=== PATIENT | male | born 1980 | race Hispanic/Latino ===

== ENCOUNTER 2018-06-03 15:03 | Emergency (ER) | payer SELFPAY ==
--- NOTE | 2018-06-03 17:43 | ER ---
Nurse's Notes [facility] Name: Yehuda Giraldo Age: 37 yrs Sex: Male : 1980 Arrival Date: 06/03/2018 Time: 15:04 Bed 10 Private MD: None, None Diagnosis: Otitis externa in other diseases classified elsewhere, left ear;Acute pharyngitis Presentation: 06/03 15:38 Presenting complaint: Patient states: left ear pain. Denies cough, congestion. aa5 Transition of care: patient was not received from another setting of care. Onset of symptoms was May 2018. Risk Assessment: Do you want to hurt yourself or someone else? Patient reports no desire to harm self or others. Initial Sepsis Screen: Does the patient meet any 2 criteria? No. Patient's initial sepsis screen is negative. Does the patient have a suspected source of infection? No. Patient's initial sepsis screen is negative. Care prior to arrival: None. 15:38 Method Of Arrival: Ambulatory aa5 15:38 Acuity: SARA 5 aa5 Historical: - Allergies: 15:39 No Known Allergies; aa5 - PMHx: 15:39 Diabetes - NIDDM; aa5 - PSHx: 15:39 Cholecystectomy; aa5 - Immunization history:: Adult Immunizations unknown. - Social history:: Smoking status: Patient uses tobacco products, 4 cigarettes a day . - Ebola Screening: : No symptoms or risks identified at this time. Screenin:17 Abuse screen: Denies threats or abuse. Denies injuries from another. Nutritional rv screening: No deficits noted. Tuberculosis screening: No symptoms or risk factors identified. Fall Risk None identified. Assessment: 16:16 General: Appears in no apparent distress. comfortable, Behavior is calm, cooperative. rv Pain: Complains of pain in left ear. Neuro: Level of Consciousness is awake, alert, obeys commands, Oriented to person, place, time, situation. Cardiovascular: Capillary refill < 3 seconds. Respiratory: Airway is patent. GI: No signs and/or symptoms were reported involving the gastrointestinal system. : No signs and/or symptoms were reported regarding the genitourinary system. EENT: Reports pain in left ear. Derm: Skin is intact. Vital Signs: 15:39 BP 132 / 95; Pulse 99; Resp 18 S; Temp 98.4(TE); Pulse Ox 98% on R/A; Weight 101.6 kg aa5 (R); Height 5 ft. 8 in. (172.72 cm) (R); Pain 0/10; 15:39 Body Mass Index 34.06 (101.60 kg, 172.72 cm) aa5 ED Course: 15:04 Patient arrived in ED. sb2 15:05 None, None is Private Physician. sb2 15:38 Triage completed. aa5 15:38 Arm band placed on. aa5 16:03 Artem Lowe PA is PHCP. cp 16:04 Shahid Magana MD is Attending Physician. cp 17:20 Strep Sent. rv 17:57 No provider procedures requiring assistance completed. Patient did not have IV access rv during this emergency room visit. 17:58 Patient has correct armband on for positive identification. rv Administered Medications: No medications were administered Outcome: 17:43 Discharge ordered by MD. cp 17:57 Discharged to home ambulatory. rv 17:57 Condition: good 17:57 Discharge instructions given to patient, Instructed on discharge instructions, medication usage. 17:59 Patient left the ED. rv Signatures: Yesenia Jaimes, RN RN aa5 Artem Lowe PA PA cp Billeau, Sheri sb2 Sal Montana, RN RN rv
--- NOTE | 2018-06-03 17:43 | EDPHYS ---
Physician Documentation [facility] Name: Yehuda Giraldo Age: 37 yrs Sex: Male : 1980 Arrival Date: 06/03/2018 Time: 15:04 Bed 10 Private MD: None, None ED Physician Shahid Magana HPI: 06/03 17:05 This 37 yrs old Male presents to ER via Ambulatory with complaints of Ear cp Pain, Drainage From Ear. 17:05 The patient presents with pain, that is acute. cp 17:05 The complaints affect the left ear. Onset: The symptoms/episode began/occurred 1 cp week(s) ago. Associated signs and symptoms: Pertinent positives: sore throat, Pertinent negatives: cough, fever. Severity of symptoms: in the emergency department the symptoms are unchanged. Historical: - Allergies: 15:39 No Known Allergies; aa5 - PMHx: 15:39 Diabetes - NIDDM; aa5 - PSHx: 15:39 Cholecystectomy; aa5 - Immunization history:: Adult Immunizations unknown. - Social history:: Smoking status: Patient uses tobacco products, 4 cigarettes a day . - Ebola Screening: : No symptoms or risks identified at this time. ROS: 17:10 Constitutional: Negative for body aches, chills, fever, poor PO intake. cp 17:10 Eyes: Negative for injury, pain, redness, and discharge. cp 17:10 ENT: Positive for ear pain, sore throat, Negative for drainage from ear(s), difficulty swallowing, difficulty handling secretions. 17:10 Cardiovascular: Negative for chest pain, palpitations. 17:10 Respiratory: Negative for cough, wheezing. 17:10 Abdomen/GI: Negative for abdominal pain, nausea, vomiting, and diarrhea. 17:10 Skin: Negative for cellulitis, rash. 17:10 Neuro: Negative for altered mental status, headache, weakness. 17:10 All other systems are negative. Exam: 17:15 Constitutional: The patient appears in no acute distress, alert, awake, non-toxic, well cp developed, well nourished. 17:15 Head/Face: Normocephalic, atraumatic. cp 17:15 Eyes: Periorbital structures: appear normal, Conjunctiva: normal, no exudate, no injection, Lids and lashes: appear normal, bilaterally. 17:15 ENT: External ear(s): are unremarkable, Ear canal(s): purulent discharge, in the left canal, mild, swelling, that is moderate, of the left canal, TM's: not visable, because of discharge, Examination of the other ear shows no obvious abnormality, Nose: is normal, Mouth: Lips: moist, Oral mucosa: moist, Posterior pharynx: Airway: no evidence of obstruction, patent, Tonsils: no enlargement, no exudate, Uvula: midline, swelling, is not appreciated, erythema, that is mild, Voice: is normal. 17:15 Neck: ROM/movement: is normal, is supple, without pain, no range of motions limitations, no meningismus, no nuchal rigidity. 17:15 Chest/axilla: Inspection: normal, Palpation: is normal, no crepitus, no tenderness. 17:15 Cardiovascular: Rate: normal, Rhythm: regular. 17:15 Respiratory: the patient does not display signs of respiratory distress, Respirations: normal, no use of accessory muscles, no retractions, no tachypnea, labored breathing, is not present, Breath sounds: are clear throughout, no decreased breath sounds, no stridor, no wheezing. 17:15 Skin: cellulitis, is not appreciated, no rash present. Vital Signs: 15:39 BP 132 / 95; Pulse 99; Resp 18 S; Temp 98.4(TE); Pulse Ox 98% on R/A; Weight 101.6 kg aa5 (R); Height 5 ft. 8 in. (172.72 cm) (R); Pain 0/10; 15:39 Body Mass Index 34.06 (101.60 kg, 172.72 cm) aa5 MDM: 16:04 Patient medically screened. cp 17:00 Differential diagnosis: otitis media, otitis externa, ruptured TM, foreign body, cp cerumen impaction, strep throat. 17:43 Data reviewed: vital signs, nurses notes, lab test result(s). cp 17:43 Counseling: I had a detailed discussion with the patient and/or guardian regarding: the cp historical points, exam findings, and any diagnostic results supporting the discharge/admit diagnosis, lab results, to return to the emergency department if symptoms worsen or persist or if there are any questions or concerns that arise at home. 06/03 17:03 Order name: Strep; Complete Time: 17:42 06/03 17:42 Interpretation: Reviewed. 06/03 17:39 Order name: Throat Culture EDMS Administered Medications: No medications were administered Disposition: 18:28 Co-signature as Attending Physician, Shahid Magana MD I agree with the assessment and kdr plan of care. Disposition: 06/03/18 17:43 Discharged to Home. Impression: Otitis externa in other diseases classified elsewhere, left ear, Acute pharyngitis. - Condition is Stable. - Discharge Instructions: Otitis Externa, Pharyngitis. - Prescriptions for Cortisporin- TC 3.3-3-10-0.5 mg/mL Otic Drops, Suspension - instill 4 drops by OTIC route every 6 hours instill drops in left ear canal as directed; 1 bottle. - Medication Reconciliation Form, Thank You Letter, Antibiotic Education, Prescription Opioid Use, Work release form form. - Follow up: Private Physician; When: 2 - 3 days; Reason: if symptoms continue. - Problem is new. - Symptoms are unchanged. Signatures: Dispatcher [employer] EDMS Shahid Magana MD MD [facility] Yesenia Jaimes RN RN aa5 Artem Lowe PA PA Sal Montana, RN RN rv Corrections: (The following items were deleted from the chart) 17:59 17:43 06/03/2018 17:43 Discharged to Home. Impression: Otitis externa in other diseases rv classified elsewhere, left ear; Acute pharyngitis. Condition is Stable. Forms are Medication Reconciliation Form, Thank You Letter, Antibiotic Education, Prescription Opioid Use. Follow up: Private Physician; When: 2 - 3 days; Reason: if symptoms continue. Problem is new. Symptoms are unchanged. cp
== END 2018-06-03 17:59 | disposition home or self-care (01) ==
LOC: ER 15:03
DX: H60.8X2 Other otitis externa, left ear (principal); J02.9 Acute pharyngitis, unspecified; E11.9 Type 2 diabetes mellitus without complications; F17.210 Nicotine dependence, cigarettes, uncomplicated
CPT/HCPCS: 87070; 87081; 99283

== ENCOUNTER 2019-01-22 10:32 | Emergency (ER) | payer SELFPAY ==
[2019-01-22] MEDS ORDERED: CYCLOBENZAPRINE 10 MG TAB ONE (12:19)
[2019-01-22] MEDS ORDERED: IBUPROFEN 200 MG TAB PO ONE (12:20)
--- NOTE | 2019-01-22 12:22 | RAD REPORT ---
EXAM DESCRIPTION: RAD - Lumbar Spine 3 Views - 01/22/2019 12:17 pm CLINICAL HISTORY: Back pain FINDINGS: The alignment of the lumbar spine is satisfactory. No fracture or dislocation is seen. Mild spondylosis involves the lumbar spine
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
== END 2019-01-22 13:05 | disposition home or self-care (01) ==
LOC: ER 10:32
DX: M54.16 Radiculopathy, lumbar region (principal); V48.6XXA Car passenger injured in noncollision transport accident in traffic accident, initial encounter; E11.9 Type 2 diabetes mellitus without complications
CPT/HCPCS: 71046; 72100; 99283

== ENCOUNTER 2019-05-03 09:13 | Emergency (ER) | payer SELFPAY ==
[2019-05-03] MEDS ORDERED: CYCLOBENZAPRINE 10 MG TAB ONE (10:00)
[2019-05-03] MEDS ORDERED: DEXAMETHASONE 10 MG/ML VIAL ONE (10:00)
[2019-05-03] MEDS ORDERED: MEPERIDINE HCL 50 MG/ML AMP ONE (10:00)
[2019-05-03] MEDS ORDERED: ONDANSETRON 4 MG/2 ML VIAL ONE (10:10)
[2019-05-03] MEDS ORDERED: KETOROLAC 30 MG/ML INJ ONE (10:56)
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
[2019-05-03] MEDS ORDERED: HYDROCODONE/APAP 10/325 TAB ONE (11:58)
== END 2019-05-03 12:05 | disposition home or self-care (01) ==
LOC: ER 09:13
DX: M54.17 Radiculopathy, lumbosacral region (principal); E11.9 Type 2 diabetes mellitus without complications; F17.210 Nicotine dependence, cigarettes, uncomplicated
CPT/HCPCS: 96374; 96375; 99283; J1100; J2175; J2405

== ENCOUNTER 2020-01-08 11:00 | Emergency (ER) | payer SELFPAY ==
[2020-01-08] MEDS ORDERED: DICYCLOMINE HCL 10 MG CAP ONE (11:22)
[2020-01-08] MEDS ORDERED: ONDANSETRON 4 MG/2 ML VIAL ONE (11:22)
[2020-01-08] MEDS ORDERED: NA CHLORIDE 0.9% 1,000 ML ONE (11:23)
[2020-01-08 12:05] LABS: Albumin 3.6 g/dL (3.4-5.0); Bilirubin Direct 0.1 mg/dL (0-0.2); Bilirubin Total 0.7 mg/dL (0.2-1.0); Potassium 3.7 mmol/L (3.5-5.1); Protein, Total 7.5 g/dL (6.4-8.2)
[2020-01-08 12:06] LABS: Absolute Lymphocytes (CBC) 1.4 K/uL (0.7-4.9); Basophils % 0.5 % (0-1.3); Hematocrit 45.9 % (39.6-49.0); Lymphocytes % 17.2 % (15.3-44.8); MPV 10.7 fL (7.6-11.3); RBC Red Blood Cell Count 5.18 M/uL (4.33-5.43)
--- NOTE | 2020-01-08 13:01 | RAD REPORT ---
EXAM DESCRIPTION: CTAbdomen Pelvis W Contrast - 01/08/2020 12:52 pm CLINICAL HISTORY: Abdominal pain. ABD PAIN COMPARISON: CT ABD PELVIS W CONTRAST dated 11/15/2015 TECHNIQUE: Biphasic CT imaging of the abdomen and pelvis was performed with 100 ml non-ionic IV cont rast. All CT scans are performed using dose optimization technique as appropriate and may include automated exposure control or mA/KV adjustment according to patient size. FINDINGS: The lung bases are clear. The liver demonstrates diffuse fatty infiltration. The spleen, pancreas, adrenal glands and kidneys a re within normal limits. Cholecystectomy clips. No bowel obstruction, free air, free fluid or abscess. The appendix is normal. No evidence of signi ficant lymphadenopathy. No suspicious bony findings. Small fat containing right inguinal hernia. IMPRESSION: Prominent fatty liver. Small fat containing right inguinal hernia.
--- NOTE | 2020-01-08 13:40 | ER ---
Nurse's Notes [facility] Name: Yehuda Giraldo Age: 39 yrs Sex: Male : 1980 Arrival Date: 01/08/2020 Time: 11:03 Bed 18 Private MD: Diagnosis: Generalized abdominal pain;Diarrhea, unspecified;Nausea with vomiting, unspecified Presentation: 01/08 11:11 Presenting complaint: N/V/D and abdominal pain since 0300 today. Transition of care: hb patient was not received from another setting of care. Onset of symptoms was January 08, 2020. Risk Assessment: Do you want to hurt yourself or someone else? Patient reports no desire to harm self or others. Initial Sepsis Screen: Does the patient meet any 2 criteria? No. Patient's initial sepsis screen is negative. Does the patient have a suspected source of infection? No. Patient's initial sepsis screen is negative. Care prior to arrival: None. 11:11 Method Of Arrival: Ambulatory 11:11 Acuity: SARA 3 hb Triage Assessment: 11:12 General: Appears in no apparent distress. Behavior is calm, cooperative. Pain: Pain hb currently is 4 out of 10 on a pain scale. EENT: No signs and/or symptoms were reported regarding the EENT system. Neuro: Level of Consciousness is awake, alert, obeys commands, Oriented to person, place, time, situation. Cardiovascular: Capillary refill < 3 seconds Patient's skin is warm and dry. Respiratory: Airway is patent Respiratory effort is even, unlabored, Respiratory pattern is regular, symmetrical. GI: Abdomen is non-distended, Bowel sounds present X 4 quads. Abd is soft X 4 quads Abdomen is tender to palpation diffusely Reports diarrhea, nausea. : No signs and/or symptoms were reported regarding the genitourinary system. Derm: Skin is intact, is healthy with good turgor. Musculoskeletal: No signs and/or symptoms reported regarding the musculoskeletal system. Historical: - Allergies: 11:12 No Known Allergies; hb - PMHx: 11:12 Diabetes - NIDDM; hb - PSHx: 11:12 Cholecystectomy; hb - Immunization history:: Adult Immunizations up to date. - Coronavirus screen:: The patient has NOT traveled to [place] in the past 14 days. The patient has NOT had contact with known/suspected case of Coronavirus? Proceed with normal triage procedures. - Social history:: Smoking status: Patient reports the use of cigarette tobacco products, denies chronic smoking, but will smoke occasionally. - Ebola Screening: : No symptoms or risks identified at this time. Screenin:16 Abuse screen: Denies threats or abuse. Denies injuries from another. Nutritional hb screening: No deficits noted. Tuberculosis screening: No symptoms or risk factors identified. Fall Risk None identified. Assessment: 11:16 General: see triage assessment. hb 12:15 Reassessment: Patient appears in no apparent distress at this time. Patient and/or hb family updated on plan of care and expected duration. Pain level reassessed. Patient is alert, oriented x 3, equal unlabored respirations, skin warm/dry/pink. 13:15 Reassessment: Patient appears in no apparent distress at this time. Patient and/or hb family updated on plan of care and expected duration. Pain level reassessed. Patient is alert, oriented x 3, equal unlabored respirations, skin warm/dry/pink. Patient states symptoms have improved. Vital Signs: 11:15 BP 124 / 93; Pulse 106; Resp 16; Temp 97.8; Pulse Ox 97% ; Weight 97.07 kg; Height 5 hb ft. 8 in. (172.72 cm); Pain 4/10; 13:00 BP 126 / 86; Pulse 85; Resp 15; Pulse Ox 100% on R/A; hb 11:15 Body Mass Index 32.54 (97.07 kg, 172.72 cm) hb ED Course: 11:03 Patient arrived in ED. as 11:05 Sherry Carter FNP-C [facility]. kb 11:05 Shahid Magana MD is Attending Physician. kb 11:10 Tu Domínguez, ESTIVEN is Primary Nurse. bp 11:12 Triage completed. hb 11:15 Arm band placed on. hb 11:16 Patient has correct armband on for positive identification. Bed in low position. Call hb light in reach. Side rails up X 1. 11:42 Inserted saline lock: 22 gauge in left antecubital area, using aseptic technique. hb ,using aseptic technique. by Carlton JEAN-BAPTISTE Blood collected. 13:52 No provider procedures requiring assistance completed. IV discontinued, intact, hb bleeding controlled, No redness/swelling at site. Pressure dressing applied. Administered Medications: 11:44 Drug: Zofran 4 mg Route: IVP; Site: left antecubital; hb 11:45 Drug: NS 0.9% 1000 ml Route: IV; Rate: 1000 ml; Site: left antecubital; hb 11:45 Drug: Bentyl 20 mg Route: PO; hb Outcome: 13:38 Discharge ordered by . kb 13:52 Discharged to home ambulatory. hb 13:52 Condition: stable 13:52 Discharge instructions given to patient, Instructed on discharge instructions, follow up and referral plans. medication usage, Demonstrated understanding of instructions, follow-up care, medications, Prescriptions given X 2. 13:53 Patient left the ED. hb Signatures: Sherry Carter, TRESSA SEAY-Larissa Tripp as Celsa Milan, RN RN Tu Domínguez, RN RN bp
--- NOTE | 2020-01-08 13:40 | EDPHYS ---
Physician Documentation [facility] Name: Yehuda Giraldo Age: 39 yrs Sex: Male : 1980 Arrival Date: 01/08/2020 Time: 11:03 Bed 18 Private MD: ED Physician Shahid Magana HPI: 01/08 13:29 This 39 yrs old Male presents to ER via Ambulatory with complaints of kb Vomiting/Diarrhea, Abdominal Pain. 13:29 The patient presents to the emergency department with nausea, vomiting, diarrhea, kb abdominal pain. Onset: The symptoms/episode began/occurred at 03:00. Possible causes: bad food exposure. The symptoms are aggravated by nothing. The symptoms are alleviated by nothing. Associated signs and symptoms: Pertinent positives: abdominal pain, diarrhea, nausea, vomiting. Severity of symptoms: At their worst the symptoms were moderate in the emergency department the symptoms are unchanged. The patient has not experienced similar symptoms in the past. The patient has not recently seen a physician. abd pain, n/v/d started at 0300. . 13:30 Pt reports he ate dominoes last night and thinks that could be the cause because his kb had dominoes a couple of days ago and got sick as well. Historical: - Allergies: 11:12 No Known Allergies; hb - PMHx: 11:12 Diabetes - NIDDM; hb - PSHx: 11:12 Cholecystectomy; hb - Immunization history:: Adult Immunizations up to date. - Coronavirus screen:: The patient has NOT traveled to [place] in the past 14 days. The patient has NOT had contact with known/suspected case of Coronavirus? Proceed with normal triage procedures. - Social history:: Smoking status: Patient reports the use of cigarette tobacco products, denies chronic smoking, but will smoke occasionally. - Ebola Screening: : No symptoms or risks identified at this time. ROS: 13:28 Constitutional: Negative for fever, chills, and weight loss, ENT: Negative for injury, kb pain, and discharge, Neck: Negative for injury, pain, and swelling, Cardiovascular: Negative for chest pain, palpitations, and edema, Respiratory: Negative for shortness of breath, cough, wheezing, and pleuritic chest pain, Back: Negative for injury and pain, MS/Extremity: Negative for injury and deformity, Skin: Negative for injury, rash, and discoloration, Neuro: Negative for headache, weakness, numbness, tingling, and seizure. 13:28 Abdomen/GI: Positive for abdominal pain, nausea, vomiting, and diarrhea. Exam: 13:28 Constitutional: This is a well developed, well nourished patient who is awake, alert, kb and in no acute distress. Head/Face: Normocephalic, atraumatic. ENT: Nares patent. No nasal discharge, no septal abnormalities noted. Tympanic membranes are normal and external auditory canals are clear. Oropharynx with no redness, swelling, or masses, exudates, or evidence of obstruction, uvula midline. Mucous membranes moist. Neck: Trachea midline, no thyromegaly or masses palpated, and no cervical lymphadenopathy. Supple, full range of motion without nuchal rigidity, or vertebral point tenderness. No Meningismus. Chest/axilla: Normal chest wall appearance and motion. Nontender with no deformity. No lesions are appreciated. Cardiovascular: Regular rate and rhythm with a normal S1 and S2. No gallops, murmurs, or rubs. Normal PMI, no JVD. No pulse deficits. Respiratory: Lungs have equal breath sounds bilaterally, clear to auscultation and percussion. No rales, rhonchi or wheezes noted. No increased work of breathing, no retractions or nasal flaring. Skin: Warm, dry with normal turgor. Normal color with no rashes, no lesions, and no evidence of cellulitis. MS/ Extremity: Pulses equal, no cyanosis. Neurovascular intact. Full, normal range of motion. Neuro: Awake and alert, GCS 15, oriented to person, place, time, and situation. Cranial nerves II-XII grossly intact. Motor strength 5/5 in all extremities. Sensory grossly intact. Cerebellar exam normal. Normal gait. 13:28 Abdomen/GI: Inspection: abdomen appears normal, Bowel sounds: normal, in all quadrants, Palpation: soft, in all quadrants, mild abdominal tenderness, in the left upper quadrant, right lower quadrant and left lower quadrant, moderate abdominal tenderness, in the right upper quadrant. Vital Signs: 11:15 BP 124 / 93; Pulse 106; Resp 16; Temp 97.8; Pulse Ox 97% ; Weight 97.07 kg; Height 5 hb ft. 8 in. (172.72 cm); Pain 4/10; 13:00 BP 126 / 86; Pulse 85; Resp 15; Pulse Ox 100% on R/A; hb 11:15 Body Mass Index 32.54 (97.07 kg, 172.72 cm) hb MDM: 11:05 Patient medically screened. kb 13:28 Data reviewed: vital signs, nurses notes. Data interpreted: Pulse oximetry: on room air kb is 100 %. Interpretation: normal. Counseling: I had a detailed discussion with the patient and/or guardian regarding: the historical points, exam findings, and any diagnostic results supporting the discharge/admit diagnosis, lab results, radiology results, the need for outpatient follow up, a family practitioner, to return to the emergency department if symptoms worsen or persist or if there are any questions or concerns that arise at home. 01/08 11:12 Order name: Basic Metabolic Panel kb 01/08 11:12 Order name: CBC with Diff kb 01/08 11:12 Order name: Hepatic Function kb 01/08 11:12 Order name: Lipase kb 01/08 12:06 Order name: Basic Metabolic Panel; Complete Time: 12:07 EDMS 01/08 12:06 Order name: Liver (Hepatic) Function; Complete Time: 12:07 EDMS 01/08 11:12 Order name: IV Saline Lock; Complete Time: 11:45 kb 01/08 12:07 Order name: Lipase; Complete Time: 12:07 EDMS 01/08 12:07 Order name: CBC with Automated Diff; Complete Time: 12:07 EDMS 01/08 12:08 Order name: CT Abd/Pelvis - IV Contrast Only kb 01/08 13:14 Order name: CT; Complete Time: 13:22 EDMS 01/08 11:12 Order name: Labs collected and sent; Complete Time: 11:45 kb Administered Medications: 11:44 Drug: Zofran 4 mg Route: IVP; Site: left antecubital; hb 11:45 Drug: NS 0.9% 1000 ml Route: IV; Rate: 1000 ml; Site: left antecubital; hb 11:45 Drug: Bentyl 20 mg Route: PO; hb Disposition: 14:34 Co-signature as Attending Physician, Shahid Magana MD I agree with the assessment and kdr plan of care. Disposition: 01/08/20 13:38 Discharged to Home. Impression: Generalized abdominal pain, Diarrhea, unspecified, Nausea with vomiting, unspecified. - Condition is Stable. - Discharge Instructions: Food Choices to Help Relieve Diarrhea, Adult, Viral Gastroenteritis, Adult, [id number]. - Prescriptions for Bentyl 20 mg Oral Tablet - take 1 tablet by ORAL route every 6 hours As needed; 20 tablet. Zofran 4 mg Oral Tablet - take 1 tablet by ORAL route every 6 hours As needed; 20 tablet. - Medication Reconciliation Form, Thank You Letter, Antibiotic Education, Prescription Opioid Use form. - Follow up: Emergency Department; When: As needed; Reason: Worsening of condition. Follow up: Private Physician; When: 2 - 3 days; Reason: Recheck today's complaints, Continuance of care, Re-evaluation by your physician. Signatures: Dispatcher [employer] EDMS Sherry Carter, [facility] [employer] INTERN-Shahid Costa MD MD kdr Baxter, Heather, RN RN hb Corrections: (The following items were deleted from the chart) 13:53 13:38 01/08/2020 13:38 Discharged to Home. Impression: Generalized abdominal pain; hb Diarrhea, unspecified; Nausea with vomiting, unspecified. Condition is Stable. Forms are Medication Reconciliation Form, Thank You Letter, Antibiotic Education, Prescription Opioid Use. Follow up: Emergency Department; When: As needed; Reason: Worsening of condition. Follow up: Private Physician; When: 2 - 3 days; Reason: Recheck today's complaints, Continuance of care, Re-evaluation by your physician. kb
[2020-01-09 08:37] VITALS: BP 126/86; O2SAT 100
[2020-01-09 08:39] VITALS: TEMP 97.8
== END 2020-01-08 13:53 | disposition home or self-care (01) ==
LOC: ER 11:00
DX: R19.7 Diarrhea, unspecified (principal); R11.2 Nausea with vomiting, unspecified; F17.210 Nicotine dependence, cigarettes, uncomplicated; E11.9 Type 2 diabetes mellitus without complications
CPT/HCPCS: 36415; 74177; 80048; 80076; 83690; 85025; 96374; 99284; J2405; J7030; Q9967

== ENCOUNTER 2020-08-30 18:39 | Emergency (ER) | payer SELFPAY ==
[2020-08-30] MEDS ORDERED: HYDROCODONE/APAP 5/325 MG TAB ONE (19:59)
--- NOTE | 2020-08-30 20:27 | EDPHYS ---
Physician Documentation [facility] Name: Yehuda Giraldo Age: 39 yrs Sex: Male : 1980 Arrival Date: 08/30/2020 Time: 18:43 Bed 15 Private MD: ED Physician Carl Padilla HPI: 08/30 19:30 This 39 yrs old Male presents to ER via Ambulatory with complaints of Ear mh7 Pain, Toothache. 19:30 The patient presents with pain, that is acute. The complaints affect the left ear. mh7 Onset: The symptoms/episode began/occurred 2 day(s) ago. Modifying factors: The symptoms are alleviated by nothing, the symptoms are aggravated by nothing. Associated signs and symptoms: Pertinent positives: pain in left lower tooth, Pertinent negatives: cough, fever, lightheadedness, nausea, rhinorrhea, sinus trouble, shortness of breath, sore throat, tinnitus, vertigo, vomiting. Severity of symptoms: At their worst the symptoms were moderate yesterday, in the emergency department the symptoms are unchanged. The patient has been recently seen by a physician: Dentist. Historical: - Allergies: 18:58 No Known Drug Allergies; ll1 - PMHx: 18:58 Diabetes - NIDDM; ll1 - PSHx: 18:58 Cholecystectomy; ll1 - Immunization history:: Flu vaccine is not up to date. - Social history:: Smoking status: Patient reports use of chewing tobacco. Patient denies any tobacco usage or history of. ROS: 19:30 Constitutional: Negative for fever, chills, and weight loss, Eyes: Negative for injury, mh7 pain, redness, and discharge, Neck: Negative for injury, pain, and swelling, Cardiovascular: Negative for chest pain, palpitations, and edema, Respiratory: Negative for shortness of breath, cough, wheezing, and pleuritic chest pain, Abdomen/GI: Negative for abdominal pain, nausea, vomiting, diarrhea, and constipation, Back: Negative for injury and pain, : Negative for injury, bleeding, discharge, and swelling, MS/Extremity: Negative for injury and deformity, Skin: Negative for injury, rash, and discoloration, Neuro: Negative for headache, weakness, numbness, tingling, and seizure, Psych: Negative for depression, anxiety, suicide ideation, homicidal ideation, and hallucinations, Allergy/Immunology: Negative for hives, rash, and allergies, Endocrine: Negative for neck swelling, polydipsia, polyuria, polyphagia, and marked weight changes, Hematologic/Lymphatic: Negative for swollen nodes, abnormal bleeding, and unusual bruising. Exam: 19:30 Head/Face: Normocephalic, atraumatic. Eyes: Pupils equal round and reactive to light, mh7 extra-ocular motions intact. Lids and lashes normal. Conjunctiva and sclera are non-icteric and not injected. Cornea within normal limits. Periorbital areas with no swelling, redness, or edema. 19:30 Neck: Trachea midline, no thyromegaly or masses palpated, and no cervical lymphadenopathy. Supple, full range of motion without nuchal rigidity, or vertebral point tenderness. No Meningismus. Chest/axilla: Normal chest wall appearance and motion. Nontender with no deformity. No lesions are appreciated. Cardiovascular: Regular rate and rhythm with a normal S1 and S2. No gallops, murmurs, or rubs. Normal PMI, no JVD. No pulse deficits. Respiratory: Lungs have equal breath sounds bilaterally, clear to auscultation and percussion. No rales, rhonchi or wheezes noted. No increased work of breathing, no retractions or nasal flaring. Abdomen/GI: Soft, non-tender, with normal bowel sounds. No distension or tympany. No guarding or rebound. No evidence of tenderness throughout. Back: No spinal tenderness. No costovertebral tenderness. Full range of motion. Skin: Warm, dry with normal turgor. Normal color with no rashes, no lesions, and no evidence of cellulitis. MS/ Extremity: Pulses equal, no cyanosis. Neurovascular intact. Full, normal range of motion. Neuro: Awake and alert, GCS 15, oriented to person, place, time, and situation. Cranial nerves II-XII grossly intact. Motor strength 5/5 in all extremities. Sensory grossly intact. Cerebellar exam normal. Normal gait. Psych: Awake, alert, with orientation to person, place and time. Behavior, mood, and affect are within normal limits. 19:30 Constitutional: The patient appears in no acute distress, alert, awake, uncomfortable. 19:30 ENT: External ear(s): are unremarkable, Ear canal(s): are normal, TM's: are normal, Examination of the other ear shows no obvious abnormality, Nose: is normal, Mouth: is normal, Posterior pharynx: is normal, airway is patent, Dental exam: dental caries, that is mild, diffusely, extracted left lower posterior tooth with mild tenderness without erythema, discharge, swelling, or bleeding. Vital Signs: 18:56 BP 141 / 96; Pulse 86; Resp 17; Temp 98.2; Pulse Ox 98% ; Height 5 ft. 8 in. (172.72 ll1 cm); Pain 10/10; MDM: 19:21 Patient medically screened. [facility] 20:25 Differential diagnosis: otitis media, otitis externa, ruptured TM, foreign body, acute 7 otalgia, cerumen impaction, barotrauma , serotympanum, Dental caries, Dental Pain. Data reviewed: vital signs, nurses notes. Data interpreted: Pulse oximetry: on room air is 98 %. Interpretation: normal. Counseling: I had a detailed discussion with the patient and/or guardian regarding: the historical points, exam findings, and any diagnostic results supporting the discharge/admit diagnosis, the need for outpatient follow up, to return to the emergency department if symptoms worsen or persist or if there are any questions or concerns that arise at home. Response to treatment: the patient's symptoms have markedly improved after treatment. Administered Medications: 19:48 Drug: [place] 5 mg-325 mg 1 tabs Route: PO; sg Disposition: 08/30/20 20:27 Discharged to Home. Impression: Otalgia, left ear, Dental caries. - Condition is Stable. - Discharge Instructions: Earache, Adult, Dental Pain, [id number], Dental Caries, [id number]. - Prescriptions for Tramadol 50 mg Oral Tablet - take 1 tablet by ORAL route every 8 hours As needed as needed; 15 tablet. - Work release form, Family Work Release, Medication Reconciliation Form, Thank You Letter, Antibiotic Education, Prescription Opioid Use form. - Follow up: Private Physician; When: 1 - 2 days; Reason: Worsening of condition, Recheck today's complaints, Continuance of care, Re-evaluation by your physician. - Problem is new. - Symptoms have improved. Signatures: Tino Lobo RN RN Ricardo Medellin RN RN 1 Carl Padilla MD MD [facility] Corrections: (The following items were deleted from the chart) 20:34 20:27 08/30/2020 20:27 Discharged to Home. Impression: Otalgia, left ear; Dental sg caries. Condition is Stable. Forms are Medication Reconciliation Form, Thank You Letter, Antibiotic Education, Prescription Opioid Use. Follow up: Private Physician; When: 1 - 2 days; Reason: Worsening of condition, Recheck today's complaints, Continuance of care, Re-evaluation by your physician. Problem is new. Symptoms have improved. mh7
--- NOTE | 2020-08-30 20:27 | ER ---
Nurse's Notes [facility] Name: Yehuda Giraldo Age: 39 yrs Sex: Male : 1980 Arrival Date: 08/30/2020 Time: 18:43 Bed 15 Private MD: Diagnosis: Otalgia, left ear;Dental caries Presentation: 08/30 18:56 Chief complaint: Patient states: Left ear pain for 2 days. Had a tooth pulled to left ll1 lower jaw last week. No fever. Coronavirus screen: Client denies travel out of the [place] in the last 14 days. At this time, the client does not indicate any symptoms associated with coronavirus-19. Ebola Screen: Patient denies travel to an Ebola-affected area in the 21 days before illness onset. Initial Sepsis Screen: Does the patient meet any 2 criteria? No. Patient's initial sepsis screen is negative. Initial Sepsis Screen: Does the patient have a suspected source of infection? Yes: Other: dental/ear pain. Risk Assessment: Do you want to hurt yourself or someone else? Patient reports no desire to harm self or others. Onset of symptoms was August 29, 2020. 18:56 Method Of Arrival: Ambulatory ll1 18:56 Acuity: SARA 4 ll1 Historical: - Allergies: 18:58 No Known Drug Allergies; ll1 - PMHx: 18:58 Diabetes - NIDDM; ll1 - PSHx: 18:58 Cholecystectomy; ll1 - Immunization history:: Flu vaccine is not up to date. - Social history:: Smoking status: Patient reports use of chewing tobacco. Patient denies any tobacco usage or history of. Screenin:55 Abuse screen: Denies threats or abuse. Denies injuries from another. Nutritional sg screening: No deficits noted. Tuberculosis screening: No symptoms or risk factors identified. Never had TB. Fall Risk None identified. No fall in past 12 months (0 pts). Assessment: 19:55 General: Appears in no apparent distress. well groomed, well developed, well nourished, sg Behavior is calm, cooperative, appropriate for age. Pain: Complains of pain in left jaw and left ear Quality of pain is described as aching. Neuro: Level of Consciousness is awake, alert, obeys commands, Oriented to person, place, time, situation, Speech is normal, Facial symmetry appears normal. Cardiovascular: Patient's skin is warm and dry. Chest pain is denied. Respiratory: Airway is patent Respiratory effort is even, unlabored, Respiratory pattern is regular, symmetrical. GI: Abdomen is round non-distended. : No signs and/or symptoms were reported regarding the genitourinary system. EENT: Nares are clear bilaterally Oral mucosa is moist. Throat is pink. Derm: Skin is intact, is healthy with good turgor, Skin is dry, Skin is normal, Skin temperature is warm. Musculoskeletal: Circulation, motion, and sensation intact. Range of motion: intact in all extremities, Swelling present in left cheek and left jaw. Vital Signs: 18:56 BP 141 / 96; Pulse 86; Resp 17; Temp 98.2; Pulse Ox 98% ; Height 5 ft. 8 in. (172.72 ll1 cm); Pain 10/10; ED Course: 18:43 Patient arrived in ED. mr 18:57 Triage completed. [facility] 18:58 Arm band placed on Patient placed in an exam room, on a stretcher. [facility] 19:01 Carl Padilla MD is Attending Physician. [facility] 19:06 Tino Lobo, RN is Primary Nurse. sg Administered Medications: 19:48 Drug: [place] 5 mg-325 mg 1 tabs Route: PO; sg Outcome: 20:27 Discharge ordered by . [facility] 20:34 Patient left the ED. sg Signatures: Tino Lobo, RN RN jackson [place] Elvira MedellinRicardo RN RN [facility] Carl Padilla MD MD [facility]
[2020-08-30 21:38] VITALS: BP 141/96; TEMP 98.2; O2SAT 98
== END 2020-08-30 20:34 | disposition home or self-care (01) ==
LOC: ER 18:39
DX: K02.9 Dental caries, unspecified (principal); E11.9 Type 2 diabetes mellitus without complications; F17.220 Nicotine dependence, chewing tobacco, uncomplicated
CPT/HCPCS: 99282

== ENCOUNTER 2021-03-02 22:59 | Emergency (ER) | payer SELFPAY ==
[2021-03-03 02:12] LABS: Urine Blood Negative (Negative); Urine Glucose 1+ (Negative); Urine Protein Trace (Negative); Urine Specific Gravity >=1.030 (1.005-1.030)
[2021-03-03 02:26] LABS: Basophils % 0.9 % (0-1.3); Hematocrit 44.9 % (39.6-49.0); Lymphocytes % 42.3 % (15.3-44.8); MPV 10.9 fL (7.6-11.3); RBC Red Blood Cell Count 5.02 M/uL (4.33-5.43)
[2021-03-03 02:45] LABS: ALT/SGPT 32 U/L (12-78); Albumin 3.8 g/dL (3.4-5.0); Alkaline Phosphatase 102 U/L (45-117); BUN Blood Urea Nitrogen 15 mg/dL (7-18); Bicarbonate 25 mmol/L (21-32); Bilirubin Direct < 0.1 mg/dL (0-0.2); Bilirubin Total 0.3 mg/dL (0.2-1.0); Glucose Level 193 mg/dL (74-106); Lipase 178 U/L (73-393); Protein, Total 7.6 g/dL (6.4-8.2); Sodium Level 139 mmol/L (136-145); Troponin (Emerg Dept Use Only) < 0.02 ng/mL (0.0-0.045)
[2021-03-03 02:47] LABS: Potassium 3.8 mmol/L (3.5-5.1)
[2021-03-03 02:48] LABS: AST/SGOT 15 U/L (15-37)
[2021-03-03] MEDS ORDERED: ONDANSETRON 4 MG/2 ML VIAL ONE ×2 (02:48→05:37)
[2021-03-03] MEDS ORDERED: MORPHINE 4 MG/ML SYR ONE (02:48)
[2021-03-03] MEDS ORDERED: NA CHLORIDE 0.9% 1,000 ML ONE (02:49)
--- NOTE | 2021-03-03 05:13 | EDPHYS ---
Physician Documentation [facility] Name: Yehuda Giraldo Age: 40 yrs Sex: Male : 1980 Arrival Date: 03/02/2021 Time: 23:02 Bed 18 Private MD: ED Physician Alberto Brown HPI: 03/03 05:05 This 40 yrs old Male presents to ER via Ambulatory with complaints of pkl Abdominal Pain, Nausea/Vomiting. 05:05 Onset: The symptoms/episode began/occurred today. Associated signs and symptoms: pkl Pertinent positives: chest pain. Historical: - Allergies: 00:07 No Known Allergies; em - PMHx: 00:07 Diabetes - NIDDM; Diverticulitis; em - PSHx: 00:07 Cholecystectomy; em - Immunization history:: Adult Immunizations. - Social history:: Smoking status: Patient denies any tobacco usage or history of. ROS: 05:05 Eyes: Negative for injury, pain, redness, and discharge, ENT: Negative for injury, pkl pain, and discharge, Neck: Negative for injury, pain, and swelling. 05:05 Cardiovascular: Positive for chest pain, of the substernal. 05:05 Respiratory: Negative for cough, shortness of breath. 05:05 Abdomen/GI: Positive for abdominal pain, nausea and vomiting, of the epigastric area. 05:05 Back: Negative for acute changes. 05:05 : Negative for urinary symptoms. 05:05 MS/extremity: Negative for acute changes. 05:05 Skin: Negative for rash. 05:05 Neuro: Negative for altered mental status. Exam: 05:05 Head/Face: Normocephalic, atraumatic. Eyes: Pupils equal round and reactive to light, pkl extra-ocular motions intact. Lids and lashes normal. Conjunctiva and sclera are non-icteric and not injected. Cornea within normal limits. Periorbital areas with no swelling, redness, or edema. ENT: Nares patent. No nasal discharge, no septal abnormalities noted. Tympanic membranes are normal and external auditory canals are clear. Oropharynx with no redness, swelling, or masses, exudates, or evidence of obstruction, uvula midline. Mucous membranes moist. Neck: Trachea midline, no thyromegaly or masses palpated, and no cervical lymphadenopathy. Supple, full range of motion without nuchal rigidity, or vertebral point tenderness. No Meningismus. Chest/axilla: Normal chest wall appearance and motion. Nontender with no deformity. No lesions are appreciated. 05:05 Cardiovascular: Rate: normal, Rhythm: regular. 05:05 ECG was reviewed by the Attending Physician. 05:05 Respiratory: the patient does not display signs of respiratory distress, Respirations: normal, Breath sounds: are clear throughout. 05:05 Abdomen/GI: Bowel sounds: normal, Palpation: soft, mild abdominal tenderness, in the epigastric area. 05:05 Back: Exam negative for acute changes. 05:05 : Exam negative for acute changes. 05:05 Musculoskeletal/extremity: Exam is negative for acute changes. 05:05 Skin: Exam negative for rash. 05:05 Neuro: Orientation: is normal, Mentation: is normal, Cranial nerves: grossly normal, Motor: is normal. Vital Signs: 00:04 BP 142 / 93; Pulse 100; Resp 18; Temp 97.6; Pulse Ox 99% on R/A; Weight 97.52 kg; em Height 5 ft. 8 in. (172.72 cm); Pain 6/10; 00:04 Body Mass Index 32.69 (97.52 kg, 172.72 cm) em MDM: 02:06 Patient medically screened. pkl 05:05 Data reviewed: vital signs, nurses notes, lab test result(s), EKG, radiologic studies, pkl CT scan, plain films. ED course: Discussed lab. EKG and imaging studies with patient. Advised to follow up with PCP in 2 to 3 days. Patient understood instructions. 03/03 01:58 Order name: Basic Metabolic Panel; Complete Time: 03:20 ea 03/03 01:58 Order name: CBC with Diff; Complete Time: 03:20 ea 03/03 01:58 Order name: Hepatic Function; Complete Time: 03:20 ea 03/03 01:58 Order name: Lipase; Complete Time: 03:20 ea 03/03 02:11 Order name: Urine Dipstick-Ancillary EDMS 03/03 02:13 Order name: XRAY CXR (1 view) pk 03/03 02:25 Order name: Troponin (Emerg Dept Use Only); Complete Time: 03:20 EDSD 03/03 03:21 Order name: CT Abd/Pelvis - IV Contrast Only pk 03/03 01:58 Order name: IV Saline Lock; Complete Time: 02:19 ea 03/03 01:58 Order name: Labs collected and sent; Complete Time: 02:45 ea 03/03 02:13 Order name: EKG; Complete Time: 02:14 pkl Administered Medications: 02:44 Drug: morphine 2 mg Route: IVP; Site: right antecubital; ea 02:44 Drug: Zofran (Ondansetron) 4 mg Route: IVP; Site: right antecubital; ea 04:44 Follow up: Response: No adverse reaction ea 02:45 Drug: NS 0.9% 1000 ml Route: IV; Rate: 1000 ml; Site: right antecubital; ea 02:45 Drug: morphine 2 mg Route: IVP; Site: right antecubital; ea 04:43 Follow up: Response: No adverse reaction ea 04:42 Drug: NS 0.9% 1000 ml Route: IV; Rate: 125 ml/hr; Site: right antecubital; ea 05:21 Drug: Zofran (Ondansetron) 4 mg Route: IVP; Site: right antecubital; ea 05:48 Follow up: Response: No adverse reaction ea 05:27 Drug: morphine 2 mg Route: IVP; Site: right antecubital; ea 05:48 Follow up: Response: No adverse reaction ea Disposition: 03/03/21 05:12 Discharged to Home. Impression: Epigastric pain. Chest pain. - Condition is Stable. - Prescriptions for Protonix 40 mg Oral Tablet, Delayed Release (E.C.) - take 1 tablet by ORAL route once daily; 15 tablet. Zofran 4 mg Oral Tablet - take 1 tablet by ORAL route every 12 hours As needed; 6 tablet. - Medication Reconciliation Form, Thank You Letter, Antibiotic Education, Prescription Opioid Use, Work release form form. - Follow up: Private Physician; When: 2 - 3 days; Reason: Re-evaluation by your physician. - Problem is new. - Symptoms have improved. Signatures: Dispatcher [employer] EDMS Alberto Brown MD MD pkl Munoz, Edgar RN RN Delmy Lua RN RN ea Corrections: (The following items were deleted from the chart) 02:14 02:14 HEMOGLOBIN A1C+CHEM A1C.LAB.BRZ ordered. EDMS EDMS 02:25 02:14 TROPONIN (EMERG DEPT USE ONLY)+C.LAB.BRZ ordered. EDMS EDMS 05:06 04:53 The patient presents to the emergency department with nausea, vomiting, pkl pkl 05:06 04:53 This 40 yrs old Male presents to ER via Ambulatory with complaints of pkl Abdominal Pain, Nausea/Vomiting. pkl 05:47 05:12 03/03/2021 05:12 Discharged to Home. Impression: Epigastric pain. Chest pain. ea Condition is Stable. Forms are Medication Reconciliation Form, Thank You Letter, Antibiotic Education, Prescription Opioid Use. Follow up: Private Physician; When: 2 - 3 days; Reason: Re-evaluation by your physician. Problem is new. Symptoms have improved. pkl
--- NOTE | 2021-03-03 05:13 | ER ---
Nurse's Notes [facility] Name: Yehuda Giraldo Age: 40 yrs Sex: Male : 1980 Arrival Date: 03/02/2021 Time: 23:02 Bed 18 Private MD: Diagnosis: Epigastric pain. Chest pain Presentation: 03/03 00:04 Chief complaint: Patient states: abdominal pain that started this morning when woke up, em also reports vomiting yellow slime and reports diarrhea, denies fever. Coronavirus screen: Client denies travel out of the [place] in the last 14 days. Ebola Screen: Patient negative for fever greater than or equal to 101.5 degrees Fahrenheit, and additional compatible Ebola Virus Disease symptoms Patient denies exposure to infectious person. Patient denies travel to an Ebola-affected area in the 21 days before illness onset. No symptoms or risks identified at this time. Initial Sepsis Screen: Does the patient meet any 2 criteria? HR > 90 bpm. No. Patient's initial sepsis screen is negative. Does the patient have a suspected source of infection? No. Patient's initial sepsis screen is negative. Risk Assessment: Do you want to hurt yourself or someone else? Patient reports no desire to harm self or others. Onset of symptoms was March 03, 2021. 00:04 Method Of Arrival: Ambulatory em 00:04 Acuity: SARA 3 em Historical: - Allergies: 00:07 No Known Allergies; em - PMHx: 00:07 Diabetes - NIDDM; Diverticulitis; em - PSHx: 00:07 Cholecystectomy; em - Immunization history:: Adult Immunizations. - Social history:: Smoking status: Patient denies any tobacco usage or history of. Screenin:58 Abuse screen: Denies threats or abuse. Nutritional screening: No deficits noted. ea Tuberculosis screening: No symptoms or risk factors identified. Fall Risk None identified. Assessment: 00:10 General: Appears in no apparent distress. Behavior is calm, cooperative, appropriate ea for age. Pain: Complains of pain in epigastric area. Neuro: Level of Consciousness is awake, alert, obeys commands, Oriented to person, place, time. Cardiovascular: Patient's skin is warm and dry. Respiratory: Airway is patent Respiratory effort is even, unlabored, Respiratory pattern is regular, symmetrical. GI: Abdomen is non-distended. Derm: Skin is pink, warm \T\ dry. 03:44 Reassessment: Patient and/or family updated on plan of care and expected duration. Pain ea level reassessed. Patient is alert, oriented x 3, equal unlabored respirations, skin warm/dry/pink. Pt taken to CT. 05:06 Reassessment: Patient and/or family updated on plan of care and expected duration. Pain ea level reassessed. Patient is alert, oriented x 3, equal unlabored respirations, skin warm/dry/pink. 05:46 Reassessment: Patient and/or family updated on plan of care and expected duration. Pain ea level reassessed. Patient is alert, oriented x 3, equal unlabored respirations, skin warm/dry/pink. Discharge instruction given to patient verbalized the understanding of instruction. Pt left ED ambulatory tolerating well. Vital Signs: 00:04 BP 142 / 93; Pulse 100; Resp 18; Temp 97.6; Pulse Ox 99% on R/A; Weight 97.52 kg; em Height 5 ft. 8 in. (172.72 cm); Pain 6/10; 00:04 Body Mass Index 32.69 (97.52 kg, 172.72 cm) em ED Course: 04 23:02 Patient arrived in ED. bp1 04/08 00:06 Triage completed. em 00:07 Arm band placed on. em 01:58 Delmy Herrera, RN is Primary Nurse. ea 01:58 Patient has correct armband on for positive identification. Placed in gown. Bed in low ea position. Call light in reach. 02:06 Alberto Brown MD is Attending Physician. pkl 02:27 XRAY CXR (1 view) In Process Unspecified. EDMS 04:04 CT Abd/Pelvis - IV Contrast Only In Process Unspecified. EDMS 05:46 No provider procedures requiring assistance completed. IV discontinued, intact, ea bleeding controlled, No redness/swelling at site. Pressure dressing applied. Administered Medications: 02:44 Drug: morphine 2 mg Route: IVP; Site: right antecubital; ea 02:44 Drug: Zofran (Ondansetron) 4 mg Route: IVP; Site: right antecubital; ea 04:44 Follow up: Response: No adverse reaction ea 02:45 Drug: NS 0.9% 1000 ml Route: IV; Rate: 1000 ml; Site: right antecubital; ea 02:45 Drug: morphine 2 mg Route: IVP; Site: right antecubital; ea 04:43 Follow up: Response: No adverse reaction ea 04:42 Drug: NS 0.9% 1000 ml Route: IV; Rate: 125 ml/hr; Site: right antecubital; ea 05:21 Drug: Zofran (Ondansetron) 4 mg Route: IVP; Site: right antecubital; ea 05:48 Follow up: Response: No adverse reaction ea 05:27 Drug: morphine 2 mg Route: IVP; Site: right antecubital; ea 05:48 Follow up: Response: No adverse reaction ea Outcome: 05:12 Discharge ordered by . pkrita 05:46 Discharged to home ambulatory, with family. ea 05:46 Condition: stable 05:46 Discharge instructions given to patient, Instructed on discharge instructions, follow up and referral plans. medication usage, Demonstrated understanding of instructions, follow-up care, medications, Prescriptions given X 2. 05:47 Patient left the ED. ea Signatures: Dispatcher [employer] Alberto Ya MD MD pkl Munoz, Edgar RN RN Delmy Lua RN RN Verónica Galloway
[2021-03-03] MEDS ORDERED: MORPHINE 2 MG/ML SYR ONE (05:42)
--- NOTE | 2021-03-03 10:46 | RAD REPORT ---
EXAM DESCRIPTION: Carolyn Single View03/03/2021 2:28 am CLINICAL HISTORY: CHEST PAIN TECHNIQUE: Single frontal view of the chest is submitted. COMPARISON: None available for comparison FINDINGS: Lungs: No focal consolidation. Pleura: No appreciable effusion. No pneumothorax. Heart: The cardiothoracic silhouette is within normal limits. Mediastinum: Unremarkable Bones: Intact Upper abdomen: Unremarkable IMPRESSION: No acute disease. Electronically signed by: Erica Rivas MD 03/03/2021 2:33 AM CDT Due to temporary technical issues with the PACS/Fluency reporting system, reports are being signed by the in house radiologist without review as a courtesy to ensure prompt reporting. The interpreting r adiologist is fully responsible for the content of the report.
--- NOTE | 2021-03-03 11:12 | RAD REPORT ---
EXAM DESCRIPTION: CT - Abdomen Pelvis W Contrast - 03/03/2021 6:49 am CLINICAL HISTORY: The patient is 40 years old and is Male; ABD PAIN TECHNIQUE: Axial computed tomography images of the abdomen and pelvis with intravenous contrast. S agittal and coronal reformatted images were created and reviewed. This CT exam was performed using one or more of the following dose reduction techniques: automated exposure control, adjustment of t he mA and/or kV according to patient size, and/or use of iterative reconstruction technique. COMPARISON: CT abdomen and pelvis with contrast 01/08/2020 FINDINGS: Lung bases: Unremarkable. No mass. No consolidation.ABDOMEN: Liver: Unremarkab le. No mass. Gallbladder and bile ducts: Gallbladder is surgically absent. No ductal di lation. Pancreas: Unremarkable. No mass. No ductal dilation. Spleen: Unremarkable. No s plenomegaly. Adrenals: Unremarkable. No mass. Kidneys and ureters: Unremarkable. No solid mass. No hydronephrosis. Stomach and bowel: Unremarkable. No obstruction. No mucosal thick ening.PELVIS: Appendix: The appendix is normal. Bladder: Unremarkable. No mass. Reprodu ctive: Unremarkable as visualized.ABDOMEN and PELVIS: Intraperitoneal space: Unremarkable. N o free air. No significant fluid collection. Bones/joints: No acute fracture. No dislocation. Soft tissues: Fat-containing right inguinal hernia. Vasculature: Unremarkable. No abdomina l aortic aneurysm. Lymph nodes: Stable 1.2 cm round soft tissue focus adjacent to the right adren al gland which may represent an abnormal appearing lymph node. IMPRESSION: 1. No acute finding. 2. Stable 1.2 cm round soft tissue focus adjacent to the right adrenal gland which may represent an abnormal appearing lymph node. Electronically signed by: Sd Rea MD 03/03/2021 4:20 AM CDT Due to temporary technical issues with the PACS/Fluency reporting system, reports are being signed by the in house radiologist without review as a courtesy to ensure prompt reporting. The interpreting r adiologist is fully responsible for the content of the report.
[2021-03-03 19:09] VITALS: BP 142/93; TEMP 97.6; O2SAT 99
== END 2021-03-03 05:47 | disposition home or self-care (01) ==
LOC: ER 22:59
DX: R07.9 Chest pain, unspecified (principal); E11.9 Type 2 diabetes mellitus without complications
CPT/HCPCS: 36415; 71045; 74177; 80048; 80076; 81003; 83690; 84484; 85025; 96374; 96375; 99283; J2270; J2405; J7030; Q9967

== ENCOUNTER 2022-09-15 11:54 | Emergency (ER) | payer SELFPAY ==
--- OUTSIDE RECORDS SUMMARY | 2022-09-15 11:59 | XMS REPORT | Continuity of Care Document ---
:1980 Author Organization [facility] t Address [address] [place] [address] Care Team Providers Name Role Phone Pcp, Patient Does Not Have A Primary Care Physician [id number] ALFREDO NAVARRO Attending Clinician Unavailable Jacque Tang Attending Clinician Alfredo Navarro MD Attending Clinician Landy Jenkins DO Attending Clinician ALFREDO NAVARRO Admitting Clinician Unavailable Alfredo Navarro MD Admitting Clinician Problems Condition Condition Condition Status Onset Resolution Last Treating Co mments Source Name Details Category Date Date Treatment Clinician Date New onset New onset Disease Active 2021-11 Uni vers type 2 type 2 0-16 ity of diabetes diabetes 00:00: [place] mellitus mellitus 00 Medica l Branch Obesity Obesity Disease Active 2021-11 Univers (BMI (BMI 0-16 ity of 30-39.9) 30-39.9) 00:00: [place] 00 Medical Branch No known No known Disease Unive rs active active ity of problems problems [facility] Allergies, Adverse Reactions, Alerts Allergy Allergy Status Severity Reaction(s) Onset Inactive Treating Comm ents Source Name Type Date Date Clinician NO KNOWN Drug Active Univers ALLERGIE Class ity of S [facility] Social History Social Habit Start Date Stop Date Quantity Comments Source History of tobacco Passive smoker Un iversity of use [facility] Alcohol intake 2022-09-11 2022-09-11 Current University of 00:00:00 00:00:00 non-drinker of [facility] alcohol Branch (finding) Exposure to 2022-08-31 2022-09-10 Not sure University SARS-CoV-2 (event) 00:00:00 13:58:00 [facility] Cigarettes smoked 2022-09-10 2022-09-10 Univers ity of current (pack per 00:00:00 00:00:00 [facility] edical day) - Reported Branch Cigarette 2022-09-10 2022-09-10 University of pack-years 00:00:00 00:00:00 [facility] Tobacco use and 2022-09-10 2022-09-10 Smokeless Universit y of exposure 00:00:00 00:00:00 tobacco non-user [facility] dical [place] [employer] 2022-09-10 2022-09-10 21 University 00:00:00 00:00:00 [facility] Sex Assigned At [birth year] Universit y of 00:00:00 00:00:00 [facility] Smoking Status Start Date Stop Date Source Ex-smoker 2022-09-10 00:00:00 2022-09-10 00:00:00 Universi ty of [facility] Current some 2021-03-05 00:00:00 [facility] smoker Medical [place] Medications Ordered Filled Start Stop Current Ordering Indication Dosage Frequency Signature Comments Components Source Medication Medication Date Date Medication? Clinician (SIG) Name Name 10 units 2 2021-11 No times daily 0-20 00:00: 00 SITagliptin 2021-11 Yes 100mg 100 mg, Un melina (JANUVIA) 0-17 Oral, ity of tablet 100 14:00: DAILY, [place] mg 00 First dose Medical on [facility] 09/11/22 at 0900, Until Discontinu ed, Routine enoxaparin 2021-11 Yes 40mg 40 mg, Unive rs (LOVENOX) 0-17 Subcutaneo ity of injection 14:00: [place] 40 mg 00 First dose Medical on [facility] 09/11/22 at 0900, Until Discontinu ed, Routine omeprazole 2021-11 Yes 40mg 40 mg, Unive rs (PRILOSEC) 0-17 Oral, ity of capsule 40 14:00: DAILY, [place] mg 00 First dose Medical on [facility] Branch 09/11/22 at 0900, Until Discontinu ed metFORMIN 2021-11 Yes 1000mg 1,000 mg, U nivers (GLUCOPHAGE 0-17 Oral, BID ity of ) tablet 13:00: MEALS, [place] 1,000 mg 00 First dose Medic al (after Branch last modificati on) on Sun09/11/22 at 0800, Until Discontinu ed, Routine simethicone 2021-11 Yes 80mg 80 mg, Univ ers (GAS RELIEF 0-17 Oral, ity of (SIMETHICON 07:47: QIDPRN, [place] E)) 21 Starting Medical chewable on Sun tablet 80 09/11/22 mg at 0247, Until Discontinu ed, Routine, Gas HYDROcodone 2021-11 Yes 1{tbl} 1 tablet, Univers -acetaminop 0-17 Oral, ity of hen (NORCO 07:35: Q6HPRN, [place] 5) 5-325 mg 21 Starting Medi albina tablet 1 on [place] tablet 09/11/22 at 0235, Until Discontinu ed, Routine, Pain (scale 7-10) traMADoL 2021-11 Yes 50mg 50 mg, Univers (ULTRAM) 0-17 Oral, ity of tablet 50 07:35: Q6HPRN, [place] mg 08 Starting Medical on [place] Branch 09/11/22 at 0235, Until Discontinu ed, Routine, Pain (scale 4-6) Sliding 2021-11 Yes Subcutaneo Univ ers Scale 0-17 us, Q4H, ity of Insulin-Reg 07:15: First dose [place] ular + Fsbg 00 (after Medica l Testing last Branch modificati on) on Sun09/11/22 at 0215, Until Discontinu ed, Routine atorvastati 2021-11 Yes 40mg 40 mg, Univ ers n (LIPITOR) 0-17 Oral, QHS, it y of tablet 40 02:00: First dose [place] mg 00 on [place] [facility] 09/10/22 Branch at 2100, Until Discontinu ed, Routine Sliding 2021-11 No Subcutaneo Uni vers Scale 0-17 10-17 us, AC+HS, ity of Insulin-Reg 02:00: 07:10 First dose [place] ular + Fsbg 00 :47 on [place] Medica l Testing 09/10/22 Branch at 2100, Until Discontinu ed, Routine Lancing 2021-11 Yes [id number] Use as Univ ers Device with 0-17 directed ity of Lancets 00:00: [place] (ACCU-CHEK 00 Medical SOFT DEV Branch LANCETS) Kit pen needle, 2021-11 Yes [id number] Use as Univers diabetic 32 0-17 directed ity of gauge x 00:00: [place] 11/30" Ndle 00 Medical Branch flash 2021-11 Yes [id number] 2{appli 2 Unive rs glucose 0-17 cator} Applicator ity of scanning 00:00: s before [place] reader 00 meals. Medical (FREESTYLE Branch ROSA MARIA 2 READER) Misc metFORMIN 2021-11- Yes [id number] 1000mg Take 1 Univers 1,000 mg 0-17 11-17 tablet by ity o f tablet 00:00: 05:59 mouth in [place] 00 :00 the Medical morning Branch and 1 tablet in the evening. Take with meals. Do all this for 30 days. atorvastati 2021-11- Yes [id number] 40mg Take 1 Univers n 40 mg 0-17 11-17 tablet by ity of tablet 00:00: 05:59 mouth at [place] 00 :00 bedtime Medical for 30 Branch days. insulin 2021-11- Yes [id number] 10U inject 10 Univers aspart 0-17 11-17 Units ity of protamine-i 00:00: 05:59 under the [place] nsulin 00 :00 skin 2 Medical aspart (two) Branch (NOVOLOG times MIX 70-30 daily U-100 before INSULN) 100 breakfast unit/mL and dinner (70-30) for 30 injection days. NaCl 0.9% 2021-11 Yes 1000mL at 125 Univ ers (NS) IV 0-16 mL/hr, IV ity of infusion 22:45: Infusion, [place] 1,000 mL 00 CONTINUOUS Medic al , Starting Branch on 09/10/22 at 1745, Until Discontinu ed, Routine insulin NPH 2021-11- No 10U 10 Units, Univers and regular 0-16 10-17 Subcutaneo i ty of human 70-30 22:45: 04:12 us, BIDAC, [place] (70-30 00 :06 First dose Medical U-100 on [facility] INSULIN) 09/10/22 100 unit/mL at 1745, (70-30) Until injection Discontinu 10 Units ed, Routine glucagon 2021-11 Yes 1mg 1 mg, Univers (GLUCAGEN 0-16 Intramuscu ity of DIAGNOSTIC 22:36: lar, PRN, [place] KIT) 10 Starting Medical injection 1 on [facility] mg 09/10/22 at 1736, Until Discontinu ed, JOSE, Blood Glucose < or = 70 mg/dL and patient is unable to swallow or has mental changes. dextrose 50 2021-11 Yes 25mL 25 mL, Univ ers % in water 0-16 Slow IV ity of (D50W) 22:36: Push, PRN, [place] injection 10 Starting Medica l 25 mL on [facility] 09/10/22 at 1736, Until Discontinu ed, JOSE, Blood Glucose < or = 70 mg/dL and patient is unable to swallow or has mental status changes. ondansetron 2021-11 Yes 4mg 4 mg, Slow Univers (ZOFRAN 0-16 IV Push, ity of (PF)) 22:36: Q6HPRN, [place] injection 4 02 Starting Medi albina mg on [facility] 09/10/22 at 1736, Until Discontinu ed, Routine, Nausea and Vomiting (N/V) acetaminoph 2021-11 Yes 650mg 650 mg, Un melina en 0-16 Oral, ity of (TYLENOL) 22:35: Q6HPRN, [place] tablet 650 56 Starting Medic al mg on [facility] 09/10/22 at 1735, Until Discontinu ed, Routine, Pain (scale 1-3) NaCl 0.9% 2021-11- No 1000mL at 999 Uni vers (NS) bolus 0-16 10-16 mL/hr, ity of infusion 20:45: 20:37 1,000 mL, [place] 1,000 mL 00 :00 IV Medical Infusion, Branch ONCE, 1 dose, On [place] 09/10/22 at 1545, JOSE iopamidol 2021-11 2022- No [id number] 75mL 75 mL, U nivers (ISOVUE 0-16 -16 Intravenou ity o f 370-500 mL) 19:15: 19:30 s, ONCE, 1 [place] injection 00 :00 dose, On Medica l 75 mL [place] [facility] 09/10/22 at 1430, Routine ondansetron 2021-11- No 4mg 4 mg, Slow Univers (ZOFRAN 0-16 -16 IV Push, ity of (PF)) 19:15: 19:39 ONCE, 1 [place] injection 4 00 :00 dose, On Medi albina mg [place] [facility] 09/10/22 at 1415, JOSE morpHINE (4 2021-11- No 4mg 4 mg, Slow Univers mg/mL) 0-16 16 IV Push, ity of injection 4 19:15: 19:39 ONCE, 1 [place] mg 00 :00 dose, On Medical [place] [facility] 09/10/22 at 1415, STAT iohexol 2020- No [id number] 120mL 120 mL, U nivers (OMNIPAQUE 03-05 Intravenou it y of 350 19:30: 19:10 s, ONCE, 1 [place] BULK-150 00 :00 dose, Sat Medica l mL) 03/05/21 at Branch injection 1430, 120 mL Routine famotidine 2020- No 20mg 20 mg, Univ ers (PEPCID 03-05-10 Slow IV ity of (PF)) 19:30: 18:37 Push, [place] injection 00 :00 ONCE, 1 Medical 20 mg dose, Sat Branch 03/05/21 at 1430, JOSE ondansetron 2020- No 4mg 4 mg, Slow Univers (ZOFRAN 4-10 IV Push, ity of (PF)) 19:30: 18:37 ONCE, 1 [place] injection 4 00 :00 dose, Sat Med ical mg 03/05/21 at Branch 1430, JOSE morpHINE 2020- No 4mg 4 mg, Slow Un melina injection 4 03-05-10 IV Push, ity of mg 19:30: 18:37 ONCE, 1 [place] 00 :00 dose, Sat Medical 03/05/21 at Branch 1430, STAT NaCl 0.9% 2020- No 1000mL at 999 Uni vers (NS) bolus 4-10 04-10 mL/hr, ity of infusion 18:30: 19:46 1,000 mL, [place] 1,000 mL 00 :00 IV Medical Infusion, Branch ONCE, 1 dose, 03/05/21 at 1330, JOSE metFORMIN Yes [id number] 500mg Take 1 U nivers 500 mg 4-10 tablet by ity of tablet 00:00: mouth 2 [place] 00 (two) Medical times Branch daily. omeprazole Yes [id number] 40mg Take 1 U nivers 40 mg 4-10 capsule by ity of capsule 00:00: mouth [place] 00 daily. Medical Branch omeprazole Yes [id number] 40mg Take 1 U nivers 40 mg 4-10 capsule by ity of capsule 00:00: mouth [place] 00 daily. Medical Branch metFORMIN 2021- No [id number] 500mg Take 1 Univers 500 mg 4-10 10-17 tablet by ity of tablet 00:00: 00:00 mouth 2 [place] 00 :00 (two) Medical times Branch daily. prednisone No 1mg 20 mg 2-12 tablet 00:00: 00 Dose 2018- No Unknown 2-12 00:00: 00 metformin No 1mg 500 mg 1-23 tablet 00:00: 00 neomycin-po 2020- No 3[drp] Place 3 Univers lymyxin-hyd 08-04 04-10 Drops in ity of rocortisone 00:00: 00:00 left ear 4 [place] (CORTISPORI 00 :00 (four) Medica l N OTIC times Branch SUSPENSION) daily. 3.5-10,000- 1 mg/mL-unit/ mL-% otic susp acetaminoph 2020- No 1{tbl} Take 1 U nivers en-codeine 08-04-10 tablet by ity of (TYLENOL-CO 00:00: 00:00 mouth [place] DEINE #3) 00 :00 every 6 Medical 300-30 mg (six) Branch tablet hours as needed for Pain (scale 4-6) (for cough). metformin No 1mg 1,000 mg 7-21 tablet 00:00: 00 pantoprazol 2020- No 40mg Take 1 Uni vers e 05-26 tablet by ity of (PROTONIX) 00:00: 00:00 mouth [place] 40 mg EC 00 :00 daily. Medical tablet Branch metFORMIN 2020- No 500mg Take 1 Univ ers (GLUCOPHAGE 05-26 tablet by it y of ) 500 mg 00:00: 00:00 mouth 2 [place] tablet 00 :00 (two) Medical times Branch daily with meals. amoxicillin No 1mg 500 mg 2-17 capsule 00:00: 00 amoxicillin No 1mg 250 mg 2-17 capsule 00:00: 00 Bromfed DM No 10mg/5 2 mg-30 2-17 mL mg-10 mg/5 00:00: mL syrup 00 Vital Signs Vital Name Observation Time Observation Value Comments Source Systolic blood 2022-09-11 16:34:00 131 mm[Hg] Univer sity [facility] Diastolic blood 2022-09-11 16:34:00 80 mm[Hg] Unive rsity [facility] Heart rate 2022-09-11 16:34:00 80 /min [facility] Body temperature 2022-09-11 16:34:00 36.83 Geovanna [facility] Respiratory rate 2022-09-11 16:34:00 18 /min [facility] Oxygen saturation in 2022-09-11 16:34:00 97 /min [facility] Arterial blood by [facility] Pulse oximetry Branch Body weight 2022-09-11 07:55:00 82.464 kg [facility] BMI 2022-09-11 07:55:00 27.64 kg/m2 [facility] Body height 2022-09-11 01:03:00 172.7 cm [facility] Systolic blood 2021-03-05 20:00:00 119 mm[Hg] Univer sity [facility] Diastolic blood 2021-03-05 20:00:00 73 mm[Hg] Unive rsity [facility] Heart rate 2021-03-05 20:00:00 78 /min [facility] Respiratory rate 2021-03-05 20:00:00 17 /min [facility] Oxygen saturation in 2021-03-05 20:00:00 99 /min University of Arterial blood by [facility] Pulse oximetry Branch Body temperature 2021-03-05 18:12:00 36.28 Geovanna [facility] Body height 2021-03-05 18:12:00 172.7 cm [facility] Body weight 2021-03-05 18:12:00 101.606 kg [facility] BMI 2021-03-05 18:12:00 34.06 kg/m2 [facility] BP Systolic 2022-09-14 13:45:00 119 mm[Hg] BP Diastolic 2022-09-14 13:45:00 69 mm[Hg] Weight Measured 2022-09-14 13:45:00 187.20 pounds Height Measured 2022-09-14 13:45:00 69.49 inches Body Temperature 2022-09-14 13:45:00 98.20 degrees Heart Rate 2022-09-14 13:45:00 109.00 /min Respiratory Rate 2022-09-14 13:45:00 19.00 /min BP Systolic 2019-01-07 13:54:00 127 mm[Hg] BP Diastolic 2019-01-07 13:54:00 79 mm[Hg] Weight Measured 2019-01-07 13:54:00 218.40 pounds Height Measured 2019-01-07 13:54:00 69.49 inches Body Temperature 2019-01-07 13:54:00 98.30 degrees Heart Rate 2019-01-07 13:54:00 82.00 /min Respiratory Rate 2019-01-07 13:54:00 16.00 /min BP Systolic 2018-12-27 14:42:00 117 mm[Hg] BP Diastolic 2018-12-27 14:42:00 75 mm[Hg] Weight Measured 2018-12-27 14:42:00 219.20 pounds Height Measured 2018-12-27 14:42:00 69.49 inches Body Temperature 2018-12-27 14:42:00 98.10 degrees Heart Rate 2018-12-27 14:42:00 98.10 /min Respiratory Rate 2018-12-27 14:42:00 16.00 /min BP Systolic 2016-12-18 15:20:00 134 mm[Hg] BP Diastolic 2016-12-18 15:20:00 87 mm[Hg] Weight Measured 2016-12-18 15:20:00 229.40 pounds Height Measured 2016-12-18 15:20:00 69.49 inches Body Temperature 2016-12-18 15:20:00 98.30 degrees Heart Rate 2016-12-18 15:20:00 98.00 /min Respiratory Rate 2016-12-18 15:20:00 18.00 /min BP Systolic 2016-06-15 11:10:00 127 mm[Hg] BP Diastolic 2016-06-15 11:10:00 82 mm[Hg] Weight Measured 2016-06-15 11:10:00 231.20 pounds Height Measured 2016-06-15 11:10:00 69.49 inches Body Temperature 2016-06-15 11:10:00 98.60 degrees Heart Rate 2016-06-15 11:10:00 86.00 /min Respiratory Rate 2016-06-15 11:10:00 17.00 /min BP Systolic 2016-06-02 13:32:00 123 mm[Hg] BP Diastolic 2016-06-02 13:32:00 79 mm[Hg] Weight Measured 2016-06-02 13:32:00 232.20 pounds Height Measured 2016-06-02 13:32:00 69.49 inches Body Temperature 2016-06-02 13:32:00 97.90 degrees Heart Rate 2016-06-02 13:32:00 81.00 /min Respiratory Rate 2016-06-02 13:32:00 15.00 /min BP Systolic 2016-05-25 11:02:00 120 mm[Hg] BP Diastolic 2016-05-25 11:02:00 84 mm[Hg] Weight Measured 2016-05-25 11:02:00 232.00 pounds Height Measured 2016-05-25 11:02:00 68.00 inches Body Temperature 2016-05-25 11:02:00 97.90 degrees Heart Rate 2016-05-25 11:02:00 85.00 /min Respiratory Rate 2016-05-25 11:02:00 17.00 /min BP Systolic 2015-07-27 16:03:00 131 mm[Hg] BP Diastolic 2015-07-27 16:03:00 82 mm[Hg] Weight Measured 2015-07-27 16:03:00 213.60 pounds Height Measured 2015-07-27 16:03:00 68.00 inches Body Temperature 2015-07-27 16:03:00 98.20 degrees Heart Rate 2015-07-27 16:03:00 93.00 /min Respiratory Rate 2015-07-27 16:03:00 16.00 /min BP Systolic 2015-07-27 15:56:00 131 mm[Hg] BP Diastolic 2015-07-27 15:56:00 82 mm[Hg] Weight Measured 2015-07-27 15:56:00 213.60 pounds Height Measured 2015-07-27 15:56:00 68.00 inches Body Temperature 2015-07-27 15:56:00 98.20 degrees Heart Rate 2015-07-27 15:56:00 93.00 /min Respiratory Rate 2015-07-27 15:56:00 16.00 /min BP Diastolic 2015-06-30 16:12:00 80 mm[Hg] Weight Measured 2015-06-30 16:12:00 219.80 pounds Height Measured 2015-06-30 16:12:00 68.50 inches Body Temperature 2015-06-30 16:12:00 98.20 degrees Heart Rate 2015-06-30 16:12:00 78.00 /min Respiratory Rate 2015-06-30 16:12:00 12.00 /min BP Systolic 2015-06-30 16:12:00 126 mm[Hg] Procedures Procedure Date / Time Performing Clinician Source Performed POCT GLUCOSE 2022-09-11 16:34:00 [facility] (AUTOMATED) Medical Branch POCT GLUCOSE 2022-09-11 12:44:00 [facility] (AUTOMATED) Medical [place] COMP. METABOLIC PANEL 2022-09-11 07:58:00 [facility] [place] [facility] ([id number]) Medical Branch LIPID PANEL 2022-09-11 07:58:00 [facility] ([id number])(TOTAL Medical Branch CHOLESTEROL, TRIGLYCERIDES, HDL) LOW-DENSITY 2022-09-11 07:58:00 [facility] LIPOPROTEIN, DIRECT Medical Bran ch POCT [facility] 2022-09[facility]11 [facility] 2022-09-11 [facility] POCT GLUCOSE 2022-09-10 20:47:00 [facility] [place] CT ABDOMEN PELVIS W 2022-09-10 19:16:33 Jacque Wells [facility] CONTRAST Medical Branch LIPASE 2022-09-10 18:43[facility] METABOLIC PANEL 2022-09-10 18:43:00 [facility] ([id number]) Medical [place] CBC WITH DIFF 2022-09-10 18:43:00 [facility] GLYCOSYLATED HEMOGLOBIN 2022-09-10 18:43[facility] URINALYSIS 2022-09-10 18:43[facility]00 [facility] OF [facility]IVACY 2022-09-10 18:35:36 Doctor Unassigned, No [facility] PRACTICES Name Medical Branch CONSENT/REFUSAL FOR 2022-09-10 18:35:02 Doctor Unassigned, No [facility] DIAGNOSIS AND TREATMENT Name Medical Branch CT ABDOMEN PELVIS W 2021-03-05 19:23:44 Landy Jenkins [facility] CONTRAST Medical Branch LIPASE 2021-03-05 18:30:00 Landy Jenikns [facility] TROPONIN I 2021-03-05 18:30:00 Landy Jenkins [facility] HEPATIC FUNCTION PANEL 2021-03-05 18:30:00 Landy Jenkins [facility] ([id number]) (ALB,T.PRO,BILI Medical Branch T,BU/BC,ALT,AST,ALK PHOS) BASIC METABOLIC PANEL 2021-03-05 18:30:00 Landy Jenkins [facility] (NA, K, CL, CO2, Medical Branch GLUCOSE, BUN, CREATININE, CA) CBC WITH DIFF 2021-03-05 18:30:00 Landy Jenkins [facility] URINALYSIS 2021-03-05 18:30:00 Landy Jenkins [facility] NOTICE OF PRIVACY 2021-03-05 18:07:12 Doctor [facility]assigned, [facility] CONSENT/REFUSAL FOR 2021-03-05 18:07:01 Doctor Unassigned, No [facility] Name [facility] Plan of Care Planned Activity Planned Date Details Comments Source Goal Plan of Care Note [code = 98905-2] Goal Plan of Care Note [code = 79999-7] Goal Plan of Care Note [code = 79321-3] Goal Plan of Care Note [code = 54928-8] Goal Plan of Care Note [code = 47970-6] Goal Plan of Care Note [code = 80885-3] Goal Plan of Care Note [code = 03324-1] Goal Plan of Care Note [code = 51677-5] Goal Plan of Care Note [code = 14722-2] Goal Plan of Care Note [code = 84275-9] Goal Plan of Care Note [code = 25425-1] Goal Plan of Care Note [code = 64436-4] Goal Plan of Care Note [code = 20837-3] Encounters Start End Encounter Admission Attending Care Care Encounter Source Date/Time Date/Time Type Type Clinicians Facility Department ID 2022-09-14 2022-09-14 Outpatient [facility] [id number] [place] 13:42:01 13:42:01 1020 F Kem 2022-09-14 2022-09-14 Outpatient [id number] 00:00:00 00:00:00 Visit [id number] 2022-09-10 2022-09-11 Outpatient Og NAVARRO [facility] [id number] [facility] 13:44:00 12:54:00 ALFREDO orellana [facility] 2022-09-10 2022-09-11 Emergency Jacque Wells [facility] [id number] Univers 13:44:00 12:54:00 Alfredo Navarro [id number] ity [facility] [id number] [facility] [id number] [place] [id number] Branch 2021-03-05 2021-03-05 Emergency Gregory, [facility] [id number] Univers 13:11:00 15:35:00 Landy Luna [id number] [facility] [id number] [facility] [id number] [place] [id number] Branch 2021-03-05 2021-03-05 Emergency X [facility] ERT [id number] Univers 13:06:00 13:06:00 [facility] Results Test Description Test Time Test Comments Results Result Comments Source POCT GLUCOSE (AUTOMATED) 2022-09-11 16:54:15 Test Item Value Reference Range Interpretation Comme nts POCT GLU (test code = 9781240490) 234 mg/dL 70-110 H Lab Interpretation (test code = 04047-3) [facility], [id number] 15:18:30 Test Item Value Reference Range Interpretation Comments dLDL Chol (test code = 71 mg/dL See_Comment [Aut omated message] 39061-6) The system Web[employer] generated this result transmitted ref erence range: <=130. T he reference range was not used to int erpret this result as normal/abnormal . Lab Interpretation (test Normal code = 18570-1) [facility] ([id number])(TOTAL CHOLESTEROL, TRIGLYCERIDES, HDL)2022-09-11 13:58:08 Test Item Value Reference Range Interpretation Comments CHOL (test code = 227 mg/dL 120-200 H [id number]) HDL (test code = 28 mg/dL See_Comment L [Automated message] [id number]) The system Web[employer] generated this result transmit jesse reference range : >=40. The refer ence range was not u sed to interpret th is result as normal/abnormal . HDLC RATIO (test code = See_Comment H [Au tomated message] [id number]) The system [employer] generated this result transmit jesse reference range : <=5.0. The refe rence range was not u sed to interpret th is result as normal/abnormal . TRIG (test code = 1291 mg/dL 30-170 H 6846167123) LDL CHOL (test code = Unable to calculate 57535-9) LDL due to elev ated triglyceride le faisal greater than 40 0 mg/dL. VLDL (test code = Unable to calculate 3519292390) VLDL due to darnell vated triglyceride le faisal greater than 71 0 mg/dL. Lab Interpretation Abnormal (test code = 03898-7) [facility]2022-09-11 12:50:53 Test Item Value Reference Range Interpretation Comments POCT GLU (test code = 0909001497) 247 mg/dL 70-110 H Lab Interpretation (test code = Abnormal 67437-6) [facility]. METABOLIC PANEL ([id number])2022-09-11 09:41:07 Test Item Value Reference Range Interpretation Comments NA (test code = 135 mmol/L 135-145 3181913094) K (test code = 3.5 mmol/L 3.5-5 5760101517) CL (test code = 104 mmol/L 98-108 1115396481) CO2 TOTAL (test code = 22 mmol/L 23-31 L 6484707024) AGAP (test code = 2-16 4384873878) BUN (test code = 13 mg/dL 7-23 2245515988) GLUCOSE (test code = 242 mg/dL 70-110 H 9240481062) CREATININE (test code = 0.64 mg/dL 0.6-1.25 9210242545) TOTAL BILI (test code = 0.3 mg/dL 0.1-1.2 7588560857) CALCIUM (test code = 8.0 mg/dL 8.6-10.6 L 4200768213) T PROTEIN (test code = 5.8 g/dL 6.3-8.2 L 1946339870) ALBUMIN (test code = 3.4 g/dL 3.5-5 L 8097536725) ALK PHOS (test code = 111 U/L 34-122 9039692819) ALTv (test code = 23 U/L 5-50 1742-6) AST(SGOT) (test code = 21 U/L 13-40 9713486701) eGFR (test code = mL/min/1.73m2 1710723734) NIKO (test code = NIKO) Association of Glomerular Filtration Rate (GFR) and Staging of Kidney Disease* + --+ --+ ------+| GFR (mL/min/1.73 m2) ?| With Kidney Damage ?| ?Without Kidney Damage+ --------+ --------+ +| ?>90 ?| ?Stage one ?| ? Normal ?+ ---+ ---+ -------+| ?60-89 ?| ?Stage two ?| ? Decreased GFR ? + --+ --+ ------+| ?30-59 ?| ?Stage three ?| ? Stage three ? + --+ --+ ------+| ?15-29 ?| ?Stage four ? | ? Stage four ?+ ---+ ---+ -------+| ?<15 (or dialysis) ? ?| ?Stage five ? | ? Stage five ?+ ---+ ---+ -------+ *Each stage assumes the associated GFR level has been in effect for at least three months. ?Stages 1 to 5, with or without kidney disease, indicate chronic kidney disease. Notes: Determination of stages one and two (with eGFR >59mL/min/1.73 m2) requires estimation of kidney damage for at least three months as defined by structural or functional abnormalities of the kidney, manifested by either:Pathological abnormalities or Markers of kidney damage (including abnormalities in the composition of the blood or urine or abnormalities in imaging tests). Lab Interpretation Abnormal (test code = 01489-9) [facility] GLUCOSE (AUTOMATED)2022-09-11 07:33:20 Test Item Value Reference Range Interpretation Comments POCT GLU (test code = 6867657600) 204 mg/dL 70-110 H Lab Interpretation (test code = Abnormal 17535-7) [facility] GLUCOSE (AUTOMATED)2022-09-11 01:28:49 Test Item Value Reference Range Interpretation Comments POCT GLU (test code = 8221876707) 373 mg/dL 70-110 H Lab Interpretation (test code = Abnormal 38943-0) [facility] GLUCOSE (AUTOMATED)2022-09-10 20:50:37 Test Item Value Reference Range Interpretation Comments POCT GLU (test code = 6948173768) 272 mg/dL 70-110 H Lab Interpretation (test code = Abnormal 80456-0) [facility]2022-09-10 20:06:25 Test Item Value Reference Range Interpretation Comments HGB A1C (test code = 12.3 % 4-5.7 H 4548-4) NIKO (test code = NIKO) Reference RangesNormal: <5.7%Prediabetes: 5.7 - 6.4%Diabetes: > 6.5% Lab Interpretation (test Abnormal code = 02022-7) [facility] Metabolic [id number] 19:37:52 Test Item Value Reference Range Interpretation Comments NA (test code = 134 mmol/L 135-145 L 9648740704) K (test code = 4.1 mmol/L 3.5-5 9154037644) CL (test code = 101 mmol/L 98-108 2727139092) CO2 TOTAL (test code = 20 mmol/L 23-31 L 4331748157) AGAP (test code = 2-16 8815048982) BUN (test code = 10 mg/dL 7-23 4243880296) GLUCOSE (test code = 468 mg/dL 70-110 HH 6152690973) CREATININE (test code = 0.75 mg/dL 0.6-1.25 2960364700) TOTAL BILI (test code = 0.6 mg/dL 0.1-1.3 9348712819) CALCIUM (test code = 8.7 mg/dL 8.6-10.6 5093462247) T PROTEIN (test code = 6.6 g/dL 6.3-8.2 6768043111) ALBUMIN (test code = 4.2 g/dL 3.5-5 5777807239) ALK PHOS (test code = 123 U/L 34-122 H 3080287959) ALTv (test code = 26 U/L 5-50 1742-6) AST(SGOT) (test code = 22 U/L 13-40 8816654373) eGFR (test code = mL/min/1.73m2 2079009146) NIKO (test code = NIKO) Association of Glomerular Filtration Rate (GFR) and Staging of Kidney Disease* + --+ --+ ------+| GFR (mL/min/1.73 m2) ?| With Kidney Damage ?| ?Without Kidney Damage+ --------+ --------+ +| ?>90 ?| ?Stage one ?| ? Normal ?+ ---+ ---+ -------+| ?60-89 ?| ?Stage two ?| ? Decreased GFR ? + --+ --+ ------+| ?30-59 ?| ?Stage three ?| ? Stage three ? + --+ --+ ------+| ?15-29 ?| ?Stage four ? | ? Stage four ?+ ---+ ---+ -------+| ?<15 (or dialysis) ? ?| ?Stage five ? | ? Stage five ?+ ---+ ---+ -------+ *Each stage assumes the associated GFR level has been in effect for at least three months. ?Stages 1 to 5, with or without kidney disease, indicate chronic kidney disease. Notes: Determination of stages one and two (with eGFR >59mL/min/1.73 m2) requires estimation of kidney damage for at least three months as defined by structural or functional abnormalities of the kidney, manifested by either:Pathological abnormalities or Markers of kidney damage (including abnormalities in the composition of the blood or urine or abnormalities in imaging tests). Lab Interpretation Abnormal (test code = 17157-8) [facility] Center[facility], [id number] 19:04:41 Test Item Value Reference Range Interpretation Comments LIPASE (test code = 1909024791) 111 U/L 0-220 Lab Interpretation (test code = Normal 10444-4) [facility] CenterCB with [id number] 18:52:20 Test Item Value Reference Range Interpretation Comments WBC (test code = See_Comment [Automated 3488-2) message] The sy stem which generated this result transmitted reference range : 4.20 - 10.70 10*3/?L. The reference range was not used to interpret this result as normal/abnormal . RBC (test code = See_Comment [Automated 711-6) message] The sy stem which generated this result transmitted reference range : 4.26 - 5.52 10*6/?L. The reference range was not used to interpret this result as normal/abnormal . HGB (test code = 15.4 g/dL 12.2-16.4 718-7) HCT (test code = 42.2 % 38.4-49.3 4544-3) MCV (test code = 86.3 fL 81.7-95.6 787-2) MCH (test code = 31.5 pg 26.1-32.7 785-6) MCHC (test code = 36.5 g/dL 31.2-35 H 786-4) RDW-SD (test code = 37.7 fL 38.5-51.6 L 31341-8) RDW-CV (test code = 11.9 % 12.1-15.4 L 788-0) PLT (test code = See_Comment [Automated 777-3) message] The sy stem which generated this result transmitted reference range : 150 - 328 10*3/ ?L. The reference r stephie was not used to interpret this result as normal/abnormal . MPV (test code = 11.9 fL 9.8-13 09448-2) NRBC/100 WBC (test See_Comment [Automat ed code = 1276238568) message] The system which generated this result transmitted reference range : 0.0 - 10.0 /100 WBCs. The refer ence range was not u sed to interpret th is result as normal/abnormal . NRBC x10^3 (test code See_Comment [Auto mated = 3064786702) message] The s ystem which generated this result transmitted reference range : 10*3/?L. The reference range was not used to interpret this result as normal/abnormal . GRAN MAT (NEUT) % 56.2 % (test code = 770-8) IMM GRAN % (test code 0.40 % = 4001639326) LYMPH % (test code = 36.1 % 736-9) MONO % (test code = 4.8 % 5905-5) EOS % (test code = 1.7 % 713-8) BASO % (test code = 0.8 % 706-2) GRAN MAT x10^3(ANC) 4.38 10*3/uL 1.99-6.95 (test code = 7052840945) IMM GRAN x10^3 (test 0.03 10*3/uL 0-0.06 code = 0925730826) LYMPH x10^3 (test code 2.81 10*3/uL 1.09-3.23 = 731-0) MONO x10^3 (test code 0.37 10*3/uL 0.36-1.02 = 742-7) EOS x10^3 (test code = 0.13 10*3/uL 0.06-0.53 711-2) BASO x10^3 (test code 0.06 10*3/uL 0.01-0.09 = 704-7) Lab Interpretation Abnormal (test code = 16917-4) [facility] CenterCT [facility] P[facility] W [id number] 20:31:35 Diverticulosis without diverticulitis. Hepatomegaly. Preliminary Report Dictated by Resident: Ty Conley MD., have reviewed this study and agree with the abovereport.EXAM: CT ABDOMEN AND PELVIS WITH CONTRAST HISTORY: 40-year-old male with abdominal and bilious vomiting COMPARISON: . DOSE: Total exam DLP 501 mGy-cm TECHNIQUE AND FINDINGS: Contiguous axial imaging was performed from thelung bases to the proximal femurs after the administration of intravenousOmnipaque contrast in the portal venous phase. Coronal and sagittalreconstructions were obtained. FINDINGS: LOWER THORAX: Unchanged 4 mm subpleural nodule in the right lower lobe(2:8). Mild bibasilar subsegmental dependent atelectasis. LIVER: Mild hepatomegaly. Normal liver contour. No intrahepatic biliarydilatation.Main portal vein is patent. GALLBLADDER AND BILIARY TREE: Status post cholecystectomy. SPLEEN: No spl enomegaly. PANCREAS: No ductal dilation. ADRENAL GLANDS: No adrenal nodules. KIDNEYS: No hydronephrosis, stones, or contour deforming lesions. PERITONEUM AND RETROPERITONEUM: No free air or free fluid.LYMPH NODES: Prominent retrocaval lymph node measures up to 0.9 cm,unchanged (2:43). GI TRACT: No bowel dilatation or abnormal wall thickening. Small bowelappears unremarkable. The appendix is nondilated. ?Tiny hiatal hernia. PELVIS/BLADDER: The urinary bladder appears essentially normal. Bilateralfat-containing inguinal hernias. VESSELS: Unremarkable. BONES AND SOFT TISSUES: No suspicious lytic or sclerotic bone lesions. [facility], Radiant Results Inft User - 03/05/2021 3:32 PM CDTEXAM: CT ABDOMEN AND PELVIS WITH CONTRASTHISTORY: 40-year-old male with abdominal and bilious vomitingCOMPARISON: 05/25/2016.DOSE: Total exam DLP 501 mGy-cmTECHNIQUE AND FINDINGS: Contiguous axial imaging was performed from thelung bases to the proximal femurs after the administration of intravenousOmnipaque contrast in the portal venous phase. Coronal and sagittalreconstructions were obtained.FINDINGS:LOWER THORAX: Unchanged 4 mm subpleural nodule in the right lower lobe(2:8). Mild bibasilar subsegmental dependent atelectasis. LIVER: Mild hepatomegaly. Normal liver contour. No intrahepatic biliarydilatation. Main portal vein is patent.GALLBLADDER AND BILIARY TREE: Status post cholecystectomy.SPLEEN: No splenomegaly.PANCREAS: No ductal dilation.ADRENAL GLANDS: No adrenal nodules.KIDNEYS: No hydronephrosis, stones, or contour deforming lesions.PERITONEUM AND RETROPERITONEUM: No free air or free fluid.LYMPH NODES: Prominent retrocaval lymph node measures up to 0.9 cm,unchanged (2:43).GI TRACT: No bowel dilatation or abnormal wall thickening. Small bowelappears unremarkable. The appendix is nondilated. Tiny hiatal hernia .PELVIS/BLADDER: The urinary bladder appears essentially normal. Bilateralfat- containing inguinal hernias.VESSELS: Unremarkable.BONES AND SOFT TISSUES: No suspicious lytic or sclerotic bone lesions.IMPRESSIONDiverticulosis without diverticulitis.Hepatomegaly.Preliminary Report Dictated by Resident: Ty Bae MD., have reviewed this study and agree with the abovereport.[facility] CenterOlamide [id number] 19:10:36 Test Item Value Reference Range Interpretation Comments TROPONIN I (test 0.001 ng/mL See_Comment [Automated code = 3344897130) message] The system which generated this result transmitted reference range : <=0.034. The reference range was not used to interpret this result as normal/abnormal . NIKO (test code = Equal or Less than NIKO) 0.034 ng/ml---Normal ?Note: Cardiac troponin begins to rise 3-4 hours after the onset of ischemia. Repeat in 4-6 hours if the sample was drawn within 3-4 hours of the onset of the symptom and found normal. Between 0.035 and 0.120 ng/mL--- Borderline. Questionable myocardial injury or necrosis ? ?Note: Serial measurement may be necessary to confirm or exclude the diagnosis of myocardial injury or necrosis; Clinical correlation (symptoms, EKGs, imaging studies, and others) required; Repeat in 4-6 hours if clinically indicated. ? Equal or Higher than 0.121 ng/mL---Abnormal. Myocardial Injury or Necrosis Likely ? Biotin has been reported to cause a negative bias, interpret results relative to patient's use of biotin. ? Lab Interpretation Normal (test code = 70282-4) [facility] CenterHepatic Function Panel (ALB, T.PRO, BILI T, BU/BC, ALT, AST, ALK PHOS)2021-03-05 18:59:14 Test Item Value Reference Range Interpretation Comments TOTAL BILI (test code = 7604940591) 0.4 mg/dL 0.1-1.1 BILI UNCON (test code = 5902954964) 0.3 mg/dL 0.1-1.1 BILI CONJ (test code = 0091418808) 0.0 mg/dL 0.0-0.3 T PROTEIN (test code = 1214513277) 6.6 g/dL 6.3-8.2 ALBUMIN (test code = 3695060075) 4.2 g/dL 3.5-5.0 ALK PHOS (test code = 2737940667) 97 U/L 34-122 ALTv (test code = 1742-6) 22 U/L 5-50 AST(SGOT) (test code = 8174573489) 23 U/L 13-40 Lab Interpretation (test code = Normal 43257-9) [facility] CenterBasic Metabolic Panel (NA, K, CL, CO2, GLUCOSE, BUN, CREATININE, CA)2021-03-05 18:58:54 Test Item Value Reference Range Interpretation Comments NA (test code = 136 mmol/L 135-145 5865566912) K (test code = 4.1 mmol/L 3.5-5.0 7426581594) CL (test code = 104 mmol/L 98-108 1964243310) CO2 TOTAL (test code = 24 mmol/L 23-31 5229811441) AGAP (test code = 2-16 4327729640) BUN (test code = 15 mg/dL 7-23 7507103816) GLUCOSE (test code = 207 mg/dL 70-110 H 3249891557) CREATININE (test code = 0.74 mg/dL 0.60-1.25 4924175944) CALCIUM (test code = 8.4 mg/dL 8.6-10.6 L 0972462650) eGFR (test code = mL/min/1.73m2 7964358562) NIKO (test code = NIKO) Association of Glomerular Filtration Rate (GFR) and Staging of Kidney Disease* + --+ --+ ------+| GFR (mL/min/1.73 m2) ?| With Kidney Damage ?| ?Without Kidney Damage+ --------+ --------+ +| ?>90 ?| ?Stage one ?| ? Normal ?+ ---+ ---+ -------+| ?60-89 ?| ?Stage two ?| ? Decreased GFR ? + --+ --+ ------+| ?30-59 ?| ?Stage three ?| ? Stage three ? + --+ --+ ------+| ?15-29 ?| ?Stage four ? | ? Stage four ?+ ---+ ---+ -------+| ?<15 (or dialysis) ? ?| ?Stage five ? | ? Stage five ?+ ---+ ---+ -------+ *Each stage assumes the associated GFR level has been in effect for at least three months. ?Stages 1 to 5, with or without kidney disease, indicate chronic kidney disease. Notes: Determination of stages one and two (with eGFR >59mL/min/1.73 m2) requires estimation of kidney damage for at least three months as defined by structural or functional abnormalities of the kidney, manifested by either:Pathological abnormalities or Markers of kidney damage (including abnormalities in the composition of the blood or urine or abnormalities in imaging tests). Lab Interpretation Abnormal (test code = 96121-0) [facility] [id number] 18:58:54 Test Item Value Reference Range Interpretation Comments LIPASE (test code = 9348181117) 140 U/L 0-220 Lab Interpretation (test code = Normal 09681-0) [facility] CenterUrinalysis2021-04-10 18:51:20 Test Item Value Reference Range Interpretation Comments APPEARANCE (test code = Clear Clear 7099935944) COLOR (test code = Yellow Yellow 7686779385) PH (test code = 4.8-8.0 4902900242) SP GRAVITY (test code = 1.003-1.030 6123367479) GLU U QUAL (test code = 50 mg/dL Normal A 1550150300) BLOOD (test code = Negative Negative 6330962961) KETONES (test code = Negative Negative 4336942987) PROTEIN (test code = Negative Negative 2887-8) UROBILIN (test code = Normal Normal 6879341625) BILIRUBIN (test code = Negative Negative 7335792355) NITRITE (test code = Negative Negative 7406433941) LEUK ZAY (test code = Negative Negative 8073893962) RBC/HPF (test code = See_Comment [Autom ated message] 8972853797) The system Webstep generated this result transmitted ref erence range: 0 - 3 HP F. The reference range was not used to int erpret this result as normal/abnormal . WBC/HPF (test code = <1 See_Comment [Autom ated message] 6314892999) The system Web[employer] generated this result transmitted ref erence range: 0 - 5 HP F. The reference range was not used to int erpret this result as normal/abnormal . BACTERIA (test code = Negative Negative 1453265828) MUCOUS (test code = Slight Negative LPF A 7849438177) SQ EPITH (test code = <1 HPF 0329152791) Lab Interpretation (test Abnormal code = 97531-1) [facility] CenterCBC with [id number] 18:46:34 Test Item Value Reference Range Interpretation Comments WBC (test code = See_Comment [Automated 9287-2) message] The sy stem which generated this result transmitted reference range : 4.20 - 10.70 10*3/?L. The reference range was not used to interpret this result as normal/abnormal . RBC (test code = See_Comment [Automated 747-8) message] The sy stem which generated this result transmitted reference range : 4.26 - 5.52 10*6/?L. The reference range was not used to interpret this result as normal/abnormal . HGB (test code = 14.4 g/dL 12.2-16.4 718-7) HCT (test code = 41.0 % 38.4-49.3 4544-3) MCV (test code = 86.9 fL 81.7-95.6 787-2) MCH (test code = 30.5 pg 26.1-32.7 785-6) MCHC (test code = 35.1 g/dL 31.2-35.0 H 786-4) RDW-SD (test code = 39.9 fL 38.5-51.6 81463-7) RDW-CV (test code = 12.5 % 12.1-15.4 788-0) PLT (test code = See_Comment [Automated 777-3) message] The sy stem which generated this result transmitted reference range : 150 - 328 10*3/ ?L. The reference r stephie was not used to interpret this result as normal/abnormal . MPV (test code = 11.9 fL 9.8-13.0 00313-6) NRBC/100 WBC (test See_Comment [Automat ed code = 0028871928) message] The system which generated this result transmitted reference range : 0.0 - 10.0 /100 WBCs. The refer ence range was not u sed to interpret th is result as normal/abnormal . NRBC x10^3 (test code <0.01 See_Comment [Auto mated = 6006950336) message] The s ystem which generated this result transmitted reference range : 10*3/?L. The reference range was not used to interpret this result as normal/abnormal . GRAN MAT (NEUT) % 54.6 % (test code = 770-8) IMM GRAN % (test code 0.40 % = 3331315302) LYMPH % (test code = 36.8 % 736-9) MONO % (test code = 5.3 % 5905-5) EOS % (test code = 2.1 % 713-8) BASO % (test code = 0.8 % 706-2) GRAN MAT x10^3(ANC) 3.92 10*3/uL 1.99-6.95 (test code = 9944931522) IMM GRAN x10^3 (test 0.03 10*3/uL 0.00-0.06 code = 9092663709) LYMPH x10^3 (test code 2.64 10*3/uL 1.09-3.23 = 731-0) MONO x10^3 (test code 0.38 10*3/uL 0.36-1.02 = 742-7) EOS x10^3 (test code = 0.15 10*3/uL 0.06-0.53 711-2) BASO x10^3 (test code 0.06 10*3/uL 0.01-0.09 = 704-7) Lab Interpretation Abnormal (test code = 85469-2) [facility] CenterLIPID [id number] 00:00:00 Test Item Value Reference Range Interpretation Comments CHOLESTEROL (test code = 2210) 185 MG/DL TRIGLYCERIDES (test code = 2232) 162 MG/DL HDL CHOLESTEROL (test code = 2220) 41 MG/DL CALC LDL CHOL (test code = 2237) 112 MG/DL RISK RATIO LDL/HDL (test code = 2.72 RATIO 2238) LIPID [id number] 00:00:00 Test Item Value Reference Range Interpretation Comments CHOLESTEROL (test code = 2210) 185 MG/DL TRIGLYCERIDES (test code = 2232) 162 MG/DL HDL CHOLESTEROL (test code = 2220) 41 MG/DL CALC LDL CHOL (test code = 2237) 112 MG/DL RISK RATIO LDL/HDL (test code = 2.72 RATIO 2238) CBC W/AUTO [id number] 00:00:00 Test Item Value Reference Range Interpretation Comments WBC (test code = 1001) 7.6 K/UL RBC (test code = 1002) 4.84 M/UL HEMOGLOBIN (test code = 1003) 14.7 G/DL HEMATOCRIT (test code = 1004) 43.0 % MCV (test code = 1005) 88.8 fL MCH (test code = 1006) 30.4 PG MCHC (test code = 1007) 34.2 G/DL RDW (test code = 1038) 13.1 % NEUTROPHILS (test code = 1008) 50.9 % LYMPHOCYTES (test code = 1010) 39.7 % MONOCYTES (test code = 1011) 5.8 % EOSINOPHILS (test code = 1012) 2.8 % BASOPHILS (test code = 1013) 0.8 % PLATELET COUNT (test code = 1015) 166 K/UL CBC W/AUTO [id number] 00:00:00 Test Item Value Reference Range Interpretation Comments WBC (test code = 1001) 7.6 K/UL RBC (test code = 1002) 4.84 M/UL HEMOGLOBIN (test code = 1003) 14.7 G/DL HEMATOCRIT (test code = 1004) 43.0 % MCV (test code = 1005) 88.8 fL MCH (test code = 1006) 30.4 PG MCHC (test code = 1007) 34.2 G/DL RDW (test code = 1038) 13.1 % NEUTROPHILS (test code = 1008) 50.9 % LYMPHOCYTES (test code = 1010) 39.7 % MONOCYTES (test code = 1011) 5.8 % EOSINOPHILS (test code = 1012) 2.8 % BASOPHILS (test code = 1013) 0.8 % PLATELET COUNT (test code = 1015) 166 K/UL CBC W/AUTO [id number] 00:00:00 Test Item Value Reference Range Interpretation Comments WBC (test code = 1001) 7.6 K/UL RBC (test code = 1002) 4.84 M/UL HEMOGLOBIN (test code = 1003) 14.7 G/DL HEMATOCRIT (test code = 1004) 43.0 % MCV (test code = 1005) 88.8 fL MCH (test code = 1006) 30.4 PG MCHC (test code = 1007) 34.2 G/DL RDW (test code = 1038) 13.1 % NEUTROPHILS (test code = 1008) 50.9 % LYMPHOCYTES (test code = 1010) 39.7 % MONOCYTES (test code = 1011) 5.8 % EOSINOPHILS (test code = 1012) 2.8 % BASOPHILS (test code = 1013) 0.8 % PLATELET COUNT (test code = 1015) 166 K/UL COMPREHENSIVE METABOLIC [id number] 00:00:00 Test Item Value Reference Range Interpretation Comments GLUCOSE (test code = 2217) 121 MG/DL BUN (test code = 2208) 12 MG/DL CREATININE (test code = 2214) 0.87 MG/DL eGFR AMER. (test code 126 ML/MIN/1.73 = 16521) eGFR NON- AMER. (test 109 ML/MIN/1.73 code = 27105) CALC BUN/CREAT (test code = 14 RATIO 2235) SODIUM (test code = 2231) 140 MEQ/L POTASSIUM (test code = 2228) 4.3 MEQ/L CHLORIDE (test code = 2215) 105 MEQ/L CARBON DIOXIDE (test code = 23 MEQ/L 220) CALCIUM (test code = 2209) 8.9 MG/DL PROTEIN, TOTAL (test code = 6.7 G/DL 2228) ALBUMIN (test code = 2201) 4.2 G/DL CALC GLOBULIN (test code = 2.5 G/DL 2240) CALC A/G RATIO (test code = 1.7 RATIO 2234) BILIRUBIN, TOTAL (test code = 0.2 MG/DL 2206) ALKALINE PHOSPHATASE (test 103 U/L code = 2204) AST (test code = 2218) 17 U/L ALT (test code = 2219) 26 U/L COMPREHENSIVE METABOLIC [id number] 00:00:00 Test Item Value Reference Range Interpretation Comments GLUCOSE (test code = 2217) 121 MG/DL BUN (test code = 2208) 12 MG/DL CREATININE (test code = 2214) 0.87 MG/DL eGFR AMER. (test code 126 ML/MIN/1.73 = 71446) eGFR NON- AMER. (test 109 ML/MIN/1.73 code = 91806) CALC BUN/CREAT (test code = 14 RATIO 2235) SODIUM (test code = 2231) 140 MEQ/L POTASSIUM (test code = 2228) 4.3 MEQ/L CHLORIDE (test code = 2215) 105 MEQ/L CARBON DIOXIDE (test code = 23 MEQ/L 220) CALCIUM (test code = 2209) 8.9 MG/DL PROTEIN, TOTAL (test code = 6.7 G/DL 2228) ALBUMIN (test code = 2201) 4.2 G/DL CALC GLOBULIN (test code = 2.5 G/DL 2240) CALC A/G RATIO (test code = 1.7 RATIO 2234) BILIRUBIN, TOTAL (test code = 0.2 MG/DL 2206) ALKALINE PHOSPHATASE (test 103 U/L code = 2204) AST (test code = 2218) 17 U/L ALT (test code = 2219) 26 U/L HEMOGLOBIN [id number] 00:00:00 Test Item Value Reference Range Interpretation Comments HEMOGLOBIN A1c (test code = 48704) 6.4 % HEMOGLOBIN [id number] 00:00:00 Test Item Value Reference Range Interpretation Comments HEMOGLOBIN A1c (test code = 03105) 6.4 % HEMOGLOBIN [id number] 00:00:00 Test Item Value Reference Range Interpretation Comments HEMOGLOBIN A1c (test code = 88396) 6.4 % CBC W/AUTO [id number] 00:00:00 Test Item Value Reference Range Interpretation Comments WBC (test code = 1001) 10.8 K/UL RBC (test code = 1002) 4.84 M/UL HEMOGLOBIN (test code = 1003) 14.8 G/DL HEMATOCRIT (test code = 1004) 42.5 % MCV (test code = 1005) 87.8 fL MCH (test code = 1006) 30.6 PG MCHC (test code = 1007) 34.8 G/DL RDW (test code = 1038) 13.9 % NEUTROPHILS (test code = 1008) 56 % LYMPHOCYTES (test code = 1010) 35 % MONOCYTES (test code = 1011) 6 % EOSINOPHILS (test code = 1012) 3 % BASOPHILS (test code = 1013) 1 % PLATELET COUNT (test code = 1015) 193 K/UL CBC W/AUTO [id number] 00:00:00 Test Item Value Reference Range Interpretation Comments WBC (test code = 1001) 10.8 K/UL RBC (test code = 1002) 4.84 M/UL HEMOGLOBIN (test code = 1003) 14.8 G/DL HEMATOCRIT (test code = 1004) 42.5 % MCV (test code = 1005) 87.8 fL MCH (test code = 1006) 30.6 PG MCHC (test code = 1007) 34.8 G/DL RDW (test code = 1038) 13.9 % NEUTROPHILS (test code = 1008) 56 % LYMPHOCYTES (test code = 1010) 35 % MONOCYTES (test code = 1011) 6 % EOSINOPHILS (test code = 1012) 3 % BASOPHILS (test code = 1013) 1 % PLATELET COUNT (test code = 1015) 193 K/UL CBC W/AUTO [id number] 00:00:00 Test Item Value Reference Range Interpretation Comments WBC (test code = 1001) 10.8 K/UL RBC (test code = 1002) 4.84 M/UL HEMOGLOBIN (test code = 1003) 14.8 G/DL HEMATOCRIT (test code = 1004) 42.5 % MCV (test code = 1005) 87.8 fL MCH (test code = 1006) 30.6 PG MCHC (test code = 1007) 34.8 G/DL RDW (test code = 1038) 13.9 % NEUTROPHILS (test code = 1008) 56 % LYMPHOCYTES (test code = 1010) 35 % MONOCYTES (test code = 1011) 6 % EOSINOPHILS (test code = 1012) 3 % BASOPHILS (test code = 1013) 1 % PLATELET COUNT (test code = 1015) 193 K/UL HEMOGLOBIN [id number] 00:00:00 Test Item Value Reference Range Interpretation Comments HEMOGLOBIN A1c (test code = 50783) 7.8 % HEMOGLOBIN [id number] 00:00:00 Test Item Value Reference Range Interpretation Comments HEMOGLOBIN A1c (test code = 44309) 7.8 % HEMOGLOBIN [id number] 00:00:00 Test Item Value Reference Range Interpretation Comments HEMOGLOBIN A1c (test code = 74354) 7.8 % THYROID II PROFILE (T3U, T4, T7, TSH)2016-06-03 00:00:00 Test Item Value Reference Range Interpretation Comments T3 UPTAKE (test code = 2817) 26.4 % T4 (THYROXINE) (test code = 2819) 8.4 UG/DL CALCULATED T7 (FTI) (test code = 2.22 2820) TSH (test code = 2821) 2.2 UIU/ML THYROID II PROFILE (T3U, T4, T7, TSH)2016-06-03 00:00:00 Test Item Value Reference Range Interpretation Comments T3 UPTAKE (test code = 2817) 26.4 % T4 (THYROXINE) (test code = 2819) 8.4 UG/DL CALCULATED T7 (FTI) (test code = 2.22 2820) TSH (test code = 2821) 2.2 UIU/ML COMPREHENSIVE METABOLIC [id number] 00:00:00 Test Item Value Reference Range Interpretation Comments GLUCOSE (test code = 2217) 98 MG/DL BUN (test code = 2208) 14 MG/DL CREATININE (test code = 2214) 0.82 MG/DL eGFR AMER. (test code 132 ML/MIN/1.73 = 52948) eGFR NON- AMER. (test 114 ML/MIN/1.73 code = 54647) CALC BUN/CREAT (test code = 17 RATIO 2235) SODIUM (test code = 2231) 138 MEQ/L POTASSIUM (test code = 2228) 4.1 MEQ/L CHLORIDE (test code = 2215) 100 MEQ/L CARBON DIOXIDE (test code = 23 MEQ/L 2206) CALCIUM (test code = 2209) 9.1 MG/DL PROTEIN, TOTAL (test code = 7.2 G/DL 2228) ALBUMIN (test code = 2201) 4.5 G/DL CALC GLOBULIN (test code = 2.7 G/DL 2240) CALC A/G RATIO (test code = 1.7 RATIO 2234) BILIRUBIN, TOTAL (test code = 0.5 MG/DL 2206) ALKALINE PHOSPHATASE (test 111 U/L code = 2204) AST (test code = 2218) 122 U/L ALT (test code = 2219) 194 U/L COMPREHENSIVE METABOLIC [id number] 00:00:00 Test Item Value Reference Range Interpretation Comments GLUCOSE (test code = 2217) 98 MG/DL BUN (test code = 2208) 14 MG/DL CREATININE (test code = 2214) 0.82 MG/DL eGFR AMER. (test code 132 ML/MIN/1.73 = 08147) eGFR NON- AMER. (test 114 ML/MIN/1.73 code = 43878) CALC BUN/CREAT (test code = 17 RATIO 2235) SODIUM (test code = 2231) 138 MEQ/L POTASSIUM (test code = 2228) 4.1 MEQ/L CHLORIDE (test code = 2215) 100 MEQ/L CARBON DIOXIDE (test code = 23 MEQ/L 2206) CALCIUM (test code = 2209) 9.1 MG/DL PROTEIN, TOTAL (test code = 7.2 G/DL 2228) ALBUMIN (test code = 2201) 4.5 G/DL CALC GLOBULIN (test code = 2.7 G/DL 2240) CALC A/G RATIO (test code = 1.7 RATIO 2234) BILIRUBIN, TOTAL (test code = 0.5 MG/DL 2207) ALKALINE PHOSPHATASE (test 111 U/L code = 2204) AST (test code = 2218) 122 U/L ALT (test code = 2219) 194 U/L LIPID [id number] 00:00:00 Test Item Value Reference Range Interpretation Comments CHOLESTEROL (test code = 2210) 207 MG/DL TRIGLYCERIDES (test code = 2232) 212 MG/DL HDL CHOLESTEROL (test code = 2220) 34 MG/DL CALC LDL CHOL (test code = 2237) 131 MG/DL RISK RATIO LDL/HDL (test code = 3.84 RATIO 2238) LIPID [id number] 00:00:00 Test Item Value Reference Range Interpretation Comments CHOLESTEROL (test code = 2210) 207 MG/DL TRIGLYCERIDES (test code = 2232) 212 MG/DL HDL CHOLESTEROL (test code = 2220) 34 MG/DL CALC LDL CHOL (test code = 2237) 131 MG/DL RISK RATIO LDL/HDL (test code = 3.84 RATIO 2238) CBC W/AUTO [id number] 00:00:00 Test Item Value Reference Range Interpretation Comments WBC (test code = 1001) 10.2 K/UL RBC (test code = 1002) 4.92 M/UL HEMOGLOBIN (test code = 1003) 15.2 G/DL HEMATOCRIT (test code = 1004) 43.9 % MCV (test code = 1005) 89.2 fL MCH (test code = 1006) 30.9 PG MCHC (test code = 1007) 34.6 G/DL RDW (test code = 1038) 13.6 % NEUTROPHILS (test code = 1008) 61 % LYMPHOCYTES (test code = 1010) 30 % MONOCYTES (test code = 1011) 6 % EOSINOPHILS (test code = 1012) 3 % BASOPHILS (test code = 1013) % PLATELET COUNT (test code = 1015) 174 K/UL COMMENTS (test code = 1016) (NOTE) CBC W/AUTO [id number] 00:00:00 Test Item Value Reference Range Interpretation Comments WBC (test code = 1001) 10.2 K/UL RBC (test code = 1002) 4.92 M/UL HEMOGLOBIN (test code = 1003) 15.2 G/DL HEMATOCRIT (test code = 1004) 43.9 % MCV (test code = 1005) 89.2 fL MCH (test code = 1006) 30.9 PG MCHC (test code = 1007) 34.6 G/DL RDW (test code = 1038) 13.6 % NEUTROPHILS (test code = 1008) 61 % LYMPHOCYTES (test code = 1010) 30 % MONOCYTES (test code = 1011) 6 % EOSINOPHILS (test code = 1012) 3 % BASOPHILS (test code = 1013) % PLATELET COUNT (test code = 1015) 174 K/UL COMMENTS (test code = 1016) (NOTE) CBC W/AUTO [id number] 00:00:00 Test Item Value Reference Range Interpretation Comments WBC (test code = 1001) 10.2 K/UL RBC (test code = 1002) 4.92 M/UL HEMOGLOBIN (test code = 1003) 15.2 G/DL HEMATOCRIT (test code = 1004) 43.9 % MCV (test code = 1005) 89.2 fL MCH (test code = 1006) 30.9 PG MCHC (test code = 1007) 34.6 G/DL RDW (test code = 1038) 13.6 % NEUTROPHILS (test code = 1008) 61 % LYMPHOCYTES (test code = 1010) 30 % MONOCYTES (test code = 1011) 6 % EOSINOPHILS (test code = 1012) 3 % BASOPHILS (test code = 1013) % PLATELET COUNT (test code = 1015) 174 K/UL COMMENTS (test code = 1016) (NOTE)
[2022-09-15] MEDS ORDERED: ONDANSETRON 4 MG/2 ML VIAL ONE (13:17)
[2022-09-15] MEDS ORDERED: MORPHINE 4 MG/ML SYR ONE (13:17)
[2022-09-15] MEDS ORDERED: FAMOTIDINE 20 MG/2 ML VIAL IV ONE (13:18)
[2022-09-15] MEDS ORDERED: NA CHLORIDE 0.9% 1,000 ML ONE (13:18)
[2022-09-15 13:25] LABS: Absolute Lymphocytes (CBC) 2.6 K/uL (0.7-4.9); Hematocrit 44.6 % (39.6-49.0); Lymphocytes % 38.9 % (15.3-44.8); MCV 90.6 fL (80-100); MPV 9.8 fL (7.6-11.3); RBC Red Blood Cell Count 4.92 M/uL (4.33-5.43)
[2022-09-15 13:45] LABS: Albumin 3.5 g/dL (3.4-5.0); Bilirubin Total 0.4 mg/dL (0.2-1.0); Potassium 3.9 mmol/L (3.5-5.1); Protein, Total 7.1 g/dL (6.4-8.2)
[2022-09-15 13:47] LABS: Urine Blood Negative (Negative); Urine Glucose 3+ (Negative); Urine Protein Negative (Negative)
--- NOTE | 2022-09-15 14:44 | RAD REPORT ---
EXAM DESCRIPTION: CT - Abdomen Pelvis W Contrast - 09/15/2022 2:21 pm CLINICAL HISTORY: abdomenal pain COMPARISON: Abdomen Pelvis W Contrast dated 03/03/2021 TECHNIQUE: Biphasic, helical CT imaging of the abdomen and pelvis was performed following 100 ml non -ionic IV contrast. No oral contrast administered. All CT scans are performed using dose optimization technique as appropriate and may include automated exposure control or mA/KV adjustment according to patient size. FINDINGS: Patient has a few 5 mm or less sized nodules in the lower lung sahni are unchanged over a greater 1 year interval. No new lung base finding. No cardiomegaly or pericardial effusion. Liver size normal with a mild fatty infiltration pattern of the liver parenchyma. No focal liver lesi on. Portal vein is unremarkable. Spleen and pancreas show no suspicious findings. Cholecystectomy cli ps are present. No biliary tree dilatation. Symmetric renal function is seen with no hydronephrosis or suspicious renal mass. No pyelonephritis o r acute parenchymal process. No bladder abnormalities. No adrenal abnormalities. No dilated bowel loops or bowel wall thickening. Appendix is normal. Diverticulosis is minimal with n o acute GI process evident. No free air, free fluid or inflammatory stranding. No mass or bulky lymp hadenopathy. Fat filled right inguinal hernia is present with no acute component. No suspicious bony findings. IMPRESSION: Contrast enhanced CT abdomen and pelvis showing no significant or suspicious finding.
--- NOTE | 2022-09-15 15:07 | ER ---
Nurse's Notes [facility] Name: Yehuda Giraldo Age: 41 yrs Sex: Male : 1980 Arrival Date: 09/15/2022 Time: 11:58 Bed 10 Private MD: Diagnosis: Abdominal pain, unspecified Presentation: 09/15 12:02 Chief complaint: Patient states: i have been having stomach pains in the middle of my [facility] stomach for the last couple weeks and its moving up and it's just really really bad now. Coronavirus screen: Vaccine status: Patient reports being unvaccinated. Client denies travel out of the [place] in the last 14 days. Ebola Screen: Patient negative for fever greater than or equal to 101.5 degrees Fahrenheit, and additional compatible Ebola Virus Disease symptoms Patient denies exposure to infectious person. Patient denies travel to an Ebola-affected area in the 21 days before illness onset. Initial Sepsis Screen: Does the patient meet any 2 criteria? No. Patient's initial sepsis screen is negative. Does the patient have a suspected source of infection? No. Patient's initial sepsis screen is negative. Risk Assessment: Do you want to hurt yourself or someone else? Patient reports no desire to harm self or others. Onset of symptoms was August 30, 2022. 12:02 Method Of Arrival: Ambulatory [facility] 12:02 Acuity: SARA 3 jh5 Triage Assessment: 12:04 General: Appears uncomfortable, slender, well groomed, well developed, Behavior is [facility] calm, cooperative, appropriate for age. Pain: Complains of pain in abdomen. GI: Reports lower abdominal pain, upper abdominal pain, cramping. Historical: - Allergies: 13:30 No Known Allergies; hb - PMHx: 12:04 Diabetes - NIDDM; Diverticulitis; [facility] - Immunization history:: Adult Immunizations up to date. - Social history:: Smoking status: Patient reports the use of cigarette tobacco products, Patient/guardian denies using tobacco, but has a distant history of tobacco abuse. Screenin:28 Abuse screen: Denies threats or abuse. Denies injuries from another. Nutritional hb screening: No deficits noted. Tuberculosis screening: No symptoms or risk factors identified. Fall Risk None identified. Assessment: 12:10 General: SEE TRIAGE ASSESSMENT. hb Vital Signs: 12:02 BP 123 / 88; Pulse 87; Resp 16; Temp 98.6; Pulse Ox 99% ; Weight 84.82 kg; Height 5 ft. [facility] 8 in. (172.72 cm); Pain 10/10; 12:02 Body Mass Index 28.43 (84.82 kg, 172.72 cm) [facility] ED Course: 11:58 Patient arrived in ED. mr 12:04 Triage completed. [facility] 12:04 Arm band placed on right wrist. [facility] 12:12 Migel Sapp PA is PHCP. [facility] 12:12 Artem Lemus MD is Attending Physician. [facility] 12:28 Celsa Milan, RN is Primary Nurse. hb 12:28 Patient has correct armband on for positive identification. hb 13:13 Inserted saline lock: 20 gauge in right antecubital area, using aseptic technique. zm Blood collected. 13:14 Lipase Sent. zm 13:14 CMP Sent. zm 13:14 CBC with Diff Sent. zm 14:23 Abdomen In Process Unspecified. EDND 15:06 Epi Hampton MD is Referral Physician. [facility] 15:14 No provider procedures requiring assistance completed. IV discontinued, intact, hb bleeding controlled, No redness/swelling at site. Administered Medications: 13:29 Drug: NS 0.9% 1000 ml Route: IV; Rate: 1 bolus; Site: right antecubital; hb 14:22 Follow up: Response: No adverse reaction; IV Status: Completed infusion; IV Intake: hb 1000ml 13:30 Drug: Pepcid (famotidine) 20 mg Route: IVP; Site: right antecubital; hb 13:56 Follow up: Response: No adverse reaction hb 13:30 Drug: Zofran (Ondansetron) 4 mg Route: IVP; Site: right antecubital; hb 13:57 Follow up: Response: No adverse reaction hb 13:30 Drug: morphine 4 mg Route: IVP; Infused Over: 4 mins; Site: right antecubital; hb 13:57 Follow up: Response: No adverse reaction hb Medication: 12:29 VIS not applicable for this client. hb Intake: 14:22 IV: 1000ml; Total: 1000ml. hb Outcome: 15:06 Discharge ordered by . jmm 15:14 Discharged to home ambulatory. hb 15:14 Condition: stable 15:14 Discharge instructions given to patient, Instructed on discharge instructions, follow up and referral plans. medication usage, Demonstrated understanding of instructions, follow-up care, medications, Prescriptions given X 4. 15:15 Patient left the ED. Signatures: Dispatcher [employer] EDMS Migel Sapp PA PA jmm Rivera, Mary mr Celsa Milan RN RN Kaila Currie RN RN [facility] Yue Salomon
--- NOTE | 2022-09-15 15:07 | EDPHYS ---
Physician Documentation [facility] Name: Yehuda Giraldo Age: 41 yrs Sex: Male : 1980 Arrival Date: 09/15/2022 Time: 11:58 Bed 10 Private MD: ED Physician Artem Lemus HPI: 09/15 12:13 This 41 yrs old Male presents to ER via Ambulatory with complaints of jmm Abdominal Pain. 12:13 The patient presents with abdominal pain. Onset: The symptoms/episode began/occurred jmm gradually. The symptoms do not radiate. Is a 41-year-old male with history of diabetes mellitus, diverticulitis that presents emerged department with complaints of epigastric abdominal pain which radiates into the left upper quadrant. Patient states having normal bowel movements complains of nausea but no active vomiting.. Historical: - Allergies: 13:30 No Known Allergies; hb - PMHx: 12:04 Diabetes - NIDDM; Diverticulitis; jh5 - Immunization history:: Adult Immunizations up to date. - Social history:: Smoking status: Patient reports the use of cigarette tobacco products, Patient/guardian denies using tobacco, but has a distant history of tobacco abuse. ROS: 12:13 Constitutional: Negative for fever, chills, and weight loss, Cardiovascular: Negative jmm for chest pain, palpitations, and edema, Respiratory: Negative for shortness of breath, cough, wheezing, and pleuritic chest pain. 12:13 Abdomen/GI: Positive for abdominal pain. 12:13 All other systems are negative. Exam: 12:13 Constitutional: This is a well developed, well nourished patient who is awake, alert, jmm and in no acute distress. Head/Face: atraumatic. Eyes: EOMI, no conjunctival erythema appreciated ENT: Moist Mucus Membranes Neck: Trachea midline, Supple Chest/axilla: Normal chest wall appearance and motion. Cardiovascular: Regular rate and rhythm. No edema appreciated Respiratory: Normal respirations, no respiratory distress appreciated 12:13 Skin: General appearance color normal MS/ Extremity: Moves all extremities, no obvious deformities appreciated, no edema noted to the lower extremities Neuro: Awake and alert Psych: Behavior is normal, Mood is normal, Patient is cooperative and pleasant 12:13 Abdomen/GI: Inspection: abdomen appears normal, Bowel sounds: normal, Palpation: soft, moderate abdominal tenderness, in the epigastric area and left upper quadrant. Vital Signs: 12:02 BP 123 / 88; Pulse 87; Resp 16; Temp 98.6; Pulse Ox 99% ; Weight 84.82 kg; Height 5 ft. jh5 8 in. (172.72 cm); Pain 09/04; 12:02 Body Mass Index 28.43 (84.82 kg, 172.72 cm) 5 MDM: 12:13 Patient medically screened. [place] 15:05 Data reviewed: vital signs, nurses notes. Counseling: I had a detailed discussion with yessi the patient and/or guardian regarding: the historical points, exam findings, and any diagnostic results supporting the discharge/admit diagnosis, lab results, radiology results, the need for outpatient follow up, to return to the emergency department if symptoms worsen or persist or if there are any questions or concerns that arise at home. ED course: Pain is alleviated in the ED. Patient is advised to follow-up with GI for further evaluation. Patient otherwise given strict return precautions. Patient understood and agrees plan of care. 09/15 12:53 Order name: CBC with Diff [facility] 09/15 12:53 Order name: CMP [facility] 09/15 12:53 Order name: Lipase [facility] 09/15 13:28 Order name: CBC with Automated Diff; Complete Time: 13:29 [facility] 09/15 13:45 Order name: Comprehensive Metabolic Panel; Complete Time: 13:49 [facility] 09/15 13:45 Order name: Lipase; Complete Time: 13:49 [facility] 09/15 12:53 Order name: IV Saline Lock; Complete Time: 13:14 [facility] 09/15 13:48 Order name: Urine Dipstick-Ancillary; Complete Time: 13:49 [facility] 09/15 13:59 Order name: Abdomen ; Complete Time: 14:54 [facility] 09/15 12:53 Order name: Labs collected and sent; Complete Time: 13:14 [facility] 09/15 12:53 Order name: Urine Dipstick-Ancillary (obtain specimen); Complete Time: 13:29 [facility] Administered Medications: 13:29 Drug: NS 0.9% 1000 ml Route: IV; Rate: 1 bolus; Site: right antecubital; hb 14:22 Follow up: Response: No adverse reaction; IV Status: Completed infusion; IV Intake: hb 1000ml 13:30 Drug: Pepcid (famotidine) 20 mg Route: IVP; Site: right antecubital; hb 13:56 Follow up: Response: No adverse reaction hb 13:30 Drug: Zofran (Ondansetron) 4 mg Route: IVP; Site: right antecubital; hb 13:57 Follow up: Response: No adverse reaction hb 13:30 Drug: morphine 4 mg Route: IVP; Infused Over: 4 mins; Site: right antecubital; hb 13:57 Follow up: Response: No adverse reaction hb Disposition Summary: 09/15/22 15:06 Discharge Ordered Location: Home [facility] Condition: Stable [facility] Diagnosis - Abdominal pain, unspecified [facility] Followup: [facility] - With: Epi Hampton MD - When: 2 - 3 days - Reason: Recheck today's complaints, Continuance of care, Re-evaluation by your physician Discharge Instructions: - Discharge Summary Sheet [facility] - Abdominal Pain, Adult [facility] Forms: - Medication Reconciliation Form [facility] - Thank You Letter [facility] - Antibiotic Education [facility] - Prescription Opioid Use [facility] Prescriptions: - ondansetron 4 mg Oral tablet,disintegrating - take 1 tablet by ORAL route every 4-6 hours As needed; 20 tablet; Refills: 0, [facility] Product Selection Permitted - Pepcid 20 mg Oral Tablet - take 1 tablet by ORAL route every 12 hours for 10 days; 20 tablet; Refills: 0, [facility] Product Selection Permitted - dicyclomine 20 mg Oral Tablet - take 1 tablet by ORAL route 4 times per day; 30 tablet; Refills: 0, Product [facility] Selection Permitted - Carafate 1 gram Oral Tablet - take 1 tablet by ORAL route 4 times per day take on an empty stomach, beginning jmm on waking and last dose at bedtime; 100 tablet; Refills: 0, Product Selection Permitted Addendum: 09/19/2022 04:07 Co-signature as Attending Physician, Artem Lemus MD I agree with the assessment and c renee plan of care. Signatures: Dispatcher [employer] Artem Jones MD MD cha Mickail, Joel, PA PA jmm Baxter, Heather, RN RN Kaila Granados RN RN jh5 Corrections: (The following items were deleted from the chart) 10/21 15:01 14:53 Abdomen Pelvis W Con+CT.RAD.BRZ ordered. EDMS EDMS
[2022-09-15 15:39] VITALS: BP 123/88; TEMP 98.6; O2SAT 99
== END 2022-09-15 15:15 | disposition home or self-care (01) ==
LOC: ER 11:54
DX: R10.9 Unspecified abdominal pain (principal); E11.9 Type 2 diabetes mellitus without complications; K57.92 Diverticulitis of intestine, part unspecified, without perforation or abscess without bleeding; F17.210 Nicotine dependence, cigarettes, uncomplicated
CPT/HCPCS: 36415; 74177; 80053; 81003; 83690; 85025; 96361; 96374; 96375; 99284; J2405; J7030; Q9967

== ENCOUNTER 2023-05-26 17:41 | Emergency (ER) | payer SELFPAY ==
--- OUTSIDE RECORDS SUMMARY | 2023-05-26 17:45 | XMS REPORT | Continuity of Care Document ---
:1980 Author Organization [facility] t Address [address] [place] [address] Care Team Providers Name Role Phone Anjana Blue Primary Care Physician [phone] ALFREDO NAVARRO Attending Clinician Unavailable Jacque Tang Attending Clinician Alfredo Navarro MD Attending Clinician Ladny Jenkins DO Attending Clinician ALFREDO NAVARRO Admitting [...] (BMI 0-16 ity of 30-39.9) 30-39.9) 00:00: [place] 00 Medical Branch No known No known Disease Unive rs active active ity of problems problems [facility] Allergies, Adverse Reactions, Alerts Allergy Allergy Status Severity Reaction(s) Onset Inactive Treating Comm ents Source Name Type Date Date Clinician NO KNOWN Drug Active Univers ALLERGIE Class ity of S [facility] Social History Social Habit Start Date Stop Date Quantity Comments Source History of tobacco Passive smoker Un iversity of use [facility] Alcohol intake 2022-09-11 2022-09-11 Current University of 00:00:00 00:00:00 non-drinker of [facility] alcohol Branch (finding) Exposure to 2022-08-31 2022-09-10 Not sure [facility] SARS-CoV-2 (event) 00:00:00 13:58:00 [facility] Cigarettes smoked 2022-09-10 2022-09-10 Univers ity of current (pack per 00:00:00 00:00:00 [facility] ) - Reported Branch Cigarette 2022-09-10 2022-09-10 University of pack-years 00:00:00 00:00:00 [facility] Tobacco use and 2022-09-10 2022-09-10 Smokeless Universit y of exposure 00:00:00 00:00:00 tobacco non-user [facility] 2022-09-10 2022-09-10 21 University 00:00:00 00:00:00 [facility] Sex Assigned At [birth year] Universit y of 00:00:00 00:00:00 [facility] Smoking Status Start Date Stop Date Source Ex-smoker 2022-09-10 00:00:00 [facility]22[facility]09[facility] Current some 2021-03-05 00:00:00 [facility] smoker Medical [place] Medications Ordered Filled Start Stop Current Ordering Indication Dosage Frequency Signature Comments Components Source Medication Medication Date Date Medication? Clinician (SIG) Name Name 10 units 2 2021-11 No times daily 0-20 00:00: 00 SITagliptin 2021-11 Yes 100mg 100 mg, Un melina (JANUVIA) 0-17 Oral, ity of tablet 100 14:00: DAILY, [place] mg 00 First dose Medical on [facility] 09/11/22 at 0900, Until Discontinu ed, Routine enoxaparin 2021-11 Yes 40mg 40 mg, Unive rs (LOVENOX) 0-17 Subcutaneo ity of injection 14:00: [place], DAILY, [place] 40 mg 00 First dose Medical on [facility] 09/11/22 at 0900, Until Discontinu ed, Routine omeprazole 2021-11 Yes 40mg 40 mg, Unive rs (PRILOSEC) 0-17 Oral, ity of capsule 40 14:00: DAILY, [place] mg 00 First dose Medical on [facility] Branch 09/11/22 at 0900, Until Discontinu ed [...] First dose [place] mg 00 on [facility] [facility] 09/10/22 Branch at 2100, Until Discontinu ed, Routine Sliding 2021-11 No Subcutaneo Uni vers Scale 0-17 10-17 us, AC+HS, ity of Insulin-Reg 02:00: 07:10 First dose [place] ular + Fsbg 00 :47 on [facility] 09/10/22 Branch at 2100, Until Discontinu ed, Routine Lancing 2021-11 Yes [id number] Use as Univ ers Device with 0-17 directed ity of Lancets 00:00: [place] (ACCU-CHEK 00 Medical SOFT DEV Branch LANCETS) Kit pen needle, 2021-11 Yes [id number] Use as Univers diabetic 32 0-17 directed ity of gauge x 00:00: [place] 11/30" [place] 00 Medical Branch flash 2021-11 Yes [id number] 2{appli 2 Unive rs glucose 0-17 cator} Applicator ity of scanning 00:00: s before [place] reader 00 meals. Medical (FREESTYLE Branch ROSA MARIA 2 READER) Misc metFORMIN 2021-11- No [id number] 1000mg Take 1 Univers 1,000 mg 0-17 11-17 tablet by ity o f tablet 00:00: 05:59 mouth in [place] 00 :00 the Medical morning Branch and 1 tablet in the evening. Take with meals. Do all this for 30 days. atorvastati 2021-11- No [id number] 40mg Take 1 Univers n 40 mg 0-17 11-17 tablet by ity of tablet 00:00: 05:59 mouth at [place] 00 :00 bedtime Medical for 30 Branch days. insulin 2021-11- No [id number] 10U inject 10 Univers aspart 0-17 11-17 Units ity of protamine-i 00:00: 05:59 under the [place] nsulin 00 :00 skin 2 Medical aspart [...] of human 70-30 22:45: 04:12 us, BIDAC, [place] (70-30 00 :06 First dose Medical U-100 on [facility] INSULIN) 09/10/22 100 unit/mL at 1745, (70-30) Until injection Discontinu 10 Units ed, Routine glucagon 2021-11 Yes 1mg 1 mg, Univers (GLUCAGEN 0-16 Intramuscu ity of DIAGNOSTIC 22:36: lar, PRN, [place] KIT) 10 Starting Medical injection 1 on [facility] mg 09/10/22 at 1736, Until Discontinu ed, JOSE, Blood Glucose < or = 70 mg/dL and patient is unable to swallow or has mental changes. dextrose 50 2021-11 Yes 25mL 25 mL, Univ ers % in water 0-16 Slow IV ity of (D50W) 22:36: Push, PRN, [place] injection 10 Starting Medica l 25 mL on [facility] 09/10/22 at 1736, Until Discontinu ed, JOSE, Blood Glucose < or = 70 mg/dL and patient is unable to swallow or has mental status changes. ondansetron 2021-11 Yes 4mg 4 mg, Slow Univers (ZOFRAN 0-16 IV Push, ity of (PF)) 22:36: Q6HPRN, [place] injection 4 02 Starting Medi albina mg on [facility] 09/10/22 at 1736, Until Discontinu ed, Routine, Nausea and Vomiting (N/V) acetaminoph 2021-11 Yes 650mg 650 mg, Un melina en 0-16 Oral, ity of (TYLENOL) 22:35: Q6HPRN, [place] tablet 650 56 Starting Medic al mg on [facility] 09/10/22 at 1735, Until Discontinu ed, Routine, Pain (scale 1-3) NaCl 0.9% 2021-11- No 1000mL at 999 Uni vers (NS) bolus 0-16 10-16 mL/hr, ity of infusion 20:45: 20:37 1,000 mL, [place] as 1,000 mL 00 :00 IV Medical Infusion, Branch ONCE, 1 dose, On [place] 09/10/22 at 1545, JOSE iopamidol 2021-11 2022- No [id number] 75mL 75 mL, U nivers (ISOVUE 0-16 10-16 Intravenou ity o f 370-500 mL) 19:15: 19:30 s, ONCE, 1 [place] injection 00 :00 dose, On Medica l 75 mL [place] Branch 09/10/22 at 1430, Routine ondansetron 2021-11- No 4mg 4 mg, Slow Univers (ZOFRAN 016 IV Push, ity of (PF)) 19:15: 19:39 ONCE, 1 [place] injection 4 00 :00 dose, On Medi albina mg [place] [facility] 09/10/22 at 1415, JOSE morpHINE (4 2021-11- No 4mg 4 mg, Slow Univers mg/mL) 009-10 IV Push, ity of injection 4 19:15: 19:39 ONCE, 1 [place] mg 00 :00 dose, On Medical [place] [facility] 09/10/22 at 1415, STAT iohexol 2020- No [id number] 120mL 120 mL, U nivers (OMNIPAQUE 03-05 Intravenou it y of 350 19:30: 19:10 s, ONCE, 1 [place] BULK-150 00 :00 dose, Sat Medica l mL) 03/05/21 at Branch injection 1430, 120 mL Routine famotidine 2020- No 20mg 20 mg, Univ ers (PEPCID 03-05 Slow IV ity of (PF)) 19:30: 18:37 Push, [place] injection 00 :00 ONCE, 1 Medical 20 mg dose, Sat Branch 03/05/21 at 1430, JOSE ondansetron 2020- No 4mg 4 mg, Slow Univers (ZOFRAN 03-05 IV Push, ity of (PF)) 19:30: 18:37 ONCE, 1 [place] injection 4 00 :00 dose, Sat Med ical mg 03/05/21 at Branch 1430, JOSE morpHINE 2020- No 4mg 4 mg, Slow Un melina injection 4 03-05 IV Push, ity of mg 19:30: 18:37 ONCE, 1 [place] 00 :00 dose, Sat Medical 03/05/21 at Branch 1430, STAT NaCl 0.9% 2020- No 1000mL at 999 Uni vers (NS) bolus 4-10 04-10 mL/hr, ity of infusion 18:30: 19:46 1,000 mL, [place] as 1,000 mL 00 :00 IV Medical Infusion, Branch ONCE, 1 dose, 03/05/21 at 1330, JOSE metFORMIN Yes [id number] 500mg Take 1 U nivers 500 mg 4-10 tablet by ity of tablet 00:00: mouth 2 [place] 00 (two) Medical times Branch daily. omeprazole Yes [id number] 40mg Take 1 U nivers 40 mg 4-10 capsule by ity of capsule 00:00: mouth [place] 00 daily. Medical Branch omeprazole Yes [id number] 40mg Take 1 U nivers 40 mg 4-10 capsule by ity of capsule 00:00: mouth [place] 00 daily. Medical Branch metFORMIN 2021- No [id number] 500mg Take 1 Univers 500 mg 4-10 10-17 tablet by ity of tablet 00:00: 00:00 mouth 2 [place] 00 :00 (two) Medical times Branch daily. prednisone No 1mg 20 mg 2-12 tablet 00:00: 00 Dose 2018-0 No Unknown 2-12 00:00: 00 metformin No 1mg 500 mg 1-23 tablet 00:00: 00 neomycin-po 2020- No 3[drp] Place 3 Univers lymyxin-hyd 08-04-10 Drops in ity of rocortisone 00:00: 00:00 left ear 4 [place] (CORTISPORI 00 :00 (four) Medica l N [...] blood 2022-09-11 16:34:00 131 mm[Hg] Univer sity of [facility] Diastolic blood 2022-09-11 16:34:00 80 mm[Hg] Unive rsity [facility] Heart rate 2022-09-11 16:34:00 80 /min [facility] Body temperature 2022-09-11 16:34:00 36.83 [facility] 2022-09-11 16:34:00 18 /min [facility] Oxygen saturation in 2022-09-11 16:34:00 97 /min [facility] Arterial blood by [facility] Pulse oximetry Branch Body weight 2022-09-11 07:55:[address] [facility] BMI 2022-09-11 07:55:00 27.64 kg/m2 [facility] Body height 2022-09-11 01:03:[address] [facility] Systolic blood 2021-03-05 20:00:00 119 mm[Hg] Univer sity [facility] Diastolic blood 2021-03-05 20:00:00 73 mm[Hg] Unive rsity [facility] Heart rate 2021-03-05 20:00:00 78 /min [facility] Respiratory rate 2021-03-05 20:00:00 17 /min [facility] Oxygen saturation in 2021-03-05 20:00:00 99 /min University of Arterial blood by [facility] Pulse oximetry Branch Body temperature 2021-03-05 18:12:00 36.28 Geovanna [facility] Body height 2021-03-05 18:12:[address] [facility] Body weight 2021-03-05 18:12:[address] [facility] BMI 2021-03-05 18:12:00 34.06 kg/m2 [facility] BP Systolic 2022-09-14 13:45:00 119 mm[Hg] BP [...] Clinician Source Performed POCT GLUCOSE 2022-09-11 16:34:00 [facility] (AUTOMATED) Medical Branch POCT GLUCOSE 2022-09-11 12:44:00 [facility] (AUTOMATED) Medical [place] COMP. METABOLIC PANEL 2022-09-11 07:58:00 [facility] ([id number]) Medical Branch LIPID PANEL 2022-09-11 07:58:00 [facility] ([id number])(TOTAL Medical Branch CHOLESTEROL, TRIGLYCERIDES, HDL) LOW-DENSITY 2022-09-11 07:58:00 [facility] LIPOPROTEIN, DIRECT Medical Bran ch POCT GLUCOSE 2022-09-11 07:29:00 [facility] POCT GLUCOSE 2022-09-11 01:22:00 [facility] Branch POCT GLUCOSE 2022-09-10 20:47:00 Russell [facility] (AUTOMATED) Medical [place] CT ABDOMEN PELVIS W 2022-09-10 19:16:33 Russell [facility] CONTRAST Medical Branch LIPASE 2022-09-10 18:43:00 [facility] [place] [facility] COMP. METABOLIC PANEL 2022-09-10 18:43:00 [facility] ([id number]) Medical Branch CBC WITH DIFF 2022-09-10 18:43:00 [facility] [place] [facility] GLYCOSYLATED HEMOGLOBIN 2022-09-10 18:43:00 [facility] URINALYSIS 2022-09-10 18:43[facility]00 [facility] OF [facility]IVACY 2022-09-10 18:35:36 Doctor Unassigned, No [facility] PRACTICES Name Medical Branch CONSENT/REFUSAL FOR 2022-09-10 18:35:02 Doctor Unassigned, No [facility] DIAGNOSIS AND TREATMENT Name Medical Branch CT ABDOMEN PELVIS W 2021-03-05 19:23:44 Landy Jenkins [facility] CONTRAST Medical Branch LIPASE 2021-03-05 18:30:00 [facility] TROPONIN I 2021-03-05 18:30:00 [facility] HEPATIC FUNCTION PANEL 2021-03-05 18:30:00 Landy Jenkins [facility] ([id number]) (ALB,T.PRO,BILI Medical Branch T,BU/BC,ALT,AST,ALK PHOS) BASIC METABOLIC PANEL 2021-03-05 18:30:00 Landy Jenkins [facility] (NA, K, CL, CO2, Medical Branch GLUCOSE, BUN, CREATININE, CA) CBC WITH DIFF 2021-03-05 18:30:00 Land[facility] URINALYSIS 2021-03-05 18:30:00 [facility] NOTICE OF PRIVACY 2021-03-05 18:07:12 [facility]assigned, [facility] CONSENT/REFUSAL FOR 2021-03-05 18:07:01 Doctor Unassigned, No [facility] Name [facility] Plan of Care Planned Activity Planned Date Details Comments Source Goal Plan of Care Note [code = 77525-4] Goal Plan of Care Note [code = 81706-3] Goal Plan of Care Note [code = 52391-8] Goal Plan of Care Note [code = 05915-3] Goal Plan of Care Note [code = 20721-8] Goal Plan of Care Note [code = 24081-1] Goal Plan of Care Note [code = 96659-8] Goal Plan of Care Note [code = 21304-7] Goal Plan of Care Note [code = 55472-3] Goal Plan of Care Note [code = 22446-7] Goal Plan of Care Note [code = 29290-3] Goal Plan of Care Note [code = 80019-4] Goal Plan of Care Note [code = 69750-1] Encounters Start End Encounter Admission Attending Care Care Encounter Source Date/Time Date/Time Type Type Clinicians Facility Department ID 2022-09-14 2022-09-14 Outpatient [facility] [id number] [place] 13:42:01 13:42:01 1020 F Kem 2022-09-14 2022-09-14 Outpatient [id number] 00:00:00 00:00:00 Visit [id number] 2022-09-10 2022-09-11 Outpatient X MELANIE HIEDGAR [facility] [id number] Univers 13:44:00 12:54:00 ALFREDO orellana [facility] [place] [facility] 2022-09-10 2022-09-11 Emergency Jacque Wells [facility] [id number] [id number] Univers 13:44:00 12:54:00 [place], Alfredo LUNA [id number] ity [facility] [id number] [facility] [id number] [place] [id number] Branch 2021-03-05 2021-03-05 Emergency Gregory, [facility] [id number] Univers 13:11:00 15:35:00 Landy Luna [id number] ity [facility] 4.2.7.2.686 [facility] [id number] [facility] 084 Branch 2021-03-05 2021-03-05 Emergency X [facility] ERT [id number] Univers 13:06:00 13:06:00 [facility] Results Test Description Test Time Test Comments Results Result Comments Source POCT GLUCOSE (AUTOMATED) 2022-09-11 16:54:15 Test Item Value Reference Range Interpretation Comme nts POCT GLU (test code = 6347053085) 234 mg/dL 70-110 H Lab Interpretation (test code = 78056-0) Abnormal [facility] LIPOPROTEIN, [id number] 15:18:30 Test Item Value Reference Range Interpretation Comments dLDL Chol (test code = 71 mg/dL See_Comment [Aut omated message] 01329-9) The system [employer] generated this result transmitted ref erence range: <=130. T he reference range was not used to int erpret this result as normal/abnormal . Lab Interpretation (test Normal code = 49177-3) [facility] StationLIPID PAN[facility] (76665)(TOTAL CHOLESTEROL, TRIGLYCERIDES, HDL)2022-09-11 13:58:08 Test Item Value Reference Range Interpretation Comments CHOL (test code = 227 mg/dL 120-200 H 3711007801) HDL (test code = 28 mg/dL See_Comment L [Automated message] 3593617578) The system [employer] generated this result transmit jesse reference range : >=40. The refer ence range was not u sed to interpret th is result as normal/abnormal . HDLC RATIO (test code = See_Comment H [Au tomated message] 7139038636) The system [employer] generated this result transmit jesse reference range : <=5.0. The refe rence range was not u sed to interpret th is result as normal/abnormal . TRIG (test code = 1291 mg/dL 30-170 H 0333658834) LDL CHOL (test code = Unable to calculate 03559-5) LDL due to elev ated triglyceride le faisal greater than 40 0 mg/dL. VLDL (test code = Unable to calculate 9375545123) VLDL due to darnell vated triglyceride le faisal greater than 71 0 mg/dL. Lab Interpretation Abnormal (test code = 82700-3) [facility] (AUTOMATED)2022-09-11 12:50:53 Test Item Value Reference Range Interpretation Comments POCT GLU (test code = 5546926189) 247 mg/dL 70-110 H Lab Interpretation (test code = Abnormal 94966-5) [facility]. METABOLIC PANEL (08346)2022-09-11 09:41:07 Test Item Value Reference Range Interpretation Comments NA (test code = 135 mmol/L 135-145 5508046313) K (test code = 3.5 mmol/L 3.5-5 8922854258) CL (test code = 104 mmol/L 98-108 9552727687) CO2 TOTAL (test code = 22 mmol/L 23-31 L 9663976514) AGAP (test code = 2-16 3502883790) BUN (test code = 13 mg/dL 7-23 2829326730) GLUCOSE (test code = 242 mg/dL 70-110 H 4114824450) CREATININE (test code = 0.64 mg/dL 0.6-1.25 5041780512) TOTAL BILI (test code = 0.3 mg/dL 0.1-1.9 1108684749) CALCIUM (test code = 8.0 mg/dL 8.6-10.6 L 5688024326) T PROTEIN (test code = 5.8 g/dL 6.3-8.2 L 6527419472) ALBUMIN (test code = 3.4 g/dL 3.5-5 L 9868846510) ALK PHOS (test code = 111 U/L 34-122 4257350035) ALTv (test code = 23 U/L 5-50 1742-6) AST(SGOT) (test code = 21 U/L 13-40 6428199196) eGFR (test code = mL/min/1.73m2 0866609020) NIKO (test code = NIKO) Association of [...] tests). Lab Interpretation Abnormal (test code = 62022-7) [facility] GLUCOSE (AUTOMATED)2022-09-11 07:33:20 Test Item Value Reference Range Interpretation Comments POCT GLU (test code = 0077699644) 204 mg/dL 70-110 H Lab Interpretation (test code = Abnormal 27086-1) [facility] GLUCOSE (AUTOMATED)2022-09-11 01:28:49 Test Item Value Reference Range Interpretation Comments POCT GLU (test code = 8369249110) 373 mg/dL 70-110 H Lab Interpretation (test code = Abnormal 12578-1) [facility] GLUCOSE (AUTOMATED)2022-09-10 20:50:37 Test Item Value Reference Range Interpretation Comments POCT GLU (test code = 0936861568) 272 mg/dL 70-110 H Lab Interpretation (test code = Abnormal 09315-1) [facility]YCOSYL[facility] HEMOGLOBIN (A1C)2022-09-10 20:06:25 Test Item Value Reference Range Interpretation Comments HGB A1C (test code = 12.3 % 4-5.7 H 4548-4) NIKO (test code = NIKO) Reference RangesNormal: <5.7%Prediabetes: 5.7 - 6.4%Diabetes: > 6.5% Lab Interpretation (test Abnormal code = 39925-4) [facility] StationComplete Metabolic [id number] 19:37:52 Test Item Value Reference Range Interpretation Comments NA (test code = 134 mmol/L 135-145 L 7545568583) K (test code = 4.1 mmol/L 3.5-5 7717223345) CL (test code = 101 mmol/L 98-108 7300926266) CO2 TOTAL (test code = 20 mmol/L 23-31 L 1977729189) AGAP (test code = 2-16 6758378286) BUN (test code = 10 mg/dL 7-23 5025756261) GLUCOSE (test code = 468 mg/dL 70-110 HH 5178156253) CREATININE (test code = 0.75 mg/dL 0.6-1.25 2199297825) TOTAL BILI (test code = 0.6 mg/dL 0.1-1.4 6315148676) CALCIUM (test code = 8.7 mg/dL 8.6-10.6 5721307146) T PROTEIN (test code = 6.6 g/dL 6.3-8.2 3215612959) ALBUMIN (test code = 4.2 g/dL 3.5-5 3796525606) ALK PHOS (test code = 123 U/L 34-122 H 5064423586) ALTv (test code = 26 U/L 5-50 1742-6) AST(SGOT) (test code = 22 U/L 13-40 6317616127) eGFR (test code = mL/min/1.73m2 4646066214) NIKO (test code = NIKO) Association of [...] tests). Lab Interpretation Abnormal (test code = 38610-6) [facility] StationLipase, [id number] 19:04:41 Test Item Value Reference Range Interpretation Comments LIPASE (test code = 1411606845) 111 U/L 0-220 Lab Interpretation (test code = Normal 40521-1) [facility] StationCB with [id number] 18:52:20 Test Item Value Reference Range Interpretation Comments WBC (test code = See_Comment [Automated 2064-2) message] The sy stem which generated this result transmitted reference range : 4.20 - 10.70 10*3/?L. The reference range was not used to interpret this result as normal/abnormal . RBC (test code = See_Comment [Automated 994-9) message] The sy stem which generated this [...] (test code = 37.7 fL 38.5-51.6 L 51877-6) RDW-CV (test code = 11.9 % 12.1-15.4 L 788-0) PLT (test code = See_Comment [Automated 777-3) message] The sy stem which generated this result transmitted reference range : 150 - 328 10*3/ ?L. The reference r stephie was not used to interpret this result as normal/abnormal . MPV (test code = 11.9 fL 9.8-13 01430-0) NRBC/100 WBC (test See_Comment [Automat ed code = 7914141358) message] The system which generated this result transmitted reference range : 0.0 - 10.0 /100 WBCs. The refer ence range was not u sed to interpret th is result as normal/abnormal . NRBC x10^3 (test code See_Comment [Auto mated = 7275724109) message] The s ystem which generated this result transmitted reference range : 10*3/?L. The reference range was not used to interpret this result as normal/abnormal . GRAN MAT (NEUT) % 56.2 % (test code = 770-8) IMM GRAN % (test code 0.40 % = 3102631901) LYMPH % (test code = 36.1 % 736-9) MONO % (test code = 4.8 % 5905-5) EOS % (test code = 1.7 % 713-8) BASO % (test code = 0.8 % 706-2) GRAN MAT x10^3(ANC) 4.38 10*3/uL 1.99-6.95 (test code = 9737010698) IMM GRAN x10^3 (test 0.03 10*3/uL 0-0.06 code = 3687114779) LYMPH x10^3 (test code 2.81 10*3/uL 1.09-3.23 = 731-0) MONO x10^3 (test code 0.37 10*3/uL 0.36-1.02 = 742-7) EOS x10^3 (test code = 0.13 10*3/uL 0.06-0.53 711-2) BASO x10^3 (test code 0.06 10*3/uL 0.01-0.09 = 704-7) Lab Interpretation Abnormal (test code = 59999-3) [facility] StationCT ABDOMEN PELVIS W [id number] 20:31:35 Diverticulosis without diverticulitis. Hepatomegaly. Preliminary Report [...] lesions.IMPRESSIONDiverticulosis without diverticulitis.Hepatomegaly.Preliminary Report Dictated by Resident: Tu Rosa, Ty Hernandez MD., have reviewed this study and agree with the abovereport.[facility] StationOlamide [id number] 19:10:36 Test Item Value Reference Range Interpretation Comments TROPONIN I (test 0.001 ng/mL See_Comment [Automated code = 7214256361) message] The system which generated this result [...] ? Lab Interpretation Normal (test code = 18882-6) [facility] StationHepatic Function Panel (ALB, T.PRO, BILI T, BU/BC, ALT, AST, ALK PHOS)2021-03-05 18:59:14 Test Item Value Reference Range Interpretation Comments TOTAL BILI (test code = 9600043179) 0.4 mg/dL 0.1-1.1 BILI UNCON (test code = 5242599988) 0.3 mg/dL 0.1-1.1 BILI CONJ (test code = 1002044250) 0.0 mg/dL 0.0-0.3 T PROTEIN (test code = 0098819915) 6.6 g/dL 6.3-8.2 ALBUMIN (test code = 4260412653) 4.2 g/dL 3.5-5.0 ALK PHOS (test code = 9254419387) 97 U/L 34-122 ALTv (test code = 1742-6) 22 U/L 5-50 AST(SGOT) (test code = 6961084577) 23 U/L 13-40 Lab Interpretation (test code = Normal 67208-5) [facility] StationBasic Metabolic Panel (NA, K, CL, CO2, GLUCOSE, BUN, CREATININE, CA)2021-03-05 18:58:54 Test Item Value Reference Range Interpretation Comments NA (test code = 136 mmol/L 135-145 2272444096) K (test code = 4.1 mmol/L 3.5-5.0 8640369829) CL (test code = 104 mmol/L 98-108 4985177642) CO2 TOTAL (test code = 24 mmol/L 23-31 5189440951) AGAP (test code = 2-16 5789885047) BUN (test code = 15 mg/dL 7-23 0156517371) GLUCOSE (test code = 207 mg/dL 70-110 H 4268824061) CREATININE (test code = 0.74 mg/dL 0.60-1.25 5326123358) CALCIUM (test code = 8.4 mg/dL 8.6-10.6 L 2151481127) eGFR (test code = mL/min/1.73m2 9581845257) NIKO (test code = NIKO) Association of [...] tests). Lab Interpretation Abnormal (test code = 08023-2) [facility] StationLipase [id number] 18:58:54 Test Item Value Reference Range Interpretation Comments LIPASE (test code = 6993712044) 140 U/L 0-220 Lab Interpretation (test code = Normal 68876-3) [facility] StationUrinalysis2021-04-10 18:51:20 Test Item Value Reference Range Interpretation Comments APPEARANCE (test code = Clear Clear 2025311353) COLOR (test code = Yellow Yellow 6998945533) PH (test code = 4.8-8.0 7812840052) SP GRAVITY (test code = 1.003-1.030 0173514806) GLU U QUAL (test code = 50 mg/dL Normal A 6531272757) BLOOD (test code = Negative Negative 1545213099) KETONES (test code = Negative Negative 4401195991) PROTEIN (test code = Negative Negative 2887-8) UROBILIN (test code = Normal Normal 6972948580) BILIRUBIN (test code = Negative Negative 8057495832) NITRITE (test code = Negative Negative 7570757842) LEUK ZAY (test code = Negative Negative 4529382331) RBC/HPF (test code = See_Comment [Autom ated message] 3000780947) The system [employer] generated this result transmitted ref erence range: 0 - 3 HP F. The reference range was not used to int erpret this result as normal/abnormal . WBC/HPF (test code = <1 See_Comment [Autom ated message] 7541319133) The system [employer] generated this result transmitted ref erence range: 0 - 5 HP F. The reference range was not used to int erpret this result as normal/abnormal . BACTERIA (test code = Negative Negative 1700258423) MUCOUS (test code = Slight Negative LPF A 1275101809) SQ EPITH (test code = <1 HPF 6640216077) Lab Interpretation (test Abnormal code = 69836-6) [facility] [id number] 18:46:34 Test Item Value Reference Range Interpretation Comments WBC (test code = See_Comment [Automated 2940-2) message] The sy stem which generated this result transmitted reference range : 4.20 - 10.70 10*3/?L. The reference range was not used to interpret this result as normal/abnormal . RBC (test code = See_Comment [Automated 277-8) message] The sy stem which generated this [...] RDW-SD (test code = 39.9 fL 38.5-51.6 80540-3) RDW-CV (test code = 12.5 % 12.1-15.4 788-0) PLT (test code = See_Comment [Automated 777-3) message] The sy stem which generated this result transmitted reference range : 150 - 328 10*3/ ?L. The reference r stephie was not used to interpret this result as normal/abnormal . MPV (test code = 11.9 fL 9.8-13.0 88116-1) NRBC/100 WBC (test See_Comment [Automat ed code = 8324000586) message] The system which generated this result transmitted reference range : 0.0 - 10.0 /100 WBCs. The refer ence range was not u sed to interpret th is result as normal/abnormal . NRBC x10^3 (test code <0.01 See_Comment [Auto mated = 0671251015) message] The s ystem which generated this result transmitted reference range : 10*3/?L. The reference range was not used to interpret this result as normal/abnormal . GRAN MAT (NEUT) % 54.6 % (test code = 770-8) IMM GRAN % (test code 0.40 % = 9090519417) LYMPH % (test code = 36.8 % 736-9) MONO % (test code = 5.3 % 5905-5) EOS % (test code = 2.1 % 713-8) BASO % (test code = 0.8 % 706-2) GRAN MAT x10^3(ANC) 3.92 10*3/uL 1.99-6.95 (test code = 8086990373) IMM GRAN x10^3 (test 0.03 10*3/uL 0.00-0.06 code = 1234559610) LYMPH x10^3 (test code 2.64 10*3/uL 1.09-3.23 = 731-0) MONO x10^3 (test code 0.38 10*3/uL 0.36-1.02 = 742-7) EOS x10^3 (test code = 0.15 10*3/uL 0.06-0.53 711-2) BASO x10^3 (test code 0.06 10*3/uL 0.01-0.09 = 704-7) Lab Interpretation Abnormal (test code = 40846-7) [facility] [id number] 00:00:00 Test Item Value Reference Range Interpretation Comments CHOLESTEROL (test code = 2210) 185 MG/DL TRIGLYCERIDES (test code = 2232) 162 MG/DL HDL CHOLESTEROL (test code = 2220) 41 MG/DL CALC LDL CHOL (test code = 2237) 112 MG/DL RISK RATIO LDL/HDL (test code = 2.72 RATIO 2238) LIPID [id number] 00:00:00 Test Item Value Reference Range Interpretation Comments CHOLESTEROL (test code = 2210) 185 MG/DL TRIGLYCERIDES (test code = 2232) 162 MG/DL HDL CHOLESTEROL (test code = 2220) 41 MG/DL CALC LDL CHOL (test code = 2237) 112 MG/DL RISK RATIO LDL/HDL (test code = 2.72 RATIO 2238) CBC W/AUTO [id number] 00:00:00 Test Item Value Reference Range Interpretation [...] code = 1015) 166 K/UL CBC W/AUTO [id number] 00:00:00 Test Item Value Reference Range Interpretation [...] code = 1015) 166 K/UL CBC W/AUTO [id number] 00:00:00 Test Item Value Reference Range Interpretation [...] code = 1015) 166 K/UL COMPREHENSIVE METABOLIC [id number] 00:00:00 Test Item Value Reference Range Interpretation Comments GLUCOSE (test code = 2217) 121 MG/DL BUN (test code = 2208) 12 MG/DL CREATININE (test code = 2214) 0.87 MG/DL eGFR AMER. (test code 126 ML/MIN/1.73 = 47296) eGFR NON- AMER. (test 109 ML/MIN/1.73 code = 61579) CALC BUN/CREAT (test code = 14 RATIO [...] code = 2219) 26 U/L COMPREHENSIVE METABOLIC [id number] 00:00:00 Test Item Value Reference Range Interpretation Comments GLUCOSE (test code = 2217) 121 MG/DL BUN (test code = 2208) 12 MG/DL CREATININE (test code = 2214) 0.87 MG/DL eGFR AMER. (test code 126 ML/MIN/1.73 = 23225) eGFR NON- AMER. (test 109 ML/MIN/1.73 code = 88781) CALC BUN/CREAT (test code = 14 RATIO 2235) SODIUM (test code = 2231) 140 MEQ/L POTASSIUM (test code = 2228) 4.3 MEQ/L CHLORIDE (test code = 2215) 105 MEQ/L CARBON DIOXIDE (test code = 23 MEQ/L 2206) CALCIUM (test code = 2209) 8.9 MG/DL [...] (test code = 2219) 26 U/L HEMOGLOBIN [id number] 00:00:00 Test Item Value Reference Range Interpretation Comments HEMOGLOBIN A1c (test code = 40819) 6.4 % HEMOGLOBIN [id number] 00:00:00 Test Item Value Reference Range Interpretation Comments HEMOGLOBIN A1c (test code = 52296) 6.4 % HEMOGLOBIN [id number] 00:00:00 Test Item Value Reference Range Interpretation Comments HEMOGLOBIN A1c (test code = 06412) 6.4 % CBC W/AUTO [id number] 00:00:00 Test Item Value Reference Range Interpretation [...] code = 1015) 193 K/UL CBC W/AUTO [id number] 00:00:00 Test Item Value Reference Range Interpretation [...] code = 1015) 193 K/UL CBC W/AUTO [id number] 00:00:00 Test Item Value Reference Range Interpretation [...] (test code = 1015) 193 K/UL HEMOGLOBIN [id number] 00:00:00 Test Item Value Reference Range Interpretation Comments HEMOGLOBIN A1c (test code = 64322) 7.8 % HEMOGLOBIN [id number] 00:00:00 Test Item Value Reference Range Interpretation Comments HEMOGLOBIN A1c (test code = 18233) 7.8 % HEMOGLOBIN [id number] 00:00:00 Test Item Value Reference Range Interpretation Comments HEMOGLOBIN A1c (test code = 78165) 7.8 % THYROID II PROFILE (T3U, T4, [...] code = 2821) 2.2 UIU/ML COMPREHENSIVE METABOLIC [id number] 00:00:00 Test Item Value Reference Range Interpretation Comments GLUCOSE (test code = 2217) 98 MG/DL BUN (test code = 2208) 14 MG/DL CREATININE (test code = 2214) 0.82 MG/DL eGFR AMER. (test code 132 ML/MIN/1.73 = 01675) eGFR NON- AMER. (test 114 ML/MIN/1.73 code = 18949) CALC BUN/CREAT (test code = 17 RATIO [...] code = 2219) 194 U/L COMPREHENSIVE METABOLIC [id number] 00:00:00 Test Item Value Reference Range Interpretation Comments GLUCOSE (test code = 2217) 98 MG/DL BUN (test code = 2208) 14 MG/DL CREATININE (test code = 2214) 0.82 MG/DL eGFR AMER. (test code 132 ML/MIN/1.73 = 41147) eGFR NON- AMER. (test 114 ML/MIN/1.73 code = 43848) CALC BUN/CREAT (test code = 17 RATIO [...] (test code = 2219) 194 U/L LIPID [id number] 00:00:00 Test Item Value Reference Range Interpretation Comments CHOLESTEROL (test code = 2210) 207 MG/DL TRIGLYCERIDES (test code = 2232) 212 MG/DL HDL CHOLESTEROL (test code = 2220) 34 MG/DL CALC LDL CHOL (test code = 2237) 131 MG/DL RISK RATIO LDL/HDL (test code = 3.84 RATIO 2238) LIPID [id number] 00:00:00 Test Item Value Reference Range Interpretation Comments CHOLESTEROL (test code = 2210) 207 MG/DL TRIGLYCERIDES (test code = 2232) 212 MG/DL HDL CHOLESTEROL (test code = 2220) 34 MG/DL CALC LDL CHOL (test code = 2237) 131 MG/DL RISK RATIO LDL/HDL (test code = 3.84 RATIO 2238) CBC W/AUTO [id number] 00:00:00 Test Item Value Reference Range Interpretation [...] (test code = 1016) (NOTE) CBC W/AUTO [id number] 00:00:00 Test Item Value Reference Range Interpretation [...] (test code = 1016) (NOTE) CBC W/AUTO [id number] 00:00:00 Test Item Value Reference Range Interpretation [...]
[2023-05-26] MEDS ORDERED: INSULIN -REGULAR HUMAN 50 UNIT/0.5 ML ML ONE (18:17)
[2023-05-26] MEDS ORDERED: NA CHLORIDE 0.9% 2,000 ML ONE (18:18)
[2023-05-26] MEDS ORDERED: FAMOTIDINE 20 MG/2 ML VIAL IV ONE (18:18)
[2023-05-26 18:28] LABS: Absolute Lymphocytes (CBC) 2.3 K/uL (0.7-4.9); Hematocrit 41.9 % (39.6-49.0); Lymphocytes % 33.8 % (15.3-44.8); MCV 91.2 fL (80-100); MPV 10.1 fL (7.6-11.3); RBC Red Blood Cell Count 4.59 M/uL (4.33-5.43)
[2023-05-26 18:55] LABS: Albumin 3.4 g/dL (3.4-5.0); Bilirubin Total 0.3 mg/dL (0.2-1.0); Potassium 3.8 mEq/L (3.5-5.1)
[2023-05-26 19:10] LABS: Specific Gravity > 1.030 (1.005-1.030); Urine Bilirubin NEGATIVE (Negative); Urine Blood Negative (Negative); Urine Clarity Clear (Clear); Urine Color Colorless (Yellow); Urine Glucose 4+ (Over) (Negative); Urine Protein NEGATIVE (Negative); Urine Urobilinogen Normal (Normal)
--- NOTE | 2023-05-26 19:35 | RAD REPORT ---
EXAM DESCRIPTION: CT - Abdomen Pelvis W Contrast - 05/26/2023 7:18 pm CLINICAL HISTORY: ABD PAIN COMPARISON: Abdomen Pelvis W Contrast dated 09/15/2022; Abdomen Pelvis W Contrast dated 03/03/2021 ; Abdomen Pelvis W Contrast dated 01/08/2020; CT ABD PELVIS W CONTRAST dated 11/15/2015 TECHNIQUE: Thin cut axial CT imaging of the abdomen and pelvis was performed following intravenous a dministration of 100mL Isovue 300. Multiplanar reformats were generated and reviewed. All CT scans are performed using dose optimization technique as appropriate and may include automated exposure control or mA/KV adjustment according to patient size. FINDINGS: No suspicious findings in the lung bases. Diffuse hepatic parenchymal hypoattenuation, suggesting steatosis. Status post cholecystectomy. Splee n, adrenal glands, and pancreas show no suspicious findings. Gallbladder and biliary tree are also wi thout suspicious finding. Symmetric renal function is seen with no hydronephrosis or suspicious renal mass. No dilated bowel loops or bowel wall thickening. No free air, free fluid or inflammatory stranding. N o hernia, mass or bulky lymphadenopathy. The urinary bladder is without significant finding. No suspicious bony findings. IMPRESSION: No acute intra-abdominal process. Diffuse hepatic parenchymal hypoattenuation suggesting steatosis.
[2023-05-26] MEDS ORDERED: METOCLOPRAMIDE 10 MG/2mL INJ ONE (19:51)
[2023-05-26] MEDS ORDERED: TRAMADOL HCL 50 MG TAB ONE (20:08)
[2023-05-26] MEDS ORDERED: DICYCLOMINE HCL 10 MG CAP ONE (20:09)
--- NOTE | 2023-05-26 20:43 | ER ---
Nurse's Notes [facility] Name: Yehuda Giraldo Age: 42 yrs Sex: Male : 1980 Arrival Date: 05/26/2023 Time: 17:41 Bed 6 Private MD: Diagnosis: Type 1 diabetes mellitus with hyperglycemia;Noncompliance with medical regimen, moderate dehydration, diabetes mellitus type 1 with complications Presentation: 05/26 17:47 Chief complaint: Patient states: "I haven't been feeling really good lately, like ss tired, and I'm diabetic, supposed to take 70/30 insulin, but I've been out of my insulin for about 2 weeks.". Coronavirus screen: Client denies travel out of the [place] in the last 14 days. Ebola Screen: Patient denies exposure to infectious person. Patient denies travel to an Ebola-affected area in the 21 days before illness onset. Initial Sepsis Screen: Does the patient meet any 2 criteria? No. Patient's initial sepsis screen is negative. Does the patient have a suspected source of infection? No. Patient's initial sepsis screen is negative. Risk Assessment: Do you want to hurt yourself or someone else? Patient reports no desire to harm self or others. Onset of symptoms is unknown. 17:47 Method Of Arrival: Ambulatory ss 17:47 Acuity: SARA 3 ss Historical: - Allergies: 17:49 No Known Allergies; ss - PMHx: 17:49 Diabetes - NIDDM; Diverticulitis; Hypertensive disorder; ss 17:50 COPD; ss - Immunization history:: Adult Immunizations unknown. - Family history:: not pertinent. - Social history:: Smoking status: Patient denies any tobacco usage or history of. - Hospitalizations: : No recent hospitalization is reported. Screenin:26 [facility] ED Fall Risk Assessment (Adult) History of falling in the last 3 months, ko1 including since admission No falls in past 3 months (0 pts) Confusion or Disorientation No (0 pts) Intoxicated or Sedated No (0 pts) Impaired Gait No (0 pts) Mobility Assist Device Used No (0 pt) Altered Elimination No (0 pt) Score/Fall Risk Level 0 - 2 = Low Risk Oriented to surroundings, Maintained a safe environment, Educated pt \\T\\ family on fall prevention, incl call for assistance when getting out of bed, Assessed \\T\\ reinforced patient's understanding of fall precautions, Provided non-skid footwear, Hourly rounding (assess needs \\T\\ fall precautionary measures) done, Used ambulatory aids as needed (educated on \\T\\ assisted with), Used gait belt as appropriate. Abuse screen: Denies threats or abuse. Denies injuries from another. Nutritional screening: No deficits noted. Tuberculosis screening: No symptoms or risk factors identified. Assessment: 18:26 General: Appears in no apparent distress. comfortable, Behavior is calm, cooperative, ko1 appropriate for age. Pain: Denies pain. Neuro: No deficits noted. Cardiovascular: No deficits noted. Respiratory: No deficits noted. GI: No deficits noted. : No deficits noted. EENT: No deficits noted. Derm: No signs and/or symptoms reported regarding the dermatologic system. Musculoskeletal: No deficits noted. 19:15 Reassessment: Patient appears in no apparent distress at this time. Patient and/or jb4 family updated on plan of care and expected duration. Pain level reassessed. Patient is alert, oriented x 3, equal unlabored respirations, skin warm/dry/pink. 20:09 Reassessment: Patient appears in no apparent distress at this time. Patient and/or jb4 family updated on plan of care and expected duration. Pain level reassessed. Patient is alert, oriented x 3, equal unlabored respirations, skin warm/dry/pink. 21:04 Reassessment: Patient appears in no apparent distress at this time. Patient and/or jb4 family updated on plan of care and expected duration. Pain level reassessed. Patient is alert, oriented x 3, equal unlabored respirations, skin warm/dry/pink. Pt verbalized understanding of d/c and follow up instructions. denies questions or concerns. Vital Signs: 17:47 BP 125 / 86; Pulse 97; Resp 16; Temp 98.1(O); Pulse Ox 100% on R/A; Weight 81.65 kg; ss Height 5 ft. 8 in. ; Pain 0/10; 19:30 BP 122 / 87; Pulse 88; Resp 16; Pulse Ox 100% on R/A; jb4 20:15 BP 131 / 85; Pulse 85; Resp 16; Pulse Ox 100% on R/A; jb4 17:47 Body Mass Index 27.37 (81.65 kg, 172.72 cm) ss 17:47 Pain Scale: Adult ss ED Course: 17:42 Patient arrived in ED. rg4 17:48 Colin Patel MD is Attending Physician. rn 17:49 Triage completed. ss 17:49 Arm band placed on right wrist. ss 18:01 Wanda Hart, RN is Primary Nurse. ko1 18:23 Inserted saline lock: 20 gauge in right antecubital area, using aseptic technique. ko1 Blood collected. 18:25 CBC with Diff Sent. ko1 18:25 CMP Sent. ko1 18:25 Lipase Sent. ko1 18:26 Patient has correct armband on for positive identification. Bed in low position. Call ko1 light in reach. Pulse ox on. NIBP on. 19:01 Urinalysis w/ reflexes Sent. ko1 19:11 Attending Physician role handed off by Colin Patel MD sp4 19:11 Enrique Aguirre MD is Attending Physician. sp4 19:20 CT Abd/Pelvis - IV Contrast Only In Process Unspecified. EDMS 21:05 No provider procedures requiring assistance completed. IV discontinued, intact, jb4 bleeding controlled, No redness/swelling at site. Pressure dressing applied. Administered Medications: 18:10 Drug: Insulin Regular Human Sub-Q 10 units {Co-Signature: amanda (Brandi Rodriguez RN).} ko1 Route: Sub-Q; Site: abdomen; 18:25 Drug: NS 0.9% IV 1000 ml Route: IV; Rate: 1 bolus; Site: right antecubital; ko1 18:25 Drug: Famotidine IVP 20 mg Route: IVP; Site: right antecubital; ko1 19:48 Drug: NS 0.9% IV 1000 ml Route: IV; Rate: 1000 ml; Site: right antecubital; jb4 19:48 Drug: metoCLOPramide IVP 10 mg Route: IVP; Site: right antecubital; jb4 20:05 Drug: Dicyclomine PO 20 mg Route: PO; jb4 20:05 Drug: traMADol PO 100 mg Route: PO; jb4 Medication: 20:15 VIS not applicable for this client. jb4 Outcome: 20:42 Discharge ordered by . sp4 21:05 Discharged to home ambulatory, with family. jb4 21:05 Condition: stable 21:05 Discharge instructions given to patient, Instructed on discharge instructions, follow up and referral plans. medication usage, Demonstrated understanding of instructions, follow-up care, medications, Prescriptions given X 4. 21:06 Patient left the ED. jb4 Signatures: Dispatcher [employer] EDMS Colin Patel MD MD rn Blanchard, Shelby, RN RN Elisa Tian rg4 Saul Rios RN RN jb4 Wanda Hart RN RN ko1 Potepalov, Sergey, MD MD sp4 Brandi Rodriguez RN ph
--- NOTE | 2023-05-26 20:43 | EDPHYS ---
Physician Documentation [facility] Name: eYhuda Giraldo Age: 42 yrs Sex: Male : 1980 Arrival Date: 05/26/2023 Time: 17:41 Bed 6 Private MD: ED Physician Enrique Aguirre HPI: 05/26 18:09 This 42 yrs old Male presents to ER via Ambulatory with complaints of Blood rn Sugar Problem, Weakness. 18:10 Onset: The symptoms/episode began/occurred 2 week(s) ago. Associated signs and rn symptoms: Pertinent positives: polydipsia, polyuria, Pertinent negatives: seizure activity, vomiting. Current symptoms: In the emergency department the patient's symptoms are unchanged from the initial presentation. The patient has experienced a previous episode. The patient has not recently seen a physician. Pt reports 2 weeks of increased thirst and urination, supposed to be taking 70/30 insulin, ran out. Also reports lower abd pain and nausea. + generalized weakness. . Historical: - Allergies: 17:49 No Known Allergies; ss - PMHx: 17:49 Diabetes - NIDDM; Diverticulitis; Hypertensive disorder; ss 17:50 COPD; ss - Immunization history:: Adult Immunizations unknown. - Family history:: not pertinent. - Social history:: Smoking status: Patient denies any tobacco usage or history of. - Hospitalizations: : No recent hospitalization is reported. ROS: 18:10 Constitutional: Negative for fever, chills, and weight loss, Cardiovascular: Negative rn for chest pain, palpitations, and edema, Respiratory: Negative for shortness of breath, cough, wheezing, and pleuritic chest pain, Abdomen/GI: + abd pain and nausea Back: Negative for injury and pain, MS/Extremity: Negative for injury and deformity, Skin: Negative for injury, rash, and discoloration, Neuro: Negative for headache, numbness, tingling, and seizure. Exam: 18:10 Constitutional: This is a well developed, well nourished patient who is awake, alert, rn and in no acute distress. Ambulatory to room without difficulty. Head/Face: Normocephalic, atraumatic. ENT: dry MM Cardiovascular: Regular rate and rhythm. No pulse deficits. Respiratory: No increased work of breathing, no retractions or nasal flaring. Abdomen/GI: Soft, + lower abd tenderness bilateral lower quadrants. No peritoneal signs. Skin: Warm, dry MS/ Extremity: Pulses equal, no cyanosis. Neuro: Awake and alert, GCS 15 Vital Signs: 17:47 BP 125 / 86; Pulse 97; Resp 16; Temp 98.1(O); Pulse Ox 100% on R/A; Weight 81.65 kg; ss Height 5 ft. 8 in. ; Pain 0/10; 19:30 BP 122 / 87; Pulse 88; Resp 16; Pulse Ox 100% on R/A; jb4 20:15 BP 131 / 85; Pulse 85; Resp 16; Pulse Ox 100% on R/A; jb4 17:47 Body Mass Index 27.37 (81.65 kg, 172.72 cm) ss 17:47 Pain Scale: Adult ss MDM: 17:48 Patient medically screened. rn 20:37 Differential diagnosis: diabetes insipidus, DKA, hyperglycemia, hyperthyroidism, new sp4 onset diabetes. Data reviewed: vital signs, nurses notes, lab test result(s), radiologic studies, CT scan. Consideration of Admission/Observation Escalation of care including admission/observation considered. ED course: Patient was given IV hydration and medications for abdominal ache. CT abdomen pelvis is unremarkable today patient does have diffuse abdominal discomfort but is not localized. No signs of peritonitis. Blood work revealed elevated blood sugar secondary to noncompliance with insulin. Patient will be prescribed insulin 70/30 -- 20 units twice a day with meals via insulin pen. ED course: We will advise compliance with insulin and diabetic diet. We will also prescribe as needed Levsin for abdominal pain and Zofran for nausea.. 20:49 ED course: Patient care was assumed from daytime provider at 7 PM. Patient was hydrated sp4 given medications for abdominal ache and nausea. Patient CT is unremarkable today except for hepatic steatosis. Patient will be prescribed his 70/30 Novolin insulin mix 20 units twice a day with meals via FlexPen. Otherwise patient stable for discharge home we will provide diabetic education to the patient. We will stressed compliance with diabetic diet and insulin. 05/26 17:57 Order name: CBC with Diff; Complete Time: 18:36 rn 05/26 17:57 Order name: CMP; Complete Time: 18:56 rn 05/26 17:57 Order name: Lipase; Complete Time: 19:04 rn 05/26 17:57 Order name: Urinalysis w/ reflexes; Complete Time: 19:17 rn 05/26 18:04 Order name: Glucose, Ancillary Testing; Complete Time: 18:36 EDMS 05/26 18:19 Order name: Glucose, Ancillary Testing; Complete Time: 18:36 EDMS 05/26 20:09 Order name: Glucose, Ancillary Testing; Complete Time: 20:37 EDMS 05/26 17:57 Order name: CT Abd/Pelvis - IV Contrast Only; Complete Time: 19:40 rn 05/26 17:57 Order name: IV Saline Lock; Complete Time: 18:25 rn 05/26 17:57 Order name: Labs collected and sent; Complete Time: 18:25 rn 05/26 17:57 Order name: Glucose Level; Complete Time: 18:07 rn Administered Medications: 18:10 Drug: Insulin Regular Human Sub-Q 10 units {Co-Signature: ph Brandi Bethea RN).} ko1 Route: Sub-Q; Site: abdomen; 18:25 Drug: NS 0.9% IV 1000 ml Route: IV; Rate: 1 bolus; Site: right antecubital; ko1 18:25 Drug: Famotidine IVP 20 mg Route: IVP; Site: right antecubital; ko1 19:48 Drug: NS 0.9% IV 1000 ml Route: IV; Rate: 1000 ml; Site: right antecubital; jb4 19:48 Drug: metoCLOPramide IVP 10 mg Route: IVP; Site: right antecubital; jb4 20:05 Drug: Dicyclomine PO 20 mg Route: PO; jb4 20:05 Drug: traMADol PO 100 mg Route: PO; jb4 Disposition Summary: 05/26/23 20:42 Discharge Ordered Location: Home sp4 Problem: new sp4 Symptoms: have improved sp4 Condition: Stable sp4 Diagnosis - Type 1 diabetes mellitus with hyperglycemia sp4 - Noncompliance with medical regimen, moderate dehydration, diabetes mellitus type 1 sp4 with complications Followup: sp4 - With: Private Physician - When: 7 - 10 days - Reason: Recheck today's complaints Discharge Instructions: - Discharge Summary Sheet sp4 - Diabetes Mellitus Action Plan sp4 [facility]: - [email or web address] sp4 Prescriptions: - Novolin 70-30 FlexPen U-100 100 unit/mL (70-30) Subcutaneous Insulin Pen - inject 20 unit by SUBCUTANEOUS route At bedtime for 30 days Every evening after sp4 a meal; 1 pen; Refills: 0, Product Selection Permitted - Novolin 70-30 FlexPen U-100 100 unit/mL (70-30) Subcutaneous Insulin Pen - inject 20 unit by SUBCUTANEOUS route every morning for 30 days Inject after sp4 meals; 1 pen; Refills: 0, Product Selection Permitted - ondansetron 4 mg Oral Tablet,disintegrating - take 1 tablet by ORAL route every 6 hours for 3 days PRN nausea; 30 tablet; sp4 Refills: 0, Product Selection Permitted - Levsin 0.125 mg Oral Tablet - take 1 tablet by ORAL route every 8 hours PRN abdominal pain; 30 tablet; sp4 Refills: 0, Product Selection Permitted Signatures: Dispatcher [employer] Colin So MD MD rn Blanchard, Shelby, RN RN ss Saul Rios RN RN jb4 Wanda Hart RN RN ko1 Enrique Aguirre MD MD sp4 Brandi Rodriguez RN ph
[2023-05-26 21:24] VITALS: TEMP 98.1; O2SAT 100
[2023-05-26 21:27] VITALS: BP 131/85
== END 2023-05-26 21:06 | disposition home or self-care (01) ==
LOC: ER 17:41
DX: E10.65 Type 1 diabetes mellitus with hyperglycemia (principal); E86.0 Dehydration; Z91.148 Patient's other noncompliance with medication regimen for other reason
CPT/HCPCS: 36415; 74177; 80053; 81003; 82947; 83690; 85025; 96372; 96374; 96375; 99284; J1815; J2765; J7030; Q9967

== ENCOUNTER 2023-08-09 20:07 | Emergency (ER) | payer SELFPAY ==
--- OUTSIDE RECORDS SUMMARY | 2023-08-09 20:11 | XMS REPORT | Continuity of Care Document ---
:1980 Author Organization [facility] t Address [address] [place] [address] Care Team Providers Name Role Phone Pcp, Patient Does Not Have A Primary Care Physician [id number] Lupe Dejesus RN Attending Clinician Unavailable Doctor Unassigned, [place] Attending Clinician Unavailable ALFREDO NAVARRO Attending Clinician Unavailable Jacque Tang Attending Clinician Alfredo Navarro MD Attending Clinician Landy Jenkins DO Attending Clinician ALFREDO NAVARRO Admitting Clinician Unavailable Alfredo Navarro MD Admitting Clinician Payers Payer Name Policy Type Policy Number Effective Date Expiration Date S ource Problems Condition Condition Condition Status Onset Resolution Last Treating Co mments Source Name Details Category Date Date Treatment Clinician Date New onset New onset Disease Active 2021-11 Uni vers type 2 type 2 0-16 ity of diabetes diabetes 00:00: [place] mellitus mellitus 00 Medica l Branch Obesity Obesity Disease Active 2021-11 Univers (BMI (BMI 0-16 ity of 30-39.9) 30-39.9) 00:00: [place] [address] Medical Branch No known No known Disease Unive rs active active ity of problems problems [facility] Allergies, Adverse Reactions, Alerts Allergy Allergy Status Severity Reaction(s) Onset Inactive Treating Comm ents Source Name Type Date Date Clinician NO KNOWN Drug Active Univers ALLERGIE Class ity of S [facility] Social History Social Habit Start Date Stop Date Quantity Comments Source Gender identity Universit y of [facility] Sexual orientation Univer sity of [facility] History of tobacco Passive smoker Un iversity of use [facility] History of Social 2022-09-11 2022-09-11 Univers ity of function 00:00:00 00:00:00 [facility] Alcohol intake 2022-09-11 2022-09-11 Current University 00:00:00 00:00:00 non-drinker of [facility] alcohol [place] (finding) Exposure to 2022-08-31 2022-09-10 Not sure [facility] SARS-CoV-2 (event) 00:00:00 13:58:00 [facility] Cigarettes smoked 2022-09-10 2022-09-10 Univers ity of current (pack per 00:00:00 00:00:00 [facility] ) - Reported Branch Cigarette 2022-09-10 2022-09-10 University of pack-years 00:00:00 00:00:00 [facility] Tobacco use and 2022-09-10 2022-09-10 Smokeless Universit y of exposure 00:00:00 00:00:00 tobacco non-user [facility] 2022-09-10 2022-09-10 21 University 00:00:00 00:00:00 [facility] Sex Assigned At [birth year] Universit y of 00:00:00 00:00:00 [facility] Smoking Status Start Date Stop Date Source Ex-smoker 2022-09-10 00:00:00 2022-09-10 00:00:00 Universi ty of [facility] Current some day 2021-03-05 00:00:00 [facility] smoker [facility] Branch Medications Ordered Filled Start Stop Current Ordering Indication Dosage Frequency Signature Comments Components Source Medication Medication Date Date Medication? Clinician (SIG) Name Name 10 units 2 2021-11 No times daily 0-20 00:00: 00 SITagliptin 2021-11 Yes 100mg 100 mg, Un melina (JANUVIA) 0-17 Oral, ity of tablet 100 14:00: DAILY, [place] mg 00 First dose Medical on Sun Branch 09/11/22 at 0900, Until Discontinu ed, Routine enoxaparin 2021-11 Yes 40mg 40 mg, Unive rs (LOVENOX) 0-17 Subcutaneo ity of injection 14:00: [place], [place]ILY, [place] 40 mg 00 First dose Medical on Sun [place] 09/11/22 at 0900, Until Discontinu ed, Routine omeprazole 2021-11 Yes 40mg 40 mg, Unive rs (PRILOSEC) 0-17 Oral, ity of capsule 40 14:00: DAILY, [place] mg 00 First dose Medical on Sun [place] 09/11/22 at 0900, Until Discontinu ed metFORMIN [...] Starting Medi albina tablet 1 on Sun [place] tablet 09/11/22 at 0235, Until Discontinu ed, Routine, Pain (scale 7-10) traMADoL 2021-11 Yes 50mg 50 mg, Univers (ULTRAM) 0-17 Oral, ity of tablet 50 07:35: Q6HPRN, [place] mg 08 Starting Medical on Sun09/11/22 at 0235, Until Discontinu ed, Routine, Pain [...] First dose [place] 00 on [facility] 09/10/22 Branch at 2100, Until Discontinu ed, Routine Sliding 2021-11 Subcutaneo Uni vers Scale 0-17 10-17 us, AC+HS, ity of Insulin-Reg 02:00: 07:10 First dose [place] ular + Fsbg 00 :[facility] 09/10[facility]22 Branch at 2100, Until Discontinu ed, Routine Lancing 2021-11 Yes [id number] Use as Univ ers Device with 0-17 directed ity of Lancets 00:00: [place] (ACCU-CHEK 00 Medical SOFT DEV Branch LANCETS) Kit pen needle, 2021-11 Yes [id number] Use as Univers diabetic 32 0-17 directed ity of gauge x 00:00: 11/30" Ndle 00 Medical Branch flash 2021-11 Yes [id number] 2{appli 2 Unive rs glucose 0-17 cator} Applicator ity of scanning 00:00: s before [place] reader 00 meals. Medical (FREESTYLE Branch ROSA MARIA 2 READER) Misc Lancing 2021-11 Yes [id number] Use as Univ ers Device with 0-17 directed ity of Lancets 00:00: [place] (ACCU-CHEK 00 Medical SOFT DEV Branch LANCETS) Kit pen needle, 2021-11 Yes [id number] Use as Univers diabetic 32 0-17 directed ity of gauge x 00:00: 11/30" Ndle 00 Medical Branch flash 2021-11 Yes [id number] 2{appli 2 Unive rs glucose 0-17 cator} Applicator ity of scanning 00:00: s before [place] reader 00 meals. Medical (FREESTYLE Branch ROSA MARIA 2 READER) Misc Lancing 2021-11 Yes [id number] Use as Univ ers Device with 0-17 directed ity of Lancets 00:00: [place] (ACCU-CHEK 00 Medical SOFT DEV Branch LANCETS) Kit pen needle, 2021-11 Yes [id number] Use as Univers diabetic 32 0-17 directed ity of gauge x 00:00: [place] 11/30" Ndle 00 Medical Branch flash 2021-11 Yes [id number] 2{appli 2 Unive rs glucose 0-17 cator} Applicator ity of scanning 00:00: s before [place] reader 00 meals. Medical (FREESTYLE Branch ROSA MARIA 2 READER) [facility] insulin 2021-11- No [id number] 10U inject 10 Univers aspart 0-17 11-17 Units ity of protamine-i 00:00: 05:59 under the [place] nsulin 00 :00 skin 2 Medical aspart (two) Branch (NOVOLOG times MIX 70-30 daily U-100 before INSULN) 100 breakfast unit/mL and dinner (70-30) for 30 injection days. metFORMIN 2021-11- No [id number] 1000mg Take 1 Univers 1,000 mg 0-17 11-17 tablet by ity o f tablet 00:00: 05:59 mouth in [place] 00 :00 the Medical morning Branch and 1 tablet in the evening. Take with meals. Do all this for 30 days. atorvastati 2021-11- No [id number] 40mg Take 1 Univers n 40 mg 0-17 11-17 tablet by ity of tablet 00:00: 05:59 mouth at [place] 00 :00 bedtime Medical for 30 Branch days. NaCl 0.9% 2021-11 Yes 1000mL at 125 Univ ers (NS) IV 0-16 mL/hr, IV ity of infusion 22:45: Infusion, [place] 1,000 mL 00 CONTINUOUS Medic al , Starting Branch on 09/10/22 at 1745, Until Discontinu ed, Routine insulin NPH 2021-11- No 10U 10 Units, Univers and regular 0-16 10-17 Subcutaneo i ty of human 70-30 22:45: 04:12 , [facility], [place] (70-30 00 :06 First dose Medical U-100 on [place] INSULIN) 09/10/22 100 unit/mL at 1745, (70-30) Until injection Discontinu 10 Units ed, Routine glucagon 2021-11 Yes 1mg 1 mg, Univers (GLUCAGEN 0-16 Intramuscu ity of DIAGNOSTIC 22:36: lar, PRN, [place] KIT) 10 Starting Medical injection 1 on Sun Branch mg 09/10/22 at 1736, Until Discontinu ed, JOSE, Blood Glucose < or = 70 mg/dL and patient is unable to swallow or has mental changes. dextrose 50 2021-11 Yes 25mL 25 mL, Univ ers % in water 0-16 Slow IV ity of (D50W) 22:36: Push, PRN, [place] injection 10 Starting Medica l 25 mL on [facility] 09/10/22 at 1736, Until Discontinu ed, JOSE, Blood Glucose < or = 70 mg/dL and patient is unable to swallow or has mental status changes. ondansetron 2021-11 Yes 4mg 4 mg, Slow Univers (ZOFRAN 0-16 IV Push, ity of (PF)) 22:36: Q6HPRN, [place] injection 4 02 Starting Medi albina mg on [facility] 09/10/22 at 1736, Until Discontinu ed, Routine, Nausea and Vomiting (N/V) acetaminoph 2021-11 Yes 650mg 650 mg, Un melina en 0-16 Oral, ity of (TYLENOL) 22:35: Q6HPRN, [place] tablet 650 56 Starting Medic al mg on [facility] 09/10/22 at 1735, Until Discontinu ed, Routine, Pain (scale 1-3) NaCl 0.9% 2021-11- No 1000mL at 999 Uni vers (NS) bolus 0-16 10-16 mL/hr, ity of infusion 20:45: 20:37 1,000 mL, [place] 1,000 mL 00 :00 IV Medical Infusion, Branch ONCE, 1 dose, On [place] 09/10/22 at 1545, JOSE iopamidol 2021-11- No [id number] 75mL 75 mL, U nivers (ISOVUE 0-16 10-16 Intravenou ity o f 370-500 mL) 19:15: 19:30 s, ONCE, 1 [place] injection 00 :00 dose, On Medica l 75 mL [facility] 09/10/22 at 1430, Routine ondansetron 2021-11- No 4mg 4 mg, Slow Univers (ZOFRAN 0-16 10-16 IV Push, ity of (PF)) 19:15: 19:39 ONCE, 1 [place] injection 4 00 :00 dose, On Medi albina mg [facility] 09/10/22 at 1415, JOSE morpHINE (4 2021-11- No 4mg 4 mg, Slow Univers mg/mL) 0-16 10-16 IV Push, ity of injection 4 19:15: 19:39 ONCE, 1 [place] mg 00 :00 dose, On Medical [place] 09/10/22 at 1415, STAT iohexol 2020- No [id number] 120mL 120 mL, U nivers (OMNIPAQUE 03-05 Intravenou it y of 350 19:30: 19:10 s, ONCE, 1 [place] BULK-150 00 :00 dose, Sat Medica l mL) 03/05/21 at Branch injection 1430, 120 mL Routine famotidine 2020- No 20mg 20 mg, Univ ers (PEPCID 03-05- Slow IV ity of (PF)) 19:30: 18:37 [...] 1000mL at 999 Uni vers (NS) bolus 03-05-10 mL/hr, ity of infusion 18:30: 19:46 1,000 mL, [place] 1,000 mL 00 :00 IV Medical Infusion, Branch ONCE, 1 dose, 03/05/21 at 1330, JOSE omeprazole Yes [id number] 40mg Take 1 U nivers 40 mg 4-10 capsule by ity of capsule 00:00: mouth [place] 00 daily. Medical Branch omeprazole Yes [id number] 40mg Take 1 U nivers 40 mg 4-10 capsule by ity of capsule 00:00: mouth [place] 00 daily. Medical Branch metFORMIN Yes [id number] 500mg Take 1 U nivers 500 mg 4-10 tablet by ity of tablet 00:00: mouth 2 [place] 00 (two) Medical times Branch daily. omeprazole Yes [id number] 40mg Take 1 U nivers 40 mg 4-10 capsule by ity of capsule 00:00: mouth [place] 00 daily. Medical Branch omeprazole Yes [id number] 40mg Take 1 U nivers 40 mg 4-10 capsule by ity of capsule 00:00: mouth [place] 00 daily. Medical Branch metFORMIN 2021- No [id number] 500mg Take 1 Univers 500 mg 4-10 10-17 tablet by ity of tablet 00:00: 00:00 mouth 2 [place] 00 :00 (two) Medical times Branch daily. prednisone No 1mg 20 mg 2-12 tablet 00:00: 00 Dose No Unknown 2-12 00:00: 00 metformin No 1mg 500 mg 1-23 tablet 00:00: 00 neomycin-po 2020- No 3[drp] Place 3 Univers lymyxin-hyd 08-04-10 Drops in ity of rocortisone 00:00: 00:00 left ear 4 [place] (CORTISPORI 00 :00 (four) Medica l N [...] 40mg Take 1 Uni vers e 05-26 04-10 tablet by ity of (PROTONIX) 00:00: 00:00 mouth [place] 40 mg EC 00 :00 daily. Medical tablet Branch metFORMIN 2020- No 500mg Take 1 Univ ers (GLUCOPHAGE 05-26 tablet by it y of ) 500 mg 00:00: 00:00 mouth 2 [place] tablet 00 :00 (two) Medical times Branch daily with meals. amoxicillin 0 No 1mg 500 mg 2-17 capsule 00:00: 00 amoxicillin 2014-0 No 1mg 250 mg 2-17 capsule 00:00: 00 Bromfed DM No 10mg/5 2 mg-30 2-17 mL mg-10 mg/5 00:00: mL syrup 00 Vital Signs Vital Name Observation Time Observation Value Comments Source Systolic blood 2022-09-11 16:34:00 131 mm[Hg] Univer sity of pressure [facility] Diastolic blood 2022-09-11 16:34:00 80 mm[Hg] Unive rsity of [facility] Heart rate 2022-09-11 16:34:00 80 /min [facility] Body temperature 2022-09-11 16:34:00 36.83 [facility] [place] [facility] ersity [facility] Respiratory rate 2022-09-11 16:34:00 18 /min Univ ersity [facility] Oxygen saturation in 2022-09-11 16:34:00 97 /min University of Arterial blood by [place] [employer] albina Pulse oximetry Branch Body weight 2022-09-11 07:55:00 82.464 kg [facility] BMI 2022-09-11 07:55:00 27.64 kg/m2 [facility] Body height 2022-09-11 01:03:00 172.7 cm [facility] Systolic blood 2021-03-05 20:00:00 119 mm[Hg] Univer sity of [facility] Diastolic blood 2021-03-05 20:00:00 73 mm[Hg] Unive rsity of [facility] Heart rate 2021-03-05 20:00:00 78 /min [facility] Respiratory rate 2021-03-05 20:00:00 17 /min Univ ersity of [facility] Oxygen saturation in 2021-03-05 20:00:00 99 /min University of Arterial blood by [employer] albina Pulse oximetry Branch Body temperature 2021-03-05 18:12:00 36.28 [facility] Body height 2021-03-05 18:12:00 172.7 cm [facility] Body weight 2021-03-05 18:12:00 101.606 kg [facility] BMI 2021-03-05 18:12:00 34.06 kg/m2 [facility] BP Systolic 2022-09-14 13:45:00 119 mm[Hg] [...] Date / Time Performing Clinician Source Performed REFERRAL- 2023-06-06 05:01:00 Doctor Unassigned, No [facility] REQUEST/RESPONSE Name Medical Branch POCT GLUCOSE 2022-09-11 16:34:00 Melanie [facility] (AUTOMATED) Medical Branch POCT GLUCOSE 2022-09-11 12:44:00 Melanie [facility] (AUTOMATED) Medical Branch COMP. METABOLIC PANEL 2022-09-11 07:58:00 [facility] ([id number]) Medical Branch LIPID PANEL 2022-09-11 07:58:00 Melanie [facility] ([id number])(TOTAL Medical Branch CHOLESTEROL, TRIGLYCERIDES, HDL) LOW-DENSITY 2022-09-11 07:58:00 Melanie [facility] LIPOPROTEIN, DIRECT Medical Bran ch POCT GLUCOSE 2022-09-11 07:29:00 Melanie [facility] (AUTOMATED) Medical Branch POCT GLUCOSE 2022-09-11 01:22:00 Alfredo Navarro [facility] (AUTOMATED) Medical Branch POCT GLUCOSE 2022-09-10 20:47:00 Russell [facility] (AUTOMATED) Medical Branch CT ABDOMEN PELVIS W 2022-09-10 19:16:33 Jacque Wells [facility] CONTRAST Medical Branch LIPASE 2022-09-10 18:43:00 [facility] MET[facility]OLIC PANEL 2022-09-10 18:43:00 [id number] Branch CBC WITH DIFF 2022-09-10 18:43:00 [facility] [place] GLYCOSYLATED HEMOGLOBIN 2022-09-10 18:43:00 Jacque Wells [facility] (A1C) Medical Branch URINALYSIS 2022-09-10 18:43:00 [facility] [place] NOTICE OF PRIVACY 2022-09-10 18:35:36 Doctor Unassigned, No Univ [facility] PRACTICES Name Medical Branch CONSENT/REFUSAL FOR 2022-09-10 18:35:02 Doctor Unassigned, No [facility] DIAGNOSIS AND TREATMENT Name Medical Branch CT ABDOMEN PELVIS W 2021-03-05 19:23:44 Landy Jenkins [facility] CONTRAST Medical Branch LIPASE 2021-03-05 18:30:00 Landy Jenkins [facility] TROPONIN I 2021-03-05 18:30:00 Landy Jenkins [facility] HEPATIC FUNCTION PANEL 2021-03-05 18:30:00 Landy Jenkins [facility] ([id number]) (ALB,T.PRO,BILI Medical Branch T,BU/BC,ALT,AST,ALK PHOS) BASIC METABOLIC PANEL 2021-03-05 18:30:00 Landy Jenkins [facility] (NA, K, CL, CO2, Medical Branch GLUCOSE, BUN, CREATININE, CA) CBC WITH DIFF 2021-03-05 18:30:00 Landy Jenkins [facility] URINALYSIS 2021-03-05 18:30:00 Landy Jenkins [facility] NOTICE OF PRIVACY 2021-03-05 18:07:12 Doctor Unassigned, No Univ ersity [facility] PRACTICES Name [facility] CONSENT/REFUSAL FOR 2021-03-05 18:07:01 [facility] Plan of Care Planned Activity Planned Date Details Comments Source Goal Plan of Care Note [code = 33325-5] Goal Plan of Care Note [code = 38482-5] Goal Plan of Care Note [code = 44567-7] Goal Plan of Care Note [code = 16401-8] Goal Plan of Care Note [code = 39439-8] Goal Plan of Care Note [code = 60967-5] Goal Plan of Care Note [code = 72218-2] Goal Plan of Care Note [code = 25656-1] Goal Plan of Care Note [code = 51931-2] Goal Plan of Care Note [code = 21600-7] Goal Plan of Care Note [code = 13271-9] Goal Plan of Care Note [code = 70992-0] Goal Plan of Care Note [code = 21730-6] Encounters Start End Encounter Admission Attending Care Care Encounter Source Date/Time Date/Time Type Type Clinicians Facility Department ID 2023-06-28 2023-06-28 Outpatient SFA SFA [id number] [place] 10:37:44 10:37:44 0803 [facility] 2023-06-21 2023-06-21 Outpatient SFA SFA [id number] [place] 08:19:38 08:19:38 0727 [facility] 2023-06-20 2023-06-20 Outpatient SFA SFA [id number] [place] 16:02:39 16:02:39 0726 [facility] 2023-06-09 2023-06-09 HOLLIE Morel [id number] Univers 00:00:00 00:00:00 Lupe BEY [id number] [facility] 4.2.7.2.686 Josh as [id number] [address] 2023-06-06 2023-06-06 Orders Doctor BROWNE [id number] Univers 00:00:00 00:00:00 Only UnassMAURA tellezY 350.1.13.10 [facility] 4.2.7.2.686 Josh as [id number] [facility] 009 Branch 2023-05-30 2023-05-30 Outpatient [facility] [id number] [place] 16:25:18 16:25:18 0705 [facility] [place] 2022-09-14 2022-09-14 Outpatient [facility] [id number] [place] 13:42:01 13:42:01 1020 [facility] [place] 2022-09-14 2022-09-14 Outpatient [id number] 00:00:00 00:00:00 Visit [id number] 2022-09-10 2022-09-11 Outpatient X MELANIE [facility] PHILLIP [id number] Univers 13:44:00 12:54:00 ALFREDO orellana [facility] 2022-09-10 2022-09-11 Emergency Jacque Wells [facility] [id number] [id number] Univers 13:44:00 12:54:00 Alfredo Navarro [id number] ity [facility] 4.2.7.2.686 [facility] [id number] [place] [id number] [place] 2021-03-05 2021-03-05 Emergency [facility] [id number] Univers 13:11:00 15:35:00 Landy Luna 350.1.13.10 ity of [place] 4.2.7.2.686 [facility] s [place] [id number] [place] [id number] Branch 2021-03-05 2021-03-05 Emergency X [facility] ERT [id number] Univers 13:06:00 13:06:00 [facility] Results Test Description Test Time Test Comments Results Result Comments Source CBC W/AUTO DIFF WITH PLATELETS 2023-06-12 14:31:15 Test Item Value Reference Range Interpretation Comme nts WBC (test code = 1001) TEST NOT PERFORMED 3.5-11.0 Unable to perform testing, K/UL specimen is pas t stability.Charg es adjusted as applicable. RBC (test code = 1002) TEST NOT PERFORMED 4.50-6.10 M/UL HEMOGLOBIN (test code = TEST NOT PERFORMED 13.5-17.0 1003) G/DL HEMATOCRIT (test code = TEST NOT PERFORMED % 40.0-51.0 1004) MCV (test code = 1005) TEST NOT PERFORMED fL 80.0-99.0 MCH (test code = 1006) TEST NOT PERFORMED PG 25.0-33.0 MCHC (test code = 1007) TEST NOT PERFORMED 31.0-36.0 G/DL RDW (test code = 1038) TEST NOT PERFORMED % 11.5-15.0 NEUTROPHILS (test code TEST NOT PERFORMED % = 1008) LYMPHOCYTES (test code TEST NOT PERFORMED % = 1010) MONOCYTES (test code = TEST NOT PERFORMED % 1011) EOSINOPHILS (test code TEST NOT PERFORMED % = 1012) BASOPHILS (test code = TEST NOT PERFORMED % 1013) PLATELET COUNT (test TEST NOT PERFORMED 130-400 code = 1015) K/UL ABSOLUTE NEUTROPHILS TEST NOT PERFORMED 1.50-7.50 (test code = 1066) K/UL ABSOLUTE LYMPHOCYTES TEST NOT PERFORMED 1.00-4.00 (test code = 1067) K/UL ABSOLUTE MONOCYTES TEST NOT PERFORMED 0.20-1.00 (test code = 1068) K/UL ABSOLUTE EOSINOPHILS TEST NOT PERFORMED 0.00-0.50 (test code = 1040) K/UL ABSOLUTE BASOPHILS TEST NOT PERFORMED 0.00-0.20 (test code = 1069) K/UL TSH, THIRD [id number] 05:37:35 Test Item Value Reference Range Interpretation Comments TSH, THIRD 2.130 UIU/ML 0.400-4.100 UNLESS OTHERWI SE GENERATION (test INDICATED, ALL TESTING code = 2821) [facility]. [address] [place] [place] [address] NAFISA VIGIL DIRECTOR: Tee CANTU JELLY NUMBER [id number] CAP ACCREDITATION N O. [id number] HEMOGLOBIN [id number] 04:21:46 Test Item Value Reference Range Interpretation Comments HEMOGLOBIN A1c (test 11.3 % 4.2-5.6 H AMERIC AN DIABETES code = 06355) ASSOCIATION IDELINES FOR HGB A1C: PREDIABETES/INC REASED RISK . . . . . . . 5 .7-6.4% DIAGNOSIS OF DI ABETES . . . . . . . . . >=6 .5% WITH CONFIRMATION OR APPROPRIATE SYMPTOMS NOTE: ASSAY MAY BE AFFECTED BY HEMOGLOBINOPATH IES (SICKLE CELL ANEMIA, S- C DISEASE, OTHERS) OR ADAMA FICIALLY LOWERED BY DECR EASED RED CELL SURVIVAL ( HEMOLYTIC ANEMIAS, BLOOD LOSS, ETC.). CONSIDER ALTERN ATE TESTING OR LABORATORY C ONSULTATION. COMPREHENSIVE METABOLIC [id number] 02:47:37 Test Item Value Reference Range Interpretation Comments GLUCOSE (test code = 365 MG/DL 70-99 H 2216) BUN (test code = 9 MG/DL 6-20 2207) CREATININE (test 0.71 MG/DL 0.80-1.40 L code = 2213) eGFR (2020 CKD-EPI) 117 >60 (test code = 98922) ML/MIN/1.73 CALC BUN/CREAT (test 13 RATIO 6-28 code = 2235) SODIUM (test code = 136 MEQ/L 228-007 7045) POTASSIUM (test code 4.1 MEQ/L 3.5-5.4 = 2227) CHLORIDE (test code 102 MEQ/L 95-107 = 2214) CARBON DIOXIDE (test 22 MEQ/L 19-31 code = 2206) CALCIUM (test code = 9.0 MG/DL 8.5-10.5 2208) PROTEIN, TOTAL (test 6.4 G/DL 6.1-8.3 code = 222) ALBUMIN (test code = 4.1 G/DL 3.5-5.2 2200) CALC GLOBULIN (test 2.3 G/DL 1.9-3.7 code = 2240) CALC A/G RATIO (test 1.8 RATIO 1.0-2.6 code = 2234) BILIRUBIN, TOTAL 0.2 MG/DL See_Comment [Automated message] (test code = 2207) The syste m which generated this result transmit jesse reference range : <=1.2. The refe rence range was not u sed to interpret th is result as normal/abnormal . ALKALINE PHOSPHATASE 114 U/L 40-119 (test code = 2204) AST (test code = 23 U/L 9-50 2217) ALT (test code = 41 U/L 2218) LIPID [id number] 02:47:37 Test Item Value Reference Range Interpretation Comments CHOLESTEROL (test 225 MG/DL <200 H code = 2210) TRIGLYCERIDES (test 465 MG/DL <150 H code = 2232) HDL CHOLESTEROL 43 MG/DL >39 (test code = 2220) CALC LDL CHOL (test (NOTE) MG/DL <100 UNABLE T O CALCULATE A code = 2237) VALID LDL SUYAPA STEROL WHEN THE TRIGLYCERIDEVAL UE IS GREATER THAN 40 0 MG/DL.UNABLE TO CALCULATE A IBRAHIMA ID LDL CHOLESTEROL WHE N THE TRIGLYCERIDEVAL UE IS GREATER THAN 40 0 MG/DL. NOTE: CALCULATE D LDL IS BASED ON ELEANOR -SUHAIL METHOD WHICHINC LUDES ADJUSTABLE TRIGLYCERIDE:VL DL CHOLESTEROL RAT IO.THIS FACTOR VARIES B Y MEASURED TRIGLY CERIDE AND NON-HDLCHOL ESTEROL CONCENTRATIONS WITH INCREASED CALCU LATED LDL SEENIN HIGH ER TRIGLYCERIDE OR LOWER NON-HDL SPECIME NS. FOR MOREINFORMATION , SEE CLIENT ANNOUNCE MENT AT [email or web address] CalcLDL-C RISK RATIO LDL/HDL (NOTE) RATIO <3.55 UNABLE T O CALCULATE (test code = 2238) POCT GLUCOSE (AUTOMATED)2022-09-11 16:54:15 Test Item Value Reference Range Interpretation Comments POCT GLU (test code = 3705562229) 234 mg/dL 70-110 H Lab Interpretation (test code = Abnormal 94279-1) [facility] LIPOPROTEIN, [id number] 15:18:30 Test Item Value Reference Range Interpretation Comments dLDL Chol (test code = 71 mg/dL See_Comment [Aut omated message] 01977-4) The system [employer] generated this result transmitted ref erence range: <=130. T he reference range was not used to int erpret this result as normal/abnormal . Lab Interpretation (test Normal code = 23821-4) [facility], [place] ([address]121)(TOTAL CHOLESTEROL, TRIGLYCERIDES, HDL)2022-09-11 13:58:08 Test Item Value Reference Range Interpretation Comments CHOL (test code = 227 mg/dL 120-200 H 8226277138) HDL (test code = 28 mg/dL See_Comment L [Automated message] 6993857078) The system [employer] generated this result transmit jesse reference range : >=40. The refer ence range was not u sed to interpret th is result as normal/abnormal . HDLC RATIO (test code = See_Comment H [Au tomated message] 3689496040) The system [employer] generated this result transmit jesse reference range : <=5.0. The refe rence range was not u sed to interpret th is result as normal/abnormal . TRIG (test code = 1291 mg/dL 30-170 H 8465290843) LDL CHOL (test code = Unable to calculate 44641-0) LDL due to elev ated triglyceride le faisal greater than 40 0 mg/dL. VLDL (test code = Unable to calculate 5033491130) VLDL due to darnell vated triglyceride le faisal greater than 71 0 mg/dL. Lab Interpretation Abnormal (test code = 63878-4) [facility] GLUCOSE (AUTOMATED)2022-09-11 12:50:53 Test Item Value Reference Range Interpretation Comments POCT GLU (test code = 4490419279) 247 mg/dL 70-110 H Lab Interpretation (test code = Abnormal 36449-9) [facility]. METABOLIC PANEL (48806)2022-09-11 09:41:07 Test Item Value Reference Range Interpretation Comments NA (test code = 135 mmol/L 135-145 6479052644) K (test code = 3.5 mmol/L 3.5-5 1367312328) CL (test code = 104 mmol/L 98-108 1786765311) CO2 TOTAL (test code = 22 mmol/L 23-31 L 2159411762) AGAP (test code = 2-16 9827210945) BUN (test code = 13 mg/dL 7-23 6754459033) GLUCOSE (test code = 242 mg/dL 70-110 H 7564047281) CREATININE (test code = 0.64 mg/dL 0.6-1.25 3227697754) TOTAL BILI (test code = 0.3 mg/dL 0.1-1.1 4196299619) CALCIUM (test code = 8.0 mg/dL 8.6-10.6 L 6949212837) T PROTEIN (test code = 5.8 g/dL 6.3-8.2 L 7184648850) ALBUMIN (test code = 3.4 g/dL 3.5-5 L 3395106312) ALK PHOS (test code = 111 U/L 34-122 5928974273) ALTv (test code = 23 U/L 5-50 1742-6) AST(SGOT) (test code = 21 U/L 13-40 8068746340) eGFR (test code = mL/min/1.73m2 6424705700) NIKO (test code = NIKO) Association of [...] tests). Lab Interpretation Abnormal (test code = 49838-0) [facility] GLUCOSE (AUTOMATED)2022-09-11 07:33:20 Test Item Value Reference Range Interpretation Comments POCT GLU (test code = 1116355270) 204 mg/dL 70-110 H Lab Interpretation (test code = Abnormal 04849-7) [facility] GLUCOSE (AUTOMATED)2022-09-11 01:28:49 Test Item Value Reference Range Interpretation Comments POCT GLU (test code = 3048848463) 373 mg/dL 70-110 H Lab Interpretation (test code = Abnormal 77447-0) [facility] [place]PO[place] GLU[place]SE ([place])2022-09-10 20:50:37 Test Item Value Reference Range Interpretation Comments POCT GLU (test code = 3561282863) 272 mg/dL 70-110 H Lab Interpretation (test code = Abnormal 39085-4) [facility] [place], TXGLYCOSYLATED HEMOGLOBIN (A1C)2022-09-10 20:06:25 Test Item Value Reference Range Interpretation Comments HGB A1C (test code = 12.3 % 4-5.7 H 4548-4) NIKO (test code = NIKO) Reference RangesNormal: <5.7%Prediabetes: 5.7 - 6.4%Diabetes: > 6.5% Lab Interpretation (test Abnormal code = 34846-3) [facility] [place], TXComplete Metabolic [id number] 19:37:52 Test Item Value Reference Range Interpretation Comments NA (test code = 134 mmol/L 135-145 L 8958434868) K (test code = 4.1 mmol/L 3.5-5 1922872612) CL (test code = 101 mmol/L 98-108 5204391799) CO2 TOTAL (test code = 20 mmol/L 23-31 L 7196766225) AGAP (test code = 2-16 1580125083) BUN (test code = 10 mg/dL 7-23 6183462769) GLUCOSE (test code = 468 mg/dL 70-110 HH 3406677933) CREATININE (test code = 0.75 mg/dL 0.6-1.25 3893901446) TOTAL BILI (test code = 0.6 mg/dL 0.1-1.8 9376289097) CALCIUM (test code = 8.7 mg/dL 8.6-10.6 9103736886) T PROTEIN (test code = 6.6 g/dL 6.3-8.2 7242203692) ALBUMIN (test code = 4.2 g/dL 3.5-5 7851043441) ALK PHOS (test code = 123 U/L 34-122 H 0503517983) ALTv (test code = 26 U/L 5-50 1742-6) AST(SGOT) (test code = 22 U/L 13-40 8927128126) eGFR (test code = mL/min/1.73m2 4965745766) NIKO (test code = NIKO) Association of [...] tests). Lab Interpretation Abnormal (test code = 20239-3) [facility] [place], TXLipase, [id number] 19:04:41 Test Item Value Reference Range Interpretation Comments LIPASE (test code = 1246436575) 111 U/L 0-220 Lab Interpretation (test code = Normal 21726-5) [facility] [place], [place]CB with [id number] 18:52:20 Test Item Value Reference Range Interpretation Comments WBC (test code = See_Comment [Automated 2790-2) message] The sy stem which generated this result transmitted reference range : 4.20 - 10.70 10*3/?L. The reference range was not used to interpret this result as normal/abnormal . RBC (test code = See_Comment [Automated 789-8) message] The sy stem which generated this [...] (test code = 37.7 fL 38.5-51.6 L 05401-7) RDW-CV (test code = 11.9 % 12.1-15.4 L 788-0) PLT (test code = See_Comment [Automated 777-3) message] The sy stem which generated this result transmitted reference range : 150 - 328 10*3/ ?L. The reference r stephie was not used to interpret this result as normal/abnormal . MPV (test code = 11.9 fL 9.8-13 16516-6) NRBC/100 WBC (test See_Comment [Automat ed code = 5609262493) message] The system which generated this result transmitted reference range : 0.0 - 10.0 /100 WBCs. The refer ence range was not u sed to interpret th is result as normal/abnormal . NRBC x10^3 (test code See_Comment [Auto mated = 4091619655) message] The s ystem which generated this result transmitted reference range : 10*3/?L. The reference range was not used to interpret this result as normal/abnormal . GRAN MAT (NEUT) % 56.2 % (test code = 770-8) IMM GRAN % (test code 0.40 % = 6177489602) LYMPH % (test code = 36.1 % 736-9) MONO % (test code = 4.8 % 5905-5) EOS % (test code = 1.7 % 713-8) BASO % (test code = 0.8 % 706-2) GRAN MAT x10^3(ANC) 4.38 10*3/uL 1.99-6.95 (test code = 5438673985) IMM GRAN x10^3 (test 0.03 10*3/uL 0-0.06 code = 0273819616) LYMPH x10^3 (test code 2.81 10*3/uL 1.09-3.23 = 731-0) MONO x10^3 (test code 0.37 10*3/uL 0.36-1.02 = 742-7) EOS x10^3 (test code = 0.13 10*3/uL 0.06-0.53 711-2) BASO x10^3 (test code 0.06 10*3/uL 0.01-0.09 = 704-7) Lab Interpretation Abnormal (test code = 04229-9) [facility] [place], TXCT ABDOMEN PELVIS W [id number] 20:31:35 Diverticulosis without diverticulitis. Hepatomegaly. Preliminary Report [...] reviewed this study and agree with the abovereport.[facility] [place], TXOlamide [id number] 19:10:36 Test Item Value Reference Range Interpretation Comments TROPONIN I (test 0.001 ng/mL See_Comment [Automated code = 2128672633) message] The system which generated this result [...] ? Lab Interpretation Normal (test code = 41338-8) [facility] [place], TXHepatic Function Panel (ALB, T.PRO, BILI T, BU/BC, ALT, AST, ALK PHOS)2021-03-05 18:59:14 Test Item Value Reference Range Interpretation Comments TOTAL BILI (test code = 7047036446) 0.4 mg/dL 0.1-1.1 BILI UNCON (test code = 0305374239) 0.3 mg/dL 0.1-1.1 BILI CONJ (test code = 8345354207) 0.0 mg/dL 0.0-0.3 T PROTEIN (test code = 4438268696) 6.6 g/dL 6.3-8.2 ALBUMIN (test code = 9095466086) 4.2 g/dL 3.5-5.0 ALK PHOS (test code = 4807073912) 97 U/L 34-122 ALTv (test code = 1742-6) 22 U/L 5-50 AST(SGOT) (test code = 3135803009) 23 U/L 13-40 Lab Interpretation (test code = Normal 17610-5) [facility] [place], TXBasic Metabolic Panel (NA, K, CL, CO2, GLUCOSE, BUN, CREATININE, CA)2021-03-05 18:58:54 Test Item Value Reference Range Interpretation Comments NA (test code = 136 mmol/L 135-145 6546720361) K (test code = 4.1 mmol/L 3.5-5.0 4179095356) CL (test code = 104 mmol/L 98-108 6575209919) CO2 TOTAL (test code = 24 mmol/L 23-31 8810510510) AGAP (test code = 2-16 6241300638) BUN (test code = 15 mg/dL 7-23 1887371684) GLUCOSE (test code = 207 mg/dL 70-110 H 9678891715) CREATININE (test code = 0.74 mg/dL 0.60-1.25 4618434121) CALCIUM (test code = 8.4 mg/dL 8.6-10.6 L 8244443749) eGFR (test code = mL/min/1.73m2 7660899462) NIKO (test code = NIKO) Association of [...] tests). Lab Interpretation Abnormal (test code = 33656-2) [facility] [place], TXLipase [id number] 18:58:54 Test Item Value Reference Range Interpretation Comments LIPASE (test code = 7496486132) 140 U/L 0-220 Lab Interpretation (test code = Normal 93535-4) [facility] [place], TXUrinalysis2021-04-10 18:51:20 Test Item Value Reference Range Interpretation Comments APPEARANCE (test code = Clear Clear 9255681283) COLOR (test code = Yellow Yellow 7896270015) PH (test code = 4.8-8.0 4065453668) SP GRAVITY (test code = 1.003-1.030 1858276123) GLU U QUAL (test code = 50 mg/dL Normal A 6249706756) BLOOD (test code = Negative Negative 3184482668) KETONES (test code = Negative Negative 5094170217) PROTEIN (test code = Negative Negative 2887-8) UROBILIN (test code = Normal Normal 7521698070) BILIRUBIN (test code = Negative Negative 0805840069) NITRITE (test code = Negative Negative 7680617129) LEUK ZAY (test code = Negative Negative 1423121220) RBC/HPF (test code = See_Comment [Autom ated message] 6963439068) The system [employer] generated this result transmitted ref erence range: 0 - 3 HP F. The reference range was not used to int erpret this result as normal/abnormal . WBC/HPF (test code = <1 See_Comment [Autom ated message] 6327993331) The system [employer] generated this result transmitted ref erence range: 0 - 5 HP F. The reference range was not used to int erpret this result as normal/abnormal . BACTERIA (test code = Negative Negative 7125368435) MUCOUS (test code = Slight Negative LPF A 7266616329) SQ EPITH (test code = <1 HPF 7803404456) Lab Interpretation (test Abnormal code = 71342-1) [facility] [place], TXCBC with [id number] 18:46:34 Test Item Value Reference Range Interpretation Comments WBC (test code = See_Comment [Automated 6690-2) message] The sy stem which generated this result transmitted reference range : 4.20 - 10.70 10*3/?L. The reference range was not used to interpret this result as normal/abnormal . RBC (test code = See_Comment [Automated 789-8) message] The sy stem which generated this [...] RDW-SD (test code = 39.9 fL 38.5-51.6 70659-4) RDW-CV (test code = 12.5 % 12.1-15.4 788-0) PLT (test code = See_Comment [Automated 777-3) message] The sy stem which generated this result transmitted reference range : 150 - 328 10*3/ ?L. The reference r stephie was not used to interpret this result as normal/abnormal . MPV (test code = 11.9 fL 9.8-13.0 44864-4) NRBC/100 WBC (test See_Comment [Automat ed code = 9169885855) message] The system which generated this result transmitted reference range : 0.0 - 10.0 /100 WBCs. The refer ence range was not u sed to interpret th is result as normal/abnormal . NRBC x10^3 (test code <0.01 See_Comment [Auto mated = 9460508860) message] The s ystem which generated this result transmitted reference range : 10*3/?L. The reference range was not used to interpret this result as normal/abnormal . GRAN MAT (NEUT) % 54.6 % (test code = 770-8) IMM GRAN % (test code 0.40 % = 2388538907) LYMPH % (test code = 36.8 % 736-9) MONO % (test code = 5.3 % 5905-5) EOS % (test code = 2.1 % 713-8) BASO % (test code = 0.8 % 706-2) GRAN MAT x10^3(ANC) 3.92 10*3/uL 1.99-6.95 (test code = 7265590544) IMM GRAN x10^3 (test 0.03 10*3/uL 0.00-0.06 code = 8008816652) LYMPH x10^3 (test code 2.64 10*3/uL 1.09-3.23 = 731-0) MONO x10^3 (test code 0.38 10*3/uL 0.36-1.02 = 742-7) EOS x10^3 (test code = 0.15 10*3/uL 0.06-0.53 711-2) BASO x10^3 (test code 0.06 10*3/uL 0.01-0.09 = 704-7) Lab Interpretation Abnormal (test code = 43516-6) [facility] [place], TXLIPID [id number] 00:00:00 Test Item Value Reference Range Interpretation Comments CHOLESTEROL (test code = 2210) 185 MG/DL TRIGLYCERIDES (test code = 2232) 162 MG/DL HDL CHOLESTEROL (test code = 2220) 41 MG/DL CALC LDL CHOL (test code = 2237) 112 MG/DL RISK RATIO LDL/HDL (test code = 2.72 RATIO 2238) LIPID [id number] 00:00:00 Test Item Value Reference Range Interpretation Comments CHOLESTEROL (test code = 2210) 185 MG/DL TRIGLYCERIDES (test code = 2232) 162 MG/DL HDL CHOLESTEROL (test code = 2220) 41 MG/DL CALC LDL CHOL (test code = 2237) 112 MG/DL RISK RATIO LDL/HDL (test code = 2.72 RATIO 2238) CBC W/AUTO [id number] 00:00:00 Test Item Value Reference Range Interpretation [...] code = 1015) 166 K/UL CBC W/AUTO [id number] 00:00:00 Test Item Value Reference Range Interpretation [...] code = 1015) 166 K/UL CBC W/AUTO [id number] 00:00:00 Test Item Value Reference Range Interpretation [...] code = 1015) 166 K/UL COMPREHENSIVE METABOLIC [id number] 00:00:00 Test Item Value Reference Range Interpretation Comments GLUCOSE (test code = 2217) 121 MG/DL BUN (test code = 2208) 12 MG/DL CREATININE (test code = 2214) 0.87 MG/DL eGFR AMER. (test code 126 ML/MIN/1.73 = 29437) eGFR NON- AMER. (test 109 ML/MIN/1.73 code = 11927) CALC BUN/CREAT (test code = 14 RATIO [...] code = 2219) 26 U/L COMPREHENSIVE METABOLIC [id number] 00:00:00 Test Item Value Reference Range Interpretation Comments GLUCOSE (test code = 2217) 121 MG/DL BUN (test code = 2208) 12 MG/DL CREATININE (test code = 2214) 0.87 MG/DL eGFR AMER. (test code 126 ML/MIN/1.73 = 37364) eGFR NON- AMER. (test 109 ML/MIN/1.73 code = 91526) CALC BUN/CREAT (test code = 14 RATIO [...] CALC GLOBULIN (test code = 2.5 G/DL 0) CALC A/G RATIO (test code = 1.7 RATIO 4) BILIRUBIN, TOTAL (test code = 0.2 MG/DL 2206) ALKALINE PHOSPHATASE (test 103 U/L code = 2204) AST (test code = 2218) 17 U/L ALT (test code = 2219) 26 U/L HEMOGLOBIN [id number] 00:00:00 Test Item Value Reference Range Interpretation Comments HEMOGLOBIN A1c (test code = 02654) 6.4 % HEMOGLOBIN [id number] 00:00:00 Test Item Value Reference Range Interpretation Comments HEMOGLOBIN A1c (test code = 85380) 6.4 % HEMOGLOBIN [id number] 00:00:00 Test Item Value Reference Range Interpretation Comments HEMOGLOBIN A1c (test code = 88177) 6.4 % CBC W/AUTO [id number] 00:00:00 Test Item Value Reference Range Interpretation [...] code = 1015) 193 K/UL CBC W/AUTO [id number] 00:00:00 Test Item Value Reference Range Interpretation [...] code = 1015) 193 K/UL CBC W/AUTO [id number] 00:00:00 Test Item Value Reference Range Interpretation [...] (test code = 1015) 193 K/UL HEMOGLOBIN [id number] 00:00:00 Test Item Value Reference Range Interpretation Comments HEMOGLOBIN A1c (test code = 41406) 7.8 % HEMOGLOBIN [id number] 00:00:00 Test Item Value Reference Range Interpretation Comments HEMOGLOBIN A1c (test code = 38752) 7.8 % HEMOGLOBIN [id number] 00:00:00 Test Item Value Reference Range Interpretation Comments HEMOGLOBIN A1c (test code = 94010) 7.8 % THYROID II PROFILE (T3U, T4, T7, TSH)2016-06-03 00:00:00 Test Item Value Reference Range Interpretation Comments T3 UPTAKE (test code = 2817) 26.4 % T4 (THYROXINE) (test code = 2819) 8.4 UG/DL CALCULATED T7 (FTI) (test code = 2.22 7740) TSH (test code = 2821) 2.2 UIU/ML THYROID II PROFILE (T3U, T4, T7, TSH)2016-06-03 00:00:00 Test Item Value Reference Range Interpretation Comments T3 UPTAKE (test code = 2817) 26.4 % T4 (THYROXINE) (test code = 2819) 8.4 UG/DL CALCULATED T7 (FTI) (test code = 2.22 2820) TSH (test code = 2821) 2.2 UIU/ML COMPREHENSIVE METABOLIC [id number] 00:00:00 Test Item Value Reference Range Interpretation Comments GLUCOSE (test code = 2217) 98 MG/DL BUN (test code = 2208) 14 MG/DL CREATININE (test code = 2214) 0.82 MG/DL eGFR AMER. (test code 132 ML/MIN/1.73 = 65240) eGFR NON- AMER. (test 114 ML/MIN/1.73 code = 07638) CALC BUN/CREAT (test code = 17 RATIO 2235) SODIUM (test code = 2231) 138 MEQ/L POTASSIUM (test code = 2228) 4.1 MEQ/L CHLORIDE (test code = 2215) 100 MEQ/L CARBON DIOXIDE (test code = 23 MEQ/L 2205) CALCIUM (test code = 2209) 9.1 MG/DL PROTEIN, TOTAL (test code = 7.2 G/DL 2228) ALBUMIN (test code = 2201) 4.5 G/DL CALC GLOBULIN (test code = 2.7 G/DL 0) CALC A/G RATIO (test code = 1.7 RATIO 2234) BILIRUBIN, TOTAL (test code = 0.5 MG/DL 2206) ALKALINE PHOSPHATASE (test 111 U/L code = 2204) AST (test code = 2218) 122 U/L ALT (test code = 2219) 194 U/L COMPREHENSIVE METABOLIC [id number] 00:00:00 Test Item Value Reference Range Interpretation Comments GLUCOSE (test code = 2217) 98 MG/DL BUN (test code = 2208) 14 MG/DL CREATININE (test code = 2214) 0.82 MG/DL eGFR AMER. (test code 132 ML/MIN/1.73 = 94357) eGFR NON- AMER. (test 114 ML/MIN/1.73 code = 74319) CALC BUN/CREAT (test code = 17 RATIO 2235) SODIUM (test code = 2231) 138 MEQ/L POTASSIUM (test code = 2228) 4.1 MEQ/L CHLORIDE (test code = 2215) 100 MEQ/L CARBON DIOXIDE (test code = 23 MEQ/L 2205) CALCIUM (test code = 2209) 9.1 MG/DL [...] (test code = 2219) 194 U/L LIPID [id number] 00:00:00 Test Item Value Reference Range Interpretation Comments CHOLESTEROL (test code = 2210) 207 MG/DL TRIGLYCERIDES (test code = 2232) 212 MG/DL HDL CHOLESTEROL (test code = 2220) 34 MG/DL CALC LDL CHOL (test code = 2237) 131 MG/DL RISK RATIO LDL/HDL (test code = 3.84 RATIO 2238) LIPID [id number] 00:00:00 Test Item Value Reference Range Interpretation Comments CHOLESTEROL (test code = 2210) 207 MG/DL TRIGLYCERIDES (test code = 2232) 212 MG/DL HDL CHOLESTEROL (test code = 2220) 34 MG/DL CALC LDL CHOL (test code = 2237) 131 MG/DL RISK RATIO LDL/HDL (test code = 3.84 RATIO 2238) CBC W/AUTO [id number] 00:00:00 Test Item Value Reference Range Interpretation [...] (test code = 1016) (NOTE) CBC W/AUTO [id number] 00:00:00 Test Item Value Reference Range Interpretation [...] (test code = 1016) (NOTE) CBC W/AUTO [id number] 00:00:00 Test Item Value Reference Range Interpretation [...]
[2023-08-09] MEDS ORDERED: ONDANSETRON 4 MG (ODT) TAB ONE (21:07)
--- NOTE | 2023-08-09 22:22 | EDPHYS ---
Physician Documentation [facility] Name: Yehuda Giraldo Age: 42 yrs Sex: Male : 1980 Arrival Date: 08/09/2023 Time: 20:07 Bed DIS5 Private MD: ED Physician Colin Patel HPI: 08/09 21:00 This 42 yrs old Male presents to ER via Ambulatory with complaints of cp Nausea/Vomiting. 21:00 The patient presents to the emergency department with nausea, diarrhea, 5 times today, cp abdominal pain, described as crampy. Onset: The symptoms/episode began/occurred this morning. Possible causes: bad food exposure, ate pulled pork meal last night. Associated signs and symptoms: Pertinent negatives: constipation, diarrhea, fever, GI bleeding, cough. Severity of symptoms: in the emergency department the symptoms are unchanged despite home interventions. Historical: - Allergies: 20:28 No Known Allergies; kb3 - Home Meds: 20:28 None [Active]; kb3 - PMHx: 20:28 COPD; Diabetes - NIDDM; Diverticulitis; Hypertensive disorder; kb3 - PSHx: 20:28 None; kb3 - Immunization history:: Adult Immunizations up to date. - Social history:: Smoking status: Patient denies any tobacco usage or history of. ROS: 21:05 Constitutional: Negative for body aches, chills, fever, poor PO intake. cp 21:05 Eyes: Negative for injury, pain, redness, and discharge. cp 21:05 ENT: Negative for drainage from ear(s), ear pain, sore throat, difficulty swallowing, difficulty handling secretions. 21:05 Respiratory: Negative for cough, shortness of breath, wheezing. 21:05 Abdomen/GI: Positive for nausea, diarrhea, abdominal cramps, Negative for vomiting. 21:05 All other systems are negative. Exam: 21:05 Head/Face: Normocephalic, atraumatic. cp 21:05 Constitutional: The patient appears in no acute distress, alert, awake, non-toxic, well developed, well nourished. 21:05 Eyes: Periorbital structures: appear normal, Conjunctiva: normal, no exudate, no injection, Sclera: no appreciated abnormality, Lids and lashes: appear normal, bilaterally. 21:05 ENT: External ear(s): are unremarkable, Nose: is normal, Mouth: Lips: moist, Oral mucosa: pink and intact, moist, Posterior pharynx: is normal, airway is patent, no erythema, no exudate. 21:05 Chest/axilla: Inspection: normal. 21:05 Cardiovascular: Rate: normal, Rhythm: regular. 21:05 Respiratory: the patient does not display signs of respiratory distress, Respirations: normal, no use of accessory muscles, no retractions, labored breathing, is not present, Breath sounds: are clear throughout, no decreased breath sounds, no stridor, no wheezing. 21:05 Abdomen/GI: Exam negative for discomfort, distension, guarding, Inspection: abdomen appears normal. 21:05 Back: pain, is absent, ROM is normal. 21:05 Neuro: Orientation: is normal, Mentation: is normal. Vital Signs: 20:46 BP 126 / 84; Pulse 95; Resp 18; Temp 98(TE); Pulse Ox 98% on R/A; Weight 83.46 kg; oe Height 5 ft. 8 in. ; 23:00 BP 125 / 81; Pulse 85; Resp 18; Temp 98.5; Pulse Ox 99% ; kb3 20:46 Body Mass Index 27.98 (83.46 kg, 172.72 cm) oe MDM: 20:23 Patient medically screened. cp 21:00 Differential diagnosis: gastritis, viral gastroenteritis, gastroenteritis. cp 22:21 Data reviewed: vital signs, nurses notes, lab test result(s). 08/09 20:38 Order name: Influenza Screen (a \T\ B) 08/09 20:38 Order name: COVID-19 SARS RT PCR 08/09 21:18 Order name: PO challenge; Complete Time: 21:36 cp Administered Medications: 20:58 Drug: Ondansetron PO 4 mg Route: PO; kb3 21:44 Follow up: Response: No adverse reaction; Nausea is decreased; Vomiting decreased kb3 22:54 Drug: Oseltamivir PO 75 mg Route: PO; kb3 23:01 Follow up: Response: No adverse reaction kb3 Disposition Summary: 08/09/23 22:22 Discharge Ordered Location: Home cp Problem: new cp Symptoms: have improved cp Condition: Stable cp Diagnosis - Nausea with vomiting, unspecified cp - Viral infection, unspecified cp Followup: cp - With: Emergency Department - When: 1 - 2 days - Reason: Worsening of condition Discharge Instructions: - Discharge Summary Sheet cp - Influenza, Adult cp - Nausea and Vomiting, Adult cp Forms: - Medication Reconciliation Form cp - Thank You Letter cp - Antibiotic Education cp - Prescription Opioid Use cp - Patient Portal Instructions cp - Leadership Thank You Letter cp - Work release form kb3 Prescriptions: - Zofran 4 mg Oral Tablet - take 1 tablet by ORAL route every 12 hours As needed; 20 tablet; Refills: 0, cp Product Selection Permitted - Tamiflu 75 mg Oral Capsule - take 1 tablet by ORAL route every 12 hours for 5 days; 10 tablet; Refills: 0, cp Product Selection Permitted Signatures: Dispatcher [employer] EDMS Artem Lowe PA PA cp Lidya Onofre, RN RN kb3 Corrections: (The following items were deleted from the chart) 08/10 23:11 08/09 21:00 The patient presents to the emergency department with nausea, vomiting, cp that is intermittent, abdominal pain, described as crampy, cp
--- NOTE | 2023-08-09 22:22 | ER ---
Nurse's Notes [facility] Name: Yehuda Giraldo Age: 42 yrs Sex: Male : 1980 Arrival Date: 08/09/2023 Time: 20:07 Bed DIS5 Private MD: Diagnosis: Nausea with vomiting, unspecified;Viral infection, unspecified Presentation: 08/09 20:26 Chief complaint: Patient states: The family ate a pulled pork meal last night at home kb3 and everyone woke up this morning with N/V/D and abdominal cramping. Pt reports >5 episodes of diarrhea today and nausea without vomiting. Coronavirus screen: Vaccine status: Patient reports being unvaccinated. Client denies travel out of the [place] in the last 14 days. Ebola Screen: Patient negative for fever greater than or equal to 101.5 degrees Fahrenheit, and additional compatible Ebola Virus Disease symptoms Patient denies exposure to infectious person. Patient denies travel to an Ebola-affected area in the 21 days before illness onset. Initial Sepsis Screen: Does the patient meet any 2 criteria? No. Patient's initial sepsis screen is negative. Does the patient have a suspected source of infection? No. Patient's initial sepsis screen is negative. Risk Assessment: Do you want to hurt yourself or someone else? Patient reports no desire to harm self or others. Onset of symptoms was August 09, 2023 at 08:00. 20:26 Method Of Arrival: Ambulatory 3 20:26 Acuity: SARA 3 kb3 Triage Assessment: 20:28 General: Appears in no apparent distress. Behavior is calm, cooperative. Pain: kb3 Complains of pain in abdomen Pain does not radiate. Pain currently is 5 out of 10 on a pain scale. Quality of pain is described as crampy. GI: Reports lower abdominal pain, upper abdominal pain, cramping, diarrhea, nausea. Historical: - Allergies: 20:28 No Known Allergies; kb3 - Home Meds: 20:28 None [Active]; kb3 - PMHx: 20:28 COPD; Diabetes - NIDDM; Diverticulitis; Hypertensive disorder; kb3 - PSHx: 20:28 None; kb3 - Immunization history:: Adult Immunizations up to date. - Social history:: Smoking status: Patient denies any tobacco usage or history of. Screenin:30 [facility] ED Fall Risk Assessment (Adult) History of falling in the last 3 months, kb3 including since admission No falls in past 3 months (0 pts) Confusion or Disorientation No (0 pts) Intoxicated or Sedated No (0 pts) Impaired Gait No (0 pts) Mobility Assist Device Used No (0 pt) Altered Elimination No (0 pt) Score/Fall Risk Level 0 - 2 = Low Risk Oriented to surroundings, Maintained a safe environment, Educated pt \T\ family on fall prevention, incl call for assistance when getting out of bed. Abuse screen: Denies threats or abuse. Denies injuries from another. Nutritional screening: No deficits noted. Tuberculosis screening: No symptoms or risk factors identified. Assessment: 20:30 General: See triage note. kb3 Vital Signs: 20:46 BP 126 / 84; Pulse 95; Resp 18; Temp 98(TE); Pulse Ox 98% on R/A; Weight 83.46 kg; oe Height 5 ft. 8 in. ; 23:00 BP 125 / 81; Pulse 85; Resp 18; Temp 98.5; Pulse Ox 99% ; kb3 20:46 Body Mass Index 27.98 (83.46 kg, 172.72 cm) oe ED Course: 20:12 Patient arrived in ED. kj1 20:18 Artem Lowe PA is PHCP. cp 20:18 Colin Patel MD is Attending Physician. cp 20:26 Lidya Onofre, ESTIVEN is Primary Nurse. kb3 20:28 Triage completed. kb3 20:28 Arm band placed on right wrist. kb3 20:30 Patient has correct armband on for positive identification. Provided Education on: plan kb3 of care. 20:30 No provider procedures requiring assistance completed. Patient did not have IV access kb3 during this emergency room visit. Administered Medications: 20:58 Drug: Ondansetron PO 4 mg Route: PO; kb3 21:44 Follow up: Response: No adverse reaction; Nausea is decreased; Vomiting decreased kb3 22:54 Drug: Oseltamivir PO 75 mg Route: PO; kb3 23:01 Follow up: Response: No adverse reaction kb3 Medication: 20:30 VIS not applicable for this client. kb3 Outcome: 22:22 Discharge ordered by . cp 23:00 Discharged to home ambulatory. kb3 23:00 Condition: stable 23:00 Discharge instructions given to patient, family, Instructed on discharge instructions, follow up and referral plans. medication usage, Demonstrated understanding of instructions, follow-up care, medications, Prescriptions given X 2. 23:13 Patient left the ED. kb3 Signatures: Artem Lowe PA PA cp Espinosa, Orlando oe Jackson, Kandis kj1 Lidya Onofre, RN RN kb3
[2023-08-09] MEDS ORDERED: OSELTAMIVIR 75 MG CAP PO ONE (22:48)
[2023-08-09 23:41] VITALS: BP 125/81; TEMP 98.5; O2SAT 99
== END 2023-08-09 23:13 | disposition home or self-care (01) ==
LOC: ER 20:07
DX: B34.9 Viral infection, unspecified (principal); Z20.822 Contact with and (suspected) exposure to COVID-19
CPT/HCPCS: 87635; 87804; 99283; Q0162

== ENCOUNTER 2023-08-12 11:25 | Emergency (ER) | payer SELFPAY ==
--- OUTSIDE RECORDS SUMMARY | 2023-08-12 11:29 | XMS REPORT | Continuity of Care Document ---
:1980 Author Organization [facility] t Address [address] [facility] [address] [place] [address] Care Team Providers Name Role Phone Anjana Blue Primary Care Physician [phone] Lupe Dejesus RN Attending Clinician Unavailable Doctor Unassigned, Verdi Attending Clinician Unavailable ALFREDO NAVARRO Attending Clinician [...] 2 0-16 ity of diabetes diabetes 00:00: [place] mellitus mellitus 00 Medica l Branch Obesity Obesity Disease Active 2021-11 Univers (BMI (BMI 0-16 ity of 30-39.9) 30-39.9) 00:00: [place] [address] Medical Branch No known No known Disease Unive rs active active ity of problems problems [facility] Allergies, Adverse Reactions, Alerts Allergy Allergy Status Severity Reaction(s) Onset Inactive Treating Comm ents Source Name Type Date Date Clinician NO KNOWN Drug Active Univers ALLERGIE Class ity of S [facility] Social History Social Habit Start Date Stop Date Quantity Comments Source Gender identity Universit y of [facility] Sexual orientation Univer sity of [facility] History of tobacco Passive smoker Un iversity of use [facility] History of Social 2022-09-11 2022-09-11 Univers ity of function 00:00:00 00:00:00 [facility] Alcohol intake 2022-09-11 2022-09-11 Current University 00:00:00 00:00:00 non-drinker of [facility] alcohol Branch (finding) Exposure to 2022-08-31 2022-09-10 Not sure [facility] SARS-CoV-2 (event) 00:00:00 13:58:00 [facility] Cigarettes smoked 2022-09-10 2022-09-10 Univers ity of current (pack per 00:00:00 00:00:00 [facility] ) - Reported Branch Cigarette 2022-09-10 2022-09-10 University of pack-years 00:00:00 00:00:00 [facility] Tobacco use and 2022-09-10 2022-09-10 Smokeless Universit y of exposure 00:00:00 00:00:00 tobacco non-user [facility] 2022-09-10 2022-09-10 21 University 00:00:00 00:00:00 [facility] Sex Assigned At [birth year] Universit y of 00:00:00 00:00:00 [facility] Smoking Status Start Date Stop Date Source Ex-smoker 2022-09-10 00:00:00 2022-09-10 00:00:00 Universi ty of [facility] Current some day 2021-03-05 00:00:00 [facility] smoker [facility] Medications Ordered Filled Start Stop Current Ordering Indication Dosage Frequency Signature Comments Components Source Medication Medication Date Date Medication? Clinician (SIG) Name Name 10 units 2 2021-11 No times daily 0-20 00:00: 00 SITagliptin 2021-11 Yes 100mg 100 mg, Un melina (JANUVIA) 0-17 Oral, ity of tablet 100 14:00: DAILY, [place] mg 00 First dose Medical on [facility] Branch 09/11/22 at 0900, Until Discontinu ed, Routine enoxaparin 2021-11 Yes 40mg 40 mg, Unive rs (LOVENOX) 0-17 Subcutaneo ity of injection 14:00: [place]ILY, [place] 40 mg 00 First dose Medical on [facility] 09/11/22 at 0900, Until Discontinu ed, Routine omeprazole 2021-11 Yes 40mg 40 mg, Unive rs (PRILOSEC) 0-17 Oral, ity of capsule 40 14:00: DAILY, [place] mg 00 First dose Medical on [facility] 09/11/22 at 0900, Until Discontinu ed metFORMIN [...] Starting Medi albina tablet 1 on [place] tablet 09/11/22 at 0235, Until Discontinu ed, Routine, Pain (scale 7-10) traMADoL 2021-11 Yes 50mg 50 mg, Univers (ULTRAM) 0-17 Oral, ity of tablet 50 07:35: Q6HPRN, [place] mg 08 Starting Medical on [place] 09/11/22 at 0235, Until Discontinu ed, Routine, [...] First dose [place] mg 00 on [facility] Medical 09/10/22 Branch at 2100, Until Discontinu ed, Routine Sliding 2021-11 Subcutaneo Uni vers Scale 0-17 10-17 us, AC+HS, ity of Insulin-Reg 02:00: 07:10 First dose [place] ular + Fsbg 00 :47 on [facility] Medica l Testing 09/10/22 Branch at 2100, Until Discontinu ed, Routine Lancing 2021-11 Yes [id number] Use as Univ ers Device with 0-17 directed ity of Lancets 00:00: [place] (ACCU-CHEK 00 Medical SOFT DEV Branch LANCETS) Kit pen needle, 2021-11 Yes [id number] Use as Univers diabetic 32 0-17 directed ity of gauge x 00:00: 11/30" Ndle 00 Medical Branch flash 2021-11 Yes [id number] 2{appli 2 Unive rs glucose 0-17 cator} Applicator ity of scanning 00:00: s before [place] reader 00 meals. Medical (FREESTYLE Branch ROSA MARIA 2 READER) Misc Lancing 2021-11 Yes [id number] Use as Univ ers Device with 0-17 directed ity of Lancets 00:00: [place] (ACCU-CHEK 00 Medical SOFT DEV Branch LANCETS) Kit pen needle, 2021-11 Yes [id number] Use as Univers diabetic 32 0-17 directed ity of gauge x 00:00: [place] 11/30" Ndle 00 Medical Branch flash 2021-11 Yes [id number] 2{appli 2 Unive rs glucose 0-17 cator} Applicator ity of scanning 00:00: s before [place] reader 00 meals. Medical (FREESTYLE Branch ROSA MARIA 2 READER) Misc Lancing 2021-11 Yes [id number] Use as Univ ers Device with 0-17 directed ity of Lancets 00:00: [place] (ACCU-CHEK 00 Medical SOFT DEV Branch LANCETS) Kit pen needle, 2021-11 Yes [id number] Use as Univers diabetic 32 0-17 directed ity of gauge x 00:00: [place] 11/30" Ndle 00 Medical Branch flash 2021-11 Yes [id number] 2{appli 2 Unive rs glucose 0-17 cator} Applicator ity of scanning 00:00: s before [place] reader 00 meals. Medical (FREESTYLE Branch ROSA MARIA 2 READER) [facility] metFORMIN 2021-11- No [id number] 1000mg Take 1 Univers 1,000 mg 0-17 11-17 tablet by ity o f tablet 00:00: 05:59 mouth in [place] 00 :00 the Medical morning Branch and 1 tablet in the evening. Take with meals. Do all this for 30 days. atorvastati 2021-11- No [id number] 40mg Take 1 Univers n 40 mg 0-17 11-17 tablet by ity of tablet 00:00: 05:59 mouth at [place] 00 :00 bedtime Medical for 30 Branch days. insulin 2021-11- No [id number] 10U inject 10 Univers aspart 0-17 11-17 Units ity of protamine-i 00:00: 05:59 under the [place] nsulin 00 :00 skin 2 Medical aspart [...] ty of human 70-30 22:45: 04:12 , [facility], [place] (70-30 00 :06 First dose Medical U-100 on [place] Branch INSULIN) 09/10/22 100 unit/mL at 1745, [...] 10 Starting Medica l 25 mL on [facility] 09/10/22 at 1736, Until Discontinu ed, JOSE, Blood Glucose < or = 70 mg/dL and patient is unable to swallow or has mental status changes. ondansetron 2021-11 Yes 4mg 4 mg, Slow Univers (ZOFRAN 0-16 IV Push, ity of (PF)) 22:36: Q6HPRN, [place] injection 4 02 Starting Medi albina mg on [facility] 09/10/22 at 1736, Until Discontinu ed, Routine, Nausea and Vomiting (N/V) acetaminoph 2021-11 Yes 650mg 650 mg, Un melina en 0-16 Oral, ity of (TYLENOL) 22:35: Q6HPRN, [place] tablet 650 56 Starting Medic al mg on [facility] 09/10/22 at 1735, Until Discontinu ed, Routine, Pain (scale 1-3) NaCl 0.9% 2021-11- No 1000mL at 999 Uni vers (NS) bolus 0-16 10-16 mL/hr, ity of infusion 20:45: 20:37 1,000 mL, [place] as 1,000 mL 00 :00 IV Medical Infusion, Branch ONCE, 1 dose, On [facility] 09/10/22 at 1545, JOSE iopamidol 2021-11- No [id number] 75mL 75 mL, U nivers (ISOVUE 0-16 10-16 Intravenou ity o f 370-500 mL) 19:15: 19:30 s, ONCE, 1 [place] injection 00 :00 dose, On Medica l 75 mL [facility] 09/10/22 at 1430, Routine ondansetron 2021-11- No 4mg 4 mg, Slow Univers (ZOFRAN 0-16 10-16 IV Push, ity of (PF)) 19:15: 19:39 ONCE, 1 [place] injection 4 00 :00 dose, On Medi albina mg [facility] 09/10/22 at 1415, JOSE morpHINE (4 2021-11- No 4mg 4 mg, Slow Univers mg/mL) 0-16 10-16 IV Push, ity of injection 4 19:15: 19:39 ONCE, 1 [place] mg 00 :00 dose, On Medical [place] Branch 09/10/22 at 1415, STAT iohexol 2020- No [id number] 120mL 120 mL, U nivers (OMNIPAQUE 03-05 [...] dose, 03/05/21 at 1330, JOSE omeprazole Yes [id number] 40mg Take 1 U nivers 40 mg 4-10 capsule by ity of capsule 00:00: mouth [place] 00 daily. Medical Branch omeprazole Yes [id number] 40mg Take 1 U nivers 40 mg 4-10 capsule by ity of capsule 00:00: mouth [place] 00 daily. Medical Branch metFORMIN Yes [id number] 500mg Take 1 U nivers 500 mg 4-10 tablet by ity of tablet 00:00: mouth 2 [place] 00 (two) Medical times Branch daily. omeprazole Yes [id number] 40mg Take 1 U nivers 40 mg 4-10 capsule by ity of capsule 00:00: mouth [place] 00 daily. Medical Branch omeprazole Yes [id number] 40mg Take 1 U nivers 40 mg 4-10 capsule by ity of capsule 00:00: mouth [place] 00 daily. Medical Branch metFORMIN 2021- No [id number] 500mg Take 1 Univers 500 mg 4-10 [...] No 500mg Take 1 Univ ers (GLUCOPHAGE 7-01 04-10 tablet by it y of ) 500 [...] 16:34:00 131 mm[Hg] Univer sity of pressure [facility] Diastolic blood 2022-09-11 16:34:00 80 mm[Hg] Unive rsity of [facility] Heart rate 2022-09-11 16:34:00 80 /[facility] 2022-09-11 16:34:00 36.83 Geovanna [facility] ersity [facility] Respiratory rate 2022-09-11 16:34:00 18 /min Univ ersity [facility] Oxygen saturation in 2022-09-11 16:34:00 97 /min University of Arterial blood by [place] [employer] Pulse oximetry Branch Body weight 2022-09-11 07:55:00 82.464 kg [facility] BMI 2022-09-11 07:55:00 27.64 kg/m2 [facility] Body height 2022-09-11 01:03:00 172.7 cm [facility] Systolic blood 2021-03-05 20:00:00 119 mm[Hg] Univer sity of [facility] Diastolic blood 2021-03-05 20:00:00 73 mm[Hg] Unive rsity of [facility] Heart rate 2021-03-05 20:00:00 78 /min [facility] Respiratory rate 2021-03-05 20:00:00 17 /min Univ ersity of [facility] Oxygen saturation in 2021-03-05 20:00:00 99 /min University of Arterial blood by [place] Pulse oximetry Branch Body temperature 2021-03-05 18:12:[address] [facility] Body height 2021-03-05 18:12:00 172.7 cm [facility] Body weight 2021-03-05 18:12:00 101.606 kg [facility] BMI 2021-03-05 18:12:00 34.06 kg/m2 [facility] BP Systolic 2022-09-14 13:45:00 119 mm[Hg] BP Diastolic 2022-09-14 13:45:00 69 mm[Hg] Weight Measured 2022-09-14 13:45:00 187.20 pounds Height Measured 2022-09-14 13:45:00 69.49 inches Body Temperature 2022-09-14 13:45:00 98.20 degrees Heart Rate 2022-09-14 13:45:00 109.00 /min Respiratory Rate 2022-09-14 13:45:00 19.00 /min Height Measured 2019-01-07 13:54:00 69.49 inches Body Temperature 2019-01-07 13:54:00 98.30 degrees Heart Rate 2019-01-07 13:54:00 82.00 /min Respiratory Rate 2019-01-07 13:54:00 16.00 /min BP Systolic 2019-01-07 13:54:00 127 mm[Hg] BP Diastolic 2019-01-07 13:54:00 79 mm[Hg] Weight Measured 2019-01-07 13:54:00 218.40 pounds BP Systolic 2018-12-27 14:42:00 117 mm[Hg] BP [...] Performed REFERRAL- 2023-06-06 05:01:00 Doctor Unassigned, No [facility] REQUEST/RESPONSE Name Medical Branch POCT GLUCOSE 2022-09-11 16:34:00 Melanie [facility] [address] (AUTOMATED) Medical Branch POCT GLUCOSE 2022-09-11 12:44:00 Melanie [facility] [address] (AUTOMATED) Medical Branch COMP. METABOLIC PANEL 2022-09-11 07:58:00 [facility] ([id number] Medical Branch LIPID PANEL 2022-09-11 07:58:00 [facility] [address] ([id number])(TOTAL Medical Branch CHOLESTEROL, TRIGLYCERIDES, HDL) LOW-DENSITY 2022-09-11 07:58:00 [facility] [address] LIPOPROTEIN, DIRECT Medical Bran ch POCT GLUCOSE 2022-09-11 07:29:00 Melanie [facility] [address] (AUTOMATED) Medical Branch POCT GLUCOSE 2022-09-11 01:22:00 Alfredo Navarro [facility] (AUTOMATED) Medical Branch POCT GLUCOSE 2022-09-10 20:47:00 [facility] ABDOMEN PELVIS W 2022-09-10 19:16:33 Jacque Wells [facility] CONTRAST Medical Branch LIPASE 2022-09-10 18:43:00 [facility] COMP. METABOLIC PANEL 2022-09-10 18:43:00 [facility] ([id number]) Medical Branch CBC WITH DIFF 2022-09-10 18:43:00 [facility] GLYCOSYLATED HEMOGLOBIN 2022-09-10 18:43:00 Jacque Wells [facility] (A1C) Medical Branch URINALYSIS 2022-09-10 18:43:00 [facility] NOTICE OF PRIVACY 2022-09-10 18:35:36 Doctor Unassigned, No [facility] PRACTICES Name Medical Branch CONSENT/REFUSAL FOR 2022-09-10 18:35:02 Doctor Unassigned, No [facility] DIAGNOSIS AND TREATMENT Name Medical Branch CT ABDOMEN PELVIS W 2021-03-05 19:23:44 Landy Jenkins [facility] CONTRAST Medical Branch LIPASE 2021-03-05 18:30:00 Landy Jenkins [facility] Medical [place] TROPONIN I 2021-03-05 18:30:00 Landy Jenkins [facility] HEPATIC FUNCTION PANEL 2021-03-05 18:30:00 Landy Jenkins [facility] ([id number]) (ALB,T.PRO,BILI Medical Branch T,BU/BC,ALT,AST,ALK PHOS) BASIC METABOLIC PANEL 2021-03-05 18:30:00 Landy Jenkins [facility] (NA, K, CL, CO2, Medical Branch GLUCOSE, BUN, CREATININE, CA) CBC WITH DIFF 2021-03-05 18:30:00 Landy Jenkins [facility] Medical [place] URINALYSIS 2021-03-05 18:30:00 Landy Jenkins [facility] NOTICE OF PRIVACY 2021-03-05 18:07:12 Doctor Unassigned, No Univ [facility] PRACTICES Name [facility] CONSENT/REFUSAL FOR 2021-03-05 18:07:01 [facility], [facility] Name [facility] Plan of Care Planned Activity Planned Date Details Comments Source Goal Plan of Care Note [code = 15793-0] Goal Plan of Care Note [code = 70234-4] Goal Plan of Care Note [code = 20390-1] Goal Plan of Care Note [code = 04627-2] Goal Plan of Care Note [code = 87790-3] Goal Plan of Care Note [code = 99045-7] Goal Plan of Care Note [code = 08707-5] Goal Plan of Care Note [code = 44117-1] Goal Plan of Care Note [code = 54017-9] Goal Plan of Care Note [code = 45287-8] Goal Plan of Care Note [code = 14090-0] Goal Plan of Care Note [code = 88755-9] Goal Plan of Care Note [code = 53420-6] Encounters Start End Encounter Admission Attending Care Care Encounter Source Date/Time Date/Time Type Type Clinicians Facility Department ID 2023-06-28 2023-06-28 Outpatient SFA SFA [id number] [place] 10:37:44 10:37:44 0803 [facility] 2023-06-21 2023-06-21 Outpatient SFA SFA [id number] Herrera 08:19:38 08:19:38 0727 [facility] 2023-06-20 2023-06-20 Outpatient SFA SFA [id number] Herrear 16:02:39 16:02:39 0726 [facility] 2023-06-09 2023-06-09 HOLLIE Morel [id number] Univers 00:00:00 00:00:00 Lupe BEY 350.1.13.10 [facility] 4.2.7.2.686 Josh as [id number] [address] 2023-06-06 2023-06-06 Orders Doctor BROWNE 1.2.840.114 [id number] Univers 00:00:00 00:00:00 Only UnassignedSOTERO 350.1.13.[address] [facility] 4.2.7.2.686 Josh [id number] [facility] 009 Branch 2023-05-30 2023-05-30 Outpatient [facility] [id number] Hrerera 16:25:18 16:25:18 0705 [place] 2022-09-14 2022-09-14 Outpatient [facility] [id number] Herrera 13:42:01 13:42:01 1020 F [place] 2022-09-14 2022-09-14 Outpatient [id number] 00:00:00 00:00:00 Visit [id number] 2022-09-10 2022-09-11 Outpatient X MELANIE NEEDGAR PHILLIP [id number] Univers 13:44:00 12:54:00 ALFREDO orellana [facility] 2022-09-10 2022-09-11 Emergency Jacque Wells [facility] 1.2.840 .114 [id number] Univers 13:44:00 12:54:00 Alfredo Navarro 350.1.13.10 ity of [place] 4.2.7.2.686 [facility] [id number] [place] [id number] [place] 2021-03-05 2021-03-05 Emergency [facility] [id number] Univers 13:11:00 15:35:00 Landy Luna 350.1.13.10 ity of [place] 4.2.7.2.686 [facility] [id number] [facility] 084 Branch 2021-03-05 2021-03-05 Emergency X [facility] ERT [id number] Univers 13:06:00 13:06:00 [facility] Results Test Description Test Time Test [...] (test code = 1069) K/UL TSH, THIRD [id number] 05:37:35 Test Item Value Reference Range Interpretation Comments TSH, THIRD 2.130 UIU/ML 0.400-4.100 UNLESS OTHERWI SE GENERATION (test INDICATED, ALL TESTING code = 2821) [facility]FOR[facility] AT [facility]. [address] [place] [address] [facility] MUSA DIRECTOR: Tee CANTU JELLY NUMBER [id number] CAP ACCREDITATION N O. [id number] HEMOGLOBIN [id number] 04:21:46 Test Item Value Reference Range Interpretation Comments HEMOGLOBIN A1c (test 11.3 % 4.2-5.6 H AMERIC AN DIABETES code = 23598) ASSOCIATION IDELINES FOR HGB A1C: PREDIABETES/INC REASED [...] TESTING OR LABORATORY C ONSULTATION. COMPREHENSIVE METABOLIC [id number] 02:47:37 Test Item Value Reference Range Interpretation Comments GLUCOSE (test code = 365 MG/DL 70-99 H 2216) BUN (test code = 9 MG/DL 6-20 2207) CREATININE (test 0.71 MG/DL 0.80-1.40 L code = 221) eGFR (2020 CKD-EPI) 117 >60 (test code = 71423) ML/MIN/1.73 CALC BUN/CREAT (test 13 RATIO 6-28 code = 2235) SODIUM (test code = 136 MEQ/L 418-406 1906) POTASSIUM (test code 4.1 MEQ/L 3.5-5.4 = 2227) CHLORIDE (test code 102 MEQ/L 95-107 = 2214) CARBON DIOXIDE (test 22 MEQ/L 19-31 code = 220) CALCIUM (test code = 9.0 MG/DL 8.5-10.5 2208) PROTEIN, TOTAL (test 6.4 G/DL 6.1-8.3 code = 2229) ALBUMIN (test code = 4.1 G/DL 3.5-5.2 [...] 2217) ALT (test code = 41 U/L 5-50 2218) LIPID [id number] 02:47:37 Test Item Value Reference Range Interpretation [...] CALCULATE D LDL IS BASED ON ELEANOR -JANG METHOD WHICHINC LUDES ADJUSTABLE TRIGLYCERIDE:VL DL CHOLESTEROL RAT IO.THIS FACTOR VARIES B Y MEASURED TRIGLY CERIDE AND NON-HDLCHOL ESTEROL CONCENTRATIONS WITH INCREASED CALCU LATED LDL SEENIN HIGH ER TRIGLYCERIDE OR LOWER NON-HDL SPECIME NS. FOR MOREINFORMATION , SEE CLIENT ANNOUNCE MENT AT [email or web address] RISK RATIO LDL/HDL (NOTE) RATIO <3.55 UNABLE T O CALCULATE (test code = 2238) POCT GLUCOSE (AUTOMATED)2022-09-11 16:54:15 Test Item Value Reference Range Interpretation Comments POCT GLU (test code = 1222809018) 234 mg/dL 70-110 H Lab Interpretation (test code = Abnormal 06504-8) [facility], [id number] 15:18:30 Test Item Value Reference Range Interpretation Comments dLDL Chol (test code = 71 mg/dL See_Comment [Aut omated message] 04218-1) The system [employer] generated this result transmitted ref erence range: <=130. T he reference range was not used to int erpret this result as normal/abnormal . Lab Interpretation (test Normal code = 31952-9) [place] [facility] ([address]391)(TOTAL CHOLESTEROL, TRIGLYCERIDES, HDL)2022-09-11 13:58:08 Test Item Value Reference Range Interpretation Comments CHOL (test code = 227 mg/dL 120-200 H 0303773982) HDL (test code = 28 mg/dL See_Comment L [Automated message] 0326887187) The system [employer] generated this result transmit jesse reference range : >=40. The refer ence range was not u sed to interpret th is result as normal/abnormal . HDLC RATIO (test code = See_Comment H [Au tomated message] 3211931376) The system [employer] generated this result transmit jesse reference range : <=5.0. The refe rence range was not u sed to interpret th is result as normal/abnormal . TRIG (test code = 1291 mg/dL 30-170 H 8638521893) LDL CHOL (test code = Unable to calculate 18990-8) LDL due to elev ated triglyceride le faisal greater than 40 0 mg/dL. VLDL (test code = Unable to calculate 8280031493) VLDL due to darnell vated triglyceride le faisal greater than 71 0 mg/dL. Lab Interpretation Abnormal (test code = 50598-9) [facility] GLUCOSE (AUTOMATED)2022-09-11 12:50:53 Test Item Value Reference Range Interpretation Comments POCT GLU (test code = 3233615029) 247 mg/dL 70-110 H Lab Interpretation (test code = Abnormal 93847-0) [facility]. METABOLIC PANEL (80620)2022-09-11 09:41:07 Test Item Value Reference Range Interpretation Comments NA (test code = 135 mmol/L 135-145 9994338150) K (test code = 3.5 mmol/L 3.5-5 0520229076) CL (test code = 104 mmol/L 98-108 9791510160) CO2 TOTAL (test code = 22 mmol/L 23-31 L 6879527339) AGAP (test code = 2-16 4280145683) BUN (test code = 13 mg/dL 7-23 8277023947) GLUCOSE (test code = 242 mg/dL 70-110 H 8312820835) CREATININE (test code = 0.64 mg/dL 0.6-1.25 6687339425) TOTAL BILI (test code = 0.3 mg/dL 0.1-1.6 5103355000) CALCIUM (test code = 8.0 mg/dL 8.6-10.6 L 9403638498) T PROTEIN (test code = 5.8 g/dL 6.3-8.2 L 8721232105) ALBUMIN (test code = 3.4 g/dL 3.5-5 L 6203396646) ALK PHOS (test code = 111 U/L 34-122 4422252388) ALTv (test code = 23 U/L 5-50 1742-6) AST(SGOT) (test code = 21 U/L 13-40 1267078524) eGFR (test code = mL/min/1.73m2 8174429387) NIKO (test code = NIKO) Association of [...] tests). Lab Interpretation Abnormal (test code = 04876-4) [facility] GLUCOSE (AUTOMATED)2022-09-11 07:33:20 Test Item Value Reference Range Interpretation Comments POCT GLU (test code = 6961080734) 204 mg/dL 70-110 H Lab Interpretation (test code = Abnormal 01965-2) [facility] GLUCOSE (AUTOMATED)2022-09-11 01:28:49 Test Item Value Reference Range Interpretation Comments POCT GLU (test code = 4944370718) 373 mg/dL 70-110 H Lab Interpretation (test code = Abnormal 36819-1) [place] [facility]2022-09-10 20:50:37 Test Item Value Reference Range Interpretation Comments POCT GLU (test code = 8762354856) 272 mg/dL 70-110 H Lab Interpretation (test code = Abnormal 52067-0) [place] [facility] (A1C)2022-09-10 20:06:25 Test Item Value Reference Range Interpretation Comments HGB A1C (test code = 12.3 % 4-5.7 H 4548-4) NIKO (test code = NIKO) Reference RangesNormal: <5.7%Prediabetes: 5.7 - 6.4%Diabetes: > 6.5% Lab Interpretation (test Abnormal code = 91909-0) [place] [facility] Hospital[facility] Met[facility] [id number] 19:37:52 Test Item Value Reference Range Interpretation Comments NA (test code = 134 mmol/L 135-145 L 6795164517) K (test code = 4.1 mmol/L 3.5-5 4767146798) CL (test code = 101 mmol/L 98-108 7856980798) CO2 TOTAL (test code = 20 mmol/L 23-31 L 0264771671) AGAP (test code = 2-16 6930384131) BUN (test code = 10 mg/dL 7-23 0887764272) GLUCOSE (test code = 468 mg/dL 70-110 HH 9555114995) CREATININE (test code = 0.75 mg/dL 0.6-1.25 0913294481) TOTAL BILI (test code = 0.6 mg/dL 0.1-1.7 4452377981) CALCIUM (test code = 8.7 mg/dL 8.6-10.6 9197146696) T PROTEIN (test code = 6.6 g/dL 6.3-8.2 8993640754) ALBUMIN (test code = 4.2 g/dL 3.5-5 9893532728) ALK PHOS (test code = 123 U/L 34-122 H 7101418260) ALTv (test code = 26 U/L 5-50 1742-6) AST(SGOT) (test code = 22 U/L 13-40 2217723717) eGFR (test code = mL/min/1.73m2 9999681880) NIKO (test code = NIKO) Association of [...] tests). Lab Interpretation Abnormal (test code = 03123-2) [place] [facility] Hospital[facility], [id number] 19:04:41 Test Item Value Reference Range Interpretation Comments LIPASE (test code = 0899158793) 111 U/L 0-220 Lab Interpretation (test code = Normal 76924-4) [facility] with [id number] 18:52:20 Test Item Value Reference Range Interpretation Comments WBC (test code = See_Comment [Automated 8490-2) message] The sy stem which generated this [...] (test code = 37.7 fL 38.5-51.6 L 46808-2) RDW-CV (test code = 11.9 % 12.1-15.4 L 788-0) PLT (test code = See_Comment [Automated 777-3) message] The sy stem which generated this result transmitted reference range : 150 - 328 10*3/ ?L. The reference r stephie was not used to interpret this result as normal/abnormal . MPV (test code = 11.9 fL 9.8-13 16655-8) NRBC/100 WBC (test See_Comment [Automat ed code = 3943580389) message] The system which generated this result transmitted reference range : 0.0 - 10.0 /100 WBCs. The refer ence range was not u sed to interpret th is result as normal/abnormal . NRBC x10^3 (test code See_Comment [Auto mated = 3006240595) message] The s ystem which generated this result transmitted reference range : 10*3/?L. The reference range was not used to interpret this result as normal/abnormal . GRAN MAT (NEUT) % 56.2 % (test code = 770-8) IMM GRAN % (test code 0.40 % = 8861702814) LYMPH % (test code = 36.1 % 736-9) MONO % (test code = 4.8 % 5905-5) EOS % (test code = 1.7 % 713-8) BASO % (test code = 0.8 % 706-2) GRAN MAT x10^3(ANC) 4.38 10*3/uL 1.99-6.95 (test code = 0555413608) IMM GRAN x10^3 (test 0.03 10*3/uL 0-0.06 code = 9496970507) LYMPH x10^3 (test code 2.81 10*3/uL 1.09-3.23 = 731-0) MONO x10^3 (test code 0.37 10*3/uL 0.36-1.02 = 742-7) EOS x10^3 (test code = 0.13 10*3/uL 0.06-0.53 711-2) BASO x10^3 (test code 0.06 10*3/uL 0.01-0.09 = 704-7) Lab Interpretation Abnormal (test code = 75269-7) [facility] [id number] 20:31:35 Diverticulosis without diverticulitis. Hepatomegaly. Preliminary Report [...] reviewed this study and agree with the abovereport.[facility]lamide [id number] 19:10:36 Test Item Value Reference Range Interpretation Comments TROPONIN I (test 0.001 ng/mL See_Comment [Automated code = 7408924447) message] The system which generated this result [...] ? Lab Interpretation Normal (test code = 30082-3) [facility] (ALB, T.PRO, BILI T, BU/BC, ALT, AST, ALK PHOS)2021-03-05 18:59:14 Test Item Value Reference Range Interpretation Comments TOTAL BILI (test code = 8902647353) 0.4 mg/dL 0.1-1.1 BILI UNCON (test code = 8650626143) 0.3 mg/dL 0.1-1.1 BILI CONJ (test code = 1031783503) 0.0 mg/dL 0.0-0.3 T PROTEIN (test code = 3190460719) 6.6 g/dL 6.3-8.2 ALBUMIN (test code = 3843740330) 4.2 g/dL 3.5-5.0 ALK PHOS (test code = 4069928915) 97 U/L 34-122 ALTv (test code = 1742-6) 22 U/L 5-50 AST(SGOT) (test code = 0679938961) 23 U/L 13-40 Lab Interpretation (test code = Normal 24656-5) [facility] (NA, K, CL, CO2, GLUCOSE, BUN, CREATININE, CA)2021-03-05 18:58:54 Test Item Value Reference Range Interpretation Comments NA (test code = 136 mmol/L 135-145 5772400530) K (test code = 4.1 mmol/L 3.5-5.0 6657279299) CL (test code = 104 mmol/L 98-108 0919934473) CO2 TOTAL (test code = 24 mmol/L 23-31 0482141921) AGAP (test code = 2-16 9262980745) BUN (test code = 15 mg/dL 7-23 8517209867) GLUCOSE (test code = 207 mg/dL 70-110 H 8474958152) CREATININE (test code = 0.74 mg/dL 0.60-1.25 3122010381) CALCIUM (test code = 8.4 mg/dL 8.6-10.6 L 2904186854) eGFR (test code = mL/min/1.73m2 2391514284) NIKO (test code = NIKO) Association of [...] tests). Lab Interpretation Abnormal (test code = 74088-0) [facility] Hospital[facility] [id number] 18:58:54 Test Item Value Reference Range Interpretation Comments LIPASE (test code = 8902957950) 140 U/L 0-220 Lab Interpretation (test code = Normal 92048-4) [facility] HospitalUrinalysis2021-04-10 18:51:20 Test Item Value Reference Range Interpretation Comments APPEARANCE (test code = Clear Clear 8019431303) COLOR (test code = Yellow Yellow 5841980297) PH (test code = 4.8-8.0 2397100302) SP GRAVITY (test code = 1.003-1.030 4933280495) GLU U QUAL (test code = 50 mg/dL Normal A 5607684175) BLOOD (test code = Negative Negative 1525177273) KETONES (test code = Negative Negative 4138784696) PROTEIN (test code = Negative Negative 2887-8) UROBILIN (test code = Normal Normal 2255014233) BILIRUBIN (test code = Negative Negative 4967734560) NITRITE (test code = Negative Negative 3782623168) LEUK ZAY (test code = Negative Negative 1213275757) RBC/HPF (test code = See_Comment [Autom ated message] 2446981215) The system [employer] generated this result transmitted ref erence range: 0 - 3 HP F. The reference range was not used to int erpret this result as normal/abnormal . WBC/HPF (test code = <1 See_Comment [Autom ated message] 4649994120) The system [employer] generated this result transmitted ref erence range: 0 - 5 HP F. The reference range was not used to int erpret this result as normal/abnormal . BACTERIA (test code = Negative Negative 0905874019) MUCOUS (test code = Slight Negative LPF A 7014719375) SQ EPITH (test code = <1 HPF 6625394613) Lab Interpretation (test Abnormal code = 30027-0) [facility] HospitalCBC with [id number] 18:46:34 Test Item Value Reference Range Interpretation [...] RDW-SD (test code = 39.9 fL 38.5-51.6 20206-4) RDW-CV (test code = 12.5 % 12.1-15.4 788-0) PLT (test code = See_Comment [Automated 777-3) message] The sy stem which generated this result transmitted reference range : 150 - 328 10*3/ ?L. The reference r stephie was not used to interpret this result as normal/abnormal . MPV (test code = 11.9 fL 9.8-13.0 59402-3) NRBC/100 WBC (test See_Comment [Automat ed code = 9366815592) message] The system which generated this result transmitted reference range : 0.0 - 10.0 /100 WBCs. The refer ence range was not u sed to interpret th is result as normal/abnormal . NRBC x10^3 (test code <0.01 See_Comment [Auto mated = 5648729193) message] The s ystem which generated this result transmitted reference range : 10*3/?L. The reference range was not used to interpret this result as normal/abnormal . GRAN MAT (NEUT) % 54.6 % (test code = 770-8) IMM GRAN % (test code 0.40 % = 2160758811) LYMPH % (test code = 36.8 % 736-9) MONO % (test code = 5.3 % 5905-5) EOS % (test code = 2.1 % 713-8) BASO % (test code = 0.8 % 706-2) GRAN MAT x10^3(ANC) 3.92 10*3/uL 1.99-6.95 (test code = 7392813876) IMM GRAN x10^3 (test 0.03 10*3/uL 0.00-0.06 code = 8129361270) LYMPH x10^3 (test code 2.64 10*3/uL 1.09-3.23 = 731-0) MONO x10^3 (test code 0.38 10*3/uL 0.36-1.02 = 742-7) EOS x10^3 (test code = 0.15 10*3/uL 0.06-0.53 711-2) BASO x10^3 (test code 0.06 10*3/uL 0.01-0.09 = 704-7) Lab Interpretation Abnormal (test code = 34439-4) [facility] HospitalLIPID [id number] 00:00:00 Test Item Value Reference Range Interpretation Comments CHOLESTEROL (test code = 2210) 185 MG/DL TRIGLYCERIDES (test code = 2232) 162 MG/DL HDL CHOLESTEROL (test code = 2220) 41 MG/DL CALC LDL CHOL (test code = 2237) 112 MG/DL RISK RATIO LDL/HDL (test code = 2.72 RATIO 2238) LIPID [id number] 00:00:00 Test Item Value Reference Range Interpretation Comments CHOLESTEROL (test code = 2210) 185 MG/DL TRIGLYCERIDES (test code = 2232) 162 MG/DL HDL CHOLESTEROL (test code = 2220) 41 MG/DL CALC LDL CHOL (test code = 2237) 112 MG/DL RISK RATIO LDL/HDL (test code = 2.72 RATIO 2238) CBC W/AUTO [id number] 00:00:00 Test Item Value Reference Range Interpretation [...] code = 1015) 166 K/UL CBC W/AUTO [id number] 00:00:00 Test Item Value Reference Range Interpretation [...] code = 1015) 166 K/UL CBC W/AUTO [id number] 00:00:00 Test Item Value Reference Range Interpretation [...] code = 1015) 166 K/UL COMPREHENSIVE METABOLIC [id number] 00:00:00 Test Item Value Reference Range Interpretation Comments GLUCOSE (test code = 2217) 121 MG/DL BUN (test code = 2208) 12 MG/DL CREATININE (test code = 2214) 0.87 MG/DL eGFR AMER. (test code 126 ML/MIN/1.73 = 17089) eGFR NON- AMER. (test 109 ML/MIN/1.73 code = 31656) CALC BUN/CREAT (test code = 14 RATIO [...] code = 2219) 26 U/L COMPREHENSIVE METABOLIC [id number] 00:00:00 Test Item Value Reference Range Interpretation Comments GLUCOSE (test code = 2217) 121 MG/DL BUN (test code = 2208) 12 MG/DL CREATININE (test code = 2214) 0.87 MG/DL eGFR AMER. (test code 126 ML/MIN/1.73 = 08854) eGFR NON- AMER. (test 109 ML/MIN/1.73 code = 07103) CALC BUN/CREAT (test code = 14 RATIO 2235) SODIUM (test code = 2231) 140 MEQ/L POTASSIUM (test code = 2228) 4.3 MEQ/L CHLORIDE (test code = 2215) 105 MEQ/L CARBON DIOXIDE (test code = 23 MEQ/L 220) CALCIUM (test code = 2209) 8.9 MG/DL PROTEIN, TOTAL (test code = 6.7 G/DL 2229) ALBUMIN (test code = 2201) 4.2 G/DL CALC GLOBULIN (test code = 2.5 G/DL 2240) CALC A/G RATIO (test code = 1.7 RATIO 2234) BILIRUBIN, TOTAL (test code = 0.2 MG/DL 2207) ALKALINE PHOSPHATASE (test 103 U/L code = 2204) AST (test code = 2218) 17 U/L ALT (test code = 2219) 26 U/L HEMOGLOBIN [id number] 00:00:00 Test Item Value Reference Range Interpretation Comments HEMOGLOBIN A1c (test code = 81788) 6.4 % HEMOGLOBIN [id number] 00:00:00 Test Item Value Reference Range Interpretation Comments HEMOGLOBIN A1c (test code = 34986) 6.4 % HEMOGLOBIN [id number] 00:00:00 Test Item Value Reference Range Interpretation Comments HEMOGLOBIN A1c (test code = 34491) 6.4 % CBC W/AUTO [id number] 00:00:00 Test Item Value Reference Range Interpretation [...] code = 1015) 193 K/UL CBC W/AUTO [id number] 00:00:00 Test Item Value Reference Range Interpretation [...] code = 1015) 193 K/UL CBC W/AUTO [id number] 00:00:00 Test Item Value Reference Range Interpretation [...] (test code = 1015) 193 K/UL HEMOGLOBIN [id number] 00:00:00 Test Item Value Reference Range Interpretation Comments HEMOGLOBIN A1c (test code = 41474) 7.8 % HEMOGLOBIN [id number] 00:00:00 Test Item Value Reference Range Interpretation Comments HEMOGLOBIN A1c (test code = 61622) 7.8 % HEMOGLOBIN [id number] 00:00:00 Test Item Value Reference Range Interpretation Comments HEMOGLOBIN A1c (test code = 83393) 7.8 % THYROID II PROFILE (T3U, T4, [...] CALCULATED T7 (FTI) (test code = 2.22 0) TSH (test code = 2821) 2.2 UIU/ML COMPREHENSIVE METABOLIC [id number] 00:00:00 Test Item Value Reference Range Interpretation Comments GLUCOSE (test code = 2217) 98 MG/DL BUN (test code = 2208) 14 MG/DL CREATININE (test code = 2214) 0.82 MG/DL eGFR AMER. (test code 132 ML/MIN/1.73 = 25600) eGFR NON- AMER. (test 114 ML/MIN/1.73 code = 22399) CALC BUN/CREAT (test code = 17 RATIO [...] code = 2219) 194 U/L COMPREHENSIVE METABOLIC [id number] 00:00:00 Test Item Value Reference Range Interpretation Comments GLUCOSE (test code = 2217) 98 MG/DL BUN (test code = 2208) 14 MG/DL CREATININE (test code = 2214) 0.82 MG/DL eGFR AMER. (test code 132 ML/MIN/1.73 = 17100) eGFR NON- AMER. (test 114 ML/MIN/1.73 code = 98150) CALC BUN/CREAT (test code = 17 RATIO [...] (test code = 2219) 194 U/L LIPID [id number] 00:00:00 Test Item Value Reference Range Interpretation Comments CHOLESTEROL (test code = 2210) 207 MG/DL TRIGLYCERIDES (test code = 2232) 212 MG/DL HDL CHOLESTEROL (test code = 2220) 34 MG/DL CALC LDL CHOL (test code = 2237) 131 MG/DL RISK RATIO LDL/HDL (test code = 3.84 RATIO 2238) LIPID [id number] 00:00:00 Test Item Value Reference Range Interpretation Comments CHOLESTEROL (test code = 2210) 207 MG/DL TRIGLYCERIDES (test code = 2232) 212 MG/DL HDL CHOLESTEROL (test code = 2220) 34 MG/DL CALC LDL CHOL (test code = 2237) 131 MG/DL RISK RATIO LDL/HDL (test code = 3.84 RATIO 2238) CBC W/AUTO [id number] 00:00:00 Test Item Value Reference Range Interpretation [...] (test code = 1016) (NOTE) CBC W/AUTO [id number] 00:00:00 Test Item Value Reference Range Interpretation [...] (test code = 1016) (NOTE) CBC W/AUTO [id number] 00:00:00 Test Item Value Reference Range Interpretation [...]
--- NOTE | 2023-08-12 11:45 | EDPHYS ---
Physician Documentation [facility] Name: Yehuda Giraldo Age: 42 yrs Sex: Male : 1980 Arrival Date: 08/12/2023 Time: 11:25 Bed 17 Private MD: ED Physician Glenny Brown HPI: 08/12 14:46 This 42 yrs old Male presents to ER via EMS with complaints of Medication kb Refill. 14:46 The patient presents to the emergency department requesting refill(s) for: Neurontin. kb The patient chronically suffers from neuropathy. The patient has experienced similar episodes in the past. The patient has not recently seen a physician. Pt reports he takes gabapentin 300mg TID for neuropathy. States he ran out and his pain was exacerbated by handcuffs last night so he came in to get some for the next few days until he is able to get to his PCP. . Historical: - Allergies: 11:29 No Known Allergies; hb - Home Meds: 11:29 gabapentin 100 mg oral capsule 3 times per day [Active]; hb - PMHx: 11:28 COPD; Diabetes - NIDDM; Diverticulitis; Hypertensive disorder; RA; hb - Immunization history:: Adult Immunizations up to date. - Social history:: Smoking status: Patient reports the use of cigarette tobacco products. ROS: 14:46 Constitutional: Negative for fever, chills, and weight loss. kb 14:46 MS/extremity: Positive for pain, of the right arm, left arm, right leg and left leg. 14:46 All other systems are negative. kb Exam: 14:46 Constitutional: This is a well developed, well nourished patient who is awake, alert, kb and in no acute distress. Head/Face: Normocephalic, atraumatic. ENT: Moist Mucous membranes Cardiovascular: Regular rate Respiratory: Respirations even and unlabored. No increased work of breathing. Talking in full sentences Skin: Warm, dry with normal turgor. Normal color. MS/ Extremity: Pulses equal, no cyanosis. Neurovascular intact. Full, normal range of motion. Neuro: Awake and alert, GCS 15, oriented to person, place, time, and situation. Moves all extremities. Normal gait. Vital Signs: 11:27 BP 131 / 81; Pulse 79; Resp 16; Temp 98.1; Pulse Ox 100% on R/A; Weight 83.46 kg; hb Height 5 ft. 8 in. ; Pain 7/10; 11:51 BP 123 / 80; Pulse 74; Resp 16; Pulse Ox 100% on R/A; me1 11:27 Body Mass Index 27.98 (83.46 kg, 172.72 cm) hb 11:27 Pain Scale: Adult hb MDM: 11:29 Patient medically screened. ci 14:48 Data reviewed: vital signs, nurses notes. Counseling: I had a detailed discussion with kb the patient and/or guardian regarding the historical points, exam findings, and any diagnostic results supporting the discharge/admit diagnosis, the need for outpatient follow up, a family practitioner, to return to the emergency department if symptoms worsen or persist or if there are any questions or concerns that arise at home. 14:48 Historians other than the Patient: EMS: [facility]. kb Administered Medications: No medications were administered Disposition Summary: 08/12/23 11:44 Discharge Ordered Location: Home kb Condition: Stable kb Diagnosis - Encounter for issue of repeat prescription kb Followup: kb - With: Emergency Department - When: As needed - Reason: Worsening of condition Followup: kb - With: Private Physician - When: 2 - 3 days - Reason: Recheck today's complaints, Continuance of care, Re-evaluation by your physician Discharge Instructions: - Discharge Summary Sheet kb - Medicine Refill at the Emergency Department kb Forms: - Medication Reconciliation Form kb - Thank You Letter kb - Antibiotic Education kb - Prescription Opioid Use kb - Patient Portal Instructions kb - Leadership Thank You Letter kb Prescriptions: - Neurontin 300 mg Oral Capsule - take 1 capsule by ORAL route every 8 hours; 30 capsule; Refills: 0, Product kb Selection Permitted Signatures: Sherry Carter, TRESSA SEAY-Celsa Velázquez, RN RN Ihejo-annunekGlenny alvarez ci
--- NOTE | 2023-08-12 11:45 | ER ---
Nurse's Notes [facility] Name: Yehuda Giraldo Age: 42 yrs Sex: Male : 1980 Arrival Date: 08/12/2023 Time: 11:25 Bed 17 [facility] MD: Diagnosis: Encounter for issue of repeat prescription Presentation: 08/12 11:27 Chief complaint: EMS states: Takes gabapentin 100 mg TID, has been out for 2 days, c/o hb pain in right arm and hand. Hx of RA. Pt is Flu +, taking Tamiflu. Coronavirus screen: At this time, the client does not indicate any symptoms associated with coronavirus-19. Ebola Screen: No symptoms or risks identified at this time. Initial Sepsis Screen: Does the patient meet any 2 criteria? No. Patient's initial sepsis screen is negative. Does the patient have a suspected source of infection? No. Patient's initial sepsis screen is negative. Risk Assessment: Do you want to hurt yourself or someone else? Patient reports no desire to harm self or others. Onset of symptoms was August 12, 2023. 11:27 Method Of Arrival: EMS: [facility] hb 11:27 Acuity: SARA 4 hb Historical: - Allergies: 11:29 No Known Allergies; hb - Home Meds: 11:29 gabapentin 100 mg oral capsule 3 times per day [Active]; hb - PMHx: 11:28 COPD; Diabetes - NIDDM; Diverticulitis; Hypertensive disorder; RA; hb - Immunization history:: Adult Immunizations up to date. - Social history:: Smoking status: Patient reports the use of cigarette tobacco products. Screenin:30 [facility] ED Fall Risk Assessment (Adult) Score/Fall Risk Level 0 - 2 = Low Risk hb Oriented to surroundings, Maintained a safe environment. Abuse screen: Denies threats or abuse. Denies injuries from another. Nutritional screening: No deficits noted. Tuberculosis screening: No symptoms or risk factors identified. Assessment: 11:30 General: Appears in no apparent distress. Behavior is calm, cooperative. Pain: Pain hb currently is 7 out of 10 on a pain scale. Neuro: Level of Consciousness is awake, alert, obeys commands, Oriented to person, place, time, situation. Cardiovascular: Patient's skin is warm and dry. Respiratory: Respiratory effort is even, unlabored, Respiratory pattern is regular, symmetrical. GI: No signs and/or symptoms were reported involving the gastrointestinal system. : No signs and/or symptoms were reported regarding the genitourinary system. EENT: No signs and/or symptoms were reported regarding the EENT system. Derm: Skin is pink, warm \T\ dry. Musculoskeletal: Reports right arm and hand pain. Vital Signs: 11:27 BP 131 / 81; Pulse 79; Resp 16; Temp 98.1; Pulse Ox 100% on R/A; Weight 83.46 kg; hb Height 5 ft. 8 in. ; Pain 7/10; 11:51 BP 123 / 80; Pulse 74; Resp 16; Pulse Ox 100% on R/A; me1 11:27 Body Mass Index 27.98 (83.46 kg, 172.72 cm) hb 11:27 Pain Scale: Adult hb ED Course: 11:27 Patient arrived in ED. hb 11:28 Sherry Carter FNP-C is [facility]. kb 11:28 Glenny Brown is Attending Physician. kb 11:28 Triage completed. hb 11:30 Arm band placed on. hb 11:31 Patient has correct armband on for positive identification. Provided Education on: . hb 11:55 No provider procedures requiring assistance completed. Patient did not have IV access me1 during this emergency room visit. Administered Medications: No medications were administered Medication: 11:30 VIS not applicable for this client. hb Outcome: 11:44 Discharge ordered by MD. kb 11:55 Discharged to home ambulatory. me1 11:55 Condition: stable 11:55 Discharge instructions given to patient, Instructed on discharge instructions, follow up and referral plans. medication usage, Demonstrated understanding of instructions, follow-up care, medications, Prescriptions given X 1. 11:55 Patient left the ED. me1 Signatures: Sherry Carter FNP-C FNP-Ckb Baxter, Heather, RN RN Vanna Griffin RN RN me1 Corrections: (The following items were deleted from the chart) 11:29 11:27 Chief complaint: EMS states: Takes gabapentin 100 mg TID, has been out for 2 hb days, c/o pain in right arm and hand. hb
[2023-08-12 12:02] VITALS: TEMP 98.1; O2SAT 100
[2023-08-12 12:04] VITALS: BP 123/80
== END 2023-08-12 11:55 | disposition home or self-care (01) ==
LOC: ER 11:25
DX: Z76.0 Encounter for issue of repeat prescription (principal)
CPT/HCPCS: 99283

== ENCOUNTER 2023-10-08 23:15 | Emergency (ER) | payer SELFPAY ==
--- OUTSIDE RECORDS SUMMARY | 2023-10-08 23:29 | XMS REPORT | Continuity of Care Document ---
:1980 Author Organization [facility] t Address [address] [place] [address] Care Team Providers Name Role Phone Anjana Blue Primary Care Physician [phone] Lupe Dejesus RN Attending Clinician Unavailable Doctor Unassigned, [place] Attending Clinician Unavailable ALFREDO NAVARRO Attending Clinician [...] 2 0-16 ity of diabetes diabetes 00:00: [place] mellitus mellitus 00 Medica l Branch Obesity Obesity Disease Active 2021-11 Univers (BMI (BMI 0-16 ity of 30-39.9) 30-39.9) 00:00: [place] [address] Medical Branch No known No known Disease Unive rs active active ity of problems problems [facility] Allergies, Adverse Reactions, Alerts Allergy Allergy Status Severity Reaction(s) Onset Inactive Treating Comm ents Source Name Type Date Date Clinician NO KNOWN Drug Active Univers ALLERGIE Class ity of S [facility] Social History Social Habit Start Date Stop Date Quantity Comments Source Gender identity Universit y of [facility] Sexual orientation Univer sity of [facility] History of tobacco Passive smoker Un iversity of use [facility] History of Social 2022-09-11 2022-09-11 Univers ity of function 00:00:00 00:00:00 [facility] Alcohol intake 2022-09-11 2022-09-11 Current University 00:00:00 00:00:00 non-drinker of [facility] alcohol Branch (finding) Exposure to 2022-08-31 2022-09-10 Not sure [facility] SARS-CoV-2 (event) 00:00:00 13:58:00 [facility] Cigarettes smoked 2022-09-10 2022-09-10 Univers ity of current (pack per 00:00:00 00:00:00 [facility] ) - Reported Branch Cigarette 2022-09-10 2022-09-10 University of pack-years 00:00:00 00:00:00 [facility] Tobacco use and 2022-09-10 2022-09-10 Smokeless Universit y of exposure 00:00:00 00:00:00 tobacco non-user [facility] 2022-09-10 2022-09-10 21 University 00:00:00 00:00:00 [facility] Sex Ass[birth year] At [birth year] Universit y of 00:00:00 00:00:00 [facility] Smoking Status Start Date Stop Date Source Ex-smoker 2022-09-10 00:00:00 2022-09-10 00:00:00 Universi ty of [facility] Current some day 2021-03-05 00:00:00 [facility] smoker [facility] Medications Ordered Filled Start Stop Current Ordering Indication Dosage Frequency Signature Comments Components Source Medication Medication Date Date Medication? Clinician (SIG) Name Name 10 units 2 2021-11 No times daily 0-20 00:00: 00 SITagliptin 2021-11 Yes 100mg 100 mg, Un melina (JANUVIA) 0-17 Oral, ity of tablet 100 14:00: DAILY, [place] mg 00 First dose Medical on [facility] Branch 09/11/22 at 0900, Until Discontinu ed, Routine enoxaparin 2021-11 Yes 40mg 40 mg, Unive rs (LOVENOX) 0-17 Subcutaneo ity of injection 14:00: [place], DAILY, [place] 40 mg 00 First dose Medical on [facility] 09/11/22 at 0900, Until Discontinu ed, Routine omeprazole 2021-11 Yes 40mg 40 mg, Unive rs (PRILOSEC) 0-17 Oral, ity of capsule 40 14:00: DAILY, [place] mg 00 First dose Medical on [facility] 09/11/22 at 0900, Until Discontinu ed metFORMIN [...] Starting Medi albina tablet 1 on [facility] tablet 09/11/22 at 0235, Until Discontinu ed, Routine, Pain (scale 7-10) traMADoL 2021-11 Yes 50mg 50 mg, Univers (ULTRAM) 0-17 Oral, ity of tablet 50 07:35: Q6HPRN, [place] mg 08 Starting Medical on [facility] 09/11/22 at 0235, Until Discontinu ed, Routine, [...] First dose [place] mg 00 on [facility] 09/10/22 Branch at 2100, Until Discontinu ed, Routine Sliding 2021-11 Subcutaneo Uni vers Scale 0-17 10-17 us, AC+HS, ity of Insulin-Reg 02:00: 07:10 First dose [place] ular + Fsbg 00 :47 on [facility] l Testing 09/10/22 Branch at 2100, Until Discontinu ed, Routine Lancing 2021-11 Yes [id number] Use as Univ ers Device with 0-17 directed ity of Lancets 00:00: [place] (ACCU-CHEK 00 Medical SOFT DEV Branch LANCETS) Kit pen needle, 2021-11 Yes [id number] Use as Univers diabetic 32 0-17 directed ity of gauge x 00:00: 11/30" Ndle 00 Medical Branch flash 2021-11 Yes [id number] 2{appli 2 Unive rs glucose 0-17 cator} Applicator ity of scanning 00:00: s before [place] reader 00 meals. Medical (FREESTYLE Branch ROSA MARIA 2 READER) Misc Lancing 2021-11 Yes [id number] Use as Univ ers Device with 0-17 directed ity of Lancets 00:00: [place] (ACCU-CHEK 00 Medical SOFT DEV Branch LANCETS) Kit pen needle, 2021-11 Yes [id number] Use as Univers diabetic 32 0-17 directed ity of gauge x 00:00: [place] 11/30" Ndle 00 Medical Branch flash 2021-11 Yes [id number] 2{appli 2 Unive rs glucose 0-17 cator} Applicator ity of scanning 00:00: s before [place] reader 00 meals. Medical (FREESTYLE Branch ROSA MARIA 2 READER) Misc Lancing 2021-11 Yes [id number] Use as Univ ers Device with 0-17 directed ity of Lancets 00:00: [place] (ACCU-CHEK 00 Medical SOFT DEV Branch LANCETS) Kit pen needle, 2021-11 Yes [id number] Use as Univers diabetic 32 0-17 directed ity of gauge x 00:00: [place] 11/30" Ndle 00 Medical Branch flash 2021-11 Yes [id number] 2{appli 2 Unive rs glucose 0-17 cator} Applicator ity of scanning 00:00: s before [place] reader 00 meals. Medical (FREESTYLE Branch ROSA MARIA 2 READER) [facility] Lancing 2021-11 Yes [id number] Use as Univ ers Device with 0-17 directed ity of Lancets 00:00: [place] (ACCU-CHEK 00 Medical SOFT DEV Branch LANCETS) Kit pen needle, 2021-11 Yes [id number] Use as Univers diabetic 32 0-17 directed ity of gauge x 00:00: [place] 11/30" Ndle 00 Medical Branch flash 2021-11 Yes [id number] 2{appli 2 Unive rs glucose 0-17 cator} Applicator ity of scanning 00:00: s before [place] reader 00 meals. Medical (FREESTYLE Branch ROSA MARIA 2 READER) [facility] metFORMIN 2021-11- No [id number] 1000mg Take 1 Univers 1,000 mg 0-17 11-17 tablet by ity o f tablet 00:00: 05:59 mouth in [place] 00 :00 the Medical morning Branch and 1 tablet in the evening. Take with meals. Do all this for 30 days. atorvastati 2021-11- No [id number] 40mg Take 1 Univers n 40 mg 0-17 11-17 tablet by ity of tablet 00:00: 05:59 mouth at [place] 00 :00 bedtime Medical for 30 Branch days. insulin 2021-11- No [id number] 10U inject 10 Univers aspart 0-17 11-17 [...] of human 70-30 22:45: 04:12 us, BIDAC, [place] (70-30 00 :06 First dose Medical U-100 on [facility] INSULIN) 09/10/22 100 unit/mL at 1745, (70-30) Until injection Discontinu 10 Units ed, Routine glucagon 2021-11 Yes 1mg 1 mg, Univers (GLUCAGEN 0-16 Intramuscu ity of DIAGNOSTIC 22:36: lar, PRN, [place] KIT) 10 Starting Medical injection 1 on [facility] mg 09/10/22 at 1736, Until Discontinu ed, JOSE, Blood Glucose < or = 70 mg/dL and patient is unable to swallow or has mental changes. dextrose 50 2021-11 Yes 25mL 25 mL, Univ ers % in water 0-16 Slow IV ity of (D50W) 22:36: Push, PRN, [place] injection 10 Starting Medica l 25 mL on [facility] 09/10/22 at 1736, Until Discontinu ed, JOSE, Blood Glucose < or = 70 mg/dL and patient is unable to swallow or has mental status changes. ondansetron 2021-11 Yes 4mg 4 mg, Slow Univers (ZOFRAN 0-16 IV Push, ity of (PF)) 22:36: Q6HPRNFishers, [place] injection 4 02 Starting Medi albina mg on [facility] 09/10/22 at 1736, Until Discontinu ed, Routine, Nausea and Vomiting (N/V) acetaminoph 2021-11 Yes 650mg 650 mg, Un melina en 0-16 Oral, ity of (TYLENOL) 22:35: Q6HPRNFishers, [place] tablet 650 56 Starting Medic al mg on [facility] 09/10/22 at 1735, Until Discontinu ed, Routine, Pain (scale 1-3) NaCl 0.9% 2021-11- No 1000mL at 999 Uni vers (NS) bolus 0-16 10-16 mL/hr, ity of infusion 20:45: 20:37 1,000 mL, [place] as 1,000 mL 00 :00 IV Medical Infusion, Branch ONCE, 1 dose, On [facility] 09/10/22 at 1545, JOSE iopamidol 2021-11 2022- No [id number] 75mL 75 mL, U nivers (ISOVUE 0-16 16 Intravenou ity o f 370-500 mL) 19:15: 19:30 s, ONCE, 1 [place] injection 00 :00 dose, On Medica l 75 mL [facility] 09/10/22 at 1430, Routine ondansetron 2021-11- No 4mg 4 mg, Slow Univers (ZOFRAN 0-16 16 IV Push, ity of (PF)) 19:15: 19:39 ONCE, 1 [place] injection 4 00 :00 dose, On Medi albina mg [facility] 09/10/22 at 1415, JOSE morpHINE (4 2021-11- No 4mg 4 mg, Slow Univers mg/mL) 016 IV Push, ity of injection 4 19:15: 19:39 ONCE, 1 [place] mg 00 :00 dose, On Medical [facility] 09/10/22 at 1415, STAT iohexol 2020- No [id number] 120mL 120 mL, U nivers (OMNIPAQUE 03-05 [...] No 4mg 4 mg, Slow Univers (ZOFRAN 03-0510 IV Push, ity of (PF)) 19:30: 18:37 ONCE, 1 [place] injection 4 00 :00 dose, Sat Med ical mg 03/05/21 at Branch 1430, JOSE morpHINE 2020- No 4mg 4 mg, Slow Un melina injection 4 03-0510 IV Push, ity of mg 19:30: 18:37 ONCE, 1 [place] 00 :00 dose, Sat Medical 03/05/21 at Branch 1430, STAT NaCl 0.9% 2020- No 1000mL at 999 Uni vers (NS) bolus 4-10 04-10 mL/hr, ity of infusion 18:30: 19:46 1,000 mL, [place] as 1,000 mL 00 :00 IV Medical Infusion, Branch ONCE, 1 dose, 03/05/21 at 1330, JOSE omeprazole 0 Yes [id number] 40mg Take 1 U nivers 40 mg 4-10 capsule by ity of capsule 00:00: mouth [place] 00 daily. Medical Branch omeprazole Yes [id number] 40mg Take 1 U nivers 40 mg 4-10 capsule by ity of capsule 00:00: mouth [place] 00 daily. Medical Branch omeprazole Yes [id number] 40mg Take 1 U nivers 40 mg 4-10 capsule by ity of capsule 00:00: mouth [place] 00 daily. Medical Branch metFORMIN Yes [id number] 500mg Take 1 U nivers 500 mg 4-10 tablet by ity of tablet 00:00: mouth 2 [place] 00 (two) Medical times Branch daily. omeprazole Yes [id number] 40mg Take 1 U nivers 40 mg 4-10 capsule by ity of capsule 00:00: mouth [place] 00 daily. Medical Branch omeprazole Yes [id number] 40mg Take 1 U nivers 40 mg 4-10 capsule by ity of capsule 00:00: mouth [place] 00 daily. Medical Branch metFORMIN 0 2021- No [id number] 500mg Take 1 Univers 500 mg 4-10 10-17 tablet by ity of tablet 00:00: 00:00 mouth 2 [place] 00 :00 (two) Medical times Branch daily. prednisone No 1mg 20 mg 2-12 tablet 00:00: 00 Dose 2019-0 No Unknown 2-12 00:00: 00 metformin 2016-0 No 1mg 500 mg 1-23 tablet 00:00: 00 neomycin-po 2020- No 3[drp] Place 3 Univers lymyxin-hyd 08-04 04-10 Drops in ity of rocortisone 00:00: 00:00 left ear 4 [place] (CORTISPORI 00 :00 (four) Medica l N OTIC times Branch SUSPENSION) daily. 3.5-10,000- 1 mg/mL-unit/ mL-% otic susp acetaminoph 2020- No 1{tbl} Take 1 U nivers en-codeine 08-04 tablet by ity of (TYLENOL-CO 00:00: 00:00 [place] DEINE #3) 00 :00 every 6 Medical 300-30 mg (six) Branch tablet hours as needed for Pain (scale 4-6) (for cough). metformin No 1mg 1,000 mg - tablet 00:00: 00 pantoprazol No 40mg Take 1 Uni vers e 05-26 tablet by ity of (PROTONIX) 00:00: 00:00 mouth [place] 40 mg EC 00 :00 daily. Medical tablet Branch metFORMIN No 500mg Take 1 Univ ers (GLUCOPHAGE [...] blood 2022-09-11 16:34:00 131 mm[Hg] Univer sity [facility] Diastolic blood 2022-09-11 16:34:00 80 mm[Hg] Unive [facility] Heart rate 2022-09-11 16:34:00 80 /min [facility] Body temperature 2022-09-11 16:34:00 36.83 Geovanna [facility] Respiratory rate 2022-09-11 16:34:00 18 /min [facility] Oxygen saturation in 2022-09-11 16:34:00 97 /min [facility] Arterial blood by [facility] Pulse oximetry Branch Body weight 2022-09-11 07:55:00 82.464 kg [facility] BMI 2022-09-11 07:55:00 27.64 kg/m2 [facility] Body height 2022-09-11 01:03:00 172.7 cm Universi ty [facility] Systolic blood 2021-03-05 20:00:00 119 mm[Hg] Univer sity of pressure [facility] Diastolic blood 2021-03-05 20:00:00 73 mm[Hg] Unive rsity of [facility] Heart rate 2021-03-05 20:00:00 78 /min Universi [facility] Respiratory rate 2021-03-05 20:00:00 17 /min [facility] in 2021-03-05 20:00:00 99 /min [facility] Arterial blood by [facility] Pulse oximetry [facility] Body temperature 2021-03-05 18:12:00 36.28 Geovanna [facility] Body height 2021-03-05 18:12:00 172.7 cm [facility] Body weight 2021-03-05 18:12:00 101.606 kg [facility] BMI 2021-03-05 18:12:00 34.06 kg/m2 [facility] BP Systolic 2022-09-14 13:45:00 119 [...] Performed REFERRAL- 2023-06-06 05:01:00 Doctor Unassigned, No [facility] REQUEST/RESPONSE Name Medical Branch POCT GLUCOSE 2022-09-11 16:34:00 [place], [facility] (AUTOMATED) Medical Branch POCT GLUCOSE 2022-09-11 12:44:00 Melanie [facility] (AUTOMATED) Medical Branch COMP. METABOLIC PANEL 2022-09-11 07:58:00 Melanie [facility] ([id number]) Medical Branch LIPID PANEL 2022-09-11 07:58:00 Melanie [facility] ([id number])(TOTAL Medical Branch CHOLESTEROL, TRIGLYCERIDES, HDL) LOW-DENSITY 2022-09-11 07:58:00 Melanie [facility] LIPOPROTEIN, DIRECT Medical Bran ch POCT GLUCOSE 2022-09-11 07:29:00 Melanie [facility] (AUTOMATED) Medical Branch POCT GLUCOSE 2022-09-11 01:22:00 Melanie [facility] (AUTOMATED) Medical Branch POCT GLUCOSE 2022-09-10 20:47:00 [facility] ABDOMEN PELVIS W 2022-09-10 19:16:33 Jacque Wells [facility] CONTRAST [facility] Branch LIPASE 2022-09-10 18:43:00 Singer [facility] COMP. METABOLIC PANEL 2022-09-10 18:43:00 Mart [facility] ([id number]) [facility] CBC WITH DIFF 2022-09-10 18:43:00 Singer [facility] GLYCOSYLATED HEMOGLOBIN 2022-09-10 18:43:00 Jacque Wells [facility] (A1C) [facility] URINALYSIS 2022-09-10 18:43:00 [facility] NOTICE OF PRIVACY 2022-09-10 18:35:36 Doctor Unassigned, No Univ [facility] PRACTICES Name Medical Branch CONSENT/REFUSAL FOR 2022-09-10 18:35:02 [facility], [facility] Name Medical Branch CT ABDOMEN PELVIS W 2021-03-05 19:23:44 Landy Jenkins [facility] CONTRAST Medical Branch LIPASE 2021-03-05 18:30:00 Landy Jenkins [facility] TROPONIN I 2021-03-05 18:30:00 Landy Jenkins [facility] HEPATIC FUNCTION PANEL 2021-03-05 18:30:00 [facility] ([id number] (ALB,T.PRO,BILI Medical Branch T,BU/BC,ALT,AST,ALK PHOS) BASIC METABOLIC PANEL 2021-03-05 18:30:00 [facility] (NA, K, CL, CO2, Medical Branch GLUCOSE, BUN, CREATININE, CA) CBC WITH DIFF 2021-03-05 18:30:00 Landy Jenkins [facility] URINALYSIS 2021-03-05 18:30:00 Landy Jenkins [facility] NOTICE OF PRIVACY 2021-03-05 18:07:12 Doctor Unassigned, No Univ [facility] Name [facility] CONSENT/REFUSAL FOR 2021-03-05 18:07:01 Doctor Unassigned, No [facility] Name [facility] Plan of Care Planned Activity Planned Date Details Comments Source Goal Plan of Care Note [code = 61794-9] Goal Plan of Care Note [code = 65155-1] Goal Plan of Care Note [code = 61906-2] Goal Plan of Care Note [code = 65349-0] Goal Plan of Care Note [code = 87428-0] Goal Plan of Care Note [code = 72547-3] Goal Plan of Care Note [code = 09318-3] Goal Plan of Care Note [code = 30198-7] Goal Plan of Care Note [code = 90450-7] Goal Plan of Care Note [code = 70095-3] Goal Plan of Care Note [code = 26791-1] Goal Plan of Care Note [code = 75428-7] Goal Plan of Care Note [code = 75543-6] Encounters Start End Encounter Admission Attending Care Care Encounter Source Date/Time Date/Time Type Type Clinicians Facility Department ID 2023-06-28 2023-06-28 Outpatient [facility] [id number] Herrera 10:37:44 10:37:44 08Ondina Brownlee 2023-06-21 2023-06-21 Outpatient [facility] [id number] Herrera 08:19:38 08:19:38 0727 F Birney 2023-06-20 2023-06-20 Outpatient [facility] [id number] Herrera 16:02:39 16:02:39 0726 F Birney 2023-06-09 2023-06-09 RefHOLLIE Chao [id number] Univers 00:00:00 00:00:00 Lupe SOTERO 350.1.13.10 it y of HOSPITAL 4.2.7.2.686 Josh as [id number] [facility] 044 Branch 2023-06-09 2023-06-09 Patient Doctor HOLLIE 1.2.840.114 [id number] Univers 00:00:00 00:00:00 Secure Msg Unassigned, SOTERO 350.1.13.10 ity of [place] [facility] 4.2.7.2.686 Josh as [id number] [facility] 019 Branch 2023-06-06 2023-06-06 Orders Doctor HOLLIE 1.2.840.114 [id number] Univers 00:00:00 00:00:00 Only Unassigned, SOTERO 350.1.13.10 ity of [place] [facility] 4.2.7.2.686 Josh as [id number] [facility] 009 Branch 2023-05-30 2023-05-30 Outpatient [facility] [id number] Herrera 16:25:18 16:25:18 0705 F Birney 2022-09-14 2022-09-14 Outpatient [facility] [id number] Herrera 13:42:01 13:42:01 1020 F Birney 2022-09-14 2022-09-14 Outpatient [id number] 00:00:00 00:00:00 Visit [id number] 2022-09-10 2022-09-11 Outpatient Og NAVARRO [facility] [id number] Univers 13:44:00 12:54:00 ALFREDO renteriay of [facility] 2022-09-10 2022-09-11 Emergency Jacque Wells [facility] 1.2.840 .114 [id number] Univers 13:44:00 12:54:00 Alfredo Navarro MILANA 350.1.13.10 ity of [place] 4.2.7.2.686 [place] [facility] [id number] [place] [id number] Branch 2021-03-05 2021-03-05 Emergency Gregory, [facility] 1.2.840.114 [id number] Univers 13:11:00 15:35:00 Landy Luna 350.1.13.10 ity of [place] 4.2.7.2.686 [facility] [id number] [facility] 084 Branch 2021-03-05 2021-03-05 Emergency X [facility] ERT [id number] Univers 13:06:00 13:06:00 [facility] Results Test Description Test Time Test Comments [...] (test code = 1069) K/UL TSH, THIRD [id number] 05:37:35 Test Item Value Reference Range Interpretation Comments TSH, THIRD 2.130 UIU/ML 0.400-4.100 UNLESS OTHERWI SE GENERATION (test INDICATED, ALL TESTING code = 2821) PERFORMED AT [facility], [address] DIRECTOR: Tee CANTU EJLLY NUMBER [id number] CAP ACCREDITATION N O. [id number] HEMOGLOBIN [id number] 04:21:46 Test Item Value Reference Range Interpretation Comments HEMOGLOBIN A1c (test 11.3 % 4.2-5.6 H AMERIC AN DIABETES code = 96177) ASSOCIATION IDELINES FOR HGB A1C: PREDIABETES/INC REASED [...] TESTING OR LABORATORY C ONSULTATION. COMPREHENSIVE METABOLIC [id number] 02:47:37 Test Item Value Reference Range Interpretation Comments GLUCOSE (test code = 365 MG/DL 70-99 H 2216) BUN (test code = 9 MG/DL -2207) CREATININE (test 0.71 MG/DL 0.80-1.40 L code = 2214) eGFR (2020 CKD-EPI) 117 >60 (test code = 67145) ML/MIN/1.73 CALC BUN/CREAT (test 13 RATIO - code = 2235) SODIUM (test code = 136 MEQ/L 542-635 9724) POTASSIUM (test code 4.1 MEQ/L 3.5-5.4 = 2227) CHLORIDE (test code 102 MEQ/L 95-107 = 2215) CARBON DIOXIDE (test 22 MEQ/L 19-31 code = 2206) CALCIUM (test code = 9.0 MG/DL 8.5-10.5 2208) PROTEIN, TOTAL (test 6.4 G/DL 6.1-8.3 code = 222) ALBUMIN (test code = 4.1 G/DL 3.5-5.2 2200) CALC GLOBULIN (test 2.3 G/DL 1.9-3.7 code = 2240) CALC A/G RATIO (test 1.8 RATIO 1.0-2.6 code = 2234) BILIRUBIN, TOTAL 0.2 MG/DL See_Comment [Automated message] (test code = 220) The [employer] which generated this result transmit jesse reference range : <=1.2. The refe rence range was not u sed to interpret th is result as normal/abnormal . ALKALINE PHOSPHATASE 114 U/L 40-119 (test code = 2203) AST (test code = 23 U/L 9-50 2217) ALT (test code = 41 U/L 5-50 2218) LIPID [id number] 02:47:37 Test Item Value Reference Range Interpretation [...] MOREINFORMATION , SEE CLIENT ANNOUNCE MENT AT [email or web address] RISK RATIO LDL/HDL (NOTE) RATIO <3.55 UNABLE TO CALCULATE (test code = 2238) POCT GLUCOSE (AUTOMATED)2022-09-11 16:54:15 Test Item Value Reference Range Interpretation Comments POCT GLU (test code = 4410801261) 234 mg/dL 70-110 H Lab Interpretation (test code = Abnormal 45630-7) [facility] [place], [place] LIPOPROTEIN, [id number] 15:18:30 Test Item Value Reference Range Interpretation Comments dLDL Chol (test code = 71 mg/dL See_Comment [Aut omated message] 83848-3) The system [email or web address] generated this result transmitted ref erence range: <=130. T he reference range was not used to int erpret this result as normal/abnormal . Lab Interpretation (test Normal code = 30241-3) [facility], [place] PAN[place] ([id number])(TOTAL CHOLESTEROL, TRIGLYCERIDES, HDL)2022-09-11 13:58:08 Test Item Value Reference Range Interpretation Comments CHOL (test code = 227 mg/dL 120-200 H 6278489557) HDL (test code = 28 mg/dL See_Comment L [Automated message] 5834615233) The system [email or web address] generated this result transmit jesse reference range : >=40. The refer ence range was not u sed to interpret th is result as normal/abnormal . HDLC RATIO (test code = See_Comment H [Au tomated message] 7218177364) The system [email or web address] generated this result transmit jesse reference range : <=5.0. The refe rence range was not u sed to interpret th is result as normal/abnormal . TRIG (test code = 1291 mg/dL 30-170 H 4876099898) LDL CHOL (test code = Unable to calculate 92018-4) LDL due to elev ated triglyceride le faisal greater than 40 0 mg/dL. VLDL (test code = Unable to calculate 9118540347) VLDL due to darnell vated triglyceride le faisal greater than 71 0 mg/dL. Lab Interpretation Abnormal (test code = 22065-9) [facility] [place], [place]POCT GLUCOSE (AUTOMATED)2022-09-11 12:50:53 Test Item Value Reference Range Interpretation Comments POCT GLU (test code = 9023336772) 247 mg/dL 70-110 H Lab Interpretation (test code = Abnormal 35061-0) [facility]. METABOLIC PANEL (28932)2022-09-11 09:41:07 Test Item Value Reference Range Interpretation Comments NA (test code = 135 mmol/L 135-145 6937383148) K (test code = 3.5 mmol/L 3.5-5 6365258130) CL (test code = 104 mmol/L 98-108 3476458367) CO2 TOTAL (test code = 22 mmol/L 23-31 L 2109646248) AGAP (test code = 2-16 8199614811) BUN (test code = 13 mg/dL 7-23 0933330423) GLUCOSE (test code = 242 mg/dL 70-110 H 2518421703) CREATININE (test code = 0.64 mg/dL 0.6-1.25 6231852770) TOTAL BILI (test code = 0.3 mg/dL 0.1-1.3 6627085038) CALCIUM (test code = 8.0 mg/dL 8.6-10.6 L 3019624753) T PROTEIN (test code = 5.8 g/dL 6.3-8.2 L 4175098386) ALBUMIN (test code = 3.4 g/dL 3.5-5 L 9315166993) ALK PHOS (test code = 111 U/L 34-122 6817395400) ALTv (test code = 23 U/L 5-50 1742-6) AST(SGOT) (test code = 21 U/L 13-40 0519691700) eGFR (test code = mL/min/1.73m2 6188787205) NIKO (test code = NIKO) Association of [...] tests). Lab Interpretation Abnormal (test code = 03219-0) [facility] GLUCOSE (AUTOMATED)2022-09-11 07:33:20 Test Item Value Reference Range Interpretation Comments POCT GLU (test code = 0107403232) 204 mg/dL 70-110 H Lab Interpretation (test code = Abnormal 02513-8) [facility] GLUCOSE (AUTOMATED)2022-09-11 01:28:49 Test Item Value Reference Range Interpretation Comments POCT GLU (test code = 1888921521) 373 mg/dL 70-110 H Lab Interpretation (test code = Abnormal 87273-9) [facility] GLUCOSE (AUTOMATED)2022-09-10 20:50:37 Test Item Value Reference Range Interpretation Comments POCT GLU (test code = 1286049184) 272 mg/dL 70-110 H Lab Interpretation (test code = Abnormal 17564-2) [facility], TXGLYCOSYLATED HEMOGLOBIN (A1C)2022-09-10 20:06:25 Test Item Value Reference Range Interpretation Comments HGB A1C (test code = 12.3 % 4-5.7 H 4548-4) NKIO (test code = NIKO) Reference RangesNormal: <5.7%Prediabetes: 5.7 - 6.4%Diabetes: > 6.5% Lab Interpretation (test Abnormal code = 42185-1) [facility] [place], [place]Complete Metabolic [id number] 19:37:52 Test Item Value Reference Range Interpretation Comments NA (test code = 134 mmol/L 135-145 L 2534538425) K (test code = 4.1 mmol/L 3.5-5 5407626676) CL (test code = 101 mmol/L 98-108 6967044519) CO2 TOTAL (test code = 20 mmol/L 23-31 L 4978912527) AGAP (test code = 2-16 3187740958) BUN (test code = 10 mg/dL 7-23 4856906018) GLUCOSE (test code = 468 mg/dL 70-110 HH 9969694955) CREATININE (test code = 0.75 mg/dL 0.6-1.25 9542734563) TOTAL BILI (test code = 0.6 mg/dL 0.1-1.0 0703931320) CALCIUM (test code = 8.7 mg/dL 8.6-10.6 3799153804) T PROTEIN (test code = 6.6 g/dL 6.3-8.2 2264402445) ALBUMIN (test code = 4.2 g/dL 3.5-5 5558965786) ALK PHOS (test code = 123 U/L 34-122 H 4806564353) ALTv (test code = 26 U/L 5-50 1742-6) AST(SGOT) (test code = 22 U/L 13-40 5042657224) eGFR (test code = mL/min/1.73m2 6625526256) NIKO (test code = NIKO) Association of [...] tests). Lab Interpretation Abnormal (test code = 17796-9) [facility] [place], [place]Lipase, [id number] 19:04:41 Test Item Value Reference Range Interpretation Comments LIPASE (test code = 8521208385) 111 U/L 0-220 Lab Interpretation (test code = Normal 26412-3) [facility] [place], [place]CBC with [id number] 18:52:20 Test Item Value Reference Range Interpretation Comments WBC (test code = See_Comment [Automated 2490-2) message] The sy stem which generated this result transmitted reference range : 4.20 - 10.70 10*3/?L. The reference range was not used to interpret this result as normal/abnormal . RBC (test code = See_Comment [Automated 909-8) message] The sy stem which generated this [...] (test code = 37.7 fL 38.5-51.6 L 46067-1) RDW-CV (test code = 11.9 % 12.1-15.4 L 788-0) PLT (test code = See_Comment [Automated 517-3) message] The sy stem which generated this result transmitted reference range : 150 - 328 10*3/ ?L. The reference r stephie was not used to interpret this result as normal/abnormal . MPV (test code = 11.9 fL 9.8-13 16132-1) NRBC/100 WBC (test See_Comment [Automat ed code = 2211270499) message] The system which generated this result transmitted reference range : 0.0 - 10.0 /100 WBCs. The refer ence range was not u sed to interpret th is result as normal/abnormal . NRBC x10^3 (test code See_Comment [Auto mated = 2615561198) message] The s ystem which generated this result transmitted reference range : 10*3/?L. The reference range was not used to interpret this result as normal/abnormal . GRAN MAT (NEUT) % 56.2 % (test code = 770-8) IMM GRAN % (test code 0.40 % = 9708122509) LYMPH % (test code = 36.1 % 736-9) MONO % (test code = 4.8 % 5905-5) EOS % (test code = 1.7 % 713-8) BASO % (test code = 0.8 % 706-2) GRAN MAT x10^3(ANC) 4.38 10*3/uL 1.99-6.95 (test code = 6286923185) IMM GRAN x10^3 (test 0.03 10*3/uL 0-0.06 code = 7863345189) LYMPH x10^3 (test code 2.81 10*3/uL 1.09-3.23 = 731-0) MONO x10^3 (test code 0.37 10*3/uL 0.36-1.02 = 742-7) EOS x10^3 (test code = 0.13 10*3/uL 0.06-0.53 711-2) BASO x10^3 (test code 0.06 10*3/uL 0.01-0.09 = 704-7) Lab Interpretation Abnormal (test code = 63014-4) [facility] [place], [place]CT ABDOMEN PELVIS W [id number] 20:31:35 Diverticulosis without diverticulitis. Hepatomegaly. Preliminary Report [...] [facility] [place], TXOlamide [id number] 19:10:36 Test Item Value Reference Range Interpretation Comments TROPONIN I (test 0.001 ng/mL See_Comment [Automated code = 6151667936) message] The system which generated this result [...] ? Lab Interpretation Normal (test code = 23598-6) [facility] [place], TXHepatic Function Panel (ALB, T.PRO, BILI T, BU/BC, ALT, AST, ALK PHOS)2021-03-05 18:59:14 Test Item Value Reference Range Interpretation Comments TOTAL BILI (test code = 4158663698) 0.4 mg/dL 0.1-1.1 BILI UNCON (test code = 6940997466) 0.3 mg/dL 0.1-1.1 BILI CONJ (test code = 1230118781) 0.0 mg/dL 0.0-0.3 T PROTEIN (test code = 8682643384) 6.6 g/dL 6.3-8.2 ALBUMIN (test code = 8334109212) 4.2 g/dL 3.5-5.0 ALK PHOS (test code = 8624640839) 97 U/L 34-122 ALTv (test code = 1742-6) 22 U/L 5-50 AST(SGOT) (test code = 6483184684) 23 U/L 13-40 Lab Interpretation (test code = Normal 67036-7) [facility] [place], TXBasic Metabolic Panel (NA, K, CL, CO2, GLUCOSE, BUN, CREATININE, CA)2021-03-05 18:58:54 Test Item Value Reference Range Interpretation Comments NA (test code = 136 mmol/L 135-145 1922248297) K (test code = 4.1 mmol/L 3.5-5.0 0846700077) CL (test code = 104 mmol/L 98-108 1775002604) CO2 TOTAL (test code = 24 mmol/L 23-31 4340241093) AGAP (test code = 2-16 6087201971) BUN (test code = 15 mg/dL 7-23 6115299840) GLUCOSE (test code = 207 mg/dL 70-110 H 1920652825) CREATININE (test code = 0.74 mg/dL 0.60-1.25 2328895537) CALCIUM (test code = 8.4 mg/dL 8.6-10.6 L 2586697595) eGFR (test code = mL/min/1.73m2 1268095921) NIKO (test code = NIKO) Association of [...] tests). Lab Interpretation Abnormal (test code = 23913-6) [facility] [place], TXLipase [id number] 18:58:54 Test Item Value Reference Range Interpretation Comments LIPASE (test code = 4820669751) 140 U/L 0-220 Lab Interpretation (test code = Normal 94774-6) [facility] [place], TXUrinalysis2021-04-10 18:51:20 Test Item Value Reference Range Interpretation Comments APPEARANCE (test code = Clear Clear 2600497117) COLOR (test code = Yellow Yellow 3182524386) PH (test code = 4.8-8.0 4067728204) SP GRAVITY (test code = 1.003-1.030 6309912658) GLU U QUAL (test code = 50 mg/dL Normal A 0338210544) BLOOD (test code = Negative Negative 1539890455) KETONES (test code = Negative Negative 3531518805) PROTEIN (test code = Negative Negative 2887-8) UROBILIN (test code = Normal Normal 8415563200) BILIRUBIN (test code = Negative Negative 2200406223) NITRITE (test code = Negative Negative 8683450983) LEUK ZAY (test code = Negative Negative 7259893465) RBC/HPF (test code = See_Comment [Autom ated message] 0012099743) The system [email or web address] generated this result transmitted ref erence range: 0 - 3 HP F. The reference range was not used to int erpret this result as normal/abnormal . WBC/HPF (test code = <1 See_Comment [Autom ated message] 5026469555) The system [email or web address] generated this result transmitted ref erence range: 0 - 5 HP F. The reference range was not used to int erpret this result as normal/abnormal . BACTERIA (test code = Negative Negative 0718683795) MUCOUS (test code = Slight Negative LPF A 4618881973) SQ EPITH (test code = <1 HPF 0259232362) Lab Interpretation (test Abnormal code = 60253-8) [facility] with [id number] 18:46:34 Test Item Value Reference Range Interpretation [...] RDW-SD (test code = 39.9 fL 38.5-51.6 36989-7) RDW-CV (test code = 12.5 % 12.1-15.4 788-0) PLT (test code = See_Comment [Automated 777-3) message] The sy stem which generated this result transmitted reference range : 150 - 328 10*3/ ?L. The reference r stephie was not used to interpret this result as normal/abnormal . MPV (test code = 11.9 fL 9.8-13.0 31589-1) NRBC/100 WBC (test See_Comment [Automat ed code = 9083480635) message] The system which generated this result transmitted reference range : 0.0 - 10.0 /100 WBCs. The refer ence range was not u sed to interpret th is result as normal/abnormal . NRBC x10^3 (test code <0.01 See_Comment [Auto mated = 0199656116) message] The s ystem which generated this result transmitted reference range : 10*3/?L. The reference range was not used to interpret this result as normal/abnormal . GRAN MAT (NEUT) % 54.6 % (test code = 770-8) IMM GRAN % (test code 0.40 % = 6599226221) LYMPH % (test code = 36.8 % 736-9) MONO % (test code = 5.3 % 5905-5) EOS % (test code = 2.1 % 713-8) BASO % (test code = 0.8 % 706-2) GRAN MAT x10^3(ANC) 3.92 10*3/uL 1.99-6.95 (test code = 1494941188) IMM GRAN x10^3 (test 0.03 10*3/uL 0.00-0.06 code = 3347122846) LYMPH x10^3 (test code 2.64 10*3/uL 1.09-3.23 = 731-0) MONO x10^3 (test code 0.38 10*3/uL 0.36-1.02 = 742-7) EOS x10^3 (test code = 0.15 10*3/uL 0.06-0.53 711-2) BASO x10^3 (test code 0.06 10*3/uL 0.01-0.09 = 704-7) Lab Interpretation Abnormal (test code = 37488-2) [facility] [place], TXHEMOGLOBIN [id number] 00:00:00 Test Item Value Reference Range Interpretation Comments HEMOGLOBIN A1c (test code = 68201) 6.4 % HEMOGLOBIN [id number] 00:00:00 Test Item Value Reference Range Interpretation Comments HEMOGLOBIN A1c (test code = 27714) 6.4 % HEMOGLOBIN [id number] 00:00:00 Test Item Value Reference Range Interpretation Comments HEMOGLOBIN A1c (test code = 25422) 6.4 % LIPID [id number] 00:00:00 Test Item Value Reference Range Interpretation Comments CHOLESTEROL (test code = 2210) 185 MG/DL TRIGLYCERIDES (test code = 2232) 162 MG/DL HDL CHOLESTEROL (test code = 2220) 41 MG/DL CALC LDL CHOL (test code = 2237) 112 MG/DL RISK RATIO LDL/HDL (test code = 2.72 RATIO 2238) LIPID [id number] 00:00:00 Test Item Value Reference Range Interpretation Comments CHOLESTEROL (test code = 2210) 185 MG/DL TRIGLYCERIDES (test code = 2232) 162 MG/DL HDL CHOLESTEROL (test code = 2220) 41 MG/DL CALC LDL CHOL (test code = 2237) 112 MG/DL RISK RATIO LDL/HDL (test code = 2.72 RATIO 2238) CBC W/AUTO [id number] 00:00:00 Test Item Value Reference Range Interpretation [...] code = 1015) 166 K/UL CBC W/AUTO [id number] 00:00:00 Test Item Value Reference Range Interpretation [...] code = 1015) 166 K/UL CBC W/AUTO [id number] 00:00:00 Test Item Value Reference Range Interpretation [...] code = 1015) 166 K/UL COMPREHENSIVE METABOLIC [id number] 00:00:00 Test Item Value Reference Range Interpretation Comments GLUCOSE (test code = 2217) 121 MG/DL BUN (test code = 2208) 12 MG/DL CREATININE (test code = 2214) 0.87 MG/DL eGFR AMER. (test code 126 ML/MIN/1.73 = 13605) eGFR NON- AMER. (test 109 ML/MIN/1.73 code = 00538) CALC BUN/CREAT (test code = 14 RATIO 2235) SODIUM (test code = 2231) 140 MEQ/L POTASSIUM (test code = 2228) 4.3 MEQ/L CHLORIDE (test code = 2215) 105 MEQ/L CARBON DIOXIDE (test code = 23 MEQ/L 2206) CALCIUM (test code = 2209) 8.9 MG/DL PROTEIN, TOTAL (test code = 6.7 G/DL 222) ALBUMIN (test code = 2201) 4.2 G/DL CALC GLOBULIN (test code = 2.5 G/DL 2240) CALC A/G RATIO (test code = 1.7 RATIO 2234) BILIRUBIN, TOTAL (test code = 0.2 MG/DL 2206) ALKALINE PHOSPHATASE (test 103 U/L code = 2204) AST (test code = 2218) 17 U/L ALT (test code = 2219) 26 U/L COMPREHENSIVE METABOLIC [id number] 00:00:00 Test Item Value Reference Range Interpretation Comments GLUCOSE (test code = 2217) 121 MG/DL BUN (test code = 2208) 12 MG/DL CREATININE (test code = 2214) 0.87 MG/DL eGFR AMER. (test code 126 ML/MIN/1.73 = 20225) eGFR NON- AMER. (test 109 ML/MIN/1.73 code = 14692) CALC BUN/CREAT (test code = 14 RATIO 2235) SODIUM (test code = 2231) 140 MEQ/L POTASSIUM (test code = 2228) 4.3 MEQ/L CHLORIDE (test code = 2215) 105 MEQ/L CARBON DIOXIDE (test code = 23 MEQ/L 2205) CALCIUM (test code = 2209) 8.9 MG/DL [...] code = 2219) 26 U/L COMPREHENSIVE METABOLIC [id number] 00:00:00 Test Item Value Reference Range Interpretation Comments GLUCOSE (test code = 2217) 98 MG/DL BUN (test code = 2208) 14 MG/DL CREATININE (test code = 2214) 0.82 MG/DL eGFR AMER. (test code 132 ML/MIN/1.73 = 09004) eGFR NON- AMER. (test 114 ML/MIN/1.73 code = 38608) CALC BUN/CREAT (test code = 17 RATIO [...] code = 2219) 194 U/L COMPREHENSIVE METABOLIC [id number] 00:00:00 Test Item Value Reference Range Interpretation Comments GLUCOSE (test code = 2217) 98 MG/DL BUN (test code = 2208) 14 MG/DL CREATININE (test code = 2214) 0.82 MG/DL eGFR AMER. (test code 132 ML/MIN/1.73 = 63762) eGFR NON- AMER. (test 114 ML/MIN/1.73 code = 48133) CALC BUN/CREAT (test code = 17 RATIO [...] (test code = 2219) 194 U/L LIPID [id number] 00:00:00 Test Item Value Reference Range Interpretation Comments CHOLESTEROL (test code = 2210) 207 MG/DL TRIGLYCERIDES (test code = 2232) 212 MG/DL HDL CHOLESTEROL (test code = 2220) 34 MG/DL CALC LDL CHOL (test code = 2237) 131 MG/DL RISK RATIO LDL/HDL (test code = 3.84 RATIO 2238) LIPID [id number] 00:00:00 Test Item Value Reference Range Interpretation Comments CHOLESTEROL (test code = 2210) 207 MG/DL TRIGLYCERIDES (test code = 2232) 212 MG/DL HDL CHOLESTEROL (test code = 2220) 34 MG/DL CALC LDL CHOL (test code = 2237) 131 MG/DL RISK RATIO LDL/HDL (test code = 3.84 RATIO 2238) CBC W/AUTO [id number] 00:00:00 Test Item Value Reference Range Interpretation [...] code = 1015) 193 K/UL CBC W/AUTO [id number] 00:00:00 Test Item Value Reference Range Interpretation [...] code = 1015) 193 K/UL CBC W/AUTO [id number] 00:00:00 Test Item Value Reference Range Interpretation [...] (test code = 1015) 193 K/UL HEMOGLOBIN [id number] 00:00:00 Test Item Value Reference Range Interpretation Comments HEMOGLOBIN A1c (test code = 21704) 7.8 % HEMOGLOBIN [id number] 00:00:00 Test Item Value Reference Range Interpretation Comments HEMOGLOBIN A1c (test code = 95764) 7.8 % HEMOGLOBIN [id number] 00:00:00 Test Item Value Reference Range Interpretation Comments HEMOGLOBIN A1c (test code = 64691) 7.8 % THYROID II PROFILE (T3U, T4, T7, TSH)2016-06-03 00:00:00 Test Item Value Reference Range Interpretation Comments T3 UPTAKE (test code = 2817) 26.4 % T4 (THYROXINE) (test code = 2819) 8.4 UG/DL CALCULATED T7 (FTI) (test code = 2.22 3410) TSH (test code = 2821) 2.2 UIU/ML THYROID II PROFILE (T3U, T4, T7, TSH)2016-06-03 00:00:00 Test Item Value Reference Range Interpretation Comments T3 UPTAKE (test code = 2817) 26.4 % T4 (THYROXINE) (test code = 2819) 8.4 UG/DL CALCULATED T7 (FTI) (test code = 2.22 2820) TSH (test code = 2821) 2.2 UIU/ML CBC W/AUTO [id number] 00:00:00 Test Item Value Reference Range Interpretation [...] (test code = 1016) (NOTE) CBC W/AUTO [id number] 00:00:00 Test Item Value Reference Range Interpretation [...] (test code = 1016) (NOTE) CBC W/AUTO [id number] 00:00:00 Test Item Value Reference Range Interpretation [...]
[2023-10-09 00:14] LABS: Absolute Lymphocytes (CBC) 3.5 K/uL (0.7-4.9); Hematocrit 40.4 % (39.6-49.0); Lymphocytes % 36.8 % (15.3-44.8); MPV 10.4 fL (7.6-11.3); Platelets 155 thou/uL (152-406); RBC Red Blood Cell Count 4.54 M/uL (4.33-5.43)
[2023-10-09 00:39] LABS: ALT/SGPT 25 U/L (16-61); AST/SGOT 11 U/L (15-37); Albumin 3.5 g/dL (3.4-5.0); Alkaline Phosphatase 116 U/L (45-117); BUN Blood Urea Nitrogen 18 mg/dL (7-18); Bicarbonate 27 mEq/L (21-32); Bilirubin Total 0.3 mg/dL (0.2-1.0); Glomerular Filtration Rate 65 ml/min (=/>90); Glucose Level 292 mg/dL (74-106); Magnesium 2.3 mg/dL (1.6-2.4); NT PRO-BNP 11 pg/mL (<125); Potassium 3.5 mEq/L (3.5-5.1); Protein, Total 6.9 g/dL (6.4-8.2); Sodium Level 136 mEq/L (136-145); Troponin High Sensitivity 3.6 pg/mL (<58.9)
[2023-10-09 00:41] LABS: Bilirubin Direct < 0.1 mg/dL (0-0.2); Bilirubin Indirect, Calculated ND mg/dL (0.2-0.8)
--- NOTE | 2023-10-09 03:23 | EDPHYS ---
Physician Documentation [facility] Name: Yehuda Giraldo Age: 42 yrs Sex: Male : 1980 Arrival Date: 10/08/2023 Time: 23:15 Bed 7 Private MD: ED Physician Ta Wyman HPI: 10/08 23:59 This 42 yrs old Male presents to ER via Ambulatory with complaints of Chest sp3 Pain, RT Arm Tightness. 23:59 42-year-old male with history of diabetes, hypertension, rheumatoid arthritis, COPD who sp3 is completely noncompliant on medications and sees no physician presents to the ED with right-sided chest pain for several days and general malaise. 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 He is currently on no medications. He denies headache, neck pain, fever, URI symptoms, shortness of breath, back pain, abdominal pain, vomiting, diarrhea, rash, syncope, near syncope, or any other focal neurological deficit at this time.. Historical: - Allergies: 23:46 No Known Allergies; vc1 - PMHx: 23:46 COPD; Diabetes - NIDDM; Diverticulitis; Hypertensive disorder; RA; vc1 - PSHx: 23:46 None; vc1 - Immunization history:: Client reports having NOT received the Covid vaccine. - Social history:: Smoking status: Patient denies any tobacco usage or history of. ROS: 10/09 00:02 Constitutional: Negative for fever, chills, and weight loss, Eyes: Negative for injury, sp3 pain, redness, and discharge, ENT: Negative for injury, pain, and discharge, Neck: Negative for injury, pain, and swelling, Respiratory: Negative for shortness of breath, cough, wheezing, and pleuritic chest pain, Abdomen/GI: Negative for abdominal pain, nausea, vomiting, diarrhea, and constipation, Back: Negative for injury and pain, MS/Extremity: Negative for injury and deformity, Skin: Negative for injury, rash, and discoloration, Neuro: Negative for headache, weakness, numbness, tingling, and seizure, Psych: Negative for depression, anxiety, suicide ideation, homicidal ideation, and hallucinations, Allergy/Immunology: Negative for hives, rash, and allergies, Endocrine: Negative for neck swelling, polydipsia, polyuria, polyphagia, and marked weight changes, Hematologic/Lymphatic: Negative for swollen nodes, abnormal bleeding, and unusual bruising, All other systems are negative, Exam: 00:02 Constitutional: This is a well developed, well nourished patient who is awake, alert, sp3 and in no acute distress. Head/Face: Normocephalic, atraumatic. Eyes: Pupils equal round and reactive to light, extra-ocular motions intact. Lids and lashes normal. Conjunctiva and sclera are non-icteric and not injected. Cornea within normal limits. Periorbital areas with no swelling, redness, or edema. ENT: Nares patent. No nasal discharge, no septal abnormalities noted. External auditory canals are clear. Oropharynx with no redness, swelling, or masses, exudates, or evidence of obstruction, uvula midline. Mucous membranes moist. Neck: Trachea midline, no thyromegaly or masses palpated, and no cervical lymphadenopathy. Supple, full range of motion without nuchal rigidity, or vertebral point tenderness. No Meningismus. Chest/axilla: Normal chest wall appearance and motion. Nontender with no deformity. No lesions are appreciated. Cardiovascular: Regular rate and rhythm with a normal S1 and S2. No gallops, murmurs, or rubs. Normal PMI, no JVD. No pulse deficits. Respiratory: Lungs have equal breath sounds bilaterally, clear to auscultation and percussion. No rales, rhonchi or wheezes noted. No increased work of breathing, no retractions or nasal flaring. Abdomen/GI: Soft, non-tender, with normal bowel sounds. No distension or tympany. No guarding or rebound. No evidence of tenderness throughout. Back: No spinal tenderness. No costovertebral tenderness. Full range of motion. Skin: Warm, dry with normal turgor. Normal color with no rashes, no lesions, and no evidence of cellulitis. MS/ Extremity: Pulses equal, no cyanosis. Neurovascular intact. Full, normal range of motion. Neuro: Awake and alert, GCS 15, oriented to person, place, time, and situation. Cranial nerves II-XII grossly intact. Motor strength 5/5 in all extremities. Sensory grossly intact. Cerebellar exam normal. Normal gait. Psych: Awake, alert, with orientation to person, place and time. Behavior, mood, and affect are within normal limits. 00:02 ECG was reviewed by the Attending Physician. EKG demonstrates normal sinus rhythm at 93 bpm with normal intervals, normal QRS, normal axis, isolated Q waves in lead III with inverted T's and nonspecific diffuse ST/T changes without evidence of acute ischemia. Vital Signs: 10/08 23:42 BP 141 / 83; Pulse 97; Resp 23; Temp 98.3; Pulse Ox 98% ; Weight 88 kg; Height 5 ft. 8 vc1 in. ; Pain 08/05; 10/09 01:00 BP 131 / 86; Pulse 92; Resp 19; Pulse Ox 97% on R/A; lg3 10/08 23:42 Body Mass Index 29.50 (88.00 kg, 172.72 cm) vc1 10/08 23:42 Pain Scale: Adult vc1 MDM: 10/08 23:44 Patient medically screened. 3 10/09 01:49 Data reviewed: vital signs, nurses notes, lab test result(s), EKG, radiologic studies. 3 ED course: Reviewed all studies. Chest x-ray is clean. Troponin is negative glucose is at 292 and creatinine is 1.39. Patient is well-appearing and in no acute distress. I will discharge patient home on metformin 1000 mg every 12 and I will urge him to sign up for open enrollment for which she has an opportunity currently at his work to obtain primary care and regular medical attention. Patient acknowledges this grateful for his care today and we will safely discharge him home at this time.. 10/08 23:32 Order name: Basic Metabolic Panel 3 10/08 23:32 Order name: CBC with Diff; Complete Time: 00:53 3 10/08 23:32 Order name: LFT's 3 10/08 23:32 Order name: Magnesium 3 10/08 23:32 Order name: NT PRO-BNP [facility] 10/08 23:32 Order name: PT-INR; Complete Time: 00:53 3 10/08 23:32 Order name: Troponin HS 3 10/08 23:32 Order name: XRAY Chest (1 view) 3 10/08 23:32 Order name: EKG; Complete Time: 23:33 [facility] 10/08 23:32 Order name: Cardiac monitoring; Complete Time: 23:41 sp3 10/08 23:32 Order name: EKG - Nurse/Tech; Complete Time: 23:40 sp3 10/08 23:32 Order name: IV Saline Lock; Complete Time: 23:55 sp3 10/08 23:32 Order name: Labs collected and sent; Complete Time: 23:55 sp3 10/08 23:32 Order name: O2 Per Protocol; Complete Time: 23:41 sp3 10/08 23:32 Order name: O2 Sat Monitoring; Complete Time: 23:41 sp3 Administered Medications: No medications were administered Disposition Summary: 10/09/23 01:50 Discharge Ordered Notes: Location: Home sp3 Condition: Stable sp3 Diagnosis - Hyperglycemia, diabetes, fatigue sp3 Followup: sp3 - With: Private Physician - When: Upon discharge from the Emergency Department - Reason: Continuance of care Discharge Instructions: - Discharge Summary Sheet sp3 - Diabetes Mellitus and Nutrition, Adult sp3 Forms: - Medication Reconciliation Form sp3 - Thank You Letter sp3 - Antibiotic Education sp3 - Prescription Opioid Use sp3 - Patient Portal Instructions sp3 - Leadership Thank You Letter sp3 Prescriptions: - Metformin 1,000 mg Oral tablet - take 1 tablet ORAL route every 12 hours with morning and evening meals; 60 sp3 tablet; Refills: 0, Product Selection Permitted Signatures: Dispatcher [employer] EDTa Sorto MD MD sp3 Tova Rouse RN RN vc1
--- NOTE | 2023-10-09 03:23 | ER ---
Nurse's Notes [facility] Name: Yehuda Giraldo Age: 42 yrs Sex: Male : 1980 Arrival Date: 10/08/2023 Time: 23:15 Bed 7 Private MD: Diagnosis: Hyperglycemia, diabetes, fatigue Presentation: 10/08 23:42 Chief complaint: Patient states: I started having chest pain this morning at work. I vc1 was trying to go to bed and its just getting worse. I got concerned because My right arm started feeling tight and went numb. Coronavirus screen: Vaccine status: Patient reports being unvaccinated. Client denies travel out of the [place] in the last 14 days. At this time, the client does not indicate any symptoms associated with coronavirus-19. Ebola Screen: Patient negative for fever greater than or equal to 101.5 degrees Fahrenheit, and additional compatible Ebola Virus Disease symptoms Patient denies exposure to infectious person. Patient denies travel to an Ebola-affected area in the 21 days before illness onset. No symptoms or risks identified at this time. Initial Sepsis Screen: Does the patient meet any 2 criteria? No. Patient's initial sepsis screen is negative. Does the patient have a suspected source of infection? No. Patient's initial sepsis screen is negative. Risk Assessment: Do you want to hurt yourself or someone else? Patient reports no desire to harm self or others. Onset of symptoms was October 08, 2023. 23:42 Method Of Arrival: Ambulatory vc1 23:42 Acuity: SARA 3 vc1 Triage Assessment: 23:46 General: Appears in no apparent distress. uncomfortable, Behavior is calm, cooperative, vc1 appropriate for age. Pain: Complains of pain in anterior aspect of right upper chest Pain radiates to right arm Pain currently is 9 out of 10 on a pain scale. Quality of pain is described as pressure, radiating, sharp. Cardiovascular: Reports chest pain, shortness of breath, Chest pain is described as severe, quality is pressure, sharp, is located in right radiates to right arm(s). Respiratory: Reports shortness of breath Airway is patent Respiratory effort is even, unlabored, Respiratory pattern is regular, symmetrical. GI: No deficits noted. No signs and/or symptoms were reported involving the gastrointestinal system. : No deficits noted. No signs and/or symptoms were reported regarding the genitourinary system. Derm: No deficits noted. No signs and/or symptoms reported regarding the dermatologic system. Musculoskeletal: No deficits noted. No signs and/or symptoms reported regarding the musculoskeletal system. Historical: - Allergies: 23:46 No Known Allergies; vc1 - PMHx: 23:46 COPD; Diabetes - NIDDM; Diverticulitis; Hypertensive disorder; RA; vc1 - PSHx: 23:46 None; vc1 - Immunization history:: Client reports having NOT received the Covid vaccine. - Social history:: Smoking status: Patient denies any tobacco usage or history of. Screenin:48 [facility] ED Fall Risk Assessment (Adult) History of falling in the last 3 months, lg3 including since admission No falls in past 3 months (0 pts). Abuse screen: Denies threats or abuse. Denies injuries from another. Nutritional screening: No deficits noted. Tuberculosis screening: No symptoms or risk factors identified. Assessment: 23:48 General: Appears in no apparent distress. comfortable, Behavior is calm, cooperative. lg3 Pain: Complains of pain in chest Pain radiates to right arm Pain began this morning. Neuro: No deficits noted. Bear Agitation-Sedation Scale (RASS): 0 - Alert and Calm Level of Consciousness is awake, alert, obeys commands, Oriented to person, place, time, situation, Reports numbness in right arm. Cardiovascular: No deficits noted. Reports chest pain, Capillary refill < 3 seconds Clubbing of nail beds is absent JVD is absent Patient's skin is warm and dry. Respiratory: No deficits noted. Airway is patent Respiratory effort is even, unlabored, Respiratory pattern is regular, symmetrical. GI: No deficits noted. No signs and/or symptoms were reported involving the gastrointestinal system. Abdomen is round non-distended. : No deficits noted. No signs and/or symptoms were reported regarding the genitourinary system. EENT: No deficits noted. No signs and/or symptoms were reported regarding the EENT system. Derm: No deficits noted. No signs and/or symptoms reported regarding the dermatologic system. Skin is intact, is healthy with good turgor, Skin is dry, Skin is normal, Skin temperature is warm. Musculoskeletal: No deficits noted. No signs and/or symptoms reported regarding the musculoskeletal system. Circulation, motion, and sensation intact. Range of motion: intact in all extremities. 10/09 01:00 Reassessment: Patient appears in no apparent distress at this time. No changes from lg3 previously documented assessment. Patient and/or family updated on plan of care and expected duration. Pain level reassessed. Patient is alert, oriented x 3, equal unlabored respirations, skin warm/dry/pink. 02:03 Reassessment: Patient appears in no apparent distress at this time. Patient and/or jb4 family updated on plan of care and expected duration. Pain level reassessed. Patient is alert, oriented x 3, equal unlabored respirations, skin warm/dry/pink. Vital Signs: 10/08 23:42 BP 141 / 83; Pulse 97; Resp 23; Temp 98.3; Pulse Ox 98% ; Weight 88 kg; Height 5 ft. 8 vc1 in. ; Pain 08/05; 10/09 01:00 BP 131 / 86; Pulse 92; Resp 19; Pulse Ox 97% on R/A; lg3 10/08 23:42 Body Mass Index 29.50 (88.00 kg, 172.72 cm) vc1 10/08 23:42 Pain Scale: Adult vc1 ED Course: 10/08 23:17 Patient arrived in ED. jj6 23:19 Ta Wyman MD is Attending Physician. sp3 23:45 Triage completed. vc1 23:48 Daphnie Ramirez, RN is Primary Nurse. lg3 23:48 Arm band placed on right wrist. vc1 23:48 Patient has correct armband on for positive identification. Placed in gown. Bed in low lg3 position. Call light in reach. Side rails up X 1. Client placed on continuous cardiac and pulse oximetry monitoring. NIBP monitoring applied. environmental monitoring specialist on. Door closed. Noise minimized. Warm blanket given. Family accompanied patient. 23:48 Inserted saline lock: 20 gauge in right antecubital area, using aseptic technique. lg3 Blood collected. Patient maintains SpO2 saturation greater than 95% on room air. 23:55 Basic Metabolic Panel Sent. lg3 23:55 CBC with Diff Sent. lg3 23:55 LFT's Sent. lg3 23:55 Magnesium Sent. lg3 23:55 NT PRO-BNP Sent. lg3 23:55 PT-INR Sent. lg3 23:55 Troponin HS Sent. lg3 10/09 00:18 XRAY Chest (1 view) In Process Unspecified. EDMS 02:03 No provider procedures requiring assistance completed. IV discontinued, intact, jb4 bleeding controlled, No redness/swelling at site. Pressure dressing applied. Administered Medications: No medications were administered Outcome: 01:50 Discharge ordered by . sp3 02:03 Discharged to home ambulatory, jb4 02:03 Condition: stable 02:03 Discharge instructions given to patient, Instructed on discharge instructions, follow up and referral plans. medication usage, Demonstrated understanding of instructions, follow-up care, medications, Prescriptions given X 1, 02:04 Patient left the ED. jb4 Signatures: Dispatcher [employer] EDMS Saul Rios, RN RN jb4 Daphnie Ramirez RN RN lg3 Ta Wyman MD MD sp3 Sherrell [email or web address] Tova Rouse RN RN vc1
[2023-10-09 04:26] VITALS: TEMP 98.3
[2023-10-09 04:27] VITALS: BP 131/86; O2SAT 97
--- NOTE | 2023-10-10 10:56 | RAD REPORT ---
EXAM DESCRIPTION: RAD - Chest Single View - 10/09/2023 12:16 am CLINICAL HISTORY: CHEST PAIN COMPARISON: Chest x-ray 12/05/2022 TECHNIQUE: Single AP view of the chest. FINDINGS: Lung volumes adequate. Cardiac silhouette is normal in size. No pneumothorax. No large pleural effusion. No focal consolidation. No acute bony finding. IMPRESSION: No evidence of acute cardiopulmonary disease. Electronically signed by: Joseph Oliver MD 10/09/2023 12:26 AM DIRECTOR OF STUDENT FINANCIAL SERVICES Due to temporary technical issues with the PACS/Fluency reporting system, reports are being signed by the in house radiologist without review as a courtesy to ensure prompt reporting. The interpreting r adiologist is fully responsible for the content of the report.
--- NOTE | 2023-10-10 17:26 | EKG ---
Test Date: 2023-10-08 Test Time: 23:37:25 Customer Service Operator: BLANCA MEASUREMENT RESULTS: Intervals: Rate: 93 NE: 154 QRSD: 82 QT: 340 QTc: 422 [place]: P: 37 NE: 154 QRS: 59 T: 6 INTERPRETIVE STATEMENTS: Normal sinus rhythm Cannot rule out Anterior infarct, age undetermined Abnormal ECG No previous ECG available for comparison Electronically Signed On 10-10-23 17:21:26 DIESEL MACHINIST by Art [place]
== END 2023-10-09 02:04 | disposition home or self-care (01) ==
LOC: ER 23:15
DX: E11.65 Type 2 diabetes mellitus with hyperglycemia (principal); R53.83 Other fatigue
CPT/HCPCS: 36415; 71045; 80048; 80076; 83735; 83880; 84484; 85025; 85610; 93005; 99285

== ENCOUNTER → 2023-12-15 | Emergency (ER) | payer SELFPAY ==
[~2023-12-15] MED LIST: ALBUTEROL 2.5 MG/3 ML NEB SOL ONE; IPRATROPIUM BROM 0.5MG/2.5ML ONE; METOCLOPRAMIDE 10 MG/2mL INJ ONE; NA CHLORIDE 0.9% 1,000 ML ONE; predniSONE 20 MG TAB ONE
--- OUTSIDE RECORDS SUMMARY | 2023-12-15 12:51 | XMS REPORT | Continuity of Care Document ---
Author Name Unknown Address [address] [facility] [place] [address] [facility] Address [address] [facility] [address] [place] [address] Care Team Providers Care Cdl B Driver Name Role Phone Mirza Anjana Primary Care Physician Anjelica JEAN-BAPTISTE, Lupe Attending Clinician Unavailabl e Doctor Unassigned, [place] Attending Clinician U navailable ALFREDO NAVARRO Attending Clinician Unavailable Jacque Tang Attending Clinician [phone] Alfredo Navarro MD Attending Clinician [phone] Landy Jenkins DO Attending Clinician [phone] ALFREDO NAVARRO Admitting Clinician Unavailable Alfredo Navarro MD Admitting Clinician [phone] Payers Payer Name Policy Type Policy Number Effective Date Expirati on Date Source Problems Condition Name Condition Details Condition Category Status Onset Date Resolution Date Last Treatment Date Treating Clinician Comments Source New onset type 2 diabetes mellitus New onset type 2 diabetes mellitus Disease Active 2021-11 00:00: 00 [facility] Obesity (BMI 30-39.9) Obesity (BMI 30-39.9) Disease Active 2021-11 0-16 00:00: 00 [facility] No known active problems No known active problems Disease [facility] Allergies, Adverse Reactions, Alerts Allergy Name Allergy Type Status Severity Reaction(s) Onset Date Inactive Date Treating Clinician Comments Source NO KNOWN ALLERGIE S Drug Class Active [facility] Social History Social Habit Start Date Stop Date Quantity Comments Source Gender identity [facility] Sexual orientation [facility] History of tobacco use Passive smoker [facility] History of Social function 2022-09-11 00:00:00 2022-09-11 00:00:00 [facility] Alcohol intake 2022-09-11 00:00:00 2022-09-11 00:00:00 Current non-drinker of alcohol (finding) [facility] Exposure to SARS-CoV-2 (event) 2022-08-31 00:00:00 2022-09-10 13:58:00 Not sure [facility] Cigarettes smoked current (pack per day) - Reported 2022-09-10 00:00:00 2022-09-10 00:00:00 [facility] Cigarette pack-years 2022-09-10 00:00:00 2022-09-10 00:00:00 [facility] Tobacco use and exposure 2022-09-10 00:00:00 2022-09-10 00:00:00 Smokeless tobacco non-user [facility] Education 2022-09-10 00:00:00 2022-09-10 00:00:00 21 [facility] Sex Assigned At 1980 00:00:00 1980 00:00:00 [facility] Smoking Status Start Date Stop Date Source Ex-smoker 2022-09-10 00:00:00 2022-09-10 00:00:00 [facility] Current some day smoker 2021-03-05 00:00:00 [facility] Medications Ordered Medication Name Filled Medication Name Start Date Stop Date Current Medication? Ordering Clinician Indication Dosage Frequency Signature (SIG) Comments Components Source 10 units 2 times daily 2021-11 00:00: 00 No SITagliptin (JANUVIA) tablet 100 mg 2021-11 14:00: 00 Yes 100mg 100 mg, Oral, DAILY, First dose on Sun09/11/22 at 0900, Until Discontinu ed, Routine [facility] enoxaparin (LOVENOX) injection 40 mg 2021-11 14:00: 00 Yes 40mg 40 mg, Subcutaneo us, DAILY, First dose on Sun09/11/22 at 0900, Until Discontinu ed, [facility]ep[facility] (PRILOSEC) capsule 40 mg 2021-11 14:00: 00 Yes 40mg 40 mg, Oral, DAILY, First dose on Sun09/11/22 at 0900, Until Discontinu ed [facility] metFORMIN (GLUCOPHAGE ) tablet 1,000 mg 2021-11 13:00: 00 Yes 1000mg 1,000 mg, Oral, BID MEALS, First dose (after last modificati on) on Sun09/11/22 at 0800, Until Discontinu ed, Routine [facility] simethicone (GAS RELIEF (SIMETHICON E)) chewable tablet 80 mg 2021-11 07:47: 21 Yes 80mg 80 mg, Oral, QIDPRN, Starting on Sun09/11/22 at 0247, Until Discontinu ed, Routine, Gas [facility] HYDROcodone -acetaminop hen (NORCO 5) 5-325 mg tablet 1 tablet 2021-11 07:35: 21 Yes 1{tbl} 1 tablet, Oral, Q6HPRN, Starting on Sun09/11/22 at 0235, Until Discontinu ed, Routine, Pain (scale 7-10) [facility] traMADoL (ULTRAM) tablet 50 mg 2021-11 07:35: 08 Yes 50mg 50 mg, Oral, Q6HPRN, Starting on Sun09/11/22 at 0235, Until Discontinu ed, Routine, Pain (scale 4-6) [facility] Sliding Scale Insulin-Reg ular + Fsbg Testing 2021-11 07:15: 00 Yes Subcutaneo us, Q4H, First dose (after last modificati on) on Sun09/11/22 at 0215, Until Discontinu ed, Routine [facility] atorvastati n (LIPITOR) tablet 40 mg 2021-11 02:00: 00 Yes 40mg 40 mg, Oral, QHS, First dose on 09/10/22 at 2100, Until Discontinu ed, Routine [facility] Sliding Scale Insulin-Reg ular + Fsbg Testing 2021-11 02:00: 00 09-11 07:10 :47 No Subcutaneo us, AC+HS, First dose on 09/10/22 at 2100, Until Discontinu ed, Routine [facility] Lancing Device with Lancets (ACCU-CHEK SOFT DEV LANCETS) Kit 2021-11 00:00: 00 Yes [id number] Use as directed [facility] pen needle, diabetic 32 gauge x 1/5" Ndle 2021-11 00:00: 00 Yes [id number] Use as directed [facility] flash glucose scanning reader (FREESTYLE ROSA MARIA 2 READER) [facility] 2021-11 00:00: 00 Yes [id number] 2{appli cator} 2 Applicator s before meals. [facility] Lancing Device with Lancets (ACCU-CHEK SOFT DEV LANCETS) Kit 2021-11 00:00: 00 Yes [id number] Use as directed [facility] pen needle, diabetic 32 gauge x 1/5" Ndle 2021-11 00:00: 00 Yes [id number] Use as directed [facility] flash glucose scanning reader (FREESTYLE ROSA MARIA 2 READER) [facility] 2021-11 00:00: 00 Yes [id number] 2{appli cator} 2 Applicator s before meals. [facility] Lancing Device with Lancets (ACCU-CHEK SOFT DEV LANCETS) Kit 2021-11 00:00: 00 Yes [id number] Use as directed [facility] pen needle, diabetic 32 gauge x 1/5" Ndle 2021-11 0- 00:00: 00 Yes [id number] Use as directed [facility] flash glucose scanning reader (FREESTYLE ROSA MARIA 2 READER) [facility] 2021-11- 00:00: 00 Yes [id number] 2{appli cator} 2 Applicator s before meals. [facility] Lancing Device with Lancets (ACCU-CHEK SOFT DEV LANCETS) Kit 2021-11 00:00: 00 Yes [id number] Use as directed [facility] pen needle, diabetic 32 gauge x 1/5" Ndle 2021-11 00:00: 00 Yes [id number] Use as directed [facility] flash glucose scanning reader (FREESTYLE ROSA MARIA 2 READER) [facility] 2021-11 00:00: 00 Yes [id number] 2{appli cator} 2 Applicator s before meals. [facility] metFORMIN 1,000 mg tablet 2021-11 00:00: 00 10-12 05:59 :00 No [id number] 1000mg Take 1 tablet by mouth in the morning and 1 tablet in the evening. Take with meals. Do all this for 30 days. [facility] atorvastati n 40 mg tablet 2021-11 00:00: 00 10-12 05:59 :00 No [id number] 40mg Take 1 tablet by mouth at bedtime for 30 days. [facility] insulin aspart protamine-i nsulin aspart (NOVOLOG MIX 70-30 U-100 INSULN) 100 unit/mL (70-30) injection 2021-11 00:00: 00 10-12 05:59 :00 No [id number] 10U inject 10 Units under the skin 2 (two) times daily before breakfast and dinner for 30 days. [facility] NaCl 0.9% (NS) IV infusion 1,000 mL 2021-11 22:45: 00 Yes 1000mL at 125 mL/hr, IV Infusion, CONTINUOUS , Starting on Sun09/10/22 at 1745, Until Discontinu ed, Routine [facility] insulin NPH and regular human 70-30 (70-30 U-100 INSULIN) 100 unit/mL (70-30) injection 10 Units 2021-11 22:45: 00 09-11 04:12 :06 No 10U 10 Units, Subcutaneo us, BIDAC, First dose on 09/10/22 at 1745, Until Discontinu ed, Routine [facility] glucagon (GLUCAGEN DIAGNOSTIC KIT) injection 1 mg 2021-11 22:36: 10 Yes 1mg 1 mg, Intramuscu lar, PRN, Starting on Sun09/10/22 at 1736, Until Discontinu ed, JOSE, Blood Glucose < or = 70 mg/dL and patient is unable to swallow or has mental changes. [facility] dextrose 50 % in water (D50W) injection 25 mL 2021-11 22:36: 10 Yes 25mL 25 mL, Slow IV Push, PRN, Starting on Sun09/10/22 at 1736, Until Discontinu ed, JOSE, Blood Glucose < or = 70 mg/dL and patient is unable to swallow or has mental status changes. [facility] ondansetron (ZOFRAN (PF)) injection 4 mg 2021-11 22:36: 02 Yes 4mg 4 mg, Slow IV Push, Q6HPRN, Starting on Sun09/10/22 at 1736, Until Discontinu ed, Routine, Nausea and Vomiting (N/V) [facility] acetaminoph en (TYLENOL) tablet 650 mg 2021-11 22:35: 56 Yes 650mg 650 mg, Oral, Q6HPRN, Starting on Sun09/10/22 at 1735, Until Discontinu ed, Routine, Pain (scale 1-3) [facility] NaCl 0.9% (NS) bolus infusion 1,000 mL 2021-11 20:45: 00 09-10 20:37 :00 No 1000mL at 999 mL/hr, 1,000 mL, IV Infusion, ONCE, 1 dose, On Sun09/10/22 at 1545, JOSE [facility] iopamidol (ISOVUE 370-500 mL) injection 75 mL 2021-11 19:15: 00 09-10 19:30 :00 No [id number] 75mL 75 mL, Intravenou s, ONCE, 1 dose, On Sun09/10/22 at 1430, Routine [facility] ondansetron (ZOFRAN (PF)) injection 4 mg 2021-11 0-16 19:15: 00 09-10 19:39 :00 No 4mg 4 mg, Slow IV Push, ONCE, 1 dose, On 09/10/22 at 1415, [facility] morpHINE (4 mg/mL) injection 4 mg 2021-11 0-16 19:15: 00 09-10 19:39 :00 No 4mg 4 mg, Slow IV Push, ONCE, 1 dose, On 09/10/22 at 1415, STAT [facility] iohexol (OMNIPAQUE 350 BULK-150 mL) injection 120 mL 03-05 19:30: 00 03-05 19:10 :00 No [id number] 120mL 120 mL, Intravenou s, ONCE, 1 dose, 03/05/21 at 1430, Routine [facility] famotidine (PEPCID (PF)) injection 20 mg 03-05 19:30: 03-05 18:37 :00 No 20mg 20 mg, Slow IV Push, ONCE, 1 dose, 03/05/21 at 1430, [facility] ondansetron (ZOFRAN (PF)) injection 4 mg 03-05 19:30: 00 03-05 18:37 :00 No 4mg 4 mg, Slow IV Push, ONCE, 1 dose, 03/05/21 at 1430, [facility] morpHINE injection 4 mg 03-05 19:30: 00 03-05 18:37 :00 No 4mg 4 mg, Slow IV Push, ONCE, 1 dose, 03/05/21 at 1430, STAT [facility] NaCl 0.9% (NS) bolus infusion 1,000 mL 03-05 18:30: 00 03-05 19:46 :00 No 1000mL at 999 mL/hr, 1,000 mL, IV Infusion, ONCE, 1 dose, 03/05/21 at 1330, [facility] omeprazole 40 mg capsule 03-05 00:00: 00 Yes [id number] 40mg Take 1 capsule by mouth daily. [facility] omeprazole 40 mg capsule 03-05 00:00: 00 Yes [id number] 40mg Take 1 capsule by mouth daily. [facility] omeprazole 40 mg capsule 03-05 00:00: 00 Yes [id number] 40mg Take 1 capsule by mouth daily. [facility] metFORMIN 500 mg tablet 03-05 00:00: 00 Yes [id number] 500mg Take 1 tablet by mouth 2 (two) times daily. [facility] omeprazole 40 mg capsule 03-05 00:00: 00 Yes [id number] 40mg Take 1 capsule by mouth daily. [facility] omeprazole 40 mg capsule 03-05 00:00: 00 Yes [id number] 40mg Take 1 capsule by mouth daily. [facility] metFORMIN 500 mg tablet 03-05 00:00: 00 09-11 00:00 :00 No [id number] 500mg Take 1 tablet by mouth 2 (two) times daily. [facility] prednisone 20 mg tablet 01-07 00:00: 00 No 1mg Dose Unknown 01-07 00:00: 00 No metformin 500 mg tablet 12-18 00:00: 00 No 1mg neomycin-po lymyxin-hyd rocortisone (CORTISPORI N OTIC SUSPENSION) 3.5-10,000- 1 mg/mL-unit/ mL-% otic susp 08-04 00:00: 00 03-05 00:00 :00 No 3[drp] Place 3 Drops in left ear 4 (four) times daily. [facility] acetaminoph en-codeine (TYLENOL-CO DEINE #3) 300-30 mg tablet 08-04 00:00: 00 03-05 00:00 :00 No 1{tbl} Take 1 tablet by mouth every 6 (six) hours as needed for Pain (scale 4-6) (for cough). [facility] metformin 1,000 mg tablet 06-15 00:00: 00 No 1mg pantoprazol e (PROTONIX) 40 mg EC tablet 05-26 00:00: 00 03-05 00:00 :00 No 40mg Take 1 tablet by mouth daily. [facility] metFORMIN (GLUCOPHAGE ) 500 mg tablet 05-26 00:00: 00 03-05 00:00 :00 No 500mg Take 1 tablet by mouth 2 (two) times daily with meals. [facility] amoxicillin 500 mg capsule 01-12 00:00: 00 No 1mg amoxicillin 250 mg capsule 01-12 00:00: 00 No 1mg Bromfed DM 2 mg-30 mg-10 mg/5 mL syrup 01-12 00:00: 00 No 10mg/5 mL Vital Signs Vital Name Observation Time Observation Value Comments S ource Systolic blood pressure 2022-09-11 16:34:00 131 mm[Hg] [facility] Diastolic blood pressure 2022-09-11 16:34:00 80 mm[Hg] [facility] Heart rate 2022-09-11 16:34:00 80 /min [facility] Body temperature 2022-09-11 16:34:00 36.83 Geovanna [facility] Respiratory rate 2022-09-11 16:34:00 18 /min [facility] Oxygen saturation in Arterial blood by Pulse oximetry 2022-09-11 16:34:00 97 /min [facility] Body weight 2022-09-11 07:55:00 82.464 kg [facility] BMI 2022-09-11 07:55:00 27.64 kg/m2 [facility] Body height 2022-09-11 01:03:00 172.7 cm [facility] Systolic blood pressure 2021-03-05 20:00:00 119 mm[Hg] [facility] Diastolic blood pressure 2021-03-05 20:00:00 73 mm[Hg] [facility] Heart rate 2021-03-05 20:00:00 78 /min [facility] Respiratory rate 2021-03-05 20:00:00 17 /min [facility] Oxygen saturation in Arterial blood by Pulse oximetry 2021-03-05 20:00:00 99 /min [facility] Body temperature 2021-03-05 18:12:00 36.28 Geovanna [facility] Body height 2021-03-05 18:12:00 172.7 cm [facility] Body weight 2021-03-05 18:12:00 101.606 kg [facility] BMI 2021-03-05 18:12:00 34.06 kg/m2 [facility] BP Systolic 2022-09-14 13:45:00 119 mm[Hg] [...] 126 mm[Hg] Procedures Procedure Date / Time Performed Performing Clinician Source REFERRAL- REQUEST/RESPONSE 2023-06-06 05:01:00 Doctor Unassigned, [place] [facility] POCT GLUCOSE (AUTOMATED) 2022-09-11 16:34:00 Alfredo Navarro [facility] POCT GLUCOSE (AUTOMATED) 2022-09-11 12:44:00 Alfredo Navarro [facility] COMP. METABOLIC PANEL ([id number]) 2022-09-11 07:58:00 Alfredo Navarro [facility] LIPID PANEL ([id number])(TOTAL CHOLESTEROL, TRIGLYCERIDES, HDL) 2022-09-11 07:58:00 Alfredo Navarro [facility] LOW-DENSITY LIPOPROTEIN, DIRECT 2022-09-11 07:58:00 [facility] ([facility]OMATED) 2022-09-11 07:29:00 [facility]anie [facility] POCT GLUCOSE (AUTOMATED) 2022-09-11 01:22:00 Melanie [facility] POCT GLUCOSE (AUTOMATED) 2022-09-10 20:47:[address] [facility] 2022-09-10 19:16:33 Russell [facility] LIPASE 2022-09-10 18:43:[facility]. METABOLIC PANEL (10689) 2022-09-10 18:43:00 Singer [facility] CBC WITH DIFF 2022-09-10 18:43:00 [facility] GLYCOSYLATED HEMOGLOBIN (A1C) 2022-09-10 18:43:00 Russell [facility] URINALYSIS 2022-09-10 18:43:00 Singer [facility] NOTICE OF PRIVACY PRACTICES 2022-09-10 18:35:36 Doctor Unassigned, [place] [facility] CONSENT/REFUSAL FOR DIAGNOSIS AND TREATMENT 2022-09-10 18:35:02 Doctor Unassigned, [place] [facility] CT ABDOMEN PELVIS W CONTRAST 2021-03-05 19:23:44 Landy Jenkins [facility] LIPASE 2021-03-05 18:30:00 Landy Jenkins [facility] TROPONIN I 2021-03-05 18:30:00 Landy Jenkins [facility] HEPATIC FUNCTION PANEL (85934) (ALB,T.PRO,BILI T,BU/BC,ALT,AST,ALK PHOS) 2021-03-05 18:30:00 Landy Jenkins [facility] BASIC METABOLIC PANEL (NA, K, CL, CO2, GLUCOSE, BUN, CREATININE, CA) 2021-03-05 18:30:00 Landy Jenkins [facility] CBC WITH DIFF 2021-03-05 18:30:00 [facility] 2021-03-05 18:30:00 [facility] PRACT[facility] 2021-03-05 18:07:12 Doctor Unassigned, [place] [facility] CONSENT/REFUSAL FOR DIAGNOSIS AND TREATMENT 2021-03-05 18:07:01 Doctor Unassigned, [place] [facility] Plan of Care Planned Activity Planned Date Details Comments Source Goal Plan of Care Note [code = 54686-3] Goal Plan of Care Note [code = 97284-7] Goal Plan of Care Note [code = 45064-3] Goal Plan of Care Note [code = 41724-1] Goal Plan of Care Note [code = 08323-1] Goal Plan of Care Note [code = 59737-4] Goal Plan of Care Note [code = 53444-9] Goal Plan of Care Note [code = 88725-5] Goal Plan of Care Note [code = 16139-2] Goal Plan of Care Note [code = 49605-9] Goal Plan of Care Note [code = 45739-3] Goal Plan of Care Note [code = 97281-0] Goal Plan of Care Note [code = 96260-0] Encounters Start Date/Time End Date/Time Encounter Type Admission Type Attending [facility] Facility Care Department Encounter ID Source 2023-06-28 10:37:44 2023-06-28 10:37:44 Outpatient [facility] [id number]lee 2023-06-21 08:19:38 2023-06-21 08:19:38 Outpatient [facility] [id number] [address]lee 2023-06-20 16:02:39 2023-06-20 16:02:39 Outpatient SFA [facility] [id number]lee 2023-06-09 00:00:00 2023-06-09 00:00:[address] [facility] [id number] [id number] [facility] 2023-06-09 00:00:00 2023-06-09 00:00:00 Patient Secure Msg Doctor Unassigned, [place] [facility] [id number] [id number] [id number] [id number] [facility] 2023-06-06 00:00:00 2023-06-06 00:00:00 Orders Only Doctor Unassigned, [place] [facility] [id number] [id number] [id number] [id number] [facility] 2023-05-30 16:25:18 2023-05-30 16:25:18 Outpatient [facility] [id number] Her[address] Brownlee 2022-09-14 13:42:01 2022-09-14 13:42:01 Outpatient [facility] [id number] Kem 2022-09-14 00:00:00 2022-09-14 00:00:00 Outpatient Visit [id number] 2022-09-10 13:44:00 2022-09-11 12:54:00 Outpatient X ALFREDO NAVARRO [facility] [id number] [facility] 2022-09-10 13:44:00 2022-09-11 12:54:00 Emergency Jacque Wells Jelani [facility] 1.840.114 [id number] [id number] [id number] [facility] 2021-03-05 13:11:00 2021-03-05 15:35:00 Emergency Landy Jenkins [facility] [id number] [id number] [id number] [facility] 2021-03-05 13:06:00 2021-03-05 13:06:00 Emergency X [facility] ERT [id number] [facility] Results Test Description Test Time Test Comments Results Result Co mments Source TSH, THIRD [id number] 05:37:35* Test Item Value Reference Range Interpretation Comme [facility] TSH, THIRD GENERATION (test code = 2821) 2.130 UIU/ML 0.400-4.100 UNLESS OTHERWISE INDICATED, ALL TESTING PERFORMED AT [facility] [employer] [address] [place] [address] CHRISTIAN SCIENCE READER: ANGELA DE ANDA M.D. CLIA NUMBER [id number] [facility]. [id number] HEMOGLOBIN [id number] 04:21:46* Test Item Value Reference Range Interpretation Comme [facility] HEMOGLOBIN A1c (test code = 98147) 11.3 % 4.2-5.6 H [employer] GUIDELINES FOR HGB A1C: PREDIABETES/INCREASED RISK . . . . . . . 5.7-6.4% DIAGNOSIS OF DIABETES . . . . . . . . . >=6.5% WITH CONFIRMATION OR APPROPRIATE SYMPTOMS NOTE: ASSAY MAY BE AFFECTED BY HEMOGLOBINOPATHIES (SICKLE CELL ANEMIA, S-C DISEASE, OTHERS) OR ARTIFICIALLY LOWERED BY DECREASED RED CELL SURVIVAL (HEMOLYTIC ANEMIAS, BLOOD LOSS, ETC.). CONSIDER ALTERNATE TESTING OR LABORATORY CONSULTATION. COMPREHENSIVE METABOLIC [id number] 02:47:37* Test Item Value Reference Range Interpretation Comme nts GLUCOSE (test code = 2217) 365 MG/DL 70-99 H BUN (test code = 2208) 9 MG/DL 6-20 CREATININE (test code = 2214) 0.71 MG/DL 0.80-1.40 L eGFR (2020 CKD-EPI) (test code = 42087) 117 ML/MIN/1.73 >60 CALC BUN/CREAT (test code = 2235) 13 RATIO 6-28 SODIUM (test code = 2231) 136 MEQ/L 133-146 POTASSIUM (test code = 2228) 4.1 MEQ/L 3.5-5.4 CHLORIDE (test code = 2215) 102 MEQ/L 95-107 CARBON DIOXIDE (test code = 2206) 22 MEQ/L 19-31 CALCIUM (test code = 2209) 9.0 MG/DL 8.5-10.5 PROTEIN, TOTAL (test code = 2229) 6.4 G/DL 6.1-8.3 ALBUMIN (test code = 2201) 4.1 G/DL 3.5-5.2 CALC GLOBULIN (test code = 2240) 2.3 G/DL 1.9-3.7 CALC A/G RATIO (test code = 2234) 1.8 RATIO 1.0-2.6 BILIRUBIN, TOTAL (test code = 2207) 0.2 MG/DL See_Comment [Automated me ssage] The system which generated this result transmitted reference range: <=1.2. The reference range was not used to interpret this result as normal/abnormal. ALKALINE PHOSPHATASE (test code = 2204) 114 U/L 40-119 AST (test code = 2218) 23 U/L 9-50 ALT (test code = 2219) 41 U/L 5-50 LIPID [id number] 02:47:37* Test Item Value Reference Range Interpretation Comme nts CHOLESTEROL (test code = 2210) 225 MG/DL <200 H TRIGLYCERIDES (test code = 2232) 465 MG/DL <150 H HDL CHOLESTEROL (test code = 2220) 43 MG/DL >39 CALC LDL CHOL (test code = 2237) (NOTE) MG/DL <100 UNABLE TO CALCUL ATE A VALID LDL CHOLESTEROL WHEN THE TRIGLYCERIDEVALUE IS GREATER THAN 400 MG/DL.UNABLE TO CALCULATE A VALID LDL CHOLESTEROL WHEN THE TRIGLYCERIDEVALUE IS GREATER THAN 400 MG/DL. NOTE: CALCULATED LDL IS BASED ON ELEANOR-JANG METHOD WHICHINCLUDES ADJUSTABLE TRIGLYCERIDE:VLDL CHOLESTEROL RATIO.THIS FACTOR VARIES BY MEASURED TRIGLYCERIDE AND NON-HDLCHOLESTEROL CONCENTRATIONS WITH INCREASED CALCULATED LDL SEENIN HIGHER TRIGLYCERIDE OR LOWER NON-HDL SPECIMENS. FOR MOREINFORMATION, SEE CLIENT ANNOUNCEMENT AT [email or web address] CalcLDL-C RISK RATIO LDL/HDL (test code = 2238) (NOTE) RATIO <3.55 UNABLE TO VIRGIL CULATE POCT GLUCOSE (AUTOMATED)2022-09-11 16:54:15* Test Item Value Reference Range Interpretation Comme nts POCT GLU (test code = 3503089206) 234 mg/dL 70-110 H Lab Interpretation (test cod e = 14673-0) [facility]normal [facility], [id number] 15:18:30* Test Item Value Reference Range Interpretation Comme nts dLDL Chol (test code = 95420-2) 71 mg/dL See_Comment [Automated messa ge] The system which generated this result transmitted reference range: <=130. The reference range was not used to interpret this result as normal/abnormal. Lab Interpretation (test code = 75138-5) Normal [facility] (93158)(TOTAL CHOLESTEROL, TRIGLYCERIDES, HDL)2022-09-11 13:58:08* Test Item Value Reference Range Interpretation Comme nts CHOL (test code = 6228641431) 227 mg/dL 120-200 H HDL (test code = 0012751575) 28 mg/dL See_Comment L [Automated messa ge] The system which generated this result transmitted reference range: >=40. The reference range was not used to interpret this result as normal/abnormal. HDLC RATIO (test code = 6055463117) See_Comment H [Automated messa ge] The system which generated this result transmitted reference range: <=5.0. The reference range was not used to interpret this result as normal/abnormal. TRIG (test code = 5794417117) 1291 mg/dL 30-170 H LDL CHOL (test code = 54668-3) Unable to calcul ate LDL due to elevated triglyceride level greater than 400 mg/dL. VLDL (test code = 4536184544) Unable to calcul ate VLDL due to elevated triglyceride level greater than 710 mg/dL. Lab Interpretation (test code = 52879-5) [facility] 12:50:53* Test Item Value Reference Range Interpretation Comme nts POCT GLU (test code = 8243945411) 247 mg/dL 70-110 H Lab Interpretation (test cod e = 68499-7) [facility] (00139)2022-09-11 09:41:07* Test Item Value Reference Range Interpretation Comme nts NA (test code = 9355151706) 135 mmol/L 135-145 K (test code = 0288614992) 3.5 mmol/L 3.5-5 CL (test code = 8912663744) 104 mmol/L 98-108 CO2 TOTAL (test code = 1718740151) 22 mmol/L 23-31 L AGAP (test code = 8630553221) 2-16 BUN (test code = 7688932560) 13 mg/dL 7-23 GLUCOSE (test code = 2455630948) 242 mg/dL 70-110 H CREATININE (test code = 0150850364) 0.64 mg/dL 0.6-1.25 TOTAL BILI (test code = 6877542074) 0.3 mg/dL 0.1-1.1 CALCIUM (test code = 3788900190) 8.0 mg/dL 8.6-10.6 L T PROTEIN (test code = 6334556911) 5.8 g/dL 6.3-8.2 L ALBUMIN (test code = 2616525709) 3.4 g/dL 3.5-5 L ALK PHOS (test code = 7159390886) 111 U/L 34-122 ALTv (test code = 1742-6) 23 U/L 5-50 AST(SGOT) (test code = 7215061643) 21 U/L 13-40 eGFR (test code = 0498877070) mL/min/1.73m2 NIKO (test code = NIKO) Association of [...] or abnormalities in imaging tests). Lab Interpretation (test code = 16312-3) Abnormal [facility] GLUCOSE (AUTOMATED)2022-09-11 07:33:20* Test Item Value Reference Range Interpretation Comme nts POCT GLU (test code = 1767116765) 204 mg/dL 70-110 H Lab Interpretation (test cod e = 80919-3) Abnormal [facility] GLUCOSE (AUTOMATED)2022-09-11 01:28:49* Test Item Value Reference Range Interpretation Comme nts POCT GLU (test code = 1080573324) 373 mg/dL 70-110 H Lab Interpretation (test cod e = 47065-8) Abnormal [facility] GLUCOSE (AUTOMATED)2022-09-10 20:50:37* Test Item Value Reference Range Interpretation Comme nts POCT GLU (test code = 5180064472) 272 mg/dL 70-110 H Lab Interpretation (test cod e = 71687-0) [facility]normal [facility] (A1C)2022-09-10 20:06:25* Test Item Value Reference Range Interpretation Comme nts HGB A1C (test code = 4548-4) 12.3 % 4-5.7 H NIKO (test code = NIKO) Reference RangesNormal: <5.7%Prediabetes: 5.7 - 6.4%Diabetes: > 6.5% Lab Interpretation (test code = 22503-4) [facility]normal [facility] Metabolic [id number] 19:37:52* Test Item Value Reference Range Interpretation Comme nts NA (test code = 8880182410) 134 mmol/L 135-145 L K (test code = 4183339763) 4.1 mmol/L 3.5-5 CL (test code = 3783132822) 101 mmol/L 98-108 CO2 TOTAL (test code = 2246443540) 20 mmol/L 23-31 L AGAP (test code = 8222930908) 2-16 BUN (test code = 2422405799) 10 mg/dL 7-23 GLUCOSE (test code = 7807363758) 468 mg/dL 70-110 HH CREATININE (test code = 6810713330) 0.75 mg/dL 0.6-1.25 TOTAL BILI (test code = 7638692484) 0.6 mg/dL 0.1-1.1 CALCIUM (test code = 3792142329) 8.7 mg/dL 8.6-10.6 T PROTEIN (test code = 6701271886) 6.6 g/dL 6.3-8.2 ALBUMIN (test code = 2718875721) 4.2 g/dL 3.5-5 ALK PHOS (test code = 5692703284) 123 U/L 34-122 H ALTv (test code = 1742-6) 26 U/L 5-50 AST(SGOT) (test code = 0650425749) 22 U/L 13-40 eGFR (test code = 2986105086) mL/min/1.73m2 NIKO (test code = NIKO) Association of [...] or abnormalities in imaging tests). Lab Interpretation (test code = 37993-8) [facility]normal [facility] HospitalLip[facility], [id number] 19:04:41* Test Item Value Reference Range Interpretation Comme nts LIPASE (test code = 9683687509) 111 U/L 0-220 Lab Interpretation (test cod e = 48718-6) Normal [facility] with [id number] 18:52:20* Test Item Value Reference Range Interpretation Comme nts WBC (test code = 6690-2) See_Comment [Automated Leetchia ZAO Begun] The system which generated this result transmitted reference range: 4.20 - 10.70 10*3/?L. The reference range was not used to interpret this result as normal/abnormal. RBC (test code = 789-8) See_Comment [Automated Leetchia ZAO Begun] The system which generated this result transmitted reference range: 4.26 - 5.52 10*6/?L. The reference range was not used to interpret this result as normal/abnormal. HGB (test code = 718-7) 15.4 g/dL 12.2-16.4 HCT (test code = 4544-3) 42.2 % 38.4-49.3 MCV (test code = 787-2) 86.3 fL 81.7-95.6 MCH (test code = 785-6) 31.5 pg 26.1-32.7 MCHC (test code = 786-4) 36.5 g/dL 31.2-35 H RDW-SD (test code = 50639-5) 37.7 fL 38.5-51.6 L RDW-CV (test code = 788-0) 11.9 % 12.1-15.4 L PLT (test code = 777-3) See_Comment [Automated Leetchia ZAO Begun] The system which generated this result transmitted reference range: 150 - 328 10*3/?L. The reference range was not used to interpret this result as normal/abnormal. MPV (test code = 59731-3) 11.9 fL 9.8-13 NRBC/100 WBC (test code = 4818286371) See_Comment [Automated me ssage] The system which generated this result transmitted reference range: 0.0 - 10.0 /100 WBCs. The reference range was not used to interpret this result as normal/abnormal. NRBC x10^3 (test code = 4861138223) See_Comment [Automated messa ge] The system which generated this result transmitted reference range: 10*3/?L. The reference range was not used to interpret this result as normal/abnormal. GRAN MAT (NEUT) % (test code = 770-8) 56.2 % IMM GRAN % (test code = 6261990720) 0.40 % LYMPH % (test code = 736-9) 36.1 % MONO % (test code = 5905-5) 4.8 % EOS % (test code = 713-8) 1.7 % BASO % (test code = 706-2) 0.8 % GRAN MAT x10^3(ANC) (test code = 9978535236) 4.38 10*3/uL 1.99-6.95 IMM GRAN x10^3 (test code = 2996695488) 0.03 10*3/uL 0-0.06 LYMPH x10^3 (test code = 731-0) 2.81 10*3/uL 1.09-3.23 MONO x10^3 (test code = 742-7) 0.37 10*3/uL 0.36-1.02 EOS x10^3 (test code = 711-2) 0.13 10*3/uL 0.06-0.53 BASO x10^3 (test code = 704-7) 0.06 10*3/uL 0.01-0.09 Lab Interpretation (test code = 22135-2) [facility]normal [facility] P[facility] W [id number] 20:31:35Diverticulosis without diverticulitis. Hepatomegaly. Preliminary Report Dictated by Resident: Ty Conley MD., have reviewed this study and agree with the abovereport.EXAM: CT ABDOMEN AND PELVIS WITH CONTRAST HISTORY: 40-year-old male with abdominal and bilious vomiting COMPARISON: 05/25/2016. DOSE: Total exam DLP 501 mGy-cm TECHNIQUE [...] No intrahepatic biliarydilatation. Main portal vein is patent. GALLBLADDER AND BILIARY TREE: Status post cholecystectomy. SPLEEN: No splenomegaly. PANCREAS: No ductal dilation. ADRENAL GLANDS: No adrenal nodules. KIDNEYS: No hydronephrosis, stones, or contour deforming lesions. PERITONEUM AND RETROPERITONEUM: No free air or free fluid. LYMPH NODES: Prominent retrocaval lymph node measures up to 0.9 cm,unchanged (2:43). GI TRACT: No bowel dilatation or abnormal wall thickening. Small bowelappears unremarkable. The appendixis nondilated. ?Tiny hiatal hernia. PELVIS/BLADDER: The urinary bladder appears essentially normal.Bilateralfat-containing inguinal hernias. VESSELS: Unremarkable. BONES AND SOFT TISSUES: No suspicious lytic or sclerotic bone lesions. [facility], Radiant Results Inft User - 03/05/2021 3:32 PM CDTEXAM: CT ABDOMEN AND PELVIS WITH CONTRASTHISTORY: 40-year-old male with abdominal and bilious vomitingCOMPARISON: 05/25/2016.DOSE: Total exam DLP 501 mGy-cmTECHNIQUE AND FINDINGS: Contiguous axial imaging wasperformed from thelung bases to the proximal femurs [...] AND RETROPERITONEUM: No free air or free fl uid.LYMPH NODES: Prominent retrocaval lymph node measures up to 0.9 cm,unchanged (2:43).GI TRACT: No bowel dilatation or abnormal wall thickening. Small bowelappears unremarkable. The appendix is nondilated. Tiny hiatal hernia.PELVIS/BLADDER: The urinary bladder appears essentially normal. Bilateral fat-containing inguinal hernias.VESSELS: Unremarkable.BONES AND SOFT TISSUES: No suspicious lytic or sclerotic bone lesions.IMPRESSIONDiverticulosis without diverticulitis.Hepatomegaly.Preliminary Report Dictated by Resident: Tu Rosa, Ty Hernandez MD., have reviewed this study and agree with the abovereport.[facility] HospitalTroponin [id number] 19:10:36* Test Item Value Reference Range Interpretation Comme nts TROPONIN I (test code = 7275641293) 0.001 ng/mL See_Comment [Automated message] The system which generated this result transmitted reference range: <=0.034. The reference range was not used to interpret this result as normal/abnormal. NIKO (test code = NIKO) Equal or Less than 0.034 ng/ml---Normal ?Note: Cardiac troponin begins to [...] patient's use of biotin. ? Lab Interpretation (test code = 26808-6) Normal [facility] (ALB, T.PRO, BILI T, BU/BC, ALT, AST, ALK PHOS)2021-03-05 18:59:14* Test Item Value Reference Range Interpretation Comme nts TOTAL BILI (test code = 9432709750) 0.4 mg/dL 0.1-1.1 BILI UNCON (test code = 0043473047) 0.3 mg/dL 0.1-1.1 BILI CONJ (test code = 2696714205) 0.0 mg/dL 0.0-0.3 T PROTEIN (test code = 0542927830) 6.6 g/dL 6.3-8.2 ALBUMIN (test code = 5327878486) 4.2 g/dL 3.5-5.0 ALK PHOS (test code = 2131867347) 97 U/L 34-122 ALTv (test code = 1742-6) 22 U/L 5-50 AST(SGOT) (test code = 7053197380) 23 U/L 13-40 Lab Interpretation (test cod e = 10516-4) Normal [facility] Metabolic Panel (NA, K, CL, CO2, GLUCOSE, BUN, CREATININE, CA)2021-03-05 18:58:54* Test Item Value Reference Range Interpretation Comme nts NA (test code = 0202052043) 136 mmol/L 135-145 K (test code = 1664641738) 4.1 mmol/L 3.5-5.0 CL (test code = 0820189797) 104 mmol/L 98-108 CO2 TOTAL (test code = 0595678342) 24 mmol/L 23-31 AGAP (test code = 5332218178) 2-16 BUN (test code = 7402030074) 15 mg/dL 7-23 GLUCOSE (test code = 9311266659) 207 mg/dL 70-110 H CREATININE (test code = 2369773334) 0.74 mg/dL 0.60-1.25 CALCIUM (test code = 7247447408) 8.4 mg/dL 8.6-10.6 L eGFR (test code = 9368078545) mL/min/1.73m2 NIKO (test code = NIKO) Association of [...] or abnormalities in imaging tests). Lab Interpretation (test code = 17251-6) Abnormal [facility] HospitalLipase [id number] 18:58:54* Test Item Value Reference Range Interpretation Comme nts LIPASE (test code = 4223954994) 140 U/L 0-220 Lab Interpretation (test cod e = 15933-4) Normal [facility] HospitalUrinalysis2021-04-10 18:51:20* Test Item Value Reference Range Interpretation Comme nts APPEARANCE (test code = 1125099225) Clear Clear COLOR (test code = 8423792183) Yellow Yellow PH (test code = 8288838676) 4.8-8.0 SP GRAVITY (test code = 9069965637) 1.003-1.030 GLU U QUAL (test code = 1026862433) 50 mg/dL Normal A BLOOD (test code = 6462178262) Negative Negative KETONES (test code = 1532312066) Negative Negative PROTEIN (test code = 2887-8) Negative Negative UROBILIN (test code = 3144646621) Normal Normal BILIRUBIN (test code = 1233425608) Negative Negative NITRITE (test code = 3524049790) Negative Negative LEUK ZAY (test code = 6097656936) Negative Negative RBC/HPF (test code = 7616926225) See_Comment [Automated messa ge] The system which generated this result transmitted reference range: 0 - 3 HPF. The reference range was not used to interpret this result as normal/abnormal. WBC/HPF (test code = 7754083100) <1 See_Comment [Automated messa ge] The system which generated this result transmitted reference range: 0 - 5 HPF. The reference range was not used to interpret this result as normal/abnormal. BACTERIA (test code = 8516882545) Negative Negative MUCOUS (test code = 3793075462) Slight Negative LPF A SQ EPITH (test code = 8299674747) <1 HPF Lab Interpretation (test code = 23420-0) [facility] [id number] 18:46:34* Test Item Value Reference Range Interpretation Comme nts WBC (test code = 6690-2) See_Comment [Automated messa ge] The system which generated this result transmitted reference range: 4.20 - 10.70 10*3/?L. The reference range was not used to interpret this result as normal/abnormal. RBC (test code = 789-8) See_Comment [Automated messa ge] The system which generated this result transmitted reference range: 4.26 - 5.52 10*6/?L. The reference range was not used to interpret this result as normal/abnormal. HGB (test code = 718-7) 14.4 g/dL 12.2-16.4 HCT (test code = 4544-3) 41.0 % 38.4-49.3 MCV (test code = 787-2) 86.9 fL 81.7-95.6 MCH (test code = 785-6) 30.5 pg 26.1-32.7 MCHC (test code = 786-4) 35.1 g/dL 31.2-35.0 H RDW-SD (test code = 57327-4) 39.9 fL 38.5-51.6 RDW-CV (test code = 788-0) 12.5 % 12.1-15.4 PLT (test code = 777-3) See_Comment [Automated messa ge] The system which generated this result transmitted reference range: 150 - 328 10*3/?L. The reference range was not used to interpret this result as normal/abnormal. MPV (test code = 07006-0) 11.9 fL 9.8-13.0 NRBC/100 WBC (test code = 2632256608) See_Comment [Automated me ssage] The system which generated this result transmitted reference range: 0.0 - 10.0 /100 WBCs. The reference range was not used to interpret this result as normal/abnormal. NRBC x10^3 (test code = 4299757846) <0.01 See_Comment [Automated messa ge] The system which generated this result transmitted reference range: 10*3/?L. The reference range was not used to interpret this result as normal/abnormal. GRAN MAT (NEUT) % (test code = 770-8) 54.6 % IMM GRAN % (test code = 8151844895) 0.40 % LYMPH % (test code = 736-9) 36.8 % MONO % (test code = 5905-5) 5.3 % EOS % (test code = 713-8) 2.1 % BASO % (test code = 706-2) 0.8 % GRAN MAT x10^3(ANC) (test code = 4416684178) 3.92 10*3/uL 1.99-6.95 IMM GRAN x10^3 (test code = 1028640236) 0.03 10*3/uL 0.00-0.06 LYMPH x10^3 (test code = 731-0) 2.64 10*3/uL 1.09-3.23 MONO x10^3 (test code = 742-7) 0.38 10*3/uL 0.36-1.02 EOS x10^3 (test code = 711-2) 0.15 10*3/uL 0.06-0.53 BASO x10^3 (test code = 704-7) 0.06 10*3/uL 0.01-0.09 Lab Interpretation (test code = 10235-6) [facility]normal [facility] HospitalHEMOGLOBIN [id number] 00:00:00* Test Item Value Reference Range Interpretation Comme nts HEMOGLOBIN A1c (test code = 04891) 6.4 % HEMOGLOBIN [id number] 00:00:00* Test Item Value Reference Range Interpretation Comme nts HEMOGLOBIN A1c (test code = 41303) 6.4 % LIPID [id number] 00:00:00* Test Item Value Reference Range Interpretation Comme nts CHOLESTEROL (test code = 2210) 185 MG/DL TRIGLYCERIDES (test code = 2232) 162 MG/DL HDL CHOLESTEROL (test code = 2220) 41 MG/DL CALC LDL CHOL (test code = 2237) 112 MG/DL RISK RATIO LDL/HDL (test cod e = 2238) 2.72 RATIO LIPID [id number] 00:00:00* Test Item Value Reference Range Interpretation Comme nts CHOLESTEROL (test code = 2210) 185 MG/DL TRIGLYCERIDES (test code = 2232) 162 MG/DL HDL CHOLESTEROL (test code = 2220) 41 MG/DL CALC LDL CHOL (test code = 2237) 112 MG/DL RISK RATIO LDL/HDL (test cod e = 2238) 2.72 RATIO CBC W/AUTO [id number] 00:00:00* Test Item Value Reference Range Interpretation Comme nts WBC (test code = 1001) 7.6 K/UL [...] code = 1015) 166 K/UL CBC W/AUTO [id number] 00:00:00* Test Item Value Reference Range Interpretation Comme nts WBC (test code = 1001) 7.6 K/UL [...] code = 1015) 166 K/UL CBC W/AUTO [id number] 00:00:00* Test Item Value Reference Range Interpretation Comme nts WBC (test code = 1001) 7.6 K/UL [...] code = 1015) 166 K/UL COMPREHENSIVE METABOLIC [id number] 00:00:00* Test Item Value Reference Range Interpretation Comme nts GLUCOSE (test code = 2217) 121 MG/DL BUN (test code = 2208) 12 MG/DL CREATININE (test code = 2214) 0.87 MG/DL eGFR AMER. (test cod e = 32587) 126 ML/MIN/1.73 eGFR NON- AMER. (test code = 34592) 109 ML/MIN/1.73 CALC BUN/CREAT (test code = 2235) 14 RATIO SODIUM (test code = 2231) 140 MEQ/L POTASSIUM (test code = 2228) 4.3 MEQ/L CHLORIDE (test code = 2215) 105 MEQ/L CARBON DIOXIDE (test code = 2206) 23 MEQ/L CALCIUM (test code = 2209) 8.9 MG/DL PROTEIN, TOTAL (test code = 2229) 6.7 G/DL ALBUMIN (test code = 2201) 4.2 G/DL CALC GLOBULIN (test code = 2240) 2.5 G/DL CALC A/G RATIO (test code = 2234) 1.7 RATIO BILIRUBIN, TOTAL (test code = 2207) 0.2 MG/DL ALKALINE PHOSPHATASE (test code = 2204) 103 U/L AST (test code = 2218) 17 U/L ALT (test code = 2219) 26 U/L COMPREHENSIVE METABOLIC [id number] 00:00:00* Test Item Value Reference Range Interpretation Comme nts GLUCOSE (test code = 2217) 121 MG/DL BUN (test code = 2208) 12 MG/DL CREATININE (test code = 2214) 0.87 MG/DL eGFR AMER. (test cod e = 89557) 126 ML/MIN/1.73 eGFR NON- AMER. (test code = 22680) 109 ML/MIN/1.73 CALC BUN/CREAT (test code = 2235) 14 RATIO SODIUM (test code = 2231) 140 MEQ/L POTASSIUM (test code = 2228) 4.3 MEQ/L CHLORIDE (test code = 2215) 105 MEQ/L CARBON DIOXIDE (test code = 2206) 23 MEQ/L CALCIUM (test code = 2209) 8.9 MG/DL PROTEIN, TOTAL (test code = 2229) 6.7 G/DL ALBUMIN (test code = 2201) 4.2 G/DL CALC GLOBULIN (test code = 2240) 2.5 G/DL CALC A/G RATIO (test code = 2234) 1.7 RATIO BILIRUBIN, TOTAL (test code = 2207) 0.2 MG/DL ALKALINE PHOSPHATASE (test code = 2204) 103 U/L AST (test code = 2218) 17 U/L ALT (test code = 2219) 26 U/L HEMOGLOBIN [id number] 00:00:00* Test Item Value Reference Range Interpretation Comme nts HEMOGLOBIN A1c (test code = 75404) 6.4 % COMPREHENSIVE METABOLIC [id number] 00:00:00* Test Item Value Reference Range Interpretation Comme nts GLUCOSE (test code = 2217) 98 MG/DL BUN (test code = 2208) 14 MG/DL CREATININE (test code = 2214) 0.82 MG/DL eGFR AMER. (test cod e = 84656) 132 ML/MIN/1.73 eGFR NON- AMER. (test code = 13056) 114 ML/MIN/1.73 CALC BUN/CREAT (test code = 2235) 17 RATIO SODIUM (test code = 2231) 138 MEQ/L POTASSIUM (test code = 2228) 4.1 MEQ/L CHLORIDE (test code = 2215) 100 MEQ/L CARBON DIOXIDE (test code = 2206) 23 MEQ/L CALCIUM (test code = 2209) 9.1 MG/DL PROTEIN, TOTAL (test code = 2229) 7.2 G/DL ALBUMIN (test code = 2201) 4.5 G/DL CALC GLOBULIN (test code = 2240) 2.7 G/DL CALC A/G RATIO (test code = 2234) 1.7 RATIO BILIRUBIN, TOTAL (test code = 2207) 0.5 MG/DL ALKALINE PHOSPHATASE (test code = 2204) 111 U/L AST (test code = 2218) 122 U/L ALT (test code = 2219) 194 U/L COMPREHENSIVE METABOLIC [id number] 00:00:00* Test Item Value Reference Range Interpretation Comme nts GLUCOSE (test code = 2217) 98 MG/DL BUN (test code = 2208) 14 MG/DL CREATININE (test code = 2214) 0.82 MG/DL eGFR AMER. (test cod e = 46419) 132 ML/MIN/1.73 eGFR NON- AMER. (test code = 44967) 114 ML/MIN/1.73 CALC BUN/CREAT (test code = 2235) 17 RATIO SODIUM (test code = 2231) 138 MEQ/L POTASSIUM (test code = 2228) 4.1 MEQ/L CHLORIDE (test code = 2215) 100 MEQ/L CARBON DIOXIDE (test code = 2206) 23 MEQ/L CALCIUM (test code = 2209) 9.1 MG/DL PROTEIN, TOTAL (test code = 2229) 7.2 G/DL ALBUMIN (test code = 2201) 4.5 G/DL CALC GLOBULIN (test code = 2240) 2.7 G/DL CALC A/G RATIO (test code = 2234) 1.7 RATIO BILIRUBIN, TOTAL (test code = 2207) 0.5 MG/DL ALKALINE PHOSPHATASE (test code = 2204) 111 U/L AST (test code = 2218) 122 U/L ALT (test code = 2219) 194 U/L LIPID [id number] 00:00:00* Test Item Value Reference Range Interpretation Comme nts CHOLESTEROL (test code = 2210) 207 MG/DL TRIGLYCERIDES (test code = 2232) 212 MG/DL HDL CHOLESTEROL (test code = 2220) 34 MG/DL CALC LDL CHOL (test code = 2237) 131 MG/DL RISK RATIO LDL/HDL (test cod e = 2238) 3.84 RATIO LIPID [id number] 00:00:00* Test Item Value Reference Range Interpretation Comme nts CHOLESTEROL (test code = 2210) 207 MG/DL TRIGLYCERIDES (test code = 2232) 212 MG/DL HDL CHOLESTEROL (test code = 2220) 34 MG/DL CALC LDL CHOL (test code = 2237) 131 MG/DL RISK RATIO LDL/HDL (test cod e = 2238) 3.84 RATIO CBC W/AUTO [id number] 00:00:00* Test Item Value Reference Range Interpretation Comme nts WBC (test code = 1001) 10.8 K/UL [...] code = 1015) 193 K/UL CBC W/AUTO [id number] 00:00:00* Test Item Value Reference Range Interpretation Comme nts WBC (test code = 1001) 10.8 K/UL [...] code = 1015) 193 K/UL CBC W/AUTO [id number] 00:00:00* Test Item Value Reference Range Interpretation Comme nts WBC (test code = 1001) 10.8 K/UL [...] (test code = 1015) 193 K/UL HEMOGLOBIN [id number] 00:00:00* Test Item Value Reference Range Interpretation Comme nts HEMOGLOBIN A1c (test code = 83385) 7.8 % HEMOGLOBIN [id number] 00:00:00* Test Item Value Reference Range Interpretation Comme nts HEMOGLOBIN A1c (test code = 96624) 7.8 % HEMOGLOBIN [id number] 00:00:00* Test Item Value Reference Range Interpretation Comme nts HEMOGLOBIN A1c (test code = 40093) 7.8 % THYROID II PROFILE (T3U, T4, T7, TSH)2016-06-03 00:00:00* Test Item Value Reference Range Interpretation Comme nts T3 UPTAKE (test code = 2817) 26.4 % T4 (THYROXINE) (test code = 2819) 8.4 UG/DL CALCULATED T7 (FTI) (test co de = 2820) 2.22 TSH (test code = 2821) 2.2 UIU/ML THYROID II PROFILE (T3U, T4, T7, TSH)2016-06-03 00:00:00* Test Item Value Reference Range Interpretation Comme nts T3 UPTAKE (test code = 2817) 26.4 % T4 (THYROXINE) (test code = 2819) 8.4 UG/DL CALCULATED T7 (FTI) (test co de = 2820) 2.22 TSH (test code = 2821) 2.2 UIU/ML CBC W/AUTO [id number] 00:00:00* Test Item Value Reference Range Interpretation Comme nts WBC (test code = 1001) 10.2 K/UL [...] (test code = 1016) (NOTE) CBC W/AUTO [id number] 00:00:00* Test Item Value Reference Range Interpretation Comme nts WBC (test code = 1001) 10.2 K/UL [...] (test code = 1016) (NOTE) CBC W/AUTO [id number] 00:00:00* Test Item Value Reference Range Interpretation Comme nts WBC (test code = 1001) 10.2 K/UL [...]
[2023-12-15 13:39] LABS: Absolute Lymphocytes (CBC) 1.8 K/uL (0.7-4.9); Hematocrit 36.9 % (39.6-49.0); Lymphocytes % 44.4 % (15.3-44.8); MCV 86.5 fL (80-100); MPV 9.2 fL (7.6-11.3); Platelets 171 thou/uL (152-406); RBC Red Blood Cell Count 4.27 M/uL (4.33-5.43)
[2023-12-15 13:58] LABS: BUN Blood Urea Nitrogen 14 mg/dL (7-18); Bicarbonate 24 mEq/L (21-32); Glomerular Filtration Rate 111 ml/min (=/>90); Glucose Level 181 mg/dL (74-106); NT PRO-BNP 47 pg/mL (<125); Potassium 3.7 mEq/L (3.5-5.1); Sodium Level 135 mEq/L (136-145); Troponin High Sensitivity < 3.0 pg/mL (<58.9)
[2023-12-15 14:03] LABS: SARS-CoV-2 Antigen Rapid Res Negative (Negative)
--- NOTE | 2023-12-15 14:26 | EDPHYS ---
Physician Documentation [facility] Name: Yehuda Giraldo Age: 43 yrs Sex: Male : 1980 Arrival Date: 12/15/2023 Time: 12:45 Bed 17 Private MD: ED Physician Nnamdi Steen HPI: 12/15 13:08 This 43 yrs old Male presents to ER via Ambulatory with complaints of ec2 Shortness Of Breath, Blurred Vision, Headache. 13:08 Patient arrives today for shortness of breath as well as chest tightness. Patient also ec2 with complaints of headache. Patient reports has been experiencing symptoms for approximately 2 to 3 weeks. Reports that he has a history of COPD, does not take daily medications. Patient reports some occasional nausea, no vomiting or diarrhea. Patient reports general poor appetite. Does smoke regularly, says about 3 to 4 cigarettes/day. Has taken ibuprofen for symptoms. Patient also with complaints of headache and body pains.. Historical: - Allergies: 13:03 No Known Drug Allergies; hb - Home Meds: 13:03 gabapentin 100 mg Oral capsule 3 times per day [Active]; hb - PMHx: 13:03 COPD; Diabetes - NIDDM; Diverticulitis; Hypertensive disorder; RA; hb - Immunization history:: Adult Immunizations up to date. - Social history:: Smoking status: Patient reports the use of cigarette tobacco products, 3-4 cigarettes per day. ROS: 13:10 Constitutional: as per hpi ec2 Exam: 13:10 Constitutional: GEN: NAD Head: atraumatic Eyes: EOMI Ears: External ears are ec2 normal. CV: regular rate, no wheezes, no rales, no rhonchi LUNGS: no respiratory distress ABD: non-distended SKIN: no evidence of rashes MSK: no evidence of trauma NEURO: moves all extremities equally Vital Signs: 13:00 BP 109 / 75; Pulse 88; Resp 16; Pulse Ox 98% on R/A; Pain 5/10; tl4 13:01 BP 109 / 70; Pulse 89; Resp 23; Temp 98.4(O); Pulse Ox 99% on R/A; Weight 83.46 kg; hb Height 5 ft. 8 in. ; Pain 9/10; 13:36 BP 120 / 82; Pulse 98; Resp 20; Pulse Ox 100% on R/A; tl4 14:00 BP 121 / 70; Pulse 105; Resp 20; Pulse Ox 97% on R/A; tl4 14:30 BP 124 / 68; Pulse 109; Resp 20; Pulse Ox 97% on R/A; Pain 5/10; tl4 15:10 BP 125 / 75; Pulse 100; Resp 18; Pulse Ox 99% on R/A; Pain 5/10; tl4 13:01 Body Mass Index 27.98 (83.46 kg, 172.72 cm) hb 13:00 Pain Scale: Adult tl4 13:01 Pain Scale: Adult hb 14:30 Pain Scale: Adult tl4 15:10 Pain Scale: Adult tl4 Alissa Coma Score: 13:36 Eye Response: spontaneous(4). Motor Response: obeys commands(6). Verbal Response: tl4 oriented(5). Total: 15. MDM: 12:58 Patient medically screened. ec2 13:10 Data reviewed: vital signs. ED course: Patient arrives today for shortness of breath ec2 and chest tightness along with cough and cold symptoms. Examination remarkable for well-appearing nontoxic dividual is otherwise in no acute distress. Will obtain lab work, EKG, chest x-ray and treat the patient's symptoms.. 14:09 ED course: Metabolic profile, BNP, troponin, CBC are reassuring. Negative flu and COVID ec2 testing. Chest x-ray independently reviewed and interpreted by me, shows no acute intrathoracic process. On reassessment patient remains well-appearing in no acute distress. Will discharge home with prescription for steroids. Will also prescribe as needed inhalers. . 14:26 ED course: On reassessment patient reports improvement in symptoms. Will discharge ec2 home. Return precautions given.. 12/15 13:07 Order name: Basic Metabolic Panel; Complete Time: 14:08 ec2 12/15 13:07 Order name: CBC with Diff; Complete Time: 13:50 ec2 12/15 13:07 Order name: NT PRO-BNP; Complete Time: 14:08 ec2 12/15 13:07 Order name: Troponin HS; Complete Time: 14:08 ec2 12/15 13:07 Order name: Influenza Screen (a \T\ B); Complete Time: 14:08 ec2 12/15 14:03 Order name: SARS-COV-2 Antigen Rapid; Complete Time: 14:08 EDMS 12/15 13:07 Order name: XRAY Chest (1 view); Complete Time: 15:13 ec2 12/15 13:07 Order name: EKG; Complete Time: 13:08 ec2 12/15 13:07 Order name: Cardiac monitoring; Complete Time: 13:10 ec2 12/15 13:07 Order name: EKG - Nurse/Tech; Complete Time: 15:07 ec2 12/15 13:07 Order name: IV Saline Lock; Complete Time: 13:39 ec2 12/15 13:07 Order name: Labs collected and sent; Complete Time: 13:39 ec2 12/15 13:07 Order name: O2 Per Protocol; Complete Time: 13:10 ec2 12/15 13:07 Order name: O2 Sat Monitoring; Complete Time: 13:10 ec2 Administered Medications: 13:19 Drug: DuoNeb Nebulize (3:1) (2.5 mg - 0.5 mg) 3 ml Nebulizer once Route: Nebulizer; tl4 15:07 Follow up: Response: Wheezing diminished tl4 13:19 Drug: predniSONE PO 40 mg PO once Route: PO; tl4 15:07 Follow up: Response: No adverse reaction tl4 13:38 Drug: metoCLOPramide IVP 10 mg IVP once; over 1 to 2 minutes Route: IVP; Site: right tl4 antecubital; 15:06 Follow up: Response: Nausea is decreased tl4 13:39 Drug: NS 0.9% IV 1000 ml IV at 1 bolus Per protocol; 1000 mL bolus Route: IV; Rate: 1 tl4 bolus; Site: right antecubital; 15:06 Follow up: Response: No adverse reaction; IV Status: Completed infusion; IV Intake: tl4 1000ml Disposition Summary: 12/15/23 14:26 Discharge Ordered Notes: Location: Home ec2 Condition: Stable ec2 Diagnosis - COPD/ Chronic obstructive pulmonary disease, unspecified ec2 Followup: ec2 - With: Private Physician - When: - Reason: Recheck today's complaints Discharge Instructions: - Discharge Summary Sheet ec2 - Chronic Obstructive Pulmonary Disease ec2 Forms: - Work release form ec2 - Medication Reconciliation Form ec2 - Thank You Letter ec2 - Antibiotic Education ec2 - Prescription Opioid Use ec2 - Patient Portal Instructions ec2 - Leadership Thank You Letter ec2 Prescriptions: - albuterol sulfate 90 mcg/actuation Inhalation HFA Aerosol Inhaler - inhale 2 puff INHALATION route every 4 hours; 1 unit; Refills: 0, Product ec2 Selection Permitted - Prednisone 20 mg Oral Tablet - take 2 tablets ORAL route once daily for 5 days; 10 tablet; Refills: 0, Product ec2 Selection Permitted Signatures: Dispatcher [employer] Celsa Carrera RN RN Nnamdi Steen MD MD ec2 Chepe Multani tl4 Corrections: (The following items were deleted from the chart) 13:13 13:08 Patient arrives today for shortness of breath as well as chest tightness. Patient ec2 also with complaints of headache. Patient reports has been experiencing symptoms for approximately 2 to 3 weeks. Reports that he has a history of COPD, does not take daily medications. Patient reports some occasional nausea, no vomiting or diarrhea. Patient reports general poor appetite. Does smoke regularly, says about 3 to 4 cigarettes/day. Has taken ibuprofen for symptoms.. ec2 14:04 13:08 SARS-COV-2 RT PCR+MOL.LAB.BRZ ordered. EDMS EDMS
--- NOTE | 2023-12-15 14:26 | ER ---
Nurse's Notes [facility] Name: Yehuda Giraldo Age: 43 yrs Sex: Male : 1980 Arrival Date: 12/15/2023 Time: 12:45 Bed 17 Private MD: Diagnosis: COPD/ Chronic obstructive pulmonary disease, unspecified Presentation: 12/15 13:01 Chief complaint: Worsening cough, pain with cough, chest tightness, and SOB x 1 week. hb Hx of COPD. Coronavirus screen: Client presents with at least one sign or symptom that may indicate coronavirus-19. Provider contacted for isolation considerations. Ebola Screen: No symptoms or risks identified at this time. Initial Sepsis Screen: Does the patient meet any 2 criteria? HR > 90 bpm. No. Patient's initial sepsis screen is negative. Does the patient have a suspected source of infection? No. Patient's initial sepsis screen is negative. Risk Assessment: Do you want to hurt yourself or someone else? Patient reports no desire to harm self or others. Onset of symptoms was December 08, 2023. 13:01 Method Of Arrival: Ambulatory hb 13:01 Acuity: SARA 3 hb Triage Assessment: 13:37 General: Appears uncomfortable. Respiratory: Respiratory: Reports shortness of breath tl4 on exertion Onset: The symptoms/episode began/occurred "past couple of weeks". Historical: - Allergies: 13:03 No Known Drug Allergies; hb - Home Meds: 13:03 gabapentin 100 mg Oral capsule 3 times per day [Active]; hb - PMHx: 13:03 COPD; Diabetes - NIDDM; Diverticulitis; Hypertensive disorder; RA; hb - Immunization history:: Adult Immunizations up to date. - Social history:: Smoking status: Patient reports the use of cigarette tobacco products, 3-4 cigarettes per day. Screenin:36 [facility] ED Fall Risk Assessment (Adult) History of falling in the last 3 months, tl4 including since admission No falls in past 3 months (0 pts) Confusion or Disorientation No (0 pts) Intoxicated or Sedated No (0 pts) Impaired Gait No (0 pts) Mobility Assist Device Used No (0 pt) Altered Elimination No (0 pt) Score/Fall Risk Level 0 - 2 = Low Risk Oriented to surroundings, Maintained a safe environment, Educated pt \\T\\ family on fall prevention, incl call for assistance when getting out of bed, Assessed \\T\\ reinforced patient's understanding of fall precautions. Abuse screen: Denies threats or abuse. Denies injuries from another. Nutritional screening: No deficits noted. Tuberculosis screening: No symptoms or risk factors identified. Assessment: 13:34 General: Appears uncomfortable, Behavior is calm, cooperative. Pain: Complains of pain tl4 in chest. Neuro: No deficits noted. Cardiovascular: Reports chest pain, fatigue, shortness of breath, Rhythm is sinus rhythm. Respiratory: Airway is patent Respiratory effort is even, unlabored, Breath sounds are coarse bilaterally. GI: No deficits noted. No signs and/or symptoms were reported involving the gastrointestinal system. : No deficits noted. No signs and/or symptoms were reported regarding the genitourinary system. EENT: No deficits noted. No signs and/or symptoms were reported regarding the EENT system. Vital Signs: 13:00 BP 109 / 75; Pulse 88; Resp 16; Pulse Ox 98% on R/A; Pain 5/10; tl4 13:01 BP 109 / 70; Pulse 89; Resp 23; Temp 98.4(O); Pulse Ox 99% on R/A; Weight 83.46 kg; hb Height 5 ft. 8 in. ; Pain 9/10; 13:36 BP 120 / 82; Pulse 98; Resp 20; Pulse Ox 100% on R/A; tl4 14:00 BP 121 / 70; Pulse 105; Resp 20; Pulse Ox 97% on R/A; tl4 14:30 BP 124 / 68; Pulse 109; Resp 20; Pulse Ox 97% on R/A; Pain 5/10; tl4 15:10 BP 125 / 75; Pulse 100; Resp 18; Pulse Ox 99% on R/A; Pain 5/10; tl4 13:01 Body Mass Index 27.98 (83.46 kg, 172.72 cm) hb 13:00 Pain Scale: Adult tl4 13:01 Pain Scale: Adult hb 14:30 Pain Scale: Adult tl4 15:10 Pain Scale: Adult tl4 Vitals: 13:36 Cardiac Rhythm Assessment Regular Sinus rhythm. tl4 Alissa Coma Score: 13:36 Eye Response: spontaneous(4). Motor Response: obeys commands(6). Verbal Response: tl4 oriented(5). Total: 15. ED Course: 12:50 Patient arrived in ED. im 12:51 Nnamdi Steen MD is Attending Physician. ec2 13:03 Triage completed. hb 13:03 Arm band placed on. hb 13:10 Chepe Multani is Primary Nurse. tl4 13:34 Inserted saline lock: 20 gauge in right antecubital area, using aseptic technique. tl4 Blood collected. 13:37 Patient has correct armband on for positive identification. Placed in gown. Bed in low tl4 position. Call light in reach. Side rails up X 1. Provided Education on: ED process. Client placed on continuous cardiac and pulse oximetry monitoring. NIBP monitoring applied. drug safety assistant on. Door closed. Noise minimized. Lights dimmed. Warm blanket given. 13:38 No provider procedures requiring assistance completed. tl4 13:39 Influenza Screen (a \\T\\ B) Sent. tl4 13:39 Basic Metabolic Panel Sent. tl4 13:39 CBC with Diff Sent. tl4 13:39 NT PRO-BNP Sent. tl4 13:39 Troponin HS Sent. tl4 14:02 XRAY Chest (1 view) In Process Unspecified. EDMS 15:11 IV discontinued, intact, bleeding controlled, No redness/swelling at site. Pressure tl4 dressing applied. Administered Medications: 13:19 Drug: DuoNeb Nebulize (3:1) (2.5 mg - 0.5 mg) 3 ml Nebulizer once Route: Nebulizer; tl4 15:07 Follow up: Response: Wheezing diminished tl4 13:19 Drug: predniSONE PO 40 mg PO once Route: PO; tl4 15:07 Follow up: Response: No adverse reaction tl4 13:38 Drug: metoCLOPramide IVP 10 mg IVP once; over 1 to 2 minutes Route: IVP; Site: right tl4 antecubital; 15:06 Follow up: Response: Nausea is decreased tl4 13:39 Drug: NS 0.9% IV 1000 ml IV at 1 bolus Per protocol; 1000 mL bolus Route: IV; Rate: 1 tl4 bolus; Site: right antecubital; 15:06 Follow up: Response: No adverse reaction; IV Status: Completed infusion; IV Intake: tl4 1000ml Medication: 13:36 VIS not applicable for this client. tl4 Intake: 15:06 IV: 1000ml; Total: 1000ml. tl4 Outcome: 14:26 Discharge ordered by . ec2 15:13 Discharged to home ambulatory, tl4 15:13 Condition: stable 15:13 Discharge instructions given to patient, Instructed on discharge instructions, follow up and referral plans. medication usage, Demonstrated understanding of instructions, follow-up care, medications, Prescriptions given X 2, 15:30 Patient left the ED. tl4 Signatures: Dispatcher [employer] EDCelsa Olivares RN RN hb Mendoza, Itzel im Corral, Edwin, MD MD ec2 Logdahl, Chepe tl4 Corrections: (The following items were deleted from the chart) 14:04 13:39 SARS-COV-2 RT PCR+MOL.LAB.BRZ drawn and sent. tl4 EDMS
--- NOTE | 2023-12-15 15:09 | RAD REPORT ---
EXAM DESCRIPTION: RADChest Single View12/15/2023 2:00 pm CLINICAL HISTORY: SOB COMPARISON: Chest Single View dated 10/08/2023; Chest Single View dated 03/03/2021; Chest Pa And Lat ( 2 Views) dated 01/22/2019; Chest Pa And Lat (2 Views) dated 02/02/2017 TECHNIQUE: Portable AP view of the chest. FINDINGS: The lungs are clear. No pneumothorax or effusion. The cardiomediastinal contours are unre markable. IMPRESSION: No acute cardiopulmonary process.
[2023-12-15 18:03] VITALS: TEMP 98.4
[2023-12-15 18:17] VITALS: BP 125/75; O2SAT 99
--- NOTE | 2023-12-17 16:57 | EKG ---
Test Date: 2023-12-15 Test Time: 15:04:38 Clay Preparation Supervisor: TL MEASUREMENT RESULTS: Intervals: Rate: 96 NV: 152 QRSD: 86 QT: 344 QTc: 434 [place]: P: 58 NV: 152 QRS: 87 T: -7 INTERPRETIVE STATEMENTS: Normal sinus rhythm Abnormal QRS-T angle, consider primary T wave abnormality Abnormal ECG Compared to ECG 10/08/2023 23:37:25 T-wave abnormality now present Myocardial infarct finding no longer present Electronically Signed On 12-17-23 16:52:34 MANAGER PERSONNEL SELECTION by Art [place]
== END ==
LOC: ER 12:45
DX: J44.9 Chronic obstructive pulmonary disease, unspecified (principal); R05.9 Cough, unspecified; R07.89 Other chest pain; R06.02 Shortness of breath; H53.8 Other visual disturbances; R51.9 Headache, unspecified; E11.9 Type 2 diabetes mellitus without complications; I10 Essential (primary) hypertension; Z11.52 Encounter for screening for COVID-19; Z72.0 Tobacco use
CPT/HCPCS: 36415; 71045; 80048; 83880; 84484; 85025; 87804; 87811; 93005; 94640; 96361; 96374; 99285; J2765; J7030; J7512; J7613; J7644

== ENCOUNTER → 2024-01-08 | Emergency (ER) | payer SELFPAY ==
[~2024-01-08] MED LIST changes: -ALBUTEROL 2.5 MG/3 ML NEB SOL ONE; -IPRATROPIUM BROM 0.5MG/2.5ML ONE; -METOCLOPRAMIDE 10 MG/2mL INJ ONE; +ONDANSETRON 4 MG/2 ML VIAL ONE; -predniSONE 20 MG TAB ONE
--- OUTSIDE RECORDS SUMMARY | 2024-01-08 06:44 | XMS REPORT | Continuity of Care Document ---
Author Name Unknown Address [address] [facility]. 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 Role Phone Mirza Anjana Primary Care Physician HARINDER MUNOZ Attending Clinician Unavailable Harinder Munoz MD Attending Clinician [phone] Lupe Dejesus RN Attending Clinician Unavailabl e Doctor Unassigned, [place] Attending Clinician U ALFREDO Gonzalez Attending Clinician Unavailable Jacque Tang Attending Clinician [phone] Alfredo Navarro MD Attending Clinician [phone] Landy Jenkins DO Attending Clinician [phone] ALFREDO NAVARRO Admitting Clinician Unavailable Alfredo Navarro MD Admitting Clinician [phone] Payers Payer Name Policy Type Policy Number Effective Date Expirati on Date Source Problems Condition Name Condition Details Condition Category Status Onset Date Resolution Date Last Treatment Date Treating Clinician Comments Source New onset type 2 diabetes mellitus New onset type 2 diabetes mellitus Disease Active 2021-11 00:00: 00 [facility] Obesity (BMI 30-39.9) Obesity (BMI 30-39.9) Disease Active 2021-11 00:00: 00 [facility] No known active problems No known active problems Disease [facility] Allergies, Adverse Reactions, Alerts Allergy Name Allergy Type Status Severity Reaction(s) Onset Date Inactive Date Treating Clinician Comments Source NO KNOWN ALLERGIE S Drug Class Active [facility] Social History Social Habit Start Date Stop Date Quantity Comments Source Gender identity [facility] Sexual orientation U [facility] History of tobacco use Passive smoker [facility] History of Social function 2024-01-07 00:00:00 2024-01-07 00:00:00 [facility] Alcohol intake 2024-01-07 00:00:00 2024-01-07 00:00:00 Current non-drinker of alcohol (finding) [facility] Exposure to SARS-CoV-2 (event) 2022-08-31 00:00:00 2022-09-10 13:58:00 Not sure [facility] Cigarettes smoked current (pack per day) - Reported 2022-09-10 00:00:00 2022-09-10 00:00:00 [facility] Cigarette pack-years 2022-09-10 00:00:00 2022-09-10 00:00:00 [facility] Tobacco use and exposure 2022-09-10 00:00:00 2022-09-10 00:00:00 Smokeless tobacco non-user [facility] Education - What is the highest level of school you have completed or the highest degree you have received? 2022-09-10 00:00:00 2022-09-10 00:00:00 Some college, no degree [facility] Sex Assigned At 1980 00:00:00 1980 00:00:00 [facility] Smoking Status Start Date Stop Date Source Ex-smoker 2022-09-10 00:00:00 2022-09-10 00:00:00 U [facility] Current some day smoker 2021-03-05 00:00:00 [facility] Medications Ordered Medication Name Filled Medication Name Start Date Stop Date Current Medication? Ordering Clinician Indication Dosage Frequency Signature (SIG) Comments Components Source 10 units 2 times daily 2021-11 020 00:00: 00 No SITagliptin (JANUVIA) tablet 100 mg 2021-11 14:00: 00 Yes 100mg 100 mg, Oral, DAILY, First dose on Sun09/11/22 at 0900, Until Discontinu ed, Routine [facility] enoxaparin (LOVENOX) injection 40 mg 2021-11 14:00: 00 Yes 40mg 40 mg, Subcutaneo us, DAILY, First dose on Sun09/11/22 at 0900, Until Discontinu ed, Routine [facility] omeprazole (PRILOSEC) capsule 40 mg 2021-11 14:00: 00 Yes 40mg 40 mg, Oral, DAILY, First dose on Sun09/11/22 at 0900, Until Discontinu ed [facility] metFORMIN (GLUCOPHAGE ) tablet 1,000 mg 2021-11 13:00: 00 Yes 1000mg 1,000 mg, Oral, BID MEALS, First dose (after last modificati on) on Sun09/11/22 at 0800, Until Discontinu ed, Routine [facility] simethicone (GAS RELIEF (SIMETHICON E)) chewable tablet 80 mg 2021-11 07:47: 21 Yes 80mg 80 mg, Oral, QIDPRN, Starting on Sun09/11/22 at 0247, Until Discontinu ed, Routine, Gas [facility] HYDROcodone -acetaminop hen (NORCO 5) 5-325 mg tablet 1 tablet 2021-11 07:35: 21 Yes 1{tbl} 1 tablet, Oral, Q6HPRN, Starting on Sun09/11/22 at 0235, Until Discontinu ed, Routine, Pain (scale 7-10) [facility] traMADoL (ULTRAM) tablet 50 mg 2021-11 07:35: 08 Yes 50mg 50 mg, Oral, Q6HPRN, Starting on Sun09/11/22 at 0235, Until Discontinu ed, Routine, Pain (scale 4-6) [facility] Sliding Scale Insulin-Reg ular + Fsbg Testing 2021-11 07:15: 00 Yes Subcutaneo us, Q4H, First dose (after last modificati on) on 09/11/22 at 0215, Until Discontinu ed, Routine [facility] atorvastati n (LIPITOR) tablet 40 mg 2021-11 02:00: 00 Yes 40mg 40 mg, Oral, QHS, First dose on 09/10/22 at 2100, Until Discontinu ed, Routine [facility] Sliding Scale Insulin-Reg ular + Fsbg Testing 2021-11 02:00: 00 09-11 07:10 :47 No Subcutaneo us, AC+HS, First dose on 09/10/22 at 2100, Until Discontinu ed, Routine [facility] Lancing Device with Lancets (ACCU-CHEK SOFT DEV LANCETS) Kit 2021-11 00:00: 00 Yes [id number] Use as directed [facility] pen needle, diabetic 32 gauge x 1/5" Ndle 2021-11 00:00: 00 Yes [id number] Use as directed [facility] flash glucose scanning reader (FREESTYLE ROSA MARIA 2 READER) [facility] 2021-11 00:00: 00 Yes [id number] 2{appli cator} 2 Applicator s before meals. [facility] Lancing Device with Lancets (ACCU-CHEK SOFT DEV LANCETS) Kit 2021-11 00:00: 00 Yes [id number] Use as directed [facility] pen needle, diabetic 32 gauge x 1/5" Ndle 2021-11 00:00: 00 Yes [id number] Use as directed [facility] flash glucose scanning reader (FREESTYLE ROSA MARIA 2 READER) [facility] 2021-11 00:00: 00 Yes [id number] 2{appli cator} 2 Applicator s before meals. [facility] Lancing Device with Lancets (ACCU-CHEK SOFT DEV LANCETS) Kit 2021-11 00:00: 00 Yes [id number] Use as directed [facility] pen needle, diabetic 32 gauge x 1/5" Ndle 2021-11 00:00: 00 Yes [id number] Use as directed [facility] flash glucose scanning reader (FREESTYLE ROSA MARIA 2 READER) [facility] 2021-11 00:00: 00 Yes [id number] 2{appli cator} 2 Applicator s before meals. [facility] Lancing Device with Lancets (ACCU-CHEK SOFT DEV LANCETS) Kit 2021-11 00:00: 00 Yes [id number] Use as directed [facility] pen needle, diabetic 32 gauge x 1/5" Ndle 2021-11 00:00: 00 Yes [id number] Use as directed [facility] flash glucose scanning reader (FREESTYLE ROSA MARIA 2 READER) [facility] 2021-11 00:00: 00 Yes [id number] 2{appli cator} 2 Applicator s before meals. [facility] Lancing Device with Lancets (ACCU-CHEK SOFT DEV LANCETS) Kit 2021-11 00:00: 00 Yes [id number] Use as directed [facility] pen needle, diabetic 32 gauge x 1/5" Ndle 2021-11 00:00: 00 Yes [id number] Use as directed [facility] flash glucose scanning reader (FREESTYLE ROSA MARIA 2 READER) [facility] 2021-11 00:00: 00 Yes [id number] 2{appli cator} 2 Applicator s before meals. [facility] metFORMIN 1,000 mg tablet 2021-11 00:00: 00 10-12 05:59 :00 No [id number] 1000mg Take 1 tablet by mouth in the morning and 1 tablet in the evening. Take with meals. Do all this for 30 days. [facility] atorvastati n 40 mg tablet 2021-11 00:00: 00 10-12 05:59 :00 No [id number] 40mg Take 1 tablet by mouth at bedtime for 30 days. [facility] insulin aspart protamine-i nsulin aspart (NOVOLOG MIX 70-30 U-100 INSULN) 100 unit/mL (70-30) injection 2021-11 00:00: 00 10-12 05:59 :00 No [id number] 10U inject 10 Units under the skin 2 (two) times daily before breakfast and dinner for 30 days. [facility] NaCl 0.9% (NS) IV infusion 1,000 mL 2021-11 22:45: 00 Yes 1000mL at 125 mL/hr, IV Infusion, CONTINUOUS , Starting on Sun09/10/22 at 1745, Until Discontinu ed, Routine [facility] insulin NPH and regular human 70-30 (70-30 U-100 INSULIN) 100 unit/mL (70-30) injection 10 Units 2021-11 22:45: 00 09-11 04:12 :06 No 10U 10 Units, Subcutaneo us, BIDAC, First dose on Sun09/10/22 at 1745, Until Discontinu ed, Routine [facility] glucagon (GLUCAGEN DIAGNOSTIC KIT) injection 1 mg 2021-11 22:36: 10 Yes 1mg 1 mg, Intramuscu lar, PRN, Starting on Sun09/10/22 at 1736, Until Discontinu ed, JOSE, Blood Glucose < or = 70 mg/dL and patient is unable to swallow or has mental changes. [facility] dextrose 50 % in water (D50W) injection 25 mL 2021-11 22:36: 10 Yes 25mL 25 mL, Slow IV Push, PRN, Starting on Sun09/10/22 at 1736, Until Discontinu ed, JOSE, Blood Glucose < or = 70 mg/dL and patient is unable to swallow or has mental status changes. [facility] ondansetron (ZOFRAN (PF)) injection 4 mg 2021-11 22:36: 02 Yes 4mg 4 mg, Slow IV Push, Q6HPRN, Starting on Sun09/10/22 at 1736, Until Discontinu ed, Routine, Nausea and Vomiting (N/V) [facility] acetaminoph en (TYLENOL) tablet 650 mg 2021-11 22:35: 56 Yes 650mg 650 mg, Oral, Q6HPRN, Starting on Sun09/10/22 at 1735, Until Discontinu ed, Routine, Pain (scale 1-3) [facility] NaCl 0.9% (NS) bolus infusion 1,000 mL 2021-11 20:45: 00 09-10 20:37 :00 No 1000mL at 999 mL/hr, 1,000 mL, IV Infusion, ONCE, 1 dose, On [place] 09/10/22 at 1545, JOSE [facility] iopamidol (ISOVUE 370-500 mL) injection 75 mL 2021-11 19:15: 00 09-10 19:30 :00 No [id number] 75mL 75 mL, Intravenou s, ONCE, 1 dose, On [place] 09/10/22 at 1430, Routine [facility] ondansetron (ZOFRAN (PF)) injection 4 mg 2021-11 19:15: 00 09-10 19:39 :00 No 4mg 4 mg, Slow IV Push, ONCE, 1 dose, On [place] 09/10/22 at 1415, JOSE [facility] morpHINE (4 mg/mL) injection 4 mg 2021-11 19:15: 00 09-10 19:39 :00 No 4mg 4 mg, Slow IV Push, ONCE, 1 dose, On 09/10/22 at 1415, STAT [facility] iohexol (OMNIPAQUE 350 BULK-150 mL) injection 120 mL 03-05 19:30: 00 03-05 19:10 :00 No [id number] 120mL 120 mL, Intravenou s, ONCE, 1 dose, 03/05/21 at 1430, Routine [facility] famotidine (PEPCID (PF)) injection 20 mg 03-05 19:30: 00 03-05 18:37 :00 No 20mg 20 mg, Slow IV Push, ONCE, 1 dose, 03/05/21 at 1430, JOSE [facility] ondansetron (ZOFRAN (PF)) injection 4 mg 03-05 19:30: 00 03-05 18:37 :00 No 4mg 4 mg, Slow IV Push, ONCE, 1 dose, 03/05/21 at 1430, JOSE [facility] morpHINE injection 4 mg 03-05 19:30: 00 03-05 18:37 :00 No 4mg 4 mg, Slow IV Push, ONCE, 1 dose, 03/05/21 at 1430, STAT [facility] NaCl 0.9% (NS) bolus infusion 1,000 mL 03-05 18:30: 00 03-05 19:46 :00 No 1000mL at 999 mL/hr, 1,000 mL, IV Infusion, ONCE, 1 dose, 03/05/21 at 1330, JOSE [facility] omeprazole 40 mg capsule 03-05 00:00: 00 Yes [id number] 40mg Take 1 capsule by mouth daily. [facility] omeprazole 40 mg capsule 03-05 00:00: 00 Yes [id number] 40mg Take 1 capsule by mouth daily. [facility] omeprazole 40 mg capsule 03-05 00:00: 00 Yes [id number] 40mg Take 1 capsule by mouth daily. [facility] omeprazole 40 mg capsule 03-05 00:00: 00 Yes [id number] 40mg Take 1 capsule by mouth daily. [facility] metFORMIN 500 mg tablet 10 00:00: 00 Yes [id number] 500mg Take 1 tablet by mouth 2 (two) times daily. [facility] omeprazole 40 mg capsule 10 00:00: 00 Yes [id number] 40mg Take 1 capsule by mouth daily. [facility] omeprazole 40 mg capsule 10 00:00: 00 Yes [id number] 40mg Take 1 capsule by mouth daily. [facility] metFORMIN 500 mg tablet 10 00:00: 00 09-11 00:00 :00 No [id number] 500mg Take 1 tablet by mouth 2 (two) times daily. [facility] prednisone 20 mg tablet 01-07 00:00: 00 No 1mg Dose Unknown 01-07 00:00: 00 No metformin 500 mg tablet 12-18 00:00: 00 No 1mg neomycin-po lymyxin-hyd rocortisone (CORTISPORI N OTIC SUSPENSION) 3.5-10,000- 1 mg/mL-unit/ mL-% otic susp 08-04 00:00: 00 03-05 00:00 :00 No 3[drp] Place 3 Drops in left ear 4 (four) times daily. [facility] acetaminoph en-codeine (TYLENOL-CO DEINE #3) 300-30 mg tablet 08-04 00:00: 00 03-05 00:00 :00 No 1{tbl} Take 1 tablet by mouth every 6 (six) hours as needed for Pain (scale 4-6) (for cough). [facility] metformin 1,000 mg tablet 06-15 00:00: 00 No 1mg pantoprazol e (PROTONIX) 40 mg EC tablet 05-26 00:00: 00 03-05 00:00 :00 No 40mg Take 1 tablet by mouth daily. [facility] metFORMIN (GLUCOPHAGE ) 500 mg tablet 05-26 00:00: 00 03-05 00:00 :00 No 500mg Take 1 tablet by mouth 2 (two) times daily with meals. [facility] amoxicillin 500 mg capsule 01-12 00:00: 00 No 1mg amoxicillin 250 mg capsule 01-12 00:00: 00 No 1mg Bromfed DM 2 mg-30 mg-10 mg/5 mL syrup 01-12 00:00: 00 No 10mg/5 mL Vital Signs Vital Name Observation Time Observation Value Comments S ourjuany Systolic blood pressure 2024-01-07 13:52:00 136 mm[Hg] [facility] Diastolic blood pressure 2024-01-07 13:52:00 87 mm[Hg] [facility] Heart rate 2024-01-07 13:52:00 100 /min [facility] Body temperature 2024-01-07 13:52:00 36.61 Geovanna [facility] Respiratory rate 2024-01-07 13:52:00 18 /min [facility] Body height 2024-01-07 13:52:00 172.7 cm [facility] Body weight 2024-01-07 13:52:00 87.998 kg [facility] BMI 2024-01-07 13:52:00 29.50 kg/m2 [facility] Oxygen saturation in Arterial blood by Pulse oximetry 2024-01-07 13:52:00 100 /min [facility] Systolic blood pressure 2022-09-11 16:34:00 131 mm[Hg] [facility] Diastolic blood pressure 2022-09-11 16:34:00 80 mm[Hg] [facility] Heart rate 2022-09-11 16:34:00 80 /min [facility] Body temperature 2022-09-11 16:34:00 36.83 Geovanna [facility] Respiratory rate 2022-09-11 16:34:00 18 /min [facility] Oxygen saturation in Arterial blood by Pulse oximetry 2022-09-11 16:34:00 97 /min [facility] Body weight 2022-09-11 07:55:00 82.464 kg [facility] BMI 2022-09-11 07:55:00 27.64 kg/m2 [facility] Body height 2022-09-11 01:03:00 172.7 cm [facility] Systolic blood pressure 2021-03-05 20:00:00 119 mm[Hg] [facility] Diastolic blood pressure 2021-03-05 20:00:00 73 mm[Hg] [facility] Heart rate 2021-03-05 20:00:00 78 /min [facility] Respiratory rate 2021-03-05 20:00:00 17 /min [facility] Oxygen saturation in Arterial blood by Pulse oximetry 2021-03-05 20:00:00 99 /min [facility] Body temperature 2021-03-05 18:12:00 36.28 Geovanna [facility] Body height 2021-03-05 18:12:00 172.7 cm [facility] Body weight 2021-03-05 18:12:00 101.606 kg [facility] BMI 2021-03-05 18:12:00 34.06 kg/m2 [facility] BP Systolic 2022-09-14 13:45:00 119 mm[Hg] [...] /min Respiratory Rate 2016-06-15 11:10:00 17.00 /min Height Measured 2016-06-02 13:32:00 69.49 inches Body Temperature 2016-06-02 13:32:00 97.90 degrees Heart Rate 2016-06-02 13:32:00 81.00 /min Respiratory Rate 2016-06-02 13:32:00 15.00 /min BP Systolic 2016-06-02 13:32:00 123 mm[Hg] BP Diastolic 2016-06-02 13:32:00 79 mm[Hg] Weight Measured 2016-06-02 13:32:00 232.20 pounds BP Systolic 2016-05-25 11:02:00 120 mm[Hg] BP [...] Date / Time Performed Performing Clinician Source ASSIGNMENT OF BENEFITS 2024-01-07 14:52:26 Docto r Unassigned, [place] [facility] CONSENT/REFUSAL FOR DIAGNOSIS AND TREATMENT 2024-01-07 13:41:19 Doctor Unassigned, [place] [facility] REFERRAL- REQUEST/RESPONSE 2023-06-06 05:01:00 Doctor Unassigned, [place] [facility] POCT GLUCOSE (AUTOMATED) 2022-09-11 16:34:00 Alfredo Navarro [facility] POCT GLUCOSE (AUTOMATED) 2022-09-11 12:44:00 Alfredo Navarro [facility] COMP. METABOLIC PANEL (14047) 2022-09-11 07:58:00 Alfredo Navarro [facility] LIPID PANEL (27287)(TOTAL CHOLESTEROL, TRIGLYCERIDES, HDL) 2022-09-11 07:58:00 Alfredo Navarro [facility] LOW-DENSITY LIPOPROTEIN, DIRECT 2022-09-11 07:58:00 [facility] 2022-09-11 07:29:00 Melanie [facility] POCT GLUCOSE (AUTOMATED) 2022-09-11 01:22:00 Melanie [facility] POCT GLUCOSE (AUTOMATED) 2022-09-10 20:47[facility] 2022-09-10 19:16:33 Jacque Wells [facility] LIPASE 2022-09-10 18:43:00 [facility] COMP. METABOLIC PANEL (72758) 2022-09-10 18:43:00 Singer [facility] CBC WITH DIFF 2022-09-10 18:43:[address] [facility] GLYCOSYLATED HEMOGLOBIN (A1C) 2022-09-10 18:43:00 [facility] 2022-09-10 18:43:00 [facility] NOTICE OF PRIVACY PRACTICES 2022-09-10 18:35:36 Doctor Unassigned, [place] [facility] CONSENT/REFUSAL FOR DIAGNOSIS AND TREATMENT 2022-09-10 18:35:02 Doctor Unassigned, [place] [facility] CT ABDOMEN PELVIS W CONTRAST 2021-03-05 19:23:44 Landy Jenkins [facility] LIPASE 2021-03-05 18:30:00 [facility] 2021-03-05 18:30:00 Landy Jenkins Un [facility] HEPATIC FUNCTION PANEL (64976) (ALB,T.PRO,BILI T,BU/BC,ALT,AST,ALK PHOS) 2021-03-05 18:30:00 Landy Jenkins [facility] BASIC METABOLIC PANEL (NA, K, CL, CO2, GLUCOSE, BUN, CREATININE, CA) 2021-03-05 18:30:00 Landy Jenkins [facility] CBC WITH DIFF 2021-03-05 18:30:00 [facility] 2021-03-05 18:30:00 [facility] OF PRIVAC[facility] PRACT[facility] 2021-03-05 18:07:12 Doctor Unassigned, [place] [facility] CONSENT/REFUSAL FOR DIAGNOSIS AND TREATMENT 2021-03-05 18:07:01 Doctor Unassigned, [place] [facility] Plan of Care Planned Activity Planned Date Details Comments Source Goal Plan of Care Note [code = 49158-9] Goal Plan of Care Note [code = 63392-4] Goal Plan of Care Note [code = 20805-3] Goal Plan of Care Note [code = 75649-5] Goal Plan of Care Note [code = 79291-0] Goal Plan of Care Note [code = 33197-6] Goal Plan of Care Note [code = 57261-0] Goal Plan of Care Note [code = 45982-3] Goal Plan of Care Note [code = 69850-4] Goal Plan of Care Note [code = 51704-1] Goal Plan of Care Note [code = 44387-4] Goal Plan of Care Note [code = 59437-8] Goal Plan of Care Note [code = 31464-0] Encounters Start Date/Time End Date/Time Encounter Type Admission Type Attending [facility] Care Department Encounter ID Source 2024-01-07 07:54:00 2024-01-07 08:48:00 Emergency [id number] 2024-01-07 07:54:00 2024-01-07 08:48:00 Emergency Harinder Munoz [facility] [id number] [id number] [id number] [facility] 2023-06-28 10:37:44 2023-06-28 10:37:44 Outpatient SFA [facility] [id number]lee 2023-06-21 08:19:38 2023-06-21 08:19:38 Outpatient SFA [facility] [id number] [address]lee 2023-06-20 16:02:39 2023-06-20 16:02:39 Outpatient SFA [facility] [id number]lee 2023-06-09 00:00:00 2023-06-09 00:00:00 Lupe Morel [facility] [id number] [id number] [id number] [id number] [facility] 2023-06-09 00:00:00 2023-06-09 00:00:00 Patient Secure Msg Doctor Unassigned, [place] [facility] [id number] 350.1.13.10 4.2.7.2.686 [id number] [facility] 2023-06-06 00:00:00 2023-06-06 00:00:00 Orders Only Doctor Unassigned, [place] [facility] [id number] 350.1.13.10 4.2.7.2.686 [id number] [facility] 2023-05-30 16:25:18 2023-05-30 16:25:18 Outpatient SFA [facility] [id number]lee 2022-09-14 13:42:01 2022-09-14 13:42:01 Outpatient [facility] [id number] Her[address]lee 2022-09-14 00:00:00 2022-09-14 00:00:00 Outpatient Visit [id number] 2022-09-10 13:44:00 2022-09-11 12:54:00 Outpatient X ALFREDO NAVARRO [facility] [id number] [facility] 2022-09-10 13:44:00 2022-09-11 12:54:00 Emergency WellsJacque recinos Jelani [facility] 1.2.840.114 350.1.13.10 4.2.7.2.686 [id number] [facility] 2021-03-05 13:11:00 2021-03-05 15:35:00 Emergency Landy Jenkins [facility] [id number] 350.1.13.10 4.2.7.2.686 [id number] [facility] 2021-03-05 13:06:00 2021-03-05 13:06:00 Emergency X [facility] [id number] [facility] Results Test Description Test Time Test Comments Results Result Co mments Source TSH, THIRD [id number] 05:37:35* Test Item Value Reference Range Interpretation Comme [facility] TSH, THIRD GENERATION (test code = 2821) 2.130 UIU/ML 0.400-4.100 UNLESS OTHERWISE INDICATED, ALL TESTING PERFORMED AT [facility] [address] [place] [address] RESPIRATORY THERAPIST ASSISTANT: ANGELA DE ANDA M.D. [place] NUMBER [id number] [facility] [place] [place]. [id number] HEMOGLOBIN [id number] 04:21:46* Test Item Value Reference Range Interpretation Comme [facility] HEMOGLOBIN A1c (test code = 87889) 11.3 % 4.2-5.6 H [employer] GUIDELINES FOR HGB A1C: [...] ALTERNATE TESTING OR LABORATORY CONSULTATION. COMPREHENSIVE METABOLIC [id number] 02:47:37* Test Item Value Reference Range Interpretation Comme [facility] GLUCOSE (test code = 2217) 365 MG/DL 70-99 H BUN (test code = 2208) 9 MG/DL 6-20 CREATININE (test code = 2214) 0.71 MG/DL 0.80-1.40 L eGFR (2020 CKD-EPI) (test code = ) 117 ML/MIN/1.73 >60 CALC BUN/CREAT (test code = 2234) 13 RATIO 6-28 SODIUM (test code = 2230) 136 MEQ/L 133-146 POTASSIUM (test code = 2227) 4.1 MEQ/L 3.5-5.4 CHLORIDE (test code = 2214) 102 MEQ/L 95-107 CARBON DIOXIDE (test code = 2205) 22 MEQ/L 19-31 CALCIUM (test code = 2208) 9.0 MG/DL 8.5-10.5 PROTEIN, TOTAL (test code = 2228) 6.4 G/DL 6.1-8.3 ALBUMIN (test code = 2200) 4.1 G/DL 3.5-5.2 CALC GLOBULIN (test code = 2239) 2.3 G/DL 1.9-3.7 CALC A/G RATIO (test code = 2233) 1.8 RATIO 1.0-2.6 BILIRUBIN, TOTAL (test code = 2206) 0.2 MG/DL See_Comment [Automated me ssage] The system which generated this result transmitted reference range: <=1.2. The reference range was not used to interpret this result as normal/abnormal. ALKALINE PHOSPHATASE (test code = 2203) 114 U/L 40-119 AST (test code = 2217) 23 U/L 9-50 ALT (test code = 2218) 41 U/L 5-50 LIPID [id number] 02:47:37* Test Item Value Reference Range Interpretation Comme nts CHOLESTEROL (test code = 2209) 225 MG/DL <200 H TRIGLYCERIDES (test code = 2231) 465 MG/DL <150 H HDL CHOLESTEROL (test code = 2219) 43 MG/DL >39 CALC LDL CHOL (test code = 2236) (NOTE) MG/DL <100 UNABLE TO CALCUL ATE [...] SPECIMENS. FOR MOREINFORMATION, SEE CLIENT ANNOUNCEMENT AT [email or web address] CalcLDL-C RISK RATIO LDL/HDL (test code = 2238) (NOTE) RATIO <3.55 UNABLE TO VIRGIL CULATE POCT GLUCOSE (AUTOMATED)2022-09-11 16:54:15* Test Item Value Reference Range Interpretation Comme nts POCT GLU (test code = 4871527892) 234 mg/dL 70-110 H Lab Interpretation (test cod e = 10270-5) [facility] LIP[facility]OTE[facility], [id number] 15:18:30* Test Item Value Reference Range Interpretation Comme nts dLDL Chol (test code = 43231-7) 71 mg/dL See_Comment [Automated messa ge] The system which generated this result transmitted reference range: <=130. The reference range was not used to interpret this result as normal/abnormal. Lab Interpretation (test code = 18138-1) Normal [facility] HospitalLIP[facility] PANEL (31797)(TOTAL CHOLESTEROL, TRIGLYCERIDES, HDL)2022-09-11 13:58:08* Test Item Value Reference Range Interpretation Comme nts CHOL (test code = 7461098602) 227 mg/dL 120-200 H HDL (test code = 3932313232) 28 mg/dL See_Comment L [Automated messa ge] The system which generated this result transmitted reference range: >=40. The reference range was not used to interpret this result as normal/abnormal. HDLC RATIO (test code = 1610879780) See_Comment H [Automated [employer]oc[employer] ge] The system which generated this result transmitted reference range: <=5.0. The reference range was not used to interpret this result as normal/abnormal. TRIG (test code = 4034143439) 1291 mg/dL 30-170 H LDL CHOL (test code = 05944-2) Unable to calcul ate LDL due to elevated triglyceride level greater than 400 mg/dL. VLDL (test code = 1379056060) Unable to calcul ate VLDL due to elevated triglyceride level greater than 710 mg/dL. Lab Interpretation (test code = 15060-9) [facility]2022-09-11 12:50:53* Test Item Value Reference Range Interpretation Comme nts POCT GLU (test code = 3595368625) 247 mg/dL 70-110 H Lab Interpretation (test cod e = 50143-8) [facility]normal [facility] HospitalCOMP. METABOLIC PANEL (89222)2022-09-11 09:41:07* Test Item Value Reference Range Interpretation Comme nts NA (test code = 3823177137) 135 mmol/L 135-145 K (test code = 2464851637) 3.5 mmol/L 3.5-5 CL (test code = 2169169956) 104 mmol/L 98-108 CO2 TOTAL (test code = 6298897878) 22 mmol/L 23-31 L AGAP (test code = 6086110409) 2-16 BUN (test code = 3575420114) 13 mg/dL 7-23 GLUCOSE (test code = 7059240031) 242 mg/dL 70-110 H CREATININE (test code = 7082066210) 0.64 mg/dL 0.6-1.25 TOTAL BILI (test code = 0254686981) 0.3 mg/dL 0.1-1.1 CALCIUM (test code = 6023611427) 8.0 mg/dL 8.6-10.6 L T PROTEIN (test code = 7056277588) 5.8 g/dL 6.3-8.2 L ALBUMIN (test code = 0271929931) 3.4 g/dL 3.5-5 L ALK PHOS (test code = 9743361797) 111 U/L 34-122 ALTv (test code = 1742-6) 23 U/L 5-50 AST(SGOT) (test code = 1870353054) 21 U/L 13-40 eGFR (test code = 1464363549) mL/min/1.73m2 NIKO (test code = NIKO) Association [...] imaging tests). Lab Interpretation (test code = 57275-8) Abnormal [facility] GLUCOSE (AUTOMATED)2022-09-11 07:33:20* Test Item Value Reference Range Interpretation Comme [facility] POCT GLU (test code = 9743496555) 204 mg/dL 70-110 H Lab Interpretation (test cod e = 04576-9) Abnormal [facility] GLUCOSE (AUTOMATED)2022-09-11 01:28:49* Test Item Value Reference Range Interpretation Comme [facility] POCT GLU (test code = 8183141309) 373 mg/dL 70-110 H Lab Interpretation (test cod e = 67504-1) Abnormal [facility] GLUCOSE (AUTOMATED)2022-09-10 20:50:37* Test Item Value Reference Range Interpretation Comme [facility] POCT GLU (test code = 1657031557) 272 mg/dL 70-110 H Lab Interpretation (test cod e = 16442-1) Abnormal [facility] HospitalGLYCOSYLATED HEMOGLOBIN (A1C)2022-09-10 20:06:25* Test Item Value Reference Range Interpretation Comme [facility] HGB A1C (test code = 4548-4) 12.3 % 4-5.7 H NIKO (test code = NIKO) Reference RangesNormal: <5.7%Prediabetes: 5.7 - 6.4%Diabetes: > 6.5% Lab Interpretation (test code = 09413-2) Abnormal [facility] HospitalComplete Metabolic Hdnbx4854-93-39 19:37:52* Test Item Value Reference Range Interpretation Comme nts NA (test code = 1932594269) 134 mmol/L 135-145 L K (test code = 8284485793) 4.1 mmol/L 3.5-5 CL (test code = 4517794275) 101 mmol/L 98-108 CO2 TOTAL (test code = 4464161312) 20 mmol/L 23-31 L AGAP (test code = 6102942299) 2-16 BUN (test code = 5755018731) 10 mg/dL 7-23 GLUCOSE (test code = 7999725224) 468 mg/dL 70-110 HH CREATININE (test code = 4367808659) 0.75 mg/dL 0.6-1.25 TOTAL BILI (test code = 3237300242) 0.6 mg/dL 0.1-1.1 CALCIUM (test code = 0194556599) 8.7 mg/dL 8.6-10.6 T PROTEIN (test code = 6588103057) 6.6 g/dL 6.3-8.2 ALBUMIN (test code = 1812106400) 4.2 g/dL 3.5-5 ALK PHOS (test code = 8686856787) 123 U/L 34-122 H ALTv (test code = 1742-6) 26 U/L 5-50 AST(SGOT) (test code = 2909769074) 22 U/L 13-40 eGFR (test code = 4874454494) mL/min/1.73m2 NIKO (test code = NIKO) Association [...] imaging tests). Lab Interpretation (test code = 93767-4) Abnormal [facility] HospitalLipase, Uhaes3572-67-73 19:04:41* Test Item Value Reference Range Interpretation Comme nts LIPASE (test code = 4236095670) 111 U/L 0-220 Lab Interpretation (test cod e = 20360-3) Normal [facility] HospitalCB with Opgujmuyuadj0719-67-33 18:52:20* Test Item Value Reference Range Interpretation Comme nts WBC (test code = 6690-2) See_Comment [ASSURED PHARMACY] The system which generated this result transmitted reference range: 4.20 - 10.70 10*3/?L. The reference range was not used to interpret this result as normal/abnormal. RBC (test code = 789-8) See_Comment [ASSURED PHARMACY] The system which generated this result transmitted [...] g/dL 31.2-35 H RDW-SD (test code = 47288-9) 37.7 fL 38.5-51.6 L RDW-CV (test code = 788-0) 11.9 % 12.1-15.4 L PLT (test code = 777-3) See_Comment [Automated messa ge] The system which generated this result transmitted reference range: 150 - 328 10*3/?L. The reference range was not used to interpret this result as normal/abnormal. MPV (test code = 24231-1) 11.9 fL 9.8-13 NRBC/100 WBC (test code = 4384625087) See_Comment [Automated [employer] ssage] The system which generated this result transmitted reference range: 0.0 - 10.0 /100 WBCs. The reference range was not used to interpret this result as normal/abnormal. NRBC x10^3 (test code = 2549843319) See_Comment [Automated messa ge] The system which generated this result transmitted reference range: 10*3/?L. The reference range was not used to interpret this result as normal/abnormal. GRAN MAT (NEUT) % (test code = 770-8) 56.2 % IMM GRAN % (test code = 3780760768) 0.40 % LYMPH % (test code = 736-9) 36.1 % MONO % (test code = 5905-5) 4.8 % EOS % (test code = 713-8) 1.7 % BASO % (test code = 706-2) 0.8 % GRAN MAT x10^3(ANC) (test code = 5137724521) 4.38 10*3/uL 1.99-6.95 IMM GRAN x10^3 (test code = 5648184359) 0.03 10*3/uL 0-0.06 LYMPH x10^3 (test code = 731-0) 2.81 10*3/uL 1.09-3.23 MONO x10^3 (test code = 742-7) 0.37 10*3/uL 0.36-1.02 EOS x10^3 (test code = 711-2) 0.13 10*3/uL 0.06-0.53 BASO x10^3 (test code = 704-7) 0.06 10*3/uL 0.01-0.09 Lab Interpretation (test code = 30346-4) Abnormal [facility] HospitalCT ABDOMEN PELVIS W UKYQNVGE1419-16-73 20:31:35Diverticulosis without diverticulitis. Hepatomegaly. Preliminary Report Dictated [...] reviewed this study and agree with the abovereport.[facility] Serviceskayleen K7140-56-21 19:10:36* Test Item Value Reference Range Interpretation Comme nts TROPONIN I (test code = 5103835344) 0.001 ng/mL See_Comment [Automated message] The system [...] biotin. ? Lab Interpretation (test code = 50416-6) Normal [facility] HospitalHepatic Function Panel (ALB, T.PRO, BILI T, BU/BC, ALT, AST, ALK PHOS)2021-03-05 18:59:14* Test Item Value Reference Range Interpretation Comme nts TOTAL BILI (test code = 1896578890) 0.4 mg/dL 0.1-1.1 BILI UNCON (test code = 0510790041) 0.3 mg/dL 0.1-1.1 BILI CONJ (test code = 3948335431) 0.0 mg/dL 0.0-0.3 T PROTEIN (test code = 8811580780) 6.6 g/dL 6.3-8.2 ALBUMIN (test code = 0877825731) 4.2 g/dL 3.5-5.0 ALK PHOS (test code = 4729903531) 97 U/L 34-122 ALTv (test code = 1742-6) 22 U/L 5-50 AST(SGOT) (test code = 0115956255) 23 U/L 13-40 Lab Interpretation (test cod e = 75247-8) Normal [facility] HospitalBasic Metabolic Panel (NA, K, CL, CO2, GLUCOSE, BUN, CREATININE, CA)2021-03-05 18:58:54* Test Item Value Reference Range Interpretation Comme nts NA (test code = 5235610859) 136 mmol/L 135-145 K (test code = 2060289506) 4.1 mmol/L 3.5-5.0 CL (test code = 7761682677) 104 mmol/L 98-108 CO2 TOTAL (test code = 5600336559) 24 mmol/L 23-31 AGAP (test code = 8173973661) 2-16 BUN (test code = 4440794669) 15 mg/dL 7-23 GLUCOSE (test code = 3310943584) 207 mg/dL 70-110 H CREATININE (test code = 2032487789) 0.74 mg/dL 0.60-1.25 CALCIUM (test code = 9011632447) 8.4 mg/dL 8.6-10.6 L eGFR (test code = 4581371549) mL/min/1.73m2 NIKO (test code = NIKO) Association [...] imaging tests). Lab Interpretation (test code = 82805-7) Abnormal [facility] HospitalLipase Tjsoa4159-19-81 18:58:54* Test Item Value Reference Range Interpretation Comme nts LIPASE (test code = 3173708625) 140 U/L 0-220 Lab Interpretation (test cod e = 89544-5) Normal [facility] HospitalUrinalysis2021-04-10 18:51:20* Test Item Value Reference Range Interpretation Comme nts APPEARANCE (test code = 1910943034) Clear Clear COLOR (test code = 4517120001) Yellow Yellow PH (test code = 4975347579) 4.8-8.0 SP GRAVITY (test code = 3385877318) 1.003-1.030 GLU U QUAL (test code = 5140393375) 50 mg/dL Normal A BLOOD (test code = 5555704076) Negative Negative KETONES (test code = 2408966615) Negative Negative PROTEIN (test code = 2887-8) Negative Negative UROBILIN (test code = 4368230359) Normal Normal BILIRUBIN (test code = 7737958022) Negative Negative NITRITE (test code = 0669426602) Negative Negative LEUK ZAY (test code = 9590344369) Negative Negative RBC/HPF (test code = 5469318609) See_Comment [Automated messa ge] The system which generated this result transmitted reference range: 0 - 3 HPF. The reference range was not used to interpret this result as normal/abnormal. WBC/HPF (test code = 9744633973) <1 See_Comment [Automated messa ge] The system which generated this result transmitted reference range: 0 - 5 HPF. The reference range was not used to interpret this result as normal/abnormal. BACTERIA (test code = 2076633144) Negative Negative MUCOUS (test code = 3233249643) Slight Negative LPF A SQ EPITH (test code = 0839745380) <1 HPF Lab Interpretation (test code = 94003-1) Abnormal [facility] with Epkqbacatrjv5311-53-43 18:46:34* Test Item Value Reference Range Interpretation [...] g/dL 31.2-35.0 H RDW-SD (test code = 15643-7) 39.9 fL 38.5-51.6 RDW-CV (test code = 788-0) 12.5 % 12.1-15.4 PLT (test code = 777-3) See_Comment [Automated [employer] ge] The system which generated this result transmitted reference range: 150 - 328 10*3/?L. The reference range was not used to interpret this result as normal/abnormal. MPV (test code = 44346-9) 11.9 fL 9.8-13.0 NRBC/100 WBC (test code = 4128507728) See_Comment [Automated [employer] ssage] The system which generated this result transmitted reference range: 0.0 - 10.0 /100 WBCs. The reference range was not used to interpret this result as normal/abnormal. NRBC x10^3 (test code = 0100409606) <0.01 See_Comment [Automated Alloc[employer] ge] The system which generated this result transmitted reference range: 10*3/?L. The reference range was not used to interpret this result as normal/abnormal. GRAN MAT (NEUT) % (test code = 770-8) 54.6 % IMM GRAN % (test code = 3287898398) 0.40 % LYMPH % (test code = 736-9) 36.8 % MONO % (test code = 5905-5) 5.3 % EOS % (test code = 713-8) 2.1 % BASO % (test code = 706-2) 0.8 % GRAN MAT x10^3(ANC) (test code = 2589851308) 3.92 10*3/uL 1.99-6.95 IMM GRAN x10^3 (test code = 4810564969) 0.03 10*3/uL 0.00-0.06 LYMPH x10^3 (test code = 731-0) 2.64 10*3/uL 1.09-3.23 MONO x10^3 (test code = 742-7) 0.38 10*3/uL 0.36-1.02 EOS x10^3 (test code = 711-2) 0.15 10*3/uL 0.06-0.53 BASO x10^3 (test code = 704-7) 0.06 10*3/uL 0.01-0.09 Lab Interpretation (test code = 72118-2) Abnormal [facility] HospitalLIPID [id number] 00:00:00* Test Item Value Reference Range Interpretation Comme nts CHOLESTEROL (test code = 2210) 185 MG/DL TRIGLYCERIDES (test code = 2232) 162 MG/DL HDL CHOLESTEROL (test code = 2220) 41 MG/DL CALC LDL CHOL (test code = 2237) 112 MG/DL RISK RATIO LDL/HDL (test cod e = 2238) 2.72 RATIO LIPID [id number] 00:00:00* Test Item Value Reference Range Interpretation Comme nts CHOLESTEROL (test code = 2210) 185 MG/DL TRIGLYCERIDES (test code = 2232) 162 MG/DL HDL CHOLESTEROL (test code = 2220) 41 MG/DL CALC LDL CHOL (test code = 2237) 112 MG/DL RISK RATIO LDL/HDL (test cod e = 2238) 2.72 RATIO CBC W/AUTO [id number] 00:00:00* Test Item Value Reference Range Interpretation [...] code = 1015) 166 K/UL CBC W/AUTO [id number] 00:00:00* Test Item Value Reference Range Interpretation [...] code = 1015) 166 K/UL CBC W/AUTO [id number] 00:00:00* Test Item Value Reference Range Interpretation [...] code = 1015) 166 K/UL COMPREHENSIVE METABOLIC [id number] 00:00:00* Test Item Value Reference Range Interpretation Comme nts GLUCOSE (test code = 2217) 121 MG/DL BUN (test code = 2208) 12 MG/DL CREATININE (test code = 2214) 0.87 MG/DL eGFR AMER. (test cod e = 68137) 126 ML/MIN/1.73 eGFR NON- AMER. (test code = 90066) 109 ML/MIN/1.73 CALC BUN/CREAT (test code = [...] code = 2219) 26 U/L COMPREHENSIVE METABOLIC [id number] 00:00:00* Test Item Value Reference Range Interpretation Comme nts GLUCOSE (test code = 2217) 121 MG/DL BUN (test code = 2208) 12 MG/DL CREATININE (test code = 2214) 0.87 MG/DL eGFR AMER. (test cod e = 67128) 126 ML/MIN/1.73 eGFR NON- AMER. (test code = 24266) 109 ML/MIN/1.73 CALC BUN/CREAT (test code = [...] (test code = 2219) 26 U/L HEMOGLOBIN [id number] 00:00:00* Test Item Value Reference Range Interpretation Comme nts HEMOGLOBIN A1c (test code = 58265) 6.4 % HEMOGLOBIN [id number] 00:00:00* Test Item Value Reference Range Interpretation Comme nts HEMOGLOBIN A1c (test code = 23549) 6.4 % HEMOGLOBIN [id number] 00:00:00* Test Item Value Reference Range Interpretation Comme nts HEMOGLOBIN A1c (test code = 00503) 6.4 % CBC W/AUTO [id number] 00:00:00* Test Item Value Reference Range Interpretation [...] code = 1015) 193 K/UL CBC W/AUTO [id number] 00:00:00* Test Item Value Reference Range Interpretation [...] code = 1015) 193 K/UL CBC W/AUTO [id number] 00:00:00* Test Item Value Reference Range Interpretation [...] (test code = 1015) 193 K/UL HEMOGLOBIN [id number] 00:00:00* Test Item Value Reference Range Interpretation Comme nts HEMOGLOBIN A1c (test code = 53086) 7.8 % HEMOGLOBIN [id number] 00:00:00* Test Item Value Reference Range Interpretation Comme nts HEMOGLOBIN A1c (test code = 97126) 7.8 % HEMOGLOBIN [id number] 00:00:00* Test Item Value Reference Range Interpretation Comme nts HEMOGLOBIN A1c (test code = 25673) 7.8 % THYROID II PROFILE (T3U, T4, [...] code = 2821) 2.2 UIU/ML COMPREHENSIVE METABOLIC [id number] 00:00:00* Test Item Value Reference Range Interpretation Comme nts GLUCOSE (test code = 2217) 98 MG/DL BUN (test code = 2208) 14 MG/DL CREATININE (test code = 2214) 0.82 MG/DL eGFR AMER. (test cod e = 61231) 132 ML/MIN/1.73 eGFR NON- AMER. (test code = 87285) 114 ML/MIN/1.73 CALC BUN/CREAT (test code = [...] code = 2219) 194 U/L COMPREHENSIVE METABOLIC [id number] 00:00:00* Test Item Value Reference Range Interpretation Comme nts GLUCOSE (test code = 2217) 98 MG/DL BUN (test code = 2208) 14 MG/DL CREATININE (test code = 2214) 0.82 MG/DL eGFR AMER. (test cod e = 86983) 132 ML/MIN/1.73 eGFR NON- AMER. (test code = 86840) 114 ML/MIN/1.73 CALC BUN/CREAT (test code = [...] (test code = 2219) 194 U/L LIPID [id number] 00:00:00* Test Item Value Reference Range Interpretation Comme nts CHOLESTEROL (test code = 2210) 207 MG/DL TRIGLYCERIDES (test code = 2232) 212 MG/DL HDL CHOLESTEROL (test code = 2220) 34 MG/DL CALC LDL CHOL (test code = 2237) 131 MG/DL RISK RATIO LDL/HDL (test cod e = 2238) 3.84 RATIO LIPID [id number] 00:00:00* Test Item Value Reference Range Interpretation Comme nts CHOLESTEROL (test code = 2210) 207 MG/DL TRIGLYCERIDES (test code = 2232) 212 MG/DL HDL CHOLESTEROL (test code = 2220) 34 MG/DL CALC LDL CHOL (test code = 2237) 131 MG/DL RISK RATIO LDL/HDL (test cod e = 2238) 3.84 RATIO CBC W/AUTO [id number] 00:00:00* Test Item Value Reference Range Interpretation [...] (test code = 1016) (NOTE) CBC W/AUTO [id number] 00:00:00* Test Item Value Reference Range Interpretation [...] (test code = 1016) (NOTE) CBC W/AUTO [id number] 00:00:00* Test Item Value Reference Range Interpretation [...] K/UL COMMENTS (test code = 1016) (NOTE) Notes Date/Time Note Provider Source 2024-01-07 08:45:00 aAJBz5+PxQpT7vW/V86Q deBw8FG6mtp SDNkMJw8iGMa5cpf+JVEjhSvHyDHHbr en8577-85-24J63:45:00 Written/verbal d/c instructions, out of er no distress 77225-5Rarqulsli department WtofQI7438-28-75I32:04:21Emerge njy department NoteTXT1.2.840.761720.1.13.104. 2.7.2.896086|[id number] ble for patient mlvw31554-6RuunJOMALEBSZYXDgfio tted C-CDA narrative [id number] M. Alonso RN[address]TXTX[address] 19368LELNBPLHIVMAUIGFSNGBGT6652 -02-12T10:04:211.2.840.071430.1 .72.3.15|1.2.840.913198.1.13.10 4.2.7.2.727879_[id number] Lakisha ThorntonZack Gupta RN [facility] 2024-01-07 07:50:22 axu2rw5tTeXyWe8v0Ml5 fw4Vuzof7W4 54dzbDuGnmKuziQhtPyORiqHUgAVvyq 3h5338-99-05W42:50:22 Pt arrived via private car with c/o von foot pain and wounds between his toes. States that it started about 2 weeks ago. Pt states he is IDDM that he has not been taking as ordered. 52784-4Mlttazbgr department Triage prcbNJ1771-96-03F85:53:57[facility] Triage noteTXT1.2.840.439339.1.13.104. 2.7.2.015255|[id number] ble for patient dayz91168-7Krxmdvlaw department NoteLNNARRATIVEFormatted C-CDA narrative [id number] L Barker RNUT[address]TXTX[address] 39384QJYQEXPBUKPMQRRNQCMYOJ5987 -02-12T07:53:571.2.840.167403.1 .72.3.15|1.2.840.772648.1.13.10 4.2.7.2.727879_[id number] Tanja Womack RN [facility]
[2024-01-08 07:46] LABS: Hematocrit 40.6 % (39.6-49.0); Lymphocytes % 27.9 % (15.3-44.8); MCV 85.9 fL (80-100); MPV 9.8 fL (7.6-11.3); Platelets 138 thou/uL (152-406); RBC Red Blood Cell Count 4.73 M/uL (4.33-5.43)
[2024-01-08 07:47] LABS: Absolute Lymphocytes (CBC) 1.3 K/uL (0.7-4.9)
[2024-01-08 08:02] LABS: Albumin 3.3 g/dL (3.4-5.0); Bilirubin Total 0.5 mg/dL (0.2-1.0); Potassium 3.6 mEq/L (3.5-5.1); Protein, Total 7.4 g/dL (6.4-8.2)
--- NOTE | 2024-01-08 08:27 | ER ---
Nurse's Notes [facility] Name: Yehuda Giraldo Age: 43 yrs Sex: Male : 1980 Arrival Date: 01/08/2024 Time: 06:40 Bed 6 Private MD: Diagnosis: Balanitis;Tinea pedis;Nausea Presentation: 01/08 06:50 Chief complaint: Patient states: WOKE UP WITH ABD PAIN, N/V. RAW BETWEEN HIS TOES. ALSO jj7 STATES HE HAS CUTS/WOUNDS ON HIS PENS. Coronavirus screen: At this time, the client does not indicate any symptoms associated with coronavirus-19. Ebola Screen: No symptoms or risks identified at this time. Initial Sepsis Screen: Does the patient meet any 2 criteria? No. Patient's initial sepsis screen is negative. Does the patient have a suspected source of infection? No. Patient's initial sepsis screen is negative. Risk Assessment: Do you want to hurt yourself or someone else? Patient reports no desire to harm self or others. Onset of symptoms. 06:50 Method Of Arrival: Ambulatory [facility] 06:50 Acuity: SAAR 3 jj7 Triage Assessment: 07:17 General: Appears in no apparent distress. comfortable, Behavior is calm, cooperative, jj7 appropriate for age. Pain: Complains of pain in abdomen. GI: Reports lower abdominal pain, upper abdominal pain, nausea, vomiting. : Reports CUTS ON PENIS. Historical: - Allergies: 07:17 No Known Allergies; jj7 - PMHx: 07:17 COPD; Diabetes - NIDDM; Diverticulitis; Hypertensive disorder; RA; jj7 - PSHx: 07:17 Cholecystectomy; jj7 - Immunization history:: Adult Immunizations not up to date, Client reports having NOT received the Covid vaccine. - Social history:: Smoking status: Patient reports the use of cigarette tobacco products, 1 PP MEGAN. Screenin:20 [facility] ED Fall Risk Assessment (Adult) History of falling in the last 3 months, jj7 including since admission No falls in past 3 months (0 pts) Confusion or Disorientation No (0 pts) Intoxicated or Sedated No (0 pts) Impaired Gait No (0 pts) Mobility Assist Device Used No (0 pt) Altered Elimination No (0 pt) Score/Fall Risk Level 0 - 2 = Low Risk Oriented to surroundings, Maintained a safe environment, Educated pt \T\ family on fall prevention, incl call for assistance when getting out of bed. Abuse screen: Denies threats or abuse. Nutritional screening: No deficits noted. Tuberculosis screening: No symptoms or risk factors identified. Assessment: 07:21 General: Appears in no apparent distress. comfortable, Behavior is calm, cooperative, ld1 appropriate for age. Pain: Denies pain. Neuro: Level of Consciousness is awake, alert, obeys commands, Oriented to person, place, time, situation. Cardiovascular: Capillary refill < 3 seconds Patient's skin is warm and dry. Respiratory: Airway is patent Respiratory effort is even, unlabored. GI: Abdomen is round non-distended, Reports nausea, vomiting. : No signs and/or symptoms were reported regarding the genitourinary system. EENT: No signs and/or symptoms were reported regarding the EENT system. Derm: No signs and/or symptoms reported regarding the dermatologic system. Musculoskeletal: No signs and/or symptoms reported regarding the musculoskeletal system. Vital Signs: 06:50 BP 124 / 86; Pulse 94; Resp 19; Temp 98.3; Pulse Ox 99% ; Weight 86.18 kg; Height 5 ft. jj7 8 in. ; Pain 7/10; 07:21 BP 122 / 86; Pulse 88; Resp 18; Pulse Ox 100% on R/A; ld1 08:32 BP 132 / 85; Pulse 88; Resp 16; Pulse Ox 99% ; ko1 06:50 Body Mass Index 28.89 (86.18 kg, 172.72 cm) jj7 06:50 Pain Scale: Adult j7 ED Course: 06:43 Patient arrived in ED. gm2 07:02 Neto Shepard DO is Attending Physician. ms3 07:14 Elena Shepard, RN is Primary Nurse. ld1 07:17 Triage completed. jj7 07:17 Arm band placed on right wrist. Patient placed in an exam room, on a stretcher. jj7 07:20 Patient has correct armband on for positive identification. Call light in reach. jj7 07:21 lunchroom monitor on. Pulse ox on. NIBP on. Door closed. Noise minimized. Warm blanket ld1 given. 07:21 No provider procedures requiring assistance completed. ld1 07:25 Inserted saline lock: 20 gauge in right antecubital area, using aseptic technique. ld1 Blood collected. 08:22 Valentín Mckeon MD is Referral Physician. ms3 08:32 Provided Education on: na. ko1 08:32 IV discontinued, intact, bleeding controlled, No redness/swelling at site. Pressure ko1 dressing applied. Administered Medications: 07:25 Drug: NS 0.9% IV 1000 ml IV at 1 bolus Per protocol; 1000 mL bolus Route: IV; Rate: 1 ld1 bolus; Site: right antecubital; 07:25 Drug: Ondansetron IVP 4 mg IVP once; over 2 minutes Route: IVP; Site: right antecubital;ld1 Medication: 07:21 VIS not applicable for this client. ld1 Outcome: 08:26 Discharge ordered by MD. ms3 08:39 Discharged to home ambulatory, with family, ko1 08:39 Condition: stable 08:39 Discharge instructions given to patient, Instructed on discharge instructions, follow up and referral plans. medication usage, Demonstrated understanding of instructions, follow-up care, medications, Prescriptions given X 2, 08:44 Patient left the ED. ko1 Signatures: Neto Shepard, DO ms3 Elena Shepard RN RN ld1 Wanda Hart RN RN ko1 Nick Macias RN RN Ariela Pedraza gm2
--- NOTE | 2024-01-08 08:27 | EDPHYS ---
Physician Documentation [facility] Name: Yehuda Giraldo Age: 43 yrs Sex: Male : 1980 Arrival Date: 01/08/2024 Time: 06:40 Bed 6 Private MD: ED Physician Neto Shepard HPI: 01/08 07:10 This 43 yrs old Male presents to ER via Unassigned with complaints of High ms3 Blood Sugar, Nausea/Vomiting, Headache, green around toes, painful. 07:10 43-year-old male with past medical history of hypertension, hyperlipidemia, diabetes ms3 presents to the emergency department for abdominal pain, nausea, vomiting, hyperglycemia, penile lesions that were noted on waking up this morning. Patient states his discomfort is a 7/10. Patient denies any alleviating or inciting factors.. Historical: - Allergies: 07:17 No Known Allergies; jj7 - PMHx: 07:17 COPD; Diabetes - NIDDM; Diverticulitis; Hypertensive disorder; RA; jj7 - PSHx: 07:17 Cholecystectomy; jj7 - Immunization history:: Adult Immunizations not up to date, Client reports having NOT received the Covid vaccine. - Social history:: Smoking status: Patient reports the use of cigarette tobacco products, 1 PP WEEEK. ROS: 07:10 Constitutional: Negative for fever, and chills. ENT: Negative for injury, pain, and ms3 discharge, Neck: Negative for injury, pain, and swelling, Cardiovascular: Negative for chest pain, and palpitations. Respiratory: Negative for shortness of breath, cough, wheezing, and pleuritic chest pain, Abdomen/GI: Negative for abdominal pain, nausea, vomiting, diarrhea, and constipation, Skin: Negative for injury, rash, and discoloration, Neuro: Negative for headache, weakness, numbness, tingling. Exam: 07:10 Constitutional: This is a well developed, well nourished patient who is awake, alert, ms3 and in no acute distress. Head/Face: Normocephalic, atraumatic. Neck: Trachea midline, no cervical lymphadenopathy. Supple, full range of motion without nuchal rigidity, or vertebral point tenderness. No Meningismus. Chest/axilla: Normal chest wall appearance and motion. Nontender with no deformity. Cardiovascular: Regular rate and rhythm with a normal S1 and S2. No gallops, murmurs, or rubs. Normal PMI, no JVD. No pulse deficits. Respiratory: Lungs have equal breath sounds bilaterally, clear to auscultation and percussion. No rales, rhonchi or wheezes noted. No increased work of breathing, no retractions or nasal flaring. Abdomen/GI: Soft, non-tender, with normal bowel sounds. No distension or tympany. No guarding or rebound. No evidence of tenderness throughout. 07:10 Skin: lesion(s), Cracking and erythema between toes. Denuded skin on distal foreskin with open lesions., Vital Signs: 06:50 BP 124 / 86; Pulse 94; Resp 19; Temp 98.3; Pulse Ox 99% ; Weight 86.18 kg; Height 5 ft. jj7 8 in. ; Pain 7/10; 07:21 BP 122 / 86; Pulse 88; Resp 18; Pulse Ox 100% on R/A; ld1 08:32 BP 132 / 85; Pulse 88; Resp 16; Pulse Ox 99% ; ko1 06:50 Body Mass Index 28.89 (86.18 kg, 172.72 cm) jj7 06:50 Pain Scale: Adult jj7 MDM: 07:09 Patient medically screened. ms3 08:35 Differential diagnosis: DKA, hyperglycemia, Tinea pedis versus balanitis. Data ms3 reviewed: vital signs, nurses notes, lab test result(s), and as a result, I will discharge patient. I considered the following discharge prescriptions or medication management in the emergency department Medications were administered in the Emergency Department. See MAR. Care significantly affected by the following chronic conditions: Diabetes, Hypertension, HLD. Care significantly affected by the following Social Determinants of Health: Poor access to healthcare and/or lack of insurance. Counseling: I had a detailed discussion with the patient and/or guardian regarding the historical points, exam findings, and any diagnostic results supporting the discharge/admit diagnosis, lab results, the need for outpatient follow up, to return to the emergency department if symptoms worsen or persist or if there are any questions or concerns that arise at home. Response to treatment: the patient's symptoms have mildly improved after treatment, and as a result, I will discharge patient. Special discussion: I discussed with the patient/guardian in detail that at this point there is no indication for admission to the hospital. It is understood, however, that if the symptoms persist or worsen the patient needs to return immediately for re-evaluation. ED course: Discussed labs with patient. Patient to follow-up with Dr. Mckeon and primary care physician in 2 to 3 days. Patient understands agrees with plan. All questions were answered. Return precautions discussed include worsening symptoms, or any other concerns. On reevaluation patient is improved, alert and oriented x 4, no apparent distress, nontoxic-appearing.. 01/08 07:09 Order name: CBC with Diff; Complete Time: 08:12 ms3 01/08 07:09 Order name: CMP; Complete Time: 08:12 ms3 01/08 07:09 Order name: Lipase; Complete Time: 08:12 ms3 01/08 07:09 Order name: IV Saline Lock; Complete Time: 07:25 ms3 01/08 07:09 Order name: Labs collected and sent; Complete Time: 07:25 ms3 Administered Medications: 07:25 Drug: NS 0.9% IV 1000 ml IV at 1 bolus Per protocol; 1000 mL bolus Route: IV; Rate: 1 ld1 bolus; Site: right antecubital; 07:25 Drug: Ondansetron IVP 4 mg IVP once; over 2 minutes Route: IVP; Site: right antecubital;ld1 Disposition Summary: 01/08/24 08:26 Discharge Ordered Notes: Location: Home ms3 Condition: Stable ms3 Diagnosis - Balanitis ms3 - Tinea pedis ms3 - Nausea ms3 Followup: ms3 - With: Valentín Mckeon MD - When: 2 - 3 days - Reason: Recheck today's complaints Discharge Instructions: - Discharge Summary Sheet ms3 - Athlete's Foot ms3 - Balanitis ms3 Forms: - Medication Reconciliation Form ms3 - Thank You Letter ms3 - Antibiotic Education ms3 - Prescription Opioid Use ms3 - Patient Portal Instructions ms3 - Leadership Thank You Letter ms3 Prescriptions: - ondansetron 4 mg Oral Tablet,disintegrating - take 1 tablet ORAL route every 8 hours; 15 tablet; Refills: 0, Product ms3 Selection Permitted - Clotrimazole 1 % Topical Cream - Apply to affected area 1 application TOPICAL route every 12 hours; 15 gram; ms3 Refills: 0, Product Selection Permitted Signatures: Dispatcher [employer] EDNeto Seymour, DO WALSH ms3 Elena Shepard RN RN ld1 Nick Macias RN RN jj7
[2024-01-08 08:53] VITALS: BP 132/85; TEMP 98.3; O2SAT 99
== END ==
LOC: ER 06:40
DX: N48.1 Balanitis (principal); B35.3 Tinea pedis; R11.0 Nausea
CPT/HCPCS: 36415; 80053; 83690; 85025; J2405; J7030

== ENCOUNTER 2024-12-23 16:56 | Emergency (ER) | payer SELFPAY ==
[2024-12-23] MEDS ORDERED: FAMOTIDINE 20 MG/2 ML VIAL IV ONE (18:43)
[2024-12-23] MEDS ORDERED: MORPHINE 4 MG/ML SYR ONE (18:43)
[2024-12-23] MEDS ORDERED: ONDANSETRON 4 MG/2 ML VIAL ONE (18:43)
[2024-12-23] MEDS ORDERED: NA CHLORIDE 0.9% 1,000 ML ONE (18:44)
[2024-12-23 18:50] LABS: Absolute Basophils 0.1 K/uL (0-0.5); Absolute Eosinophils 0.1 K/uL (0-0.5); Absolute Lymphocytes (CBC) 1.2 K/uL (0.7-4.9); Absolute Monocytes 0.6 K/uL (0.1-1.3); Absolute Neutrophil 9.5 K/uL (1.8-8.0); Basophils % 0.7 % (0-1.3); Eosinophils % 0.8 % (0-4.4); Hematocrit 49.6 % (39.6-49.0); Hemoglobin 16.8 g/dL (13.6-17.9); Lymphocytes % 10.6 % (15.3-44.8); MCH 30.6 pg (27.0-35.0); MCV 90.1 fL (80-100); MPV 10.7 fL (7.6-11.3); Monocytes % 5.1 % (3.3-12.3); Neutrophils % 82.8 % (41.7-73.7); Nucleated Red Blood Cells % 0.1 % (0-0); Platelets 142 thou/uL (152-406); Red Cell Distribution Width 13.1 % (12.1-15.2)
[2024-12-23 19:03] LABS: Specific Gravity > 1.030 (1.005-1.030); Sqamous Epithelial None Seen /HPF (None Seen); Urine Bacteria None Seen /HPF (<20); Urine Bilirubin NEGATIVE (Negative); Urine Blood Negative (Negative); Urine Clarity Clear (Clear); Urine Color Light-Yellow (Yellow); Urine Culture Reflex Order NOT NEEDED; Urine Glucose 4+ (Over) (Negative); Urine Ketones 1+ (Negative); Urine Microscopic Reflex YN ORDER UMIC; Urine Mucus Slight /HPF (None Seen); Urine Nitrite NEGATIVE (Negative); Urine Protein TRACE (Negative); Urine RBC <5 /HPF (None Seen); Urine Urobilinogen Normal (Normal); Urine WBC <5 /HPF (<5); Urine Yeast (Budding) Trace /HPF (None Seen); Urine pH 5.5 (5.0-7.0)
[2024-12-23 19:03] LABS: Albumin 3.8 g/dL (3.4-5.0); Albumin/Globulin Ratio 0.9 (1.1-1.8); Anion Gap 12.7 mEq/L (5.0-15.0); Bilirubin Total 0.6 mg/dL (0.2-1.0); Globulin 4.2 g/dL (2.3-3.5); Potassium 3.7 mEq/L (3.5-5.1)
--- NOTE | 2024-12-23 20:16 | RAD REPORT ---
EXAMINATION: CT ABDOMEN AND PELVIS WITH CONTRAST CLINICAL INDICATION: Male, 44 years old.ABD PAIN TECHNIQUE: CT abdomen and pelvis was performed, after the administration of IV contrast, as per [facility] protocol. Axial, sagittal and coronal reconstructions were obtained. One or more of the following dose reduction techniques were used: Automated exposure control, adjustment of the mA and/o r kV according to patient size, and/or iterative reconstruction. Unless otherwise specified, incidental findings do not require dedicated imaging follow-up. [id number]. COMPARISON: No prior exam. FINDINGS: LOWER CHEST: No acute process identified.No significant pericardial effusion. Mild circumferential th ickening of the distal esophagus which could reflect esophagitis. UPPER GI: No significant abnormality. LIVER: Hepatic steatosis, but otherwise unremarkable. GALLBLADDER/BILE DUCTS: Cholecystectomy. No significant biliary ductal dilatation.? PANCREAS: No mass, ductal dilation, or fred-pancreatic fluid. SPLEEN: Unremarkable. ADRENALS: No adrenal masses. KIDNEYS AND URETERS: No hydronephrosis.No suspicious renal mass. ABDOMINAL AORTA AND OTHER VESSELS: Normal caliber aorta and IVC. PERITONEUM: No abnormal free fluid. No free air. LYMPH NODES: Retroperitoneal nodule/lymph node posterior to the IVC on image 26, series 201 is stable since 2022. ABDOMINAL WALL: Small fat-containing right inguinal hernia. Tiny fat-containing umbilical hernia. SMALL BOWEL/COLON: Small bowel has normal course and caliber. No colonic wall thickening or pericolon ic inflammatory changes.Normal appendix. URINARY BLADDER: Underdistended but grossly unremarkable. REPRODUCTIVE ORGANS: No pathologic process. MUSCULOSKELETAL: Multilevel degenerative changes in the spine. No acute fracture. ADDITIONAL FINDINGS: None. IMPRESSION: No acute or significant abnormalities seen in the abdomen or pelvis.
[2024-12-23] MEDS ORDERED: KETOROLAC 30 MG/ML INJ ONE (20:26)
[2024-12-23 21:10] LABS: SARS-CoV-2 Antigen CONTROL BLUE LINE VIS/BG OK; SARS-CoV-2 Antigen Rapid Res Negative (Negative)
--- NOTE | 2024-12-23 21:15 | ER ---
Nurse's Notes [facility] Name: Yehuda Giraldo Age: 44 yrs Sex: Male : 1980 Arrival Date: 12/23/2024 Time: 16:56 Bed 9 Private MD: Diagnosis: Lower abdominal pain, unspecified;Esophagitis, unspecified Presentation: 12/23 17:26 Chief complaint: Patient states: he started getting abdominal pain around lunch time ap3 today. patient states the pain radiates into his legs and he feels hot. patient also reports nausea, and that things start spinning when he closes his eyes. patient currently rates his pain as a 10/10 on the pain scale. Coronavirus screen: At this time, the client does not indicate any symptoms associated with coronavirus-19. Ebola Screen: No symptoms or risks identified at this time. Initial Sepsis Screen: Does the patient meet any 2 criteria? HR > 90 bpm. No. Patient's initial sepsis screen is negative. Does the patient have a suspected source of infection? No. Patient's initial sepsis screen is negative. Risk Assessment: Do you want to hurt yourself or someone else? Patient reports no desire to harm self or others. Onset of symptoms was December 23, 2024. 17:26 Method Of Arrival: Ambulatory ap3 17:26 Acuity: SARA 3 ap3 Triage Assessment: 17:29 General: Appears in no apparent distress. Behavior is calm, cooperative, appropriate ap3 for age. Pain: Complains of pain in abdomen Pain radiates to right leg, left leg and neck Pain currently is 10 out of 10 on a pain scale. Neuro: Level of Consciousness is awake, alert, obeys commands, Oriented to person, place, time, situation. Cardiovascular: Patient's skin is warm and dry. Respiratory: Airway is patent Respiratory effort is even, unlabored, Respiratory pattern is regular, symmetrical. GI: Reports lower abdominal pain, upper abdominal pain, nausea. 17:31 General: Reports feeling ill for fatigue for. ap3 Historical: - Allergies: 17:28 No Known Allergies; ap3 - PMHx: 17:28 COPD; Diabetes - NIDDM; Diverticulitis; Hypertensive disorder; RA; ap3 - PSHx: 17:28 Cholecystectomy; ap3 - Immunization history:: Client reports having NOT received the Covid vaccine. Flu vaccine is up to date. - Infectious Disease History:: Denies. - Social history:: Smoking status: Patient reports the use of cigarette tobacco products, denies chronic smoking, but will smoke occasionally. Screenin:30 [facility] ED Fall Risk Assessment (Adult) History of falling in the last 3 months, ap3 including since admission No falls in past 3 months (0 pts) Confusion or Disorientation No (0 pts) Intoxicated or Sedated No (0 pts) Impaired Gait No (0 pts) Mobility Assist Device Used No (0 pt) Altered Elimination No (0 pt) Score/Fall Risk Level 0 - 2 = Low Risk Oriented to surroundings, Maintained a safe environment, Educated pt \T\ family on fall prevention, incl call for assistance when getting out of bed, Assessed \T\ reinforced patient's understanding of fall precautions, Hourly rounding (assess needs \T\ fall precautionary measures) done, Used ambulatory aids as needed (educated on \T\ assisted with), Used gait belt as appropriate. Abuse screen: Denies threats or abuse. Nutritional screening: No deficits noted. Tuberculosis screening: No symptoms or risk factors identified. Assessment: 18:53 General: Appears ill, well groomed, well developed, well nourished, Behavior is calm, me1 cooperative, appropriate for age, Reports he started getting abdominal pain around lunch time today. patient states the pain radiates into his legs and he feels hot. patient also reports nausea, and that things start spinning when he closes his eyes. patient currently rates his pain as a 10/10 on the pain scale. Pain: Complains of pain in abdomen Pain radiates to neck and left leg and right leg Pain currently is 10 out of 10 on a pain scale. Quality of pain is described as aching, shooting, Pain began 4 hours ago. Is continuous. Neuro: Level of Consciousness is awake, alert, obeys commands, Oriented to person, place, time, situation, Appropriate for age Reports dizziness. Cardiovascular: Patient's skin is warm and dry. Respiratory: Airway is patent Respiratory effort is even, unlabored, Respiratory pattern is regular, symmetrical. GI: Bowel sounds present X 4 quads. Abd is soft X 4 quads Reports upper abdominal pain, nausea. : No signs and/or symptoms were reported regarding the genitourinary system. EENT: No signs and/or symptoms were reported regarding the EENT system. Derm: Skin is intact, is healthy with good turgor, Skin is pink, warm \T\ dry. Musculoskeletal: Reports pain in neck and left leg and right leg and abdomen. Vital Signs: 17:26 BP 123 / 94; Pulse 107; Resp 17; Temp 99.3; Pulse Ox 98% on R/A; Weight 86.18 kg; ap3 Height 5 ft. 8 in. ; Pain 10/10; 19:00 BP 116 / 82; Pulse 105; Resp 17; Pulse Ox 97% ; me1 20:00 BP 115 / 76; Pulse 103; Resp 15; Pulse Ox 98% ; me1 21:00 BP 116 / 70; Pulse 101; Resp 17; Pulse Ox 98% ; me1 22:00 BP 120 / 72; Pulse 107; Resp 16; Temp 98.4; Pulse Ox 97% ; me1 17:26 Body Mass Index 28.89 (86.18 kg, 172.72 cm) ap3 17:26 Pain Scale: Adult ap3 ED Course: 17:00 Patient arrived in ED. al6 17:02 Neto Shepard DO is Attending Physician. ms3 17:10 Sherry Carter FNP-C is PHCP. kb 17:28 Triage completed. ap3 17:31 Arm band placed on left wrist. ap3 18:32 CBC with Diff Sent. bc6 18:32 CMP Sent. bc6 18:32 Lipase Sent. bc6 18:33 Initial lab(s) drawn, by al, sent to lab. Inserted saline lock: 20 gauge in right bc6 antecubital area, using aseptic technique. Blood collected. Flushed with 10 mL NS. 18:41 Vanna Griffin, RN is Primary Nurse. me1 18:53 Patient has correct armband on for positive identification. Bed in low position. Call me1 light in reach. Side rails up X2. Provided Education on: POC. Verbalized understanding.. Client placed on continuous cardiac and pulse oximetry monitoring. NIBP monitoring applied. Pulse ox on. NIBP on. 18:53 No provider procedures requiring assistance completed. me1 19:56 CT Abd/Pelvis - IV Contrast Only In Process Unspecified. EDMS 20:30 Strep Sent. me1 20:30 SARS-COV-2 Antigen Rapid Sent. me1 20:30 Flu Sent. me1 20:30 COVID swab sent to lab. Flu and/or RSV swab sent to lab. Strep swab sent to lab. me1 21:15 Neto Shepard DO is Referral Physician. kb 22:04 IV discontinued, intact, bleeding controlled, No redness/swelling at site. Pressure me1 dressing applied. Administered Medications: 18:51 Drug: NS 0.9% IV 1000 ml IV at 1 bolus Per protocol; to be given as a bolus over 60 me1 minutes Route: IV; Rate: 1 bolus; Site: right antecubital; 20:24 Follow up: Response: No adverse reaction; IV Status: Completed infusion; IV Intake: me1 1000ml 18:52 Drug: Famotidine IVP 20 mg IVP once; dilute with 10 mL 0.9% NaCl; give over 2 minutes me1 Route: IVP; Site: right antecubital; 20:23 Follow up: Response: No adverse reaction me1 18:52 Drug: Ondansetron IVP 4 mg IVP once; over 2 minutes Route: IVP; Site: right antecubital;me1 20:23 Follow up: Response: No adverse reaction; Nausea is decreased me1 18:52 Drug: morphine IVP or IV 4 mg IVP once over 4 mins Route: IVP; Infused Over: 4 mins; me1 Site: right antecubital; 20:23 Follow up: Response: No adverse reaction; Pain is decreased me1 20:38 Drug: Ketorolac IVP 15 mg IVP once Route: IVP; Site: right antecubital; me1 21:16 Follow up: Response: No adverse reaction; Pain is decreased me1 Medication: 18:53 VIS not applicable for this client. me1 Intake: 20:24 IV: 1000ml; Total: 1000ml. me1 Outcome: 21:15 Discharge ordered by MD. kb 22:04 Discharged to home ambulatory, with family, me1 22:04 Condition: stable 22:04 Discharge instructions given to patient, family, Instructed on discharge instructions, follow up and referral plans. medication usage, Demonstrated understanding of instructions, follow-up care, medications, Prescriptions given X 2, 22:05 Patient left the ED. me1 Signatures: Dispatcher [employer] EDNJ Sherry Carter, DAWO[employer]SEM[employer]ER [employer]-Alesia Gale RN RN ap3 Neto Shepard, DO ms3 Mady Billy bc6 Vanna Griffin RN RN me1 Martina Ham al6 Corrections: (The following items were deleted from the chart) 18:53 17:26 Chief complaint: Patient states: he started getting abdominal pain around lunch me1 time today. patient states the pain radiates into his legs and he feels hot. patient also reports nausea, and that things start spinning when he closes his eyes. patient currently rates his pain as a 10/10 on the pain scale ap3
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
--- OUTSIDE RECORDS SUMMARY | 2024-12-24 02:32 | XMS REPORT | Continuity of Care Document ---
Author Name Unknown Address [address] [facility] [address] [place] [address] [facility] thconnect Address [address] [facility] [address] [place] [address] Care Team Providers Care Physician Name Role Phone Mirza Anjana Primary Care Physician Fellow, Pulmonary Attending Clinician Unavailsuraj hamilton Doctor Unassigned, Ritchey Attending Clinician U Magdaleno Garcia Attending Clinician Unavailable Kevin Munoz Attending Clinician [phone] Magdaleno Antony Attending Clinician [phone] HARINDER MUNOZ Attending Clinician Unavailable Harinder Munoz MD Attending Clinician [phone] Lupe Dejesus RN Attending Clinician UnavailALFREDO Beck Attending Clinician Unavailable Jacque Tang Attending Clinician [phone] Alfredo Navarro MD Attending Clinician [phone] Landy Jenkins DO Attending Clinician [phone] KEVIN THOMAS Admitting Clinician Unavailable ALFREDO NAVARRO Admitting Clinician Unavailable Alfredo Navarro MD Admitting Clinician [phone] Payers Payer Name Policy Type Policy Number Effective Date Expirati on Date Source Problems Condition Name Condition Details Condition Category Status Onset Date Resolution Date Last Treatment Date Treating Clinician Comments Source New onset type 2 diabetes mellitus New onset type 2 diabetes mellitus Disease Active 2021-11 00:00: 00 [facility] Obesity (BMI 30-39.9) Obesity (BMI 30-39.9) Disease Active 2021-11 00:00: 00 [facility] No known active problems No known active problems Disease [facility] Allergies, Adverse Reactions, Alerts Allergy Name Allergy Type Status Severity Reaction(s) Onset Date Inactive Date Treating Clinician Comments Source NO KNOWN ALLERGIE S Drug Class Active [facility] Social History Social Habit Start Date Stop Date Quantity Comments Source Gender identity [facility] Sexual orientation U [facility] History of tobacco use Passive smoker [facility] History of Social function 2024-01-14 00:00:00 2024-01-14 00:00:00 [facility] Alcohol intake 2024-01-14 00:00:00 2024-01-14 00:00:00 Current non-drinker of alcohol (finding) [facility] Exposure to SARS-CoV-2 (event) 2022-08-31 00:00:00 2022-09-10 13:58:00 Not sure [facility] Cigarettes smoked current (pack per day) - Reported 2022-09-10 00:00:00 2022-09-10 00:00:00 [facility] Cigarette pack-years 2022-09-10 00:00:00 2022-09-10 00:00:00 [facility] Tobacco use and exposure 2022-09-10 00:00:00 2022-09-10 00:00:00 Smokeless tobacco non-user [facility] Education - What is the highest level of school you have completed or the highest degree you have received? 2022-09-10 00:00:00 2022-09-10 00:00:00 Some college, no degree [facility] Sex Assigned At 1980 00:00:00 1980 00:00:00 [facility] Smoking Status Start Date Stop Date Source Ex-smoker 2022-09-10 00:00:00 2022-09-10 00:00:00 U [facility] Current some day smoker 2021-03-05 00:00:00 [facility] Medications Ordered Medication Name Filled Medication Name Start Date Stop Date Current Medication? Ordering Clinician Indication Dosage Frequency Signature (SIG) Comments Components Source ipratropium -albuteroL (DUONEB) 0.5 mg-3 mg(2.5 mg base)/3 mL nebulizer solution 3 mL 01-14 04:00: 00 01-14 03:07 :00 No 3mL 3 mL, Inhalation , ONCE, 1 dose, On 01/13/24 at 2200, Routine [facility] NaCl 0.9% (NS) bolus infusion 1,000 mL 01-14 03:45: 00 01-14 03:43 :00 No 1000mL at 999 mL/hr, 1,000 mL, IV Infusion, ONCE, 1 dose, On Sun01/13/24 at 2145, STAT [facility] ketorolac (TORADOL) injection 15 mg 01-14 03:45: 00 01-14 02:42 :00 No 15mg 15 mg, Slow IV Push, ONCE, 1 dose, On 01/13/24 at 2145, JOSE [facility] NaCl 0.9% (NS) bolus infusion 1,000 mL 01-14 02:00: 00 01-14 01:55 :00 No 1000mL at 999 mL/hr, 1,000 mL, IV Infusion, ONCE, 1 dose, On Sun01/13/24 at 2000, JOSE [facility] acetaminoph en (TYLENOL) tablet 975 mg 01-14 01:15: 00 01-14 01:11 :00 No 975mg 975 mg, Oral, ONCE, 1 dose, On Sun01/13/24 at 1915, [facility] benzonatate 200 mg capsule 01-13 00:00: 00 Yes [id number] 200mg Take 1 capsule by mouth 3 (three) times daily as needed for Cough for up to 20 doses. [facility] ondansetron 4 mg disintegrat ing tablet 01-13 00:00: 00 Yes [id number] 4mg Take 1 tablet by mouth every 8 (eight) hours as needed for Nausea and Vomiting (N/V). [facility] albuterol 90 mcg/actuati on inhaler 01-13 00:00: 00 Yes [id number] 2{puff} Inhale 2 Puffs every 4 (four) hours as needed for Wheezing or Shortness of Breath. [facility] 10 units 2 times daily 2021-11 00:00: 00 No SITagliptin (JANUVIA) tablet 100 mg 2021-11 14:00: 00 Yes 100mg 100 mg, Oral, DAILY, First dose on Sun09/11/22 at 0900, Until Discontinu ed, Routine [facility] enoxaparin (LOVENOX) injection 40 mg 2021-11 14:00: 00 Yes 40mg 40 mg, Subcutaneo us, DAILY, First dose on Sun09/11/22 at 0900, Until Discontinu ed, Routine [facility] omeprazole (PRILOSEC) capsule 40 mg 2021-11 14:00: 00 Yes 40mg 40 mg, Oral, DAILY, First dose on Sun09/11/22 at 0900, Until Discontinu ed [facility] metFORMIN (GLUCOPHAGE ) tablet 1,000 mg 2021-11 13:00: 00 Yes 1000mg 1,000 mg, Oral, BID MEALS, First dose (after last modificati on) on Sun09/11/22 at 0800, Until Discontinu ed, Routine [facility] simethicone (GAS RELIEF (SIMETHICON E)) chewable tablet 80 mg 2021-11 07:47: 21 Yes 80mg 80 mg, Oral, QIDPRN, Starting on Sun09/11/22 at 0247, Until Discontinu ed, Routine, Gas [facility] HYDROcodone -acetaminop hen (NORCO 5) 5-325 mg tablet 1 tablet 2021-11 07:35: 21 Yes 1{tbl} 1 tablet, Oral, Q6HPRN, Starting on Sun09/11/22 at 0235, Until Discontinu ed, Routine, Pain (scale 7-10) [facility] traMADoL (ULTRAM) tablet 50 mg 2021-11 07:35: 08 Yes 50mg 50 mg, Oral, Q6HPRN, Starting on 09/11/22 at 0235, Until Discontinu ed, Routine, Pain (scale 4-6) [facility] + Fsbg Testing 2021-11 07:15: 00 Yes Subcutaneo us, Q4H, First dose (after last modificati on) on Sun09/11/22 at 0215, Until Discontinu ed, [facility] atorvast[facility] n (LIPITOR) tablet 40 mg 2021-11 02:00: 00 Yes 40mg 40 mg, Oral, QHS, First dose on 09/10/22 at 2100, Until Discontinu ed, Routine [facility]-Reg ular + Fsbg Testing 2021-11 02:00: 00 09-11 07:10 :47 No Subcutaneo us, AC+HS, First dose on 09/10/22 at 2100, Until Discontinu ed, Routine Univers [facility] Lancing Device with Lancets (ACCU-CHEK SOFT DEV LANCETS) Kit 2021-11 00:00: 00 Yes [id number] Use as directed [facility] pen needle, diabetic 32 gauge x 1/5" Ndle 2021-11 00:00: 00 Yes [id number] Use as directed [facility] Lancing Device with Lancets (ACCU-CHEK SOFT DEV LANCETS) Kit 2021-11 00:00: 00 Yes [id number] Use as directed [facility] flash glucose scanning reader (FREESTYLE ROSA MARIA 2 READER) [facility] 2021-11 00:00: 00 Yes [id number] 2{appli cator} 2 Applicator s [facility] meals[facility], diabetic 32 gauge x 1/5" Ndle 2021-11 00:00: 00 Yes [id number] Use as directed [facility] metFORMIN 1,000 mg tablet 2021-11 00:00: 00 10-12 05:59 :00 No [id number] 1000mg Take 1 tablet by mouth in the morning and 1 tablet in the evening. Take with meals. Do all this for 30 days. [facility] atorvastati n 40 mg tablet 2021-11 00:00: 00 10-12 05:59 :00 No [id number] 40mg Take 1 tablet by mouth at bedtime for 30 days. [facility] insulin aspart protamine-i nsulin aspart (NOVOLOG MIX 70-30 U-100 INSULN) 100 unit/mL (70-30) injection 2021-11 00:00: 00 10-12 05:59 :00 No [id number] 10U inject 10 Units under the skin 2 (two) times daily before breakfast and dinner for 30 days. [facility] NaCl 0.9% (NS) IV infusion 1,000 mL 2021-11 22:45: 00 Yes 1000mL at 125 mL/hr, IV Infusion, CONTINUOUS , Starting on [place] 09/10/22 at 1745, Until Discontinu ed, Routine [facility] insulin NPH and regular human 70-30 (70-30 U-100 INSULIN) 100 unit/mL (70-30) injection 10 Units 2021-11 22:45: 00 09-11 04:12 :06 No 10U 10 Units, Subcutaneo us, BIDAC, First dose on Sun09/10/22 at 1745, Until Discontinu ed, Routine [facility] glucagon (GLUCAGEN DIAGNOSTIC KIT) injection 1 mg 2021-11 22:36: 10 Yes 1mg 1 mg, Intramuscu lar, PRN, Starting on Sun09/10/22 at 1736, Until Discontinu ed, JOSE, Blood Glucose < or = 70 mg/dL and patient is unable to swallow or has mental changes. [facility] dextrose 50 % in water (D50W) injection 25 mL 2021-11 22:36: 10 Yes 25mL 25 mL, Slow IV Push, PRN, Starting on Sun09/10/22 at 1736, Until Discontinu ed, JOSE, Blood Glucose < or = 70 mg/dL and patient is unable to swallow or has mental status changes. [facility] ondansetron (ZOFRAN (PF)) injection 4 mg 2021-11 22:36: 02 Yes 4mg 4 mg, Slow IV Push, Q6HPRN, Starting on Sun09/10/22 at 1736, Until Discontinu ed, Routine, Nausea and Vomiting (N/V) [facility] acetaminoph en (TYLENOL) tablet 650 mg 2021-11 22:35: 56 Yes 650mg 650 mg, Oral, Q6HPRN, Starting on Sun09/10/22 at 1735, Until Discontinu ed, Routine, Pain (scale 1-3) [facility] NaCl 0.9% (NS) bolus infusion 1,000 mL 2021-11 20:45: 00 09-10 20:37 :00 No 1000mL at 999 mL/hr, 1,000 mL, IV Infusion, ONCE, 1 dose, On Sun09/10/22 at 1545, JOSE [facility] iopamidol (ISOVUE 370-500 mL) injection 75 mL 2021-11 19:15: 00 09-10 19:30 :00 No [id number] 75mL 75 mL, Intravenou s, ONCE, 1 dose, On Sun09/10/22 at 1430, Routine [facility] ondansetron (ZOFRAN (PF)) injection 4 mg 2021-11 19:15: 00 09-10 19:39 :00 No 4mg 4 mg, Slow IV Push, ONCE, 1 dose, On Sun09/10/22 at 1415, JOSE [facility] morpHINE (4 mg/mL) injection 4 mg 2021-11 19:15: 00 09-10 19:39 :00 No 4mg 4 mg, Slow IV Push, ONCE, 1 dose, On Sun09/10/22 at 1415, STAT [facility] iohexol (OMNIPAQUE 350 BULK-150 mL) injection 120 mL 03-05 19:30: 00 03-05 19:10 :00 No [id number] 120mL 120 mL, Intravenou s, ONCE, 1 dose, 03/05/21 at 1430, Routine [facility] famotidine (PEPCID (PF)) injection 20 mg 03-05 19:30: 00 03-05 18:37 :00 No 20mg 20 mg, Slow IV Push, ONCE, 1 dose, 03/05/21 at 1430, JOSE [facility] ondansetron (ZOFRAN (PF)) injection 4 mg 03-05 19:30: 00 03-05 18:37 :00 No 4mg 4 mg, Slow IV Push, ONCE, 1 dose, [facility] mg 03-05 19:30: 03-05 18:37 :00 No 4mg 4 mg, Slow IV Push, ONCE, 1 dose, 03/05/21 at 1430, STAT [facility] NaCl 0.9% (NS) bolus infusion 1,000 mL 03-05 18:30: 00 03-05 19:46 :00 No 1000mL at 999 mL/hr, 1,000 mL, IV Infusion, ONCE, 1 dose, 03/05/21 at 1330, JOSE [facility] omeprazole 40 mg capsule 03-05 00:00: 00 Yes [id number] 40mg Take 1 capsule by mouth daily. [facility] metFORMIN 500 mg tablet 03-05 00:00: 00 Yes [id number] 500mg Take 1 tablet by mouth 2 (two) times daily. [facility] prednisone 20 mg tablet 01-07 00:00: 00 No 1mg Dose Unknown 01-07 00:00: 00 No metformin 500 mg tablet -23 00:00: 00 No 1mg neomycin-po lymyxin-hyd rocortisone (CORTISPORI N OTIC SUSPENSION) 3.5-10,000- 1 mg/mL-unit/ mL-% otic susp 08-04 00:00: 00 03-05 00:00 :00 No 3[drp] Place 3 Drops in left ear 4 (four) times daily. [facility] acetaminoph en-codeine (TYLENOL-CO DEINE #3) 300-30 mg tablet 08-04 00:00: 00 03-05 00:00 :00 No 1{tbl} Take 1 tablet by mouth every 6 (six) hours as needed for Pain (scale 4-6) (for cough). [facility] metformin 1,000 mg tablet 06-15 00:00: 00 No 1mg pantoprazol e (PROTONIX) 40 mg EC tablet 05-26 00:00: 00 03-05 00:00 :00 No 40mg Take 1 tablet by mouth daily. [facility] metFORMIN (GLUCOPHAGE ) 500 mg tablet 05-26 00:00: 00 03-05 00:00 :00 No 500mg Take 1 tablet by mouth 2 (two) times daily with meals. [facility] amoxicillin 500 mg capsule 01-12 00:00: 00 No 1mg amoxicillin 250 mg capsule 01-12 00:00: 00 No 1mg Bromfed DM 2 mg-30 mg-10 mg/5 mL syrup 01-12 00:00: 00 No 10mg/5 mL Vital Signs Vital Name Observation Time Observation Value Comments S ource Systolic blood pressure 2024-01-14 03:38:00 114 mm[Hg] [facility] Diastolic blood pressure 2024-01-14 03:38:00 66 mm[Hg] [facility] Heart rate 2024-01-14 03:38:00 96 /[facility] Body temperature 2024-01-14 03:38:00 37.5 Geovanna [facility] Respiratory rate 2024-01-14 03:38:00 16 /min [facility] Oxygen saturation in Arterial blood by Pulse oximetry 2024-01-14 03:38:00 96 /min [facility] Body height 2024-01-14 00:52:00 172.7 cm [facility] weight 2024-01-14 00:52:00 86.183 kg [facility] BMI 2024-01-14 00:52:00 28.89 kg/m2 [facility] Systolic blood pressure 2024-01-07 13:52:00 136 mm[Hg] [facility] Diastolic blood pressure 2024-01-07 13:52:00 87 mm[Hg] [facility] Heart rate 2024-01-07 13:52:00 100 /min Unive [facility] Body temperature 2024-01-07 13:52:00 36.61 Geovanna [facility] Respiratory rate 2024-01-07 13:52:00 18 /min [facility] Body height 2024-01-07 13:52:00 172.7 cm [facility] Body weight 2024-01-07 13:52:00 87.998 kg [facility] BMI 2024-01-07 13:52:00 29.50 kg/m2 [facility] Oxygen saturation in Arterial blood by Pulse oximetry 2024-01-07 13:52:00 100 /min [facility] Systolic blood pressure 2022-09-11 16:34:00 131 mm[Hg] [facility] Diastolic blood pressure 2022-09-11 16:34:00 80 mm[Hg] [facility] Heart rate 2022-09-11 16:34:00 80 /min Unive [facility] Body temperature 2022-09-11 16:34:00 36.83 Geovanna [facility] Respiratory rate 2022-09-11 16:34:00 18 /min [facility] Oxygen saturation in Arterial blood by Pulse oximetry 2022-09-11 16:34:00 97 /min [facility] Body weight 2022-09-11 07:55:00 82.464 kg [facility] BMI 2022-09-11 07:55:00 27.64 kg/m2 [facility] Body height 2022-09-11 01:03:00 172.7 cm [facility] Systolic blood pressure 2021-03-05 20:00:00 119 mm[Hg] [facility] Diastolic blood pressure 2021-03-05 20:00:00 73 mm[Hg] [facility] Heart rate 2021-03-05 20:00:00 78 /min [facility] Respiratory rate 2021-03-05 20:00:00 17 /min [facility] Oxygen saturation in Arterial blood by Pulse oximetry 2021-03-05 20:00:00 99 /min [facility] Body temperature 2021-03-05 18:12:00 36.28 Geovanna [facility] Body height 2021-03-05 18:12:00 172.7 cm [facility] Body weight 2021-03-05 18:12:00 101.606 kg [facility] BMI 2021-03-05 18:12:00 34.06 kg/m2 [facility] BP Systolic 2022-09-14 13:45:00 119 mm[Hg] [...] /min Respiratory Rate 2016-05-25 11:02:00 17.00 /min Height Measured 2015-07-27 16:03:00 68.00 inches Body Temperature 2015-07-27 16:03:00 98.20 degrees Heart Rate 2015-07-27 16:03:00 93.00 /min Respiratory Rate 2015-07-27 16:03:00 16.00 /min BP Systolic 2015-07-27 16:03:00 131 mm[Hg] BP Diastolic 2015-07-27 16:03:00 82 mm[Hg] Weight Measured 2015-07-27 16:03:00 213.60 pounds BP Systolic 2015-07-27 15:56:00 131 mm[Hg] BP [...] Date / Time Performed Performing Clinician Source XR CHEST 1 VW 2024-01-14 01:38:50 Kevin Thomas [facility] POCT GLUCOSE (AUTOMATED) 2024-01-14 01:23:00 Kevin Thomas [facility] LIPASE 2024-01-14 01:17:00 Kevin Thomas [facility] TROPONIN I 2024-01-14 01:17:00 Kevin Thomas [facility] COMP. METABOLIC PANEL (79494) 2024-01-14 01:17:00 Kevin Thomas [facility] CBC WITH DIFF 2024-01-14 01:17:00 Kevin Thomas [facility] N-TERMINAL PRO-BNP 2024-01-14 01:17:00 [facility] RAPID STREP SCREEN FOR GROUP A 2024-01-14 00:59:00 [facility] RAPID INFLUENZA A/B 2024-01-14 00:59:00 [facility] COVID-19 (ID NOW RAPID TESTING) 2024-01-14 00:59:00 [facility] NOTICE OF PRIVACY PRACTICES 2024-01-14 00:49:07 Doctor Unassigned, Ritchey [facility] CONSENT/REFUSAL FOR DIAGNOSIS AND TREATMENT 2024-01-14 00:48:09 Doctor Unassigned, Ritchey [facility] ASSIGNMENT OF BENEFITS 2024-01-07 14:52:26 Docto r Unassigned, Ritchey [facility] CONSENT/REFUSAL FOR DIAGNOSIS AND TREATMENT 2024-01-07 13:41:19 Doctor Unassigned, Ritchey [facility] REFERRAL- REQUEST/RESPONSE 2023-06-06 05:01:00 Doctor Unassigned, Ritchey [facility] POCT GLUCOSE (AUTOMATED) 2022-09-11 16:34:00 [facility] 2022-09-11 12:44[facility]. METABOLIC PANEL ([id number]) 2022-09-11 07:58:00 [facility] LIPID PANEL (16780)(TOTAL CHOLESTEROL, TRIGLYCERIDES, HDL) 2022-09-11 07:58:00 [facility] LOW-DENSITY LIPOPROTEIN, DIRECT 2022-09-11 07:58:00 [facility]SE (AUTOMATED) 2022-09-11 07:29:00 Melanie [facility] POCT GLUCOSE (AUTOMATED) 2022-09-11 01:22:00 Melanie [facility] POCT GLUCOSE (AUTOMATED) 2022-09-10 20:47:00 [facility]EL[facility] W CONTRAST 2022-09-10 19:16:33 Jacque Wells [facility] LIPASE 2022-09-10 18:43:00 [facility] COMP. METABOLIC PANEL ([id number]) 2022-09-10 18:43:00 Singer [facility] CBC WITH DIFF 2022-09-10 18:43:00 [facility] GLYCOSYLATED HEMOGLOBIN (A1C) 2022-09-10 18:43:00 [facility] 2022-09-10 18:43:00 Matthew [facility] NOTICE OF PRIVACY PRACTICES 2022-09-10 18:35:36 Doctor Unassigned, Ritchey [facility] CONSENT/REFUSAL FOR DIAGNOSIS AND TREATMENT 2022-09-10 18:35:02 Doctor Unassigned, Ritchey [facility] CT ABDOMEN PELVIS W CONTRAST 2021-03-05 19:23:44 Landy Jenkins [facility] LIPASE 2021-03-05 18:30:00 Landy Jenkins Un [facility] TROPONIN I 2021-03-05 18:30:00 Landy Jenkins [facility] HEPATIC FUNCTION PANEL ([id number]) (ALB,T.PRO,BILI T,BU/BC,ALT,AST,ALK PHOS) 2021-03-05 18:30:00 Landy Jenkins [facility] BASIC METABOLIC PANEL (NA, K, CL, CO2, GLUCOSE, BUN, CREATININE, CA) 2021-03-05 18:30:00 Landy Jenkins [facility] CBC WITH DIFF 2021-03-05 18:30:00 [facility] 2021-03-05 18:30:00 [facility] OF PRIVACY PRACTICES 2021-03-05 18:07:12 Doctor Unassigned, Ritchey [facility] CONSENT/REFUSAL FOR DIAGNOSIS AND TREATMENT 2021-03-05 18:07:01 Doctor Unassigned, Ritchey [facility] Plan of Care Planned Activity Planned Date Details Comments Source Goal Plan of Care Note [code = 74982-4] Goal Plan of Care Note [code = 30330-9] Goal Plan of Care Note [code = 53947-7] Goal Plan of Care Note [code = 03208-4] Goal Plan of Care Note [code = 63214-5] Goal Plan of Care Note [code = 01052-7] Goal Plan of Care Note [code = 36077-4] Goal Plan of Care Note [code = 96779-4] Goal Plan of Care Note [code = 21414-8] Goal Plan of Care Note [code = 95496-1] Goal Plan of Care Note [code = 95736-8] Goal Plan of Care Note [code = 97328-0] Goal Plan of Care Note [code = 81136-4] Encounters Start Date/Time End Date/Time Encounter Type Admission Type Attending [facility] Facility Care Department Encounter ID Source 2024-09-19 08:01:34 2024-09-19 08:01:34 Outpatient SFA [facility] [id number] 2024-01-22 00:00:00 2024-01-22 00:00:00 Letter (Out) Fellow, Pulmonary [facility] ..114 350.1.13.10 4.2.7.2.686 [id number] [facility] 2024-01-21 00:00:00 2024-01-21 00:00:00 Patient Secure Msg Doctor Unassigned, Ritchey [facility] 1..114 350.1.13.10 4.2.7.2.686 [id number] [facility] 2024-01-13 18:56:00 2024-01-13 21:46:00 Emergency Magdaleno LUQUE [facility] ERT [id number] [facility] 2024-01-13 18:56:00 2024-01-13 21:46:00 Emergency Kevin Thomas K Darling [facility] 1..114 350.1.13.10 4.2.7.2.686 [id number] [facility] 2024-01-07 07:54:00 2024-01-07 08:48:00 Emergency Og HARINDER MUNOZ [facility] ERT [id number] [facility] 2024-01-07 07:54:00 2024-01-07 08:48:00 Emergency EziomiguelHarinder vital C [facility] 1.114 350.1.13.10 4.2.7.2.686 [id number] [facility] 2023-06-28 10:37:44 2023-06-28 10:37:44 Outpatient SFA [facility] [id number] 2023-06-21 08:19:38 2023-06-21 08:19:38 Outpatient SFA [facility] [id number] [place] 2023-06-20 16:02:39 2023-06-20 16:02:39 Outpatient [facility] [address] [place] 2023-06-09 00:00:00 2023-06-09 00:00:00 Lupe Morel [facility] 1.114 350.1.13.10 4.2.7.2.686 [id number] [facility] 2023-06-09 00:00:00 2023-06-09 00:00:00 Patient Secure Msg Doctor Unassigned, Ritchey [facility] 1..114 350.1.13.10 4.2.7.2.686 [id number] [facility] 2023-06-06 00:00:00 2023-06-06 00:00:00 Orders Only Doctor Unassigned, Ritchey [facility] 1.2.840.114 350.1.13.10 4.2.7.2.686 [id number] [facility] 2023-05-30 16:25:18 2023-05-30 16:25:18 Outpatient [facility] [id number] 2022-09-14 13:42:01 2022-09-14 13:42:01 Outpatient [facility] [id number] 2022-09-14 00:00:00 2022-09-14 00:00:00 Outpatient Visit [id number] 2022-09-10 13:44:00 2022-09-11 12:54:00 Outpatient X TIMJACQUES ALFREDO [facility] PHILL[facility] [id number] [facility] 2022-09-10 13:44:00 2022-09-11 12:54:00 Emergency Russell [facility] 1.2.840.114 350.1.13.10 4.2.7.2.686 [id number] [facility] 2021-03-05 13:11:00 2021-03-05 15:35:00 Emergency Landy Jenkins [facility] [id number] [facility] 2021-03-05 13:06:00 2021-03-05 13:06:00 Emergency X [facility] ERT [id number] [facility] Results Test Description Test Time Test Comments Results Result Co mments Source [facility] [id number] 02:06:46* Test Item Value Reference Range Interpretation Comme nts NT-proBNP (test code = 74393-5) 22 pg/mL <=125 Lab Interpretation (test cod e = 17084-4) Normal [facility] 1 [id number] 02:01:38CHEST X-RAY AP PORTABLE 01/13/2024 8:01 PM Ordering physician: KEVIN THOMAS CLINICAL INFORMATION: ?Chest pain and fever COMPARISON: None TECHNIQUE: ?single AP view of the chest was submitted. FINDINGS: ? The lung sahni are clear. ?No pleural effusions. ?No pneumothorax. ?Thecardiomediastinal silhouette is within normal limits. ?No acuteradiographic bony abnormalities.[facility] HospitalLIPASE2024-02-19 01:57:27* Test Item Value Reference Range Interpretation Comme nts LIPASE (test code = 2214762663) 134 U/L 0-220 Lab Interpretation (test cod e = 22507-3) Normal [facility] HospitalCOMP. METABOLIC PANEL (53169)2024-01-14 01:57:27* Test Item Value Reference Range Interpretation Comme nts NA (test code = 8574422886) 134 mmol/L 135-145 L K (test code = 8379669867) 4.0 mmol/L 3.5-5.0 CL (test code = 7679554744) 104 mmol/L 98-108 CO2 TOTAL (test code = 1159456327) 24 mmol/L 23-31 AGAP (test code = 6137228092) 6 2-16 BUN (test code = 2292644936) 15 mg/dL 7-23 GLUCOSE (test code = 8839495595) 301 mg/dL 70-110 H CREATININE (test code = 2160-0) 0.81 mg/dL 0.60-1.25 TOTAL BILI (test code = 4375598183) 0.5 mg/dL 0.1-1.1 CALCIUM (test code = 9415403347) 8.6 mg/dL 8.6-10.6 T PROTEIN (test code = 8623173138) 7.5 g/dL 6.3-8.2 ALBUMIN (test code = 3645515236) 4.1 g/dL 3.5-5.0 ALK PHOS (test code = 5604147596) 127 U/L 34-122 H ALTv (test code = 1742-6) 18 U/L 5-50 AST(SGOT) (test code = 2992508977) 20 U/L 13-40 eGFR (test code = 90052-2) 111.5 mL/min/1.73m2 CKD-EPI eGFR (2020). Assuming creatinine has been stable day-to-day for at least three months, the eGFR indicates Category G1 (>= 90 mL/min/1.73 m2) Lab Interpretation (test code = 86652-5) Abnormal [facility] WITH [id number] 01:51:26* Test Item Value Reference Range Interpretation Comme nts WBC (test code = 6690-2) 4.08 4.20-10.70 L RBC (test code = 789-8) 4.67 4.26-5.52 HGB (test code = 718-7) 13.8 g/dL 12.2-16.4 HCT (test code = 4544-3) 40.4 % 38.4-49.3 MCV (test code = 787-2) 86.5 fL 81.7-95.6 MCH (test code = 785-6) 29.6 pg 26.1-32.7 MCHC (test code = 786-4) 34.2 g/dL 31.2-35.0 RDW-SD (test code = 48623-6) 38.2 fL 38.5-51.6 L RDW-CV (test code = 788-0) 12.1 % 12.1-15.4 PLT (test code = 777-3) 149 150-328 L MPV (test code = 43934-3) 12.0 fL 9.8-13.0 NRBC/100 WBC (test code = 1452989824) 0.0 0.0-10.0 NRBC x10^3 (test code = 9797969359) See_Comment [Automated messa ge] The system which generated this result transmitted reference range: 10*3/?L. The reference range was not used to interpret this result as normal/abnormal. GRAN MAT (NEUT) % (test code = 770-8) 52.7 % IMM GRAN % (test code = 7351443403) 0.50 % LYMPH % (test code = 736-9) 36.8 % MONO % (test code = 5905-5) 8.3 % EOS % (test code = 713-8) 1.2 % BASO % (test code = 706-2) 0.5 % GRAN MAT x10^3(ANC) (test code = 3934101532) 2.15 10*3/uL 1.99-6.95 IMM GRAN x10^3 (test code = 2695183003) 0.00-0.06 LYMPH x10^3 (test code = 731-0) 1.50 10*3/uL 1.09-3.23 MONO x10^3 (test code = 742-7) 0.34 10*3/uL 0.36-1.02 L EOS x10^3 (test code = 711-2) 0.05 10*3/uL 0.06-0.53 L BASO x10^3 (test code = 704-7) 0.01-0.09 Lab Interpretation (test code = 90036-5) Abnormal [facility] (AUTOMATED)2024-01-14 01:24:45* Test Item Value Reference Range Interpretation Comme [facility] POCT GLU (test code = 7653898394) 279 mg/dL 70-110 H Lab Interpretation (test cod e = 02019-6) Abnormal [facility]AUTO DIFF WITH [id number] 14:31:15* Test Item Value Reference Range Interpretation Comme [facility] WBC (test code = 1001) TEST NOT PERFORMED K/UL 3.5-11.0 Unable to perform testing, specimen is past stability.Charge s adjusted as applicable. RBC (test code = 1002) TEST NOT PERFORMED M/UL 4.50-6.10 HEMOGLOBIN (test code = 1003) TEST NOT PERFORMED G/DL 13.5-17.0 HEMATOCRIT (test code = 1004) TEST NOT PERFORMED % 40.0-51.0 MCV (test code = 1005) TEST NOT PERFORMED fL 80.0-99.0 MCH (test code = 1006) TEST NOT PERFORMED PG 25.0-33.0 MCHC (test code = 1007) TEST NOT PERFORMED G/DL 31.0-36.0 RDW (test code = 1038) TEST NOT PERFORMED % 11.5-15.0 NEUTROPHILS (test code = 1008) TEST NOT PERFORMED % LYMPHOCYTES (test code = 1010) TEST NOT PERFORMED % MONOCYTES (test code = 1011) TEST NOT PERFORMED % EOSINOPHILS (test code = 1012) TEST NOT PERFORMED % BASOPHILS (test code = 1013) TEST NOT PERFORMED % PLATELET COUNT (test code = 1015) TEST NOT PERFORMED K/UL 130-400 ABSOLUTE NEUTROPHILS (test code = 1066) TEST NOT PERFORMED K/UL 1.50-7.50 ABSOLUTE LYMPHOCYTES (test code = 1067) TEST NOT PERFORMED K/UL 1.00-4.00 ABSOLUTE MONOCYTES (test code = 1068) TEST NOT PERFORMED K/UL 0.20-1.00 ABSOLUTE EOSINOPHILS (test code = 1040) TEST NOT PERFORMED K/UL 0.00-0.50 ABSOLUTE BASOPHILS (test code = 1069) TEST NOT PERFORMED K/UL 0.00-0.20 TSH, THIRD [id number] 05:37:35* Test Item Value Reference Range Interpretation Comme [facility] TSH, THIRD GENERATION (test code = 2821) 2.130 UIU/ML 0.400-4.100 UNLESS OTHERWISE INDICATED, ALL TESTING PERFORMED AT [facility] [address] [place] [address] WRAPPER LAYER: ANGELA DE ANDA M.D. CLIA NUMBER [id number] [facility] [place]. [id number] HEMOGLOBIN [id number] 04:21:46* Test Item Value Reference Range Interpretation Comme [facility] HEMOGLOBIN A1c (test code = 16544) 11.3 % 4.2-5.6 H [place] DIABETE S [...] ALTERNATE TESTING OR LABORATORY CONSULTATION. COMPREHENSIVE METABOLIC [id number] 02:47:37* Test Item Value Reference Range Interpretation Comme nts GLUCOSE (test code = 2216) 365 MG/DL 70-99 H BUN (test code = 2207) 9 MG/DL 6-20 CREATININE (test code = 2213) 0.71 MG/DL 0.80-1.40 L eGFR (2020 CKD-EPI) [...] code = 2218) 41 U/L 5-50 LIPID [id number] 02:47:37* Test Item Value Reference Range Interpretation [...] SPECIMENS. FOR MOREINFORMATION, SEE CLIENT ANNOUNCEMENT AT [email or web address] CalcLDL-C RISK RATIO LDL/HDL (test code = 2238) (NOTE) RATIO <3.55 UNABLE TO VIRGIL CULATE POCT GLUCOSE (AUTOMATED)2022-09-11 16:54:15* Test Item Value Reference Range Interpretation Comme [facility] POCT GLU (test code = 9261953547) 234 mg/dL 70-110 H Lab Interpretation (test cod e = 52025-1) Abnormal [facility] HospitalLOW-DENSITY LIPOPROTEIN, [id number] 15:18:30* Test Item Value Reference Range Interpretation Comme [facility] dLDL Chol (test code = 22449-2) 71 mg/dL See_Comment [Automated [employer]] The system which generated this result transmitted reference range: <=130. The reference range was not used to interpret this result as normal/abnormal. Lab Interpretation (test code = 31830-8) Normal [facility] HospitalLIPID PANEL (02899)(TOTAL CHOLESTEROL, TRIGLYCERIDES, HDL)2022-09-11 13:58:08* Test Item Value Reference Range Interpretation Comme nts CHOL (test code = 6691671480) 227 mg/dL 120-200 H HDL (test code = 8169154904) 28 mg/dL See_Comment L [Automated [employer]] The system which generated this result transmitted reference range: >=40. The reference range was not used to interpret this result as normal/abnormal. HDLC RATIO (test code = 9298648389) See_Comment H [Automated [employer]] The system which generated this result transmitted reference range: <=5.0. The reference range was not used to interpret this result as normal/abnormal. TRIG (test code = 6129950599) 1291 mg/dL 30-170 H LDL CHOL (test code = 52462-8) Unable to calcul ate LDL due to elevated triglyceride level greater than 400 mg/dL. VLDL (test code = 3399861912) Unable to calcul ate VLDL due to elevated triglyceride level greater than 710 mg/dL. Lab Interpretation (test code = 96513-9) Abnormal [facility]PO[facility] (AUTOMATED)2022-09-11 12:50:53* Test Item Value Reference Range Interpretation Comme [facility] POCT GLU (test code = 0312574646) 247 mg/dL 70-110 H Lab Interpretation (test cod e = 13602-9) Abnormal [facility] HospitalCOMP. METABOLIC PANEL (53222)2022-09-11 09:41:07* Test Item Value Reference Range Interpretation Comme [facility] NA (test code = 8565867560) 135 mmol/L 135-145 K (test code = 8582003018) 3.5 mmol/L 3.5-5 CL (test code = 7422585194) 104 mmol/L 98-108 CO2 TOTAL (test code = 0971579015) 22 mmol/L 23-31 L AGAP (test code = 6419964051) 2-16 BUN (test code = 8907507003) 13 mg/dL 7-23 GLUCOSE (test code = 2149936688) 242 mg/dL 70-110 H CREATININE (test code = 4308505286) 0.64 mg/dL 0.6-1.25 TOTAL BILI (test code = 4981369340) 0.3 mg/dL 0.1-1.1 CALCIUM (test code = 3585596996) 8.0 mg/dL 8.6-10.6 L T PROTEIN (test code = 7811377186) 5.8 g/dL 6.3-8.2 L ALBUMIN (test code = 0382777293) 3.4 g/dL 3.5-5 L ALK PHOS (test code = 3869334034) 111 U/L 34-122 ALTv (test code = 1742-6) 23 U/L 5-50 AST(SGOT) (test code = 0294393661) 21 U/L 13-40 eGFR (test code = 4529548778) mL/min/1.73m2 NIKO (test code = NIKO) Association [...] imaging tests). Lab Interpretation (test code = 27402-7) Abnormal [facility] GLUCOSE (AUTOMATED)2022-09-11 07:33:20* Test Item Value Reference Range Interpretation Comme [facility] POCT GLU (test code = 7566938634) 204 mg/dL 70-110 H Lab Interpretation (test cod e = 09708-7) Abnormal [facility] GLUCOSE (AUTOMATED)2022-09-11 01:28:49* Test Item Value Reference Range Interpretation Comme [facility] POCT GLU (test code = 9763038687) 373 mg/dL 70-110 H Lab Interpretation (test cod e = 24076-9) Abnormal [facility] GLUCOSE (AUTOMATED)2022-09-10 20:50:37* Test Item Value Reference Range Interpretation Comme [facility] POCT GLU (test code = 4333969754) 272 mg/dL 70-110 H Lab Interpretation (test cod e = 96241-3) Abnormal [facility] HospitalGLYCOSYLATED HEMOGLOBIN (A1C)2022-09-10 20:06:25* Test Item Value Reference Range Interpretation Comme [facility] HGB A1C (test code = 4548-4) 12.3 % 4-5.7 H NIKO (test code = NIKO) Reference RangesNormal: <5.7%Prediabetes: 5.7 - 6.4%Diabetes: > 6.5% Lab Interpretation (test code = 36243-5) Abnormal [facility] HospitalComplete Metabolic [id number] 19:37:52* Test Item Value Reference Range Interpretation Comme nts NA (test code = 9602284695) 134 mmol/L 135-145 L K (test code = 0677340312) 4.1 mmol/L 3.5-5 CL (test code = 7293593439) 101 mmol/L 98-108 CO2 TOTAL (test code = 1771914115) 20 mmol/L 23-31 L AGAP (test code = 7636661236) 2-16 BUN (test code = 8146968470) 10 mg/dL 7-23 GLUCOSE (test code = 6233433613) 468 mg/dL 70-110 HH CREATININE (test code = 9788581734) 0.75 mg/dL 0.6-1.25 TOTAL BILI (test code = 1012932807) 0.6 mg/dL 0.1-1.1 CALCIUM (test code = 3210882318) 8.7 mg/dL 8.6-10.6 T PROTEIN (test code = 0844207540) 6.6 g/dL 6.3-8.2 ALBUMIN (test code = 0284904567) 4.2 g/dL 3.5-5 ALK PHOS (test code = 8682261731) 123 U/L 34-122 H ALTv (test code = 1742-6) 26 U/L 5-50 AST(SGOT) (test code = 2683725532) 22 U/L 13-40 eGFR (test code = 1633073568) mL/min/1.73m2 NIKO (test code = NIKO) Association [...] imaging tests). Lab Interpretation (test code = 55748-0) Abnormal [facility] HospitalLipase, [id number] 19:04:41* Test Item Value Reference Range Interpretation Comme nts LIPASE (test code = 2964847222) 111 U/L 0-220 Lab Interpretation (test cod e = 89411-3) Normal [facility] HospitalCB with [id number] 18:52:20* Test Item Value Reference Range Interpretation Comme nts WBC (test code = 6690-2) See_Comment [[employer]] The system which generated this result transmitted reference range: 4.20 - 10.70 10*3/?L. The reference range was not used to interpret this result as normal/abnormal. RBC (test code = 789-8) See_Comment [Automated [employer]] The system which generated this result transmitted [...] g/dL 31.2-35 H RDW-SD (test code = 61203-7) 37.7 fL 38.5-51.6 L RDW-CV (test code = 788-0) 11.9 % 12.1-15.4 L PLT (test code = 777-3) See_Comment [Automated [employer]] The system which generated this result transmitted reference range: 150 - 328 10*3/?L. The reference range was not used to interpret this result as normal/abnormal. MPV (test code = 21399-8) 11.9 fL 9.8-13 NRBC/100 WBC (test code = 0103378093) See_Comment [Automated [employer]age] The system which generated this result transmitted reference range: 0.0 - 10.0 /100 WBCs. The reference range was not used to interpret this result as normal/abnormal. NRBC x10^3 (test code = 3068038375) See_Comment [Automated [employer]] The system which generated this result transmitted reference range: 10*3/?L. The reference range was not used to interpret this result as normal/abnormal. GRAN MAT (NEUT) % (test code = 770-8) 56.2 % IMM GRAN % (test code = 5433302460) 0.40 % LYMPH % (test code = 736-9) 36.1 % MONO % (test code = 5905-5) 4.8 % EOS % (test code = 713-8) 1.7 % BASO % (test code = 706-2) 0.8 % GRAN MAT x10^3(ANC) (test code = 9429090488) 4.38 10*3/uL 1.99-6.95 IMM GRAN x10^3 (test code = 9401460341) 0.03 10*3/uL 0-0.06 LYMPH x10^3 (test code = 731-0) 2.81 10*3/uL 1.09-3.23 MONO x10^3 (test code = 742-7) 0.37 10*3/uL 0.36-1.02 EOS x10^3 (test code = 711-2) 0.13 10*3/uL 0.06-0.53 BASO x10^3 (test code = 704-7) 0.06 10*3/uL 0.01-0.09 Lab Interpretation (test code = 22618-1) Abnormal [facility] HospitalCT ABDOMEN PELVIS W [id number] 20:31:35Diverticulosis without diverticulitis. Hepatomegaly. Preliminary Report Dictated [...] reviewed this study and agree with the abovereport.[facility]alkayleen [id number] 19:10:36* Test Item Value Reference Range Interpretation Comme nts TROPONIN I (test code = 8085351348) 0.001 ng/mL See_Comment [Automated message] The system [...] biotin. ? Lab Interpretation (test code = 73733-3) Normal [facility] HospitalHepatic Function Panel (ALB, T.PRO, BILI T, BU/BC, ALT, AST, ALK PHOS)2021-03-05 18:59:14* Test Item Value Reference Range Interpretation Comme nts TOTAL BILI (test code = 7029498786) 0.4 mg/dL 0.1-1.1 BILI UNCON (test code = 5419669468) 0.3 mg/dL 0.1-1.1 BILI CONJ (test code = 8950771557) 0.0 mg/dL 0.0-0.3 T PROTEIN (test code = 9881142656) 6.6 g/dL 6.3-8.2 ALBUMIN (test code = 5157539759) 4.2 g/dL 3.5-5.0 ALK PHOS (test code = 0281876108) 97 U/L 34-122 ALTv (test code = 1742-6) 22 U/L 5-50 AST(SGOT) (test code = 5848606963) 23 U/L 13-40 Lab Interpretation (test cod e = 87739-9) Normal [facility] HospitalBasic Metabolic Panel (NA, K, CL, CO2, GLUCOSE, BUN, CREATININE, CA)2021-03-05 18:58:54* Test Item Value Reference Range Interpretation Comme nts NA (test code = 1929248319) 136 mmol/L 135-145 K (test code = 1327942091) 4.1 mmol/L 3.5-5.0 CL (test code = 0467939880) 104 mmol/L 98-108 CO2 TOTAL (test code = 8410252286) 24 mmol/L 23-31 AGAP (test code = 4115510918) 2-16 BUN (test code = 1147390173) 15 mg/dL 7-23 GLUCOSE (test code = 0845452864) 207 mg/dL 70-110 H CREATININE (test code = 6000695874) 0.74 mg/dL 0.60-1.25 CALCIUM (test code = 2477866110) 8.4 mg/dL 8.6-10.6 L eGFR (test code = 0181095652) mL/min/1.73m2 NIKO (test code = NIKO) Association [...] imaging tests). Lab Interpretation (test code = 87800-7) Abnormal [facility] HospitalLipase [id number] 18:58:54* Test Item Value Reference Range Interpretation Comme [facility] LIPASE (test code = 1960076755) 140 U/L 0-220 Lab Interpretation (test cod e = 41241-6) Normal [facility] HospitalUrinalysis2021-04-10 18:51:20* Test Item Value Reference Range Interpretation Comme nts APPEARANCE (test code = 3536330301) Clear Clear COLOR (test code = 6795798630) Yellow Yellow PH (test code = 4955062812) 4.8-8.0 SP GRAVITY (test code = 7197676265) 1.003-1.030 GLU U QUAL (test code = 8541871169) 50 mg/dL Normal A BLOOD (test code = 8820109848) Negative Negative KETONES (test code = 7708376032) Negative Negative PROTEIN (test code = 2887-8) Negative Negative UROBILIN (test code = 1566557318) Normal Normal BILIRUBIN (test code = 3914421446) Negative Negative NITRITE (test code = 2076954785) Negative Negative LEUK ZAY (test code = 3388293412) Negative Negative RBC/HPF (test code = 5998260309) See_Comment [Automated messa ge] The system which generated this result transmitted reference range: 0 - 3 HPF. The reference range was not used to interpret this result as normal/abnormal. WBC/HPF (test code = 1195325046) <1 See_Comment [Automated messa ge] The system which generated this result transmitted reference range: 0 - 5 HPF. The reference range was not used to interpret this result as normal/abnormal. BACTERIA (test code = 0900022902) Negative Negative MUCOUS (test code = 9007122740) Slight Negative LPF A SQ EPITH (test code = 0242790375) <1 HPF Lab Interpretation (test code = 91607-8) Abnormal [facility] with Mvxeszlknmrr8255-43-38 18:46:34* Test Item Value Reference Range Interpretation [...] g/dL 31.2-35.0 H RDW-SD (test code = 79138-0) 39.9 fL 38.5-51.6 RDW-CV (test code = 788-0) 12.5 % 12.1-15.4 PLT (test code = 777-3) See_Comment [Automated messa ge] The system which generated this result transmitted reference range: 150 - 328 10*3/?L. The reference range was not used to interpret this result as normal/abnormal. MPV (test code = 26184-5) 11.9 fL 9.8-13.0 NRBC/100 WBC (test code = 7683716999) See_Comment [Automated [employer]] The system which generated this result transmitted reference range: 0.0 - 10.0 /100 WBCs. The reference range was not used to interpret this result as normal/abnormal. NRBC x10^3 (test code = 2919226072) <0.01 See_Comment [Automated [employer]] The system which generated this result transmitted reference range: 10*3/?L. The reference range was not used to interpret this result as normal/abnormal. GRAN MAT (NEUT) % (test code = 770-8) 54.6 % IMM GRAN % (test code = 9878672499) 0.40 % LYMPH % (test code = 736-9) 36.8 % MONO % (test code = 5905-5) 5.3 % EOS % (test code = 713-8) 2.1 % BASO % (test code = 706-2) 0.8 % GRAN MAT x10^3(ANC) (test code = 2331107620) 3.92 10*3/uL 1.99-6.95 IMM GRAN x10^3 (test code = 3119276397) 0.03 10*3/uL 0.00-0.06 LYMPH x10^3 (test code = 731-0) 2.64 10*3/uL 1.09-3.23 MONO x10^3 (test code = 742-7) 0.38 10*3/uL 0.36-1.02 EOS x10^3 (test code = 711-2) 0.15 10*3/uL 0.06-0.53 BASO x10^3 (test code = 704-7) 0.06 10*3/uL 0.01-0.09 Lab Interpretation (test code = 80069-7) Abnormal [facility] HospitalLIPID [id number] 00:00:00* Test Item Value Reference Range Interpretation Comme nts CHOLESTEROL (test code = 2210) 185 MG/DL TRIGLYCERIDES (test code = 2232) 162 MG/DL HDL CHOLESTEROL (test code = 2220) 41 MG/DL CALC LDL CHOL (test code = 2237) 112 MG/DL RISK RATIO LDL/HDL (test cod e = 2238) 2.72 RATIO CBC W/AUTO [id number] 00:00:00* Test Item Value Reference Range Interpretation [...] code = 1015) 166 K/UL COMPREHENSIVE METABOLIC [id number] 00:00:00* Test Item Value Reference Range Interpretation Comme nts GLUCOSE (test code = 2217) 121 MG/DL BUN (test code = 2208) 12 MG/DL CREATININE (test code = 2214) 0.87 MG/DL eGFR AMER. (test cod e = 86084) 126 ML/MIN/1.73 eGFR NON- AMER. (test code = 66790) 109 ML/MIN/1.73 CALC BUN/CREAT (test code = [...] (test code = 2219) 26 U/L HEMOGLOBIN [id number] 00:00:00* Test Item Value Reference Range Interpretation Comme nts HEMOGLOBIN A1c (test code = 20321) 6.4 % CBC W/AUTO [id number] 00:00:00* Test Item Value Reference Range Interpretation [...] (test code = 1015) 193 K/UL HEMOGLOBIN [id number] 00:00:00* Test Item Value Reference Range Interpretation Comme nts HEMOGLOBIN A1c (test code = 69796) 7.8 % THYROID II PROFILE (T3U, T4, T7, TSH)2016-06-03 00:00:00* Test Item Value Reference Range Interpretation Comme nts T3 UPTAKE (test code = 2817) 26.4 % T4 (THYROXINE) (test code = 2819) 8.4 UG/DL CALCULATED T7 (FTI) (test co de = 2820) 2.22 TSH (test code = 2821) 2.2 UIU/ML COMPREHENSIVE METABOLIC [id number] 00:00:00* Test Item Value Reference Range Interpretation Comme nts GLUCOSE (test code = 2217) 98 MG/DL BUN (test code = 2208) 14 MG/DL CREATININE (test code = 2214) 0.82 MG/DL eGFR AMER. (test cod e = 97933) 132 ML/MIN/1.73 eGFR NON- AMER. (test code = 35772) 114 ML/MIN/1.73 CALC BUN/CREAT (test code = [...] (test code = 2219) 194 U/L LIPID [id number] 00:00:00* Test Item Value Reference Range Interpretation Comme nts CHOLESTEROL (test code = 2210) 207 MG/DL TRIGLYCERIDES (test code = 2232) 212 MG/DL HDL CHOLESTEROL (test code = 2220) 34 MG/DL CALC LDL CHOL (test code = 2237) 131 MG/DL RISK RATIO LDL/HDL (test cod e = 2238) 3.84 RATIO CBC W/AUTO [id number] 00:00:00* Test Item Value Reference Range Interpretation [...]
[2024-12-24 07:35] VITALS: BP 120/72; TEMP 98.4; O2SAT 97
== END 2024-12-23 22:05 | disposition home or self-care (01) ==
LOC: ER 16:56
DX: R10.31 Right lower quadrant pain (principal); K20.90 Esophagitis, unspecified without bleeding; Z11.52 Encounter for screening for COVID-19
CPT/HCPCS: 36415; 74177; 80053; 81001; 83690; 85025; 87070; 87081; 87804; 87811; 96361; 96374; 96375; 99284; J2405; J7030; Q9967

== ENCOUNTER 2024-12-26 05:21 | Inpatient (IN) | payer SELFPAY ==
--- OUTSIDE RECORDS SUMMARY | 2024-12-26 05:25 | XMS REPORT | Continuity of Care Document ---
Author Name Unknown Address [address] [facility] [address] [place] [address] [facility] thconnect Address [address] [facility] [facility] [address] [place] [address] Care Team Providers Care Playback Operator Name Role Phone Mirza Anjana Primary Care Physician Fellow, Pulmonary Attending Clinician Unavailsuraj hamilton Doctor Unassigned, [place] Attending Clinician U Magdaleno Garcia Attending Clinician Unavailable Kevin Munoz Attending Clinician [phone] Magdaleno Antony Attending Clinician [phone] HARINDER MUNOZ Attending Clinician Unavailable Harinder Munoz MD Attending Clinician [phone] Lupe Dejesus RN Attending Clinician UnavailALFREDO Beck Attending Clinician Unavailable Jacque Tang Attending Clinician [phone] Alfredo Navarro MD Attending Clinician [phone] Landy Jenkins DO Attending Clinician [phone] KEVIN THOMAS Admitting Clinician Unavailable ALFREDO NAVARRO Admitting Clinician Unavailable Alfredo Navarro MD Admitting Clinician [phone] Payers Payer Name Policy Type Policy Number Effective Date Expirati on Date Source Problems Condition Name Condition Details Condition Category Status Onset Date Resolution Date Last Treatment Date Treating Clinician Comments Source New onset type 2 diabetes mellitus New onset type 2 diabetes mellitus Disease Active 2021-11 00:00: 00 [facility] Obesity (BMI 30-39.9) Obesity (BMI 30-39.9) Disease Active 2021-11 00:00: 00 [facility] No known active problems No known active problems Disease [facility] Allergies, Adverse Reactions, Alerts Allergy Name Allergy Type Status Severity Reaction(s) Onset Date Inactive Date Treating Clinician Comments Source NO KNOWN ALLERGIE S Drug Class Active [facility] Social History Social Habit Start Date Stop Date Quantity Comments Source Gender identity [facility] Sexual orientation [facility] History of tobacco use Passive smoker [facility] History of Social function 2024-01-14 00:00:00 2024-01-14 00:00:00 [facility] Alcohol intake 2024-01-14 00:00:00 2024-01-14 00:00:00 Current non-drinker of alcohol (finding) [facility] Exposure to SARS-CoV-2 (event) 2022-08-31 00:00:00 2022-09-10 13:58:00 Not sure [facility] Cigarettes smoked current (pack per day) - Reported 2022-09-10 00:00:00 2022-09-10 00:00:00 [facility] Cigarette pack-years 2022-09-10 00:00:00 2022-09-10 00:00:00 [facility] Tobacco use and exposure 2022-09-10 00:00:00 2022-09-10 00:00:00 Smokeless tobacco non-user [facility] Education - What is the highest level of school you have completed or the highest degree you have received? 2022-09-10 00:00:00 2022-09-10 00:00:00 Some college, no degree [facility] Sex Assigned At 1980 00:00:00 1980 00:00:00 [facility] Smoking Status Start Date Stop Date Source Ex-smoker 2022-09-10 00:00:00 2022-09-10 00:00:00 [facility] Current some day smoker 2021-03-05 00:00:00 [facility] Medications Ordered Medication Name Filled Medication Name Start Date Stop Date Current Medication? Ordering Clinician Indication Dosage Frequency Signature (SIG) Comments Components Source ipratropium -albuteroL (DUONEB) 0.5 mg-3 mg(2.5 mg base)/3 mL nebulizer solution 3 mL 01-14 04:00: 00 01-14 03:07 :00 No 3mL 3 mL, Inhalation , ONCE, 1 dose, On 01/13/24 at 2200, Routine [facility] NaCl 0.9% (NS) bolus infusion 1,000 mL 01-14 03:45: 00 01-14 03:43 :00 No 1000mL at 999 mL/hr, 1,000 mL, IV Infusion, ONCE, 1 dose, On Sun01/13/24 at 2145, STAT [facility] ketorolac (TORADOL) injection 15 mg 01-14 03:45: 00 01-14 02:42 :00 No 15mg 15 mg, Slow IV Push, ONCE, 1 dose, On 01/13/24 at 2145, JOSE [facility] NaCl 0.9% (NS) bolus infusion 1,000 mL 01-14 02:00: 00 01-14 01:55 :00 No 1000mL at 999 mL/hr, 1,000 mL, IV Infusion, ONCE, 1 dose, On Sun01/13/24 at 2000, JOSE [facility] acetaminoph en (TYLENOL) tablet 975 mg 01-14 01:15: 00 01-14 01:11 :00 No 975mg 975 mg, Oral, ONCE, 1 dose, On Sun01/13/24 at 1915, [facility] benzonatate 200 mg capsule 01-13 00:00: 00 Yes [id number] 200mg Take 1 capsule by mouth 3 (three) times daily as needed for Cough for up to 20 doses. [facility] ondansetron 4 mg disintegrat ing tablet 01-13 00:00: 00 Yes [id number] 4mg Take 1 tablet by mouth every 8 (eight) hours as needed for Nausea and Vomiting (N/V). [facility] albuterol 90 mcg/actuati on inhaler 01-13 00:00: 00 Yes [id number] 2{puff} Inhale 2 Puffs every 4 (four) hours as needed for Wheezing or Shortness of Breath. [facility] 10 units 2 times daily 2021-11 00:00: 00 No SITagliptin (JANUVIA) tablet 100 mg 2021-11 14:00: 00 Yes 100mg 100 mg, Oral, DAILY, First dose on Sun09/11/22 at 0900, Until Discontinu ed, Routine [facility] enoxaparin (LOVENOX) injection 40 mg 2021-11 14:00: 00 Yes 40mg 40 mg, Subcutaneo us, DAILY, First dose on Sun09/11/22 at 0900, Until Discontinu ed, Routine [facility] omeprazole (PRILOSEC) capsule 40 mg 2021-11 14:00: 00 Yes 40mg 40 mg, Oral, DAILY, First dose on Sun09/11/22 at 0900, Until Discontinu ed [facility] metFORMIN (GLUCOPHAGE ) tablet 1,000 mg 2021-11 13:00: 00 Yes 1000mg 1,000 mg, Oral, BID MEALS, First dose (after last modificati on) on Sun09/11/22 at 0800, Until Discontinu ed, Routine [facility] simethicone (GAS RELIEF (SIMETHICON E)) chewable tablet 80 mg 2021-11 07:47: 21 Yes 80mg 80 mg, Oral, QIDPRN, Starting on Sun09/11/22 at 0247, Until Discontinu ed, Routine, Gas [facility] HYDROcodone -acetaminop hen (NORCO 5) 5-325 mg tablet 1 tablet 2021-11 07:35: 21 Yes 1{tbl} 1 tablet, Oral, Q6HPRN, Starting on Sun09/11/22 at 0235, Until Discontinu ed, Routine, Pain (scale 7-10) [facility] traMADoL (ULTRAM) tablet 50 mg 2021-11 07:35: 08 Yes 50mg 50 mg, Oral, Q6HPRN, Starting on 09/11/22 at 0235, Until Discontinu ed, Routine, Pain (scale 4-6) [facility] Insulin-Reg ular + Fsbg Testing 2021-11 07:15: 00 Yes Subcutaneo us, Q4H, First dose (after last modificati on) on Sun09/11/22 at 0215, Until Discontinu ed, Routine [facility] atorvastati n (LIPITOR) tablet 40 mg 2021-11 02:00: 00 Yes 40mg 40 mg, Oral, QHS, First dose on 09/10/22 at 2100, Until Discontinu ed, Routine [facility] Sliding Scale Insulin-Reg ular + Fsbg Testing 2021-11 02:00: 00 09-11 07:10 :47 No Subcutaneo us, AC+HS, First dose on 09/10/22 at 2100, Until Discontinu ed, Routine [facility] Lancing Device with Lancets (ACCU-CHEK SOFT DEV LANCETS) Kit 2021-11 00:00: 00 Yes [id number] Use as directed [facility] pen needle, diabetic 32 gauge x 1/5" Ndle 2021-11 00:00: 00 Yes [id number] Use as directed [facility] Lancing Device with Lancets (ACCU-CHEK SOFT DEV LANCETS) Kit 2021-11 00:00: 00 Yes [id number] Use as directed [facility] flash glucose scanning reader (FREESTYLE ROSA MARIA 2 READER) [facility] 2021-11 00:00: 00 Yes [id number] 2{appli cator} 2 Applicator s before meals. [facility] pen needle, diabetic 32 gauge x 1/5" Ndle 2021-11 00:00: 00 Yes [id number] Use as directed [facility] metFORMIN 1,000 mg tablet 2021-11 00:00: 00 10-12 05:59 :00 No [id number] 1000mg Take 1 tablet by mouth in the morning and 1 tablet in the evening. Take with meals. Do all this for 30 days. [facility] atorvastati n 40 mg tablet 2021-11 00:00: 00 10-12 05:59 :00 No [id number] 40mg Take 1 tablet by mouth at bedtime for 30 days. [facility] insulin aspart protamine-i nsulin aspart (NOVOLOG MIX 70-30 U-100 INSULN) 100 unit/mL (70-30) injection 2021-11 00:00: 00 10-12 05:59 :00 No [id number] 10U inject 10 Units under the skin 2 (two) times daily before breakfast and dinner for 30 days. [facility] NaCl 0.9% (NS) IV infusion 1,000 mL 2021-11 22:45: 00 Yes 1000mL at 125 mL/hr, IV Infusion, CONTINUOUS , Starting on [place] 09/10/22 at 1745, Until Discontinu ed, Routine [facility] insulin NPH and regular human 70-30 (70-30 U-100 INSULIN) 100 unit/mL (70-30) injection 10 Units 2021-11 22:45: 00 09-11 04:12 :06 No 10U 10 Units, Subcutaneo us, BIDAC, First dose on Sun09/10/22 at 1745, Until Discontinu ed, Routine [facility] glucagon (GLUCAGEN DIAGNOSTIC KIT) injection 1 mg 2021-11 22:36: 10 Yes 1mg 1 mg, Intramuscu lar, PRN, Starting on Sun09/10/22 at 1736, Until Discontinu ed, JOSE, Blood Glucose < or = 70 mg/dL and patient is unable to swallow or has mental changes. [facility] dextrose 50 % in water (D50W) injection 25 mL 2021-11 22:36: 10 Yes 25mL 25 mL, Slow IV Push, PRN, Starting on Sun09/10/22 at 1736, Until Discontinu ed, JOSE, Blood Glucose < or = 70 mg/dL and patient is unable to swallow or has mental status changes. [facility] ondansetron (ZOFRAN (PF)) injection 4 mg 2021-11 22:36: 02 Yes 4mg 4 mg, Slow IV Push, Q6HPRN, Starting on Sun09/10/22 at 1736, Until Discontinu ed, Routine, Nausea and Vomiting (N/V) [facility] acetaminoph en (TYLENOL) tablet 650 mg 2021-11 22:35: 56 Yes 650mg 650 mg, Oral, Q6HPRN, Starting on Sun09/10/22 at 1735, Until Discontinu ed, Routine, Pain (scale 1-3) [facility] NaCl 0.9% (NS) bolus infusion 1,000 mL 2021-11 20:45: 00 09-10 20:37 :00 No 1000mL at 999 mL/hr, 1,000 mL, IV Infusion, ONCE, 1 dose, On Sun09/10/22 at 1545, JOSE [facility] iopamidol (ISOVUE 370-500 mL) injection 75 mL 2021-11 19:15: 00 09-10 19:30 :00 No [id number] 75mL 75 mL, Intravenou s, ONCE, 1 dose, On Sun09/10/22 at 1430, Routine [facility] ondansetron (ZOFRAN (PF)) injection 4 mg 2021-11 19:15: 00 09-10 19:39 :00 No 4mg 4 mg, Slow IV Push, ONCE, 1 dose, On Sun09/10/22 at 1415, JOSE [facility] morpHINE (4 mg/mL) injection 4 mg 2021-11 19:15: 00 09-10 19:39 :00 No 4mg 4 mg, Slow IV Push, ONCE, 1 dose, On Sun09/10/22 at 1415, STAT [facility] iohexol (OMNIPAQUE 350 BULK-150 mL) injection 120 mL 03-05 19:30: 00 03-05 19:10 :00 No [id number] 120mL 120 mL, Intravenou s, ONCE, 1 dose, 03/05/21 at 1430, Routine [facility] famotidine (PEPCID (PF)) injection 20 mg 03-05 19:30: 00 03-05 18:37 :00 No 20mg 20 mg, Slow IV Push, ONCE, 1 dose, 03/05/21 at 1430, JOSE [facility] ondansetron (ZOFRAN (PF)) injection 4 mg 03-05 19:30: 00 03-05 18:37 :00 No 4mg 4 mg, Slow IV Push, ONCE, 1 dose, 03/05/21 at 1430, [facility] morpHINE injection 4 mg 03-05 19:30: 03-05 18:37 :00 No 4mg 4 mg, Slow IV Push, ONCE, 1 dose, 03/05/21 at 1430, STAT [facility] NaCl 0.9% (NS) bolus infusion 1,000 mL 03-05 18:30: 00 03-05 19:46 :00 No 1000mL at 999 mL/hr, 1,000 mL, IV Infusion, ONCE, 1 dose, 03/05/21 at 1330, JOSE [facility] omeprazole 40 mg capsule 03-05 00:00: 00 Yes [id number] 40mg Take 1 capsule by mouth daily. [facility] metFORMIN 500 mg tablet 03-05 00:00: 00 Yes [id number] 500mg Take 1 tablet by mouth 2 (two) times daily. [facility] prednisone 20 mg tablet 01-07 00:00: 00 No 1mg Dose Unknown 01-07 00:00: 00 No metformin 500 mg tablet -23 00:00: 00 No 1mg neomycin-po lymyxin-hyd rocortisone (CORTISPORI N OTIC SUSPENSION) 3.5-10,000- 1 mg/mL-unit/ mL-% otic susp 08-04 00:00: 00 03-05 00:00 :00 No 3[drp] Place 3 Drops in left ear 4 (four) times daily. [facility] acetaminoph en-codeine (TYLENOL-CO DEINE #3) 300-30 mg tablet 08-04 00:00: 00 03-05 00:00 :00 No 1{tbl} Take 1 tablet by mouth every 6 (six) hours as needed for Pain (scale 4-6) (for cough). [facility] metformin 1,000 mg tablet 06-15 00:00: 00 No 1mg pantoprazol e (PROTONIX) 40 mg EC tablet 05-26 00:00: 00 03-05 00:00 :00 No 40mg Take 1 tablet by mouth daily. [facility] metFORMIN (GLUCOPHAGE ) 500 mg tablet 05-26 00:00: 00 03-05 00:00 :00 No 500mg Take 1 tablet by mouth 2 (two) times daily with meals. [facility] amoxicillin 500 mg capsule 01-12 00:00: 00 No 1mg amoxicillin 250 mg capsule 01-12 00:00: 00 No 1mg Bromfed DM 2 mg-30 mg-10 mg/5 mL syrup 01-12 00:00: 00 No 10mg/5 mL Vital Signs Vital Name Observation Time Observation Value Comments S ource Systolic blood pressure 2024-01-14 03:38:00 114 mm[Hg] [facility] Diastolic blood pressure 2024-01-14 03:38:00 66 mm[Hg] [facility] Heart rate 2024-01-14 03:38:00 96 /[facility] Body temperature 2024-01-14 03:38:00 37.5 Geovanna [facility] Respiratory rate 2024-01-14 03:38:00 16 /min [facility] Oxygen saturation in Arterial blood by Pulse oximetry 2024-01-14 03:38:00 96 /min [facility] Body height 2024-01-14 00:52:00 172.7 cm [facility] 2024-01-14 00:52:00 86.183 kg [facility] BMI 2024-01-14 00:52:00 28.89 kg/m2 [facility] Systolic blood pressure 2024-01-07 13:52:00 136 mm[Hg] [facility] Diastolic blood pressure 2024-01-07 13:52:00 87 mm[Hg] [facility] Heart rate 2024-01-07 13:52:00 100 /min Unive [facility] Body temperature 2024-01-07 13:52:00 36.61 Geovanna [facility] Respiratory rate 2024-01-07 13:52:00 18 /min [facility] Body height 2024-01-07 13:52:00 172.7 cm [facility] Body weight 2024-01-07 13:52:00 87.998 kg [facility] BMI 2024-01-07 13:52:00 29.50 kg/m2 [facility] Oxygen saturation in Arterial blood by Pulse oximetry 2024-01-07 13:52:00 100 /min [facility] Systolic blood pressure 2022-09-11 16:34:00 131 mm[Hg] [facility] Diastolic blood pressure 2022-09-11 16:34:00 80 mm[Hg] [facility] Heart rate 2022-09-11 16:34:00 80 /min Unive [facility] Body temperature 2022-09-11 16:34:00 36.83 Geovanna [facility] Respiratory rate 2022-09-11 16:34:00 18 /min [facility] Oxygen saturation in Arterial blood by Pulse oximetry 2022-09-11 16:34:00 97 /min [facility] Body weight 2022-09-11 07:55:00 82.464 kg [facility] BMI 2022-09-11 07:55:00 27.64 kg/m2 [facility] Body height 2022-09-11 01:03:00 172.7 cm [facility] Systolic blood pressure 2021-03-05 20:00:00 119 mm[Hg] [facility] Diastolic blood pressure 2021-03-05 20:00:00 73 mm[Hg] [facility] Heart rate 2021-03-05 20:00:00 78 /min [facility] Respiratory rate 2021-03-05 20:00:00 17 /min [facility] Oxygen saturation in Arterial blood by Pulse oximetry 2021-03-05 20:00:00 99 /min [facility] Body temperature 2021-03-05 18:12:00 36.28 Geovanna [facility] Body height 2021-03-05 18:12:00 172.7 cm [facility] Body weight 2021-03-05 18:12:00 101.606 kg [facility] BMI 2021-03-05 18:12:00 34.06 kg/m2 [facility] BP Systolic 2022-09-14 13:45:00 119 [...] CHEST 1 VW 2024-01-14 01:38:50 Kevin Thomas [facility] POCT GLUCOSE (AUTOMATED) 2024-01-14 01:23:00 Kevin Thomas [facility] LIPASE 2024-01-14 01:17:00 Kevin Thomas [facility] TROPONIN I 2024-01-14 01:17:00 Kevin Thomas [facility] COMP. METABOLIC PANEL (18361) 2024-01-14 01:17:00 Kevin Thomas [facility] CBC WITH DIFF 2024-01-14 01:17:00 Kevin Thomas [facility] N-TERMINAL PRO-BNP 2024-01-14 01:17:00 [facility] RAPID STREP SCREEN FOR GROUP A 2024-01-14 00:59:00 [facility] RAPID INFLUENZA A/B 2024-01-14 00:59:00 [facility] COVID-19 (ID NOW RAPID TESTING) 2024-01-14 00:59:00 [facility] NOTICE OF PRIVACY PRACTICES 2024-01-14 00:49:07 Doctor Unassigned, [place] [facility] CONSENT/REFUSAL FOR DIAGNOSIS AND TREATMENT 2024-01-14 00:48:09 Doctor Unassigned, [place] [facility] ASSIGNMENT OF BENEFITS 2024-01-07 14:52:26 Docto r Unassigned, [place] [facility] CONSENT/REFUSAL FOR DIAGNOSIS AND TREATMENT 2024-01-07 13:41:19 Doctor Unassigned, [place] [facility] REFERRAL- REQUEST/RESPONSE 2023-06-06 05:01:00 Doctor Unassigned, [place] [facility] POCT GLUCOSE (AUTOMATED) 2022-09-11 16:34[facility] 2022-09-11 12:44[facility]00 [facility]. METABOLIC PANEL (49026) 2022-09-11 07:58[facility]00 [facility] LIPID PANEL (40652)(TOTAL CHOLESTEROL, TRIGLYCERIDES, HDL) 2022-09-11 07:58:00 [facility] LOW-DENSITY LIPOPROTEIN, DIRECT 2022-09-11 07:58:00 [facility] ([facility]OMATED) 2022-09-11 07:29:00 [facility] POCT GLUCOSE (AUTOMATED) 2022-09-11 01:22:00 Mel[facility] POCT GLUCOSE (AUTOMATED) 2022-09-10 20:47:[address] [facility]EL[facility]AST 2022-09-10 19:16:33 Jacque Wells [facility] LIPASE 2022-09-10 18:43:00 [facility]. METABOLIC PANEL (72744) 2022-09-10 18:43:00 Singer [facility] CBC WITH DIFF 2022-09-10 18:43:00 Venedocia [facility] GLYCOSYLATED HEMOGLOBIN (A1C) 2022-09-10 18:43:00 [facility] 2022-09-10 18:43:00 Matthew [facility] NOTICE OF PRIVACY PRACTICES 2022-09-10 18:35:36 Doctor Unassigned, [place] [facility] CONSENT/REFUSAL FOR DIAGNOSIS AND TREATMENT 2022-09-10 18:35:02 Doctor Unassigned, [place] [facility] CT ABDOMEN PELVIS W CONTRAST 2021-03-05 19:23:44 Landy Jenkins [facility] LIPASE 2021-03-05 18:30:00 Landy Jenkins Un [facility] TROPONIN I 2021-03-05 18:30:00 Landy Jenkins [facility] HEPATIC FUNCTION PANEL (82068) (ALB,T.PRO,BILI T,BU/BC,ALT,AST,ALK PHOS) 2021-03-05 18:30:00 Landy Jenkins [facility] BASIC METABOLIC PANEL (NA, K, CL, CO2, GLUCOSE, BUN, CREATININE, CA) 2021-03-05 18:30:00 Landy Jenkins [facility] CBC WITH DIFF 2021-03-05 18:30:00 [facility] 2021-03-05 18:30:00 [facility] NOTICE OF PRIVACY PRACTICES 2021-03-05 18:07:12 Doctor Unassigned, [place] [facility] CONSENT/REFUSAL FOR DIAGNOSIS AND TREATMENT 2021-03-05 18:07:01 Doctor Unassigned, [place] [facility] Plan of Care Planned Activity Planned Date Details Comments Source Goal Plan of Care Note [code = 84272-2] Goal Plan of Care Note [code = 92113-0] Goal Plan of Care Note [code = 46723-0] Goal Plan of Care Note [code = 23554-8] Goal Plan of Care Note [code = 02867-4] Goal Plan of Care Note [code = 74272-2] Goal Plan of Care Note [code = 78083-7] Goal Plan of Care Note [code = 43934-7] Goal Plan of Care Note [code = 37309-9] Goal Plan of Care Note [code = 44774-8] Goal Plan of Care Note [code = 04491-1] Goal Plan of Care Note [code = 61618-8] Goal Plan of Care Note [code = 03730-5] Encounters Start Date/Time End Date/Time Encounter Type Admission Type Attending [facility] Facility Care Department Encounter ID Source 2024-09-19 08:01:34 2024-09-19 08:01:34 Outpatient S[facility] [id number] [address] 2024-01-22 00:00:00 2024-01-22 00:00:00 Letter (Out) Fellow, Pulmonary [facility] ..114 350.1.13.10 4.2.7.2.686 [id number] [facility] 2024-01-21 00:00:00 2024-01-21 00:00:00 Patient Secure Msg Doctor Unassigned, [place] [facility] 1..114 350.1.13.10 4.2.7.2.686 [id number] [facility] 2024-01-13 18:56:00 2024-01-13 21:46:00 Emergency Magdaleno LUQUE [facility] ERT [id number] [facility] 2024-01-13 18:56:00 2024-01-13 21:46:00 Emergency Kevin Thomas K Darling [facility] 1..114 350.1.13.10 4.2.7.2.686 [id number] [facility] 2024-01-07 07:54:00 2024-01-07 08:48:00 Emergency Og HARINDER MUNOZ [facility] ERT [id number] [facility] 2024-01-07 07:54:00 2024-01-07 08:48:00 Emergency EziomiguelHarinder vital C [facility] 1.114 350.1.13.10 4.2.7.2.686 [id number] [facility] 2023-06-28 10:37:44 2023-06-28 10:37:44 Outpatient SFA [facility] [id number] 2023-06-21 08:19:38 2023-06-21 08:19:38 Outpatient [facility] [id number] [place] 2023-06-20 16:02:39 2023-06-20 16:02:39 Outpatient [facility] [address] [place] 2023-06-09 00:00:00 2023-06-09 00:00:00 Lupe Morel [facility] 1.114 350.1.13.10 4.2.7.2.686 [id number] [facility] 2023-06-09 00:00:00 2023-06-09 00:00:00 Patient Secure Msg Doctor Unassigned, [place] [facility] 1..114 350.1.13.10 4.2.7.2.686 [id number] [facility] 2023-06-06 00:00:00 2023-06-06 00:00:00 Orders Only Doctor Unassigned, [place] [facility] 1.2.840.114 350.1.13.10 4.2.7.2.686 [id number] [facility] 2023-05-30 16:25:18 2023-05-30 16:25:18 Outpatient [facility] [id number] 2022-09-14 13:42:01 2022-09-14 13:42:01 Outpatient [facility] [id number] 2022-09-14 00:00:00 2022-09-14 00:00:00 Outpatient Visit [id number] 2022-09-10 13:44:00 2022-09-11 12:54:00 Outpatient X TIMJACQUES ALFREDO [facility] PHILLIP [id number] [facility] 2022-09-10 13:44:00 2022-09-11 12:54:00 Emergency [facility] 1.2.840.114 350.1.13.10 4.2.7.2.686 [id number] [facility] 2021-03-05 13:11:00 2021-03-05 15:35:00 Emergency Landy Jenkins [facility] 1.2.840.114 350.1.13.10 4.2.7.2.686 [id number] [facility] 2021-03-05 13:06:00 2021-03-05 13:06:00 Emergency X [facility] ERT [id number] [facility] Results Test Description Test Time Test Comments Results Result Co mments Source [id number] 02:06:46* Test Item Value Reference Range Interpretation Comme nts NT-proBNP (test code = 17700-4) 22 pg/mL <=125 Lab Interpretation (test cod e = 23694-4) Normal [facility] 1 [id number] 02:01:38CHEST X-RAY AP PORTABLE 01/13/2024 8:01 PM Ordering physician: KEVIN THOMAS CLINICAL INFORMATION: ?Chest pain and fever COMPARISON: None TECHNIQUE: ?single AP view of the chest was submitted. FINDINGS: ? The lung sahni are clear. ?No pleural effusions. ?No pneumothorax. ?Thecardiomediastinal silhouette is within normal limits. ?No acuteradiographic bony abnormalities.[facility] 01:57:27* Test Item Value Reference Range Interpretation Comme nts LIPASE (test code = 2384864979) 134 U/L 0-220 Lab Interpretation (test cod e = 72065-7) Normal [facility] METABOLIC PANEL (11296)2024-01-14 01:57:27* Test Item Value Reference Range Interpretation Comme nts NA (test code = 7782015919) 134 mmol/L 135-145 L K (test code = 7229080926) 4.0 mmol/L 3.5-5.0 CL (test code = 3177021770) 104 mmol/L 98-108 CO2 TOTAL (test code = 3965800768) 24 mmol/L 23-31 AGAP (test code = 8667796256) 6 2-16 BUN (test code = 2604296868) 15 mg/dL 7-23 GLUCOSE (test code = 2633077193) 301 mg/dL 70-110 H CREATININE (test code = 2160-0) 0.81 mg/dL 0.60-1.25 TOTAL BILI (test code = 4413671816) 0.5 mg/dL 0.1-1.1 CALCIUM (test code = 0096811748) 8.6 mg/dL 8.6-10.6 T PROTEIN (test code = 1230083682) 7.5 g/dL 6.3-8.2 ALBUMIN (test code = 6538648092) 4.1 g/dL 3.5-5.0 ALK PHOS (test code = 3989569723) 127 U/L 34-122 H ALTv (test code = 1742-6) 18 U/L 5-50 AST(SGOT) (test code = 1833392039) 20 U/L 13-40 eGFR (test code = 61024-1) 111.5 mL/min/1.73m2 CKD-EPI eGFR (2020). Assuming creatinine has been stable day-to-day for at least three months, the eGFR indicates Category G1 (>= 90 mL/min/1.73 m2) Lab Interpretation (test code = 72396-3) Abnormal [facility] WITH [id number] 01:51:26* Test Item Value Reference Range Interpretation [...] 34.2 g/dL 31.2-35.0 RDW-SD (test code = 92946-3) 38.2 fL 38.5-51.6 L RDW-CV (test code = 788-0) 12.1 % 12.1-15.4 PLT (test code = 777-3) 149 150-328 L MPV (test code = 17686-9) 12.0 fL 9.8-13.0 NRBC/100 WBC (test code = 6419753730) 0.0 0.0-10.0 NRBC x10^3 (test code = 8444151077) See_Comment [Automated messa ge] The system which generated this result transmitted reference range: 10*3/?L. The reference range was not used to interpret this result as normal/abnormal. GRAN MAT (NEUT) % (test code = 770-8) 52.7 % IMM GRAN % (test code = 0685810913) 0.50 % LYMPH % (test code = 736-9) 36.8 % MONO % (test code = 5905-5) 8.3 % EOS % (test code = 713-8) 1.2 % BASO % (test code = 706-2) 0.5 % GRAN MAT x10^3(ANC) (test code = 8745480423) 2.15 10*3/uL 1.99-6.95 IMM GRAN x10^3 (test code = 6893568185) 0.00-0.06 LYMPH x10^3 (test code = 731-0) 1.50 10*3/uL 1.09-3.23 MONO x10^3 (test code = 742-7) 0.34 10*3/uL 0.36-1.02 L EOS x10^3 (test code = 711-2) 0.05 10*3/uL 0.06-0.53 L BASO x10^3 (test code = 704-7) 0.01-0.09 Lab Interpretation (test code = 77627-0) [facility]normal [facility]2024-01-14 01:24:45* Test Item Value Reference Range Interpretation Comme [facility] POCT GLU (test code = 1414764297) 279 mg/dL 70-110 H Lab Interpretation (test cod e = 13743-3) Abnormal [facility] Lake[facility] W/AUTO DIFF WITH [id number] 14:31:15* Test Item Value Reference Range Interpretation Comme [facility] WBC (test code = 1001) TEST [...] TEST NOT PERFORMED K/UL 0.00-0.20 TSH, THIRD [id number] 05:37:35* Test Item Value Reference Range Interpretation Comme [facility] TSH, THIRD GENERATION (test code = 2821) 2.130 UIU/ML 0.400-4.100 UNLESS OTHERWISE INDICATED, ALL TESTING PERFORMED AT [facility] [address] [place] [address] WEARING APPAREL ASSEMBLER: ANGELA DE ANDA M.D. CLIA NUMBER [id number] [facility] [place]. [id number] HEMOGLOBIN [id number] 04:21:46* Test Item Value Reference Range Interpretation Comme [facility] HEMOGLOBIN A1c (test code = 06982) 11.3 % 4.2-5.6 H [employer] GUIDELINES FOR HGB A1C: [...] ALTERNATE TESTING OR LABORATORY CONSULTATION. COMPREHENSIVE METABOLIC [id number] 02:47:37* Test Item Value Reference Range Interpretation [...] code = 2218) 41 U/L 5-50 LIPID [id number] 02:47:37* Test Item Value Reference Range Interpretation [...] SPECIMENS. FOR MOREINFORMATION, SEE CLIENT ANNOUNCEMENT AT [email or web address] CalcLDL-C RISK RATIO LDL/HDL (test code = 2238) (NOTE) RATIO <3.55 UNABLE TO VIRGIL CULATE POCT GLUCOSE (AUTOMATED)2022-09-11 16:54:15* Test Item Value Reference Range Interpretation Comme [facility] POCT GLU (test code = 6604349243) 234 mg/dL 70-110 H Lab Interpretation (test cod e = 09761-8) Abnormal [facility] LakeLOW-DENSITY LIPOPROTEIN, [id number] 15:18:30* Test Item Value Reference Range Interpretation Comme [facility] dLDL Chol (test code = 88074-2) 71 mg/dL See_Comment [Automated [employer]ant[employer]] The system which generated this result transmitted reference range: <=130. The reference range was not used to interpret this result as normal/abnormal. Lab Interpretation (test code = 18504-0) Normal [facility] LakeLIPID PANEL (09583)(TOTAL CHOLESTEROL, TRIGLYCERIDES, HDL)2022-09-11 13:58:08* Test Item Value Reference Range Interpretation Comme nts CHOL (test code = 0812391865) 227 mg/dL 120-200 H HDL (test code = 0159561573) 28 mg/dL See_Comment L [Automated [employer]] The system which generated this result transmitted reference range: >=40. The reference range was not used to interpret this result as normal/abnormal. HDLC RATIO (test code = 2845750555) See_Comment H [Automated [employer]] The system which generated this result transmitted reference range: <=5.0. The reference range was not used to interpret this result as normal/abnormal. TRIG (test code = 7810275328) 1291 mg/dL 30-170 H LDL CHOL (test code = 76288-1) Unable to calcul ate LDL due to elevated triglyceride level greater than 400 mg/dL. VLDL (test code = 5585799481) Unable to calcul ate VLDL due to elevated triglyceride level greater than 710 mg/dL. Lab Interpretation (test code = 27821-5) Abnormal [facility] (AUT[facility]ATED)2022-09-11 12:50:53* Test Item Value Reference Range Interpretation Comme [facility] POCT GLU (test code = 0694067995) 247 mg/dL 70-110 H Lab Interpretation (test cod e = 84387-9) Abnormal [facility] Lake[facility]. METABOLIC PANEL (59605)2022-09-11 09:41:07* Test Item Value Reference Range Interpretation Comme [facility] NA (test code = 2130200457) 135 mmol/L 135-145 K (test code = 1868584682) 3.5 mmol/L 3.5-5 CL (test code = 6662507552) 104 mmol/L 98-108 CO2 TOTAL (test code = 4895858291) 22 mmol/L 23-31 L AGAP (test code = 0989601412) 2-16 BUN (test code = 8724262345) 13 mg/dL 7-23 GLUCOSE (test code = 3809449604) 242 mg/dL 70-110 H CREATININE (test code = 8215785099) 0.64 mg/dL 0.6-1.25 TOTAL BILI (test code = 3491905006) 0.3 mg/dL 0.1-1.1 CALCIUM (test code = 3338976027) 8.0 mg/dL 8.6-10.6 L T PROTEIN (test code = 6970376359) 5.8 g/dL 6.3-8.2 L ALBUMIN (test code = 0088431287) 3.4 g/dL 3.5-5 L ALK PHOS (test code = 0054709969) 111 U/L 34-122 ALTv (test code = 1742-6) 23 U/L 5-50 AST(SGOT) (test code = 6809722448) 21 U/L 13-40 eGFR (test code = 3899312726) mL/min/1.73m2 NIKO (test code = NIKO) Association [...] imaging tests). Lab Interpretation (test code = 76731-9) Abnormal [facility] GLUCOSE (AUTOMATED)2022-09-11 07:33:20* Test Item Value Reference Range Interpretation Comme [facility] POCT GLU (test code = 4572484910) 204 mg/dL 70-110 H Lab Interpretation (test cod e = 64691-2) Abnormal [facility] GLUCOSE (AUTOMATED)2022-09-11 01:28:49* Test Item Value Reference Range Interpretation Comme [facility] POCT GLU (test code = 2545108879) 373 mg/dL 70-110 H Lab Interpretation (test cod e = 05147-0) Abnormal [facility] GLUCOSE (AUTOMATED)2022-09-10 20:50:37* Test Item Value Reference Range Interpretation Comme [facility] POCT GLU (test code = 9156367077) 272 mg/dL 70-110 H Lab Interpretation (test cod e = 17835-5) Abnormal [facility] LakeGLYCOSYLATED HEMOGLOBIN (A1C)2022-09-10 20:06:25* Test Item Value Reference Range Interpretation Comme [facility] HGB A1C (test code = 4548-4) 12.3 % 4-5.7 H NIKO (test code = NIKO) Reference RangesNormal: <5.7%Prediabetes: 5.7 - 6.4%Diabetes: > 6.5% Lab Interpretation (test code = 90566-3) Abnormal [facility] LakeComplete Metabolic [id number] 19:37:52* Test Item Value Reference Range Interpretation Comme nts NA (test code = 0628019089) 134 mmol/L 135-145 L K (test code = 0388177673) 4.1 mmol/L 3.5-5 CL (test code = 6834373703) 101 mmol/L 98-108 CO2 TOTAL (test code = 5232460526) 20 mmol/L 23-31 L AGAP (test code = 4152850617) 2-16 BUN (test code = 3477719194) 10 mg/dL 7-23 GLUCOSE (test code = 7862277025) 468 mg/dL 70-110 HH CREATININE (test code = 1457112997) 0.75 mg/dL 0.6-1.25 TOTAL BILI (test code = 7862055171) 0.6 mg/dL 0.1-1.1 CALCIUM (test code = 7028975755) 8.7 mg/dL 8.6-10.6 T PROTEIN (test code = 1795635483) 6.6 g/dL 6.3-8.2 ALBUMIN (test code = 4244787441) 4.2 g/dL 3.5-5 ALK PHOS (test code = 0691033735) 123 U/L 34-122 H ALTv (test code = 1742-6) 26 U/L 5-50 AST(SGOT) (test code = 4413643847) 22 U/L 13-40 eGFR (test code = 4545860910) mL/min/1.73m2 NIKO (test code = NIKO) Association [...] imaging tests). Lab Interpretation (test code = 04811-0) Abnormal [facility] LakeLipase, [id number] 19:04:41* Test Item Value Reference Range Interpretation Comme nts LIPASE (test code = 1066980233) 111 U/L 0-220 Lab Interpretation (test cod e = 93861-5) Normal [facility] LakeCB with Ezadkqayedkd7286-10-14 18:52:20* Test Item Value Reference Range Interpretation Comme nts WBC (test code = 6690-2) See_Comment [[employer]] The system which generated this result transmitted reference range: 4.20 - 10.70 10*3/?L. The reference range was not used to interpret this result as normal/abnormal. RBC (test code = 789-8) See_Comment [Automated [employer]] The system which generated this result transmitted [...] g/dL 31.2-35 H RDW-SD (test code = 21885-1) 37.7 fL 38.5-51.6 L RDW-CV (test code = 788-0) 11.9 % 12.1-15.4 L PLT (test code = 777-3) See_Comment [Automated [employer] ge] The system which generated this result transmitted reference range: 150 - 328 10*3/?L. The reference range was not used to interpret this result as normal/abnormal. MPV (test code = 46847-7) 11.9 fL 9.8-13 NRBC/100 WBC (test code = 0814618692) See_Comment [Automated [employer] ssage] The system which generated this result transmitted reference range: 0.0 - 10.0 /100 WBCs. The reference range was not used to interpret this result as normal/abnormal. NRBC x10^3 (test code = 1426601113) See_Comment [Automated [employer] ge] The system which generated this result transmitted reference range: 10*3/?L. The reference range was not used to interpret this result as normal/abnormal. GRAN MAT (NEUT) % (test code = 770-8) 56.2 % IMM GRAN % (test code = 4781920740) 0.40 % LYMPH % (test code = 736-9) 36.1 % MONO % (test code = 5905-5) 4.8 % EOS % (test code = 713-8) 1.7 % BASO % (test code = 706-2) 0.8 % GRAN MAT x10^3(ANC) (test code = 3786685544) 4.38 10*3/uL 1.99-6.95 IMM GRAN x10^3 (test code = 1539350919) 0.03 10*3/uL 0-0.06 LYMPH x10^3 (test code = 731-0) 2.81 10*3/uL 1.09-3.23 MONO x10^3 (test code = 742-7) 0.37 10*3/uL 0.36-1.02 EOS x10^3 (test code = 711-2) 0.13 10*3/uL 0.06-0.53 BASO x10^3 (test code = 704-7) 0.06 10*3/uL 0.01-0.09 Lab Interpretation (test code = 16876-1) Abnormal [facility] LakeCT ABDOMEN PELVIS W [id number] 20:31:35Diverticulosis without diverticulitis. Hepatomegaly. Preliminary Report Dictated [...] reviewed this study and agree with the abovereport.[facility] [id number] 19:10:36* Test Item Value Reference Range Interpretation Comme nts TROPONIN I (test code = 7355956158) 0.001 ng/mL See_Comment [Automated message] The system [...] biotin. ? Lab Interpretation (test code = 73301-9) Normal [facility] LakeHepatic Function Panel (ALB, T.PRO, BILI T, BU/BC, ALT, AST, ALK PHOS)2021-03-05 18:59:14* Test Item Value Reference Range Interpretation Comme nts TOTAL BILI (test code = 8061454246) 0.4 mg/dL 0.1-1.1 BILI UNCON (test code = 5968301121) 0.3 mg/dL 0.1-1.1 BILI CONJ (test code = 0986343907) 0.0 mg/dL 0.0-0.3 T PROTEIN (test code = 3767999848) 6.6 g/dL 6.3-8.2 ALBUMIN (test code = 2880091034) 4.2 g/dL 3.5-5.0 ALK PHOS (test code = 5321256391) 97 U/L 34-122 ALTv (test code = 1742-6) 22 U/L 5-50 AST(SGOT) (test code = 1166511187) 23 U/L 13-40 Lab Interpretation (test cod e = 67571-4) Normal [facility] Lake[facility] Metabolic Panel (NA, K, CL, CO2, GLUCOSE, BUN, CREATININE, CA)2021-03-05 18:58:54* Test Item Value Reference Range Interpretation Comme nts NA (test code = 8267781011) 136 mmol/L 135-145 K (test code = 7420435154) 4.1 mmol/L 3.5-5.0 CL (test code = 4649116858) 104 mmol/L 98-108 CO2 TOTAL (test code = 9314039473) 24 mmol/L 23-31 AGAP (test code = 2460068172) 2-16 BUN (test code = 5794552928) 15 mg/dL 7-23 GLUCOSE (test code = 4177039649) 207 mg/dL 70-110 H CREATININE (test code = 9559278246) 0.74 mg/dL 0.60-1.25 CALCIUM (test code = 9565988912) 8.4 mg/dL 8.6-10.6 L eGFR (test code = 3849664279) mL/min/1.73m2 NIKO (test code = NIKO) Association [...] imaging tests). Lab Interpretation (test code = 52631-9) Abnormal [facility] LakeLipase [id number] 18:58:54* Test Item Value Reference Range Interpretation Comme [facility] LIPASE (test code = 1022692566) 140 U/L 0-220 Lab Interpretation (test cod e = 13415-1) Normal [facility] LakeUrinalysis2021-04-10 18:51:20* Test Item Value Reference Range Interpretation Comme nts APPEARANCE (test code = 0010949662) Clear Clear COLOR (test code = 8825455354) Yellow Yellow PH (test code = 6739467362) 4.8-8.0 SP GRAVITY (test code = 7802883957) 1.003-1.030 GLU U QUAL (test code = 4089267567) 50 mg/dL Normal A BLOOD (test code = 8211307065) Negative Negative KETONES (test code = 8498746157) Negative Negative PROTEIN (test code = 2887-8) Negative Negative UROBILIN (test code = 5615581698) Normal Normal BILIRUBIN (test code = 2145266177) Negative Negative NITRITE (test code = 8095330358) Negative Negative LEUK ZAY (test code = 7775374184) Negative Negative RBC/HPF (test code = 7688176225) See_Comment [Automated messa ge] The system which generated this result transmitted reference range: 0 - 3 HPF. The reference range was not used to interpret this result as normal/abnormal. WBC/HPF (test code = 5648488728) <1 See_Comment [Automated messa ge] The system which generated this result transmitted reference range: 0 - 5 HPF. The reference range was not used to interpret this result as normal/abnormal. BACTERIA (test code = 0319529018) Negative Negative MUCOUS (test code = 3261057927) Slight Negative LPF A SQ EPITH (test code = 6040930623) <1 HPF Lab Interpretation (test code = 56136-4) Abnormal [facility] with Xdmhmheqcfci8183-95-22 18:46:34* Test Item Value Reference Range Interpretation [...] g/dL 31.2-35.0 H RDW-SD (test code = 46563-3) 39.9 fL 38.5-51.6 RDW-CV (test code = 788-0) 12.5 % 12.1-15.4 PLT (test code = 777-3) See_Comment [Automated messa ge] The system which generated this result transmitted reference range: 150 - 328 10*3/?L. The reference range was not used to interpret this result as normal/abnormal. MPV (test code = 84549-2) 11.9 fL 9.8-13.0 NRBC/100 WBC (test code = 3177183994) See_Comment [Automated [employer] ssage] The system which generated this result transmitted reference range: 0.0 - 10.0 /100 WBCs. The reference range was not used to interpret this result as normal/abnormal. NRBC x10^3 (test code = 7879772251) <0.01 See_Comment [Automated [employer] ge] The system which generated this result transmitted reference range: 10*3/?L. The reference range was not used to interpret this result as normal/abnormal. GRAN MAT (NEUT) % (test code = 770-8) 54.6 % IMM GRAN % (test code = 6256324499) 0.40 % LYMPH % (test code = 736-9) 36.8 % MONO % (test code = 5905-5) 5.3 % EOS % (test code = 713-8) 2.1 % BASO % (test code = 706-2) 0.8 % GRAN MAT x10^3(ANC) (test code = 9381240489) 3.92 10*3/uL 1.99-6.95 IMM GRAN x10^3 (test code = 1304989012) 0.03 10*3/uL 0.00-0.06 LYMPH x10^3 (test code = 731-0) 2.64 10*3/uL 1.09-3.23 MONO x10^3 (test code = 742-7) 0.38 10*3/uL 0.36-1.02 EOS x10^3 (test code = 711-2) 0.15 10*3/uL 0.06-0.53 BASO x10^3 (test code = 704-7) 0.06 10*3/uL 0.01-0.09 Lab Interpretation (test code = 41732-6) Abnormal [facility] LakeLIPID [id number] 00:00:00* Test Item Value Reference Range Interpretation Comme nts CHOLESTEROL (test code = 2210) 185 MG/DL TRIGLYCERIDES (test code = 2232) 162 MG/DL HDL CHOLESTEROL (test code = 2220) 41 MG/DL CALC LDL CHOL (test code = 2237) 112 MG/DL RISK RATIO LDL/HDL (test cod e = 2238) 2.72 RATIO CBC W/AUTO [id number] 00:00:00* Test Item Value Reference Range Interpretation [...] code = 1015) 166 K/UL COMPREHENSIVE METABOLIC [id number] 00:00:00* Test Item Value Reference Range Interpretation Comme nts GLUCOSE (test code = 2217) 121 MG/DL BUN (test code = 2208) 12 MG/DL CREATININE (test code = 2214) 0.87 MG/DL eGFR AMER. (test cod e = 40076) 126 ML/MIN/1.73 eGFR NON- AMER. (test code = 47891) 109 ML/MIN/1.73 CALC BUN/CREAT (test code = [...] (test code = 2219) 26 U/L HEMOGLOBIN [id number] 00:00:00* Test Item Value Reference Range Interpretation Comme nts HEMOGLOBIN A1c (test code = 67153) 6.4 % CBC W/AUTO [id number] 00:00:00* Test Item Value Reference Range Interpretation [...] (test code = 1015) 193 K/UL HEMOGLOBIN [id number] 00:00:00* Test Item Value Reference Range Interpretation Comme nts HEMOGLOBIN A1c (test code = 51921) 7.8 % THYROID II PROFILE (T3U, T4, T7, TSH)2016-06-03 00:00:00* Test Item Value Reference Range Interpretation Comme nts T3 UPTAKE (test code = 2817) 26.4 % T4 (THYROXINE) (test code = 2819) 8.4 UG/DL CALCULATED T7 (FTI) (test co de = 2820) 2.22 TSH (test code = 2821) 2.2 UIU/ML COMPREHENSIVE METABOLIC [id number] 00:00:00* Test Item Value Reference Range Interpretation Comme nts GLUCOSE (test code = 2217) 98 MG/DL BUN (test code = 2208) 14 MG/DL CREATININE (test code = 2214) 0.82 MG/DL eGFR AMER. (test cod e = 84231) 132 ML/MIN/1.73 eGFR NON- AMER. (test code = 87967) 114 ML/MIN/1.73 CALC BUN/CREAT (test code = [...] (test code = 2219) 194 U/L LIPID [id number] 00:00:00* Test Item Value Reference Range Interpretation Comme nts CHOLESTEROL (test code = 2210) 207 MG/DL TRIGLYCERIDES (test code = 2232) 212 MG/DL HDL CHOLESTEROL (test code = 2220) 34 MG/DL CALC LDL CHOL (test code = 2237) 131 MG/DL RISK RATIO LDL/HDL (test cod e = 2238) 3.84 RATIO CBC W/AUTO [id number] 00:00:00* Test Item Value Reference Range Interpretation [...]
[2024-12-26] MEDS ORDERED: NA CHLORIDE 0.9% 1,000 ML ONE ×3 (05:38→09:32)
[2024-12-26] MEDS ORDERED: MORPHINE 4 MG/ML SYR ONE (05:38)
[2024-12-26] MEDS ORDERED: ONDANSETRON 4 MG/2 ML VIAL ONE ×2 (05:38→05:54)
[2024-12-26] MEDS ORDERED: FAMOTIDINE 20 MG/2 ML VIAL IV ONE (05:49)
[2024-12-26] MEDS ORDERED: PROMETHAZINE INJ 25 MG/ML AMP ONE (05:54)
[2024-12-26 06:05] LABS: Absolute Eosinophils 0.1 K/uL (0-0.5); Absolute Lymphocytes (CBC) 2.2 K/uL (0.7-4.9); Absolute Monocytes 0.4 K/uL (0.1-1.3); Basophils % 0.6 % (0-1.3); Eosinophils % 1.5 % (0-4.4); Hematocrit 42.7 % (39.6-49.0); Hemoglobin 15.1 g/dL (13.6-17.9); Lymphocytes % 28.1 % (15.3-44.8); MCHC 35.3 g/dL (32.0-36.0); MPV 11.1 fL (7.6-11.3); Monocytes % 5.8 % (3.3-12.3); Nucleated Red Blood Cells % 0.1 % (0-0); Platelets 138 thou/uL (152-406); RBC Red Blood Cell Count 4.85 M/uL (4.33-5.43); Red Cell Distribution Width 13.1 % (12.1-15.2)
[2024-12-26 06:21] LABS: Albumin 3.1 g/dL (3.4-5.0); Albumin/Globulin Ratio 0.9 (1.1-1.8); Anion Gap 12.2 mEq/L (5.0-15.0); Bilirubin Total 0.5 mg/dL (0.2-1.0); Globulin 3.6 g/dL (2.3-3.5); Potassium 3.2 mEq/L (3.5-5.1); Protein, Total 6.7 g/dL (6.4-8.2)
[2024-12-26] MEDS ORDERED: PIPERACIL/TAZO 3.375 GM VIAL IV ONE (06:27)
[2024-12-26] MEDS ORDERED: NA CHLORIDE 0.9% 100 ML ONE (06:27)
[2024-12-26] MEDS ORDERED: NS KCL 20MEQ 1,000 ML IV ONE (06:51)
--- NOTE | 2024-12-26 06:54 | RAD REPORT ---
EXAMINATION: Chest Single View CLINICAL HISTORY: ABDOMINAL DISTENTION COMPARISON: October 08, 2023 FINDINGS: The lungs are clear. There is no pleural effusion or pneumothorax. The cardiomediastinal silhouette i s without acute process. The osseous structures are without acute process. IMPRESSION: No acute process. RECOMMENDATIONS: Electronically signed by: Demarco Baer MD 12/26/2024 06:45 AM [facility] Due to temporary technical issues with the PACS/[employer] reporting system, reports are being mela d by the in-house radiologist without review as a courtesy to ensure prompt reporting the interpreting radiologist is fully responsible for the content of the report. Transcribed Date/Time: 12/26/2024 6:53 AM
--- NOTE | 2024-12-26 07:33 | EDPHYS ---
Physician Documentation [facility] Name: Yehuda Giraldo Age: 44 yrs Sex: Male : 1980 Arrival Date: 12/26/2024 Time: 05:21 Bed 6 Private MD: BOBBY Physician Artem Lemus HPI: 12/26 06:01 This 44 yrs old Male presents to ER via Ambulatory with complaints of saúl Abdominal Pain, Nausea/Vomiting. 06:01 The patient presents to the emergency department with nausea, vomiting, abdominal pain, saúl of the left upper quadrant, right lower quadrant and left lower quadrant. Onset: The symptoms/episode began/occurred 3 day(s) ago. Possible causes: unknown. The symptoms are aggravated by movement, pressure, The symptoms are alleviated by remaining still. Associated signs and symptoms: The patient has no apparent associated signs or symptoms. Severity of symptoms: At their worst the symptoms were moderate in the emergency department the symptoms are worse moderately. The patient has not experienced similar symptoms in the past. Historical: - Allergies: 05:36 No Known Allergies; lg3 - PMHx: 05:36 COPD; Diabetes - NIDDM; Diverticulitis; Hypertensive disorder; RA; lg3 - PSHx: 05:36 Cholecystectomy; lg3 - Immunization history:: Adult Immunizations up to date. - Infectious Disease History:: Denies. - Social history:: Smoking status: Patient reports the use of cigarette tobacco products, smokes one-half pack cigarettes per day, Patient/guardian denies using alcohol, street drugs. ROS: 06:02 Constitutional: Negative for fever, chills, and weight loss, Eyes: Negative for injury, saúl pain, redness, and discharge, ENT: Negative for injury, pain, and discharge, Neck: Negative for injury, pain, and swelling, Cardiovascular: Negative for chest pain, palpitations, and edema, Respiratory: Negative for shortness of breath, cough, wheezing, and pleuritic chest pain, Back: Negative for injury and pain, : Negative for injury, bleeding, discharge, and swelling, MS/Extremity: Negative for injury and deformity, Skin: Negative for injury, rash, and discoloration, Neuro: Negative for headache, weakness, numbness, tingling, and seizure, Psych: Negative for depression, anxiety, suicide ideation, homicidal ideation, and hallucinations, Allergy/Immunology: Negative for hives, rash, and allergies, Endocrine: Negative for neck swelling, polydipsia, polyuria, polyphagia, and marked weight changes, Hematologic/Lymphatic: Negative for swollen nodes, abnormal bleeding, and unusual bruising, 06:02 Abdomen/GI: Positive for abdominal pain, nausea and vomiting, abdominal cramps, abdominal distension, of the left upper quadrant, right lower quadrant and left lower quadrant, Exam: 06:02 Constitutional: This is a well developed, well nourished patient who is awake, alert, saúl and in no acute distress. Head/Face: Normocephalic, atraumatic. Eyes: Pupils equal round and reactive to light, extra-ocular motions intact. Lids and lashes normal. Conjunctiva and sclera are non-icteric and not injected. Cornea within normal limits. Periorbital areas with no swelling, redness, or edema. ENT: Nares patent. No nasal discharge, no septal abnormalities noted. Tympanic membranes are normal and external auditory canals are clear. Oropharynx with no redness, swelling, or masses, exudates, or evidence of obstruction, uvula midline. Mucous membranes moist. Neck: Trachea midline, no thyromegaly or masses palpated, and no cervical lymphadenopathy. Supple, full range of motion without nuchal rigidity, or vertebral point tenderness. No Meningismus. Chest/axilla: Normal chest wall appearance and motion. Nontender with no deformity. No lesions are appreciated. Cardiovascular: Regular rate and rhythm with a normal S1 and S2. No gallops, murmurs, or rubs. Normal PMI, no JVD. No pulse deficits. Respiratory: Lungs have equal breath sounds bilaterally, clear to auscultation and percussion. No rales, rhonchi or wheezes noted. No increased work of breathing, no retractions or nasal flaring. Back: No spinal tenderness. No costovertebral tenderness. Full range of motion. Male : Normal genitalia with no discharge or lesions. Skin: Warm, dry with normal turgor. Normal color with no rashes, no lesions, and no evidence of cellulitis. MS/ Extremity: Pulses equal, no cyanosis. Neurovascular intact. Full, normal range of motion., bilateral aka Neuro: Awake and alert, GCS 15, oriented to person, place, time, and situation. Cranial nerves II-XII grossly intact. Motor strength 5/5 in all extremities. Sensory grossly intact. Cerebellar exam normal. Normal gait. Psych: Awake, alert, with orientation to person, place and time. Behavior, mood, and affect are within normal limits. 06:02 ECG was reviewed by the Attending Physician. 06:02 Abdomen/GI: Inspection: abdomen appears normal, Bowel sounds: normal, Palpation: moderate abdominal tenderness, in the left upper quadrant, right lower quadrant and left lower quadrant, Liver: no appreciated palpable abnormalities, Hernia: not appreciated, Vital Signs: 05:34 BP 139 / 89; Pulse 104; Resp 16 S; Temp 98.1(O); Pulse Ox 97% on R/A; Weight 86.18 kg lg3 (R); Height 5 ft. 8 in. (R); Pain 10/10; 06:32 BP 135 / 83; Pulse 101; Resp 18; Temp 98.1; Pulse Ox 100% ; Pain 6/10; bm8 07:40 BP 124 / 82; Pulse 94; Resp 17; Pulse Ox 98% ; ll1 09:01 BP 116 / 81; Pulse 99; Resp 18; Pulse Ox 95% on R/A; ld1 05:34 Body Mass Index 28.89 (86.18 kg, 172.72 cm) lg3 05:34 Pain Scale: Adult lg3 06:32 Pain Scale: Adult bm8 Alissa Coma Score: 05:42 Eye Response: spontaneous(4). Motor Response: obeys commands(6). Verbal Response: bm8 oriented(5). Total: 15. 06:32 Eye Response: spontaneous(4). Motor Response: obeys commands(6). Verbal Response: bm8 oriented(5). Total: 15. MDM: 05:24 Medical Screening Exam initiated saúl 06:05 Differential diagnosis: Nonspecific abd pain, gastritis, pancreatitis, appendicitis, saúl diverticulitis, viral gastroenteritis. Data reviewed: vital signs, nurses notes, lab test result(s), EKG, radiologic studies, CT scan, plain films. Consideration of Admission/Observation Escalation of care including admission/observation considered. I considered the following discharge prescriptions or medication management in the emergency department Medications were administered in the Emergency Department. See MAR. Independent interpretation of the following test(s) in the Emergency Department EKG: See my EKG interpretation above. Test considered but Not performed: MRI: no mrcp. Historians other than the Patient: pt well informed. Care significantly affected by the following chronic conditions: Diabetes, Hypertension, Chronic Obstructive Pulmonary Disease, ra. Counseling: I had a detailed discussion with the patient and/or guardian regarding the historical points, exam findings, and any diagnostic results supporting the discharge/admit diagnosis, lab results, radiology results, the need for further work-up and treatment in the hospital. 12/26 05:42 Order name: CBC with Diff; Complete Time: 08:31 [facility] 12/26 05:42 Order name: CMP; Complete Time: 06:40 [facility] 12/26 05:42 Order name: Lipase; Complete Time: 06:40 [facility] 12/26 05:42 Order name: Urinalysis w/ reflexes [facility] 12/26 05:56 Order name: Glucose, Ancillary Testing; Complete Time: 06:15 [facility] 12/26 08:17 Order name: CBC Smear Scan; Complete Time: 08:31 [facility] 12/26 08:51 Order name: Hemoglobin A1c [facility]DC 12/26 08:51 Order name: Thyroid Stimulating Hormone EDDC 12/26 08:51 Order name: Urinalysis w/ reflexes [facility]DC 12/26 08:51 Order name: CBC with Automated Diff [facility]DC 12/26 08:51 Order name: CBC with Automated Diff EDDC 12/26 08:51 Order name: CBC with Automated Diff EDMS 12/26 08:51 Order name: CBC with Automated Diff EDDC 12/26 08:51 Order name: Comprehensive Metabolic Panel EDDC 12/26 08:51 Order name: Comprehensive Metabolic Panel EDDC 12/26 08:51 Order name: Comprehensive Metabolic Panel EDDC 12/26 08:51 Order name: Comprehensive Metabolic Panel EDDC 12/26 08:51 Order name: Lipid Profile EDDC 12/26 08:51 Order name: Lipid Profile EDDC 12/26 08:51 Order name: Magnesium EDDC 12/26 08:51 Order name: Magnesium EDDC 12/26 08:51 Order name: Phosphorus EDDC 12/26 08:51 Order name: Phosphorus EDDC 12/26 11:52 Order name: Glucose, Ancillary Testing EDDC 12/26 05:42 Order name: CT Abd/Pelvis - IV Contrast Only; Complete Time: 08:31 [facility] 12/26 05:42 Order name: Chest Single View XRAY; Complete Time: 07:05 [facility] 12/26 05:42 Order name: IV Saline Lock; Complete Time: 05:46 [facility] 12/26 05:42 Order name: Labs collected and sent; Complete Time: : [facility] 12/26 05:42 Order name: EKG - Nurse/Tech; Complete Time: 05:52 [facility] EC:02 Rate is 107 beats/min. Rhythm is regular. QRS [place] is Normal. NC interval is normal. [facility] QRS interval is normal. QT interval is normal. No Q waves. T waves are Normal. No ST changes noted. Clinical impression: NSR w/ Non-specific ST/T Changes and No evidence of ischemia. Interpreted by me. Reviewed by me. Administered Medications: 05:45 Drug: Ondansetron IVP 4 mg IVP once; over 2 minutes Route: IVP; Site: right forearm; bm8 06:33 Follow up: Response: No adverse reaction bm8 05:46 Drug: morphine IVP or IV 4 mg IVP once over 4 mins Route: IVP; Infused Over: 4 mins; bm8 Site: right forearm; 06:34 Follow up: Response: No adverse reaction bm8 05:46 Drug: NS 0.9% IV 1000 ml IV at 1 bolus Per protocol; to be given as a bolus over 60 bm8 minutes Route: IV; Rate: 1 bolus; Site: right forearm; 06:33 Follow up: Response: No adverse reaction; IV Status: Completed infusion; IV Intake: bm8 1000ml 06:02 Drug: Ondansetron IVP 4 mg IVP once; over 2 minutes Route: IVP; Site: right forearm; bm8 06:33 Follow up: Response: No adverse reaction bm8 06:02 Drug: Promethazine IVP 12.5 mg IVP once; to liter bolus Route: IVP; Site: right forearm;bm8 06:33 Follow up: Response: No adverse reaction bm8 06:03 Drug: Famotidine IVP 20 mg IVP once; dilute with 10 mL 0.9% NaCl; give over 2 minutes bm8 Route: IVP; Site: right forearm; 06:33 Follow up: Response: No adverse reaction bm8 06:32 Drug: NS 0.9% IV 1000 ml IV at 1 bolus Per protocol; to be given as a bolus over 60 bm8 minutes Route: IV; Rate: 1 bolus; Site: right forearm; 07:40 Follow up: Response: No adverse reaction; IV Status: Completed infusion; IV Intake: ll1 1000ml 06:33 Drug: Piperacillin-Tazobactam IVPB 3.375 grams IVPB once over 60 mins; (mix in NS 100 bm8 mL) Route: IVPB; Infused Over: 60 mins; Site: right forearm; 06:56 Follow up: Response: No adverse reaction; IV Status: Completed infusion; IV Intake: bm8 100ml 06:55 Drug: NS 0.9% with KCl IV 20 mEq/L 1000 ml IV at 125 ml/hr continuous Route: IV; Rate: bm8 125 ml/hr; Site: right forearm; 10:15 Follow up: Response: No adverse reaction; IV Status: Infusion continued upon admission; ll1 IV Intake: 200ml Disposition Summary: 12/26/24 07:32 Hospitalization Ordered Notes: Hospitalization Status: Observation saúl Provider: Lindsay Elizabeth cha Condition: Stable saúl Problem: an ongoing problem saúl Symptoms: are unchanged saúl Bed/Room Type: Standard saúl Location: Telemetry/MedSurg (observation)(12/26/24 14:48) ja1 Room Assignment: 404(12/26/24 14:48) ja Diagnosis - Vomiting saúl - Abdominal pain, Generalized saúl - Hypokalemia saúl - Other viral enteritis saúl - Dehydration saúl - Type 2 diabetes mellitus with hyperglycemia saúl Forms: - Medication Reconciliation Form saúl - SBAR form saúl - Leadership Thank You Letter saúl Signatures: Dispatcher [employer] EDArtem Daniels MD MD cha Waters, Shelly, CARE NURSE RN-C CARE NURSE RN-Csnw Ángel Leon RN RN ja1 Daphnie Noland, RN RN lg3 Lidya Onofre, RN RN lisha3 Charlie Gray RN RN [id number] Ricardo Medellin RN ll1 Corrections: (The following items were deleted from the chart) 05:43 05:43 Chest Single View+RAD.[email or web address].[email or web address] ordered. EDDC EDMS 14:28 07:32 Telemetry/MedSurg (observation) saúl kb3 14:28 07:32 saúl kb3 14:48 14:28 [facility] ER HOLD kb3 ja1 14:48 14:28 ERHOLD- kb3 ja1
--- NOTE | 2024-12-26 07:33 | RAD REPORT ---
EXAMINATION: CT ABDOMEN AND PELVIS WITH CONTRAST CLINICAL INDICATION: Abdominal pain TECHNIQUE: CT abdomen and pelvis was performed, after the administration of 100 cc Isovue-300.. Sagit tony and coronal reconstructions were obtained. One or more of the following dose reduction techniques were used: Automated exposure control, adjustment of the mA and kV according to patient si ze, and iterative reconstruction. Unless otherwise specified, incidental findings do not require dedicated imaging follow-up. [id number]. Oral contrast was not given which limits evaluation of bowel and appendix. COMPARISON: .December 15, 2024 FINDINGS: Mild fatty infiltration liver. spleen, pancreas, adrenals and kidneys appear unremarkable Cholecystectomy. No evidence of diverticulitis. Normal appendix. Small to moderate right inguinal hernia containing fat. Fluid within nondilated small bowel Sclerotic foci left femur unchanged from 2020 presumably a bone island : IMPRESSION: Fluid within nondilated small bowel may indicate an enteritis
--- NOTE | 2024-12-26 07:33 | ER ---
Nurse's Notes [facility] Name: Yehuda Giraldo Age: 44 yrs Sex: Male : 1980 Arrival Date: 12/26/2024 Time: 05:21 Bed 6 Private MD: Diagnosis: Vomiting;Abdominal pain, Generalized;Hypokalemia;Other viral enteritis;Dehydration;Type 2 diabetes mellitus with hyperglycemia Presentation: 12/26 05:34 Chief complaint: Patient states: abdominal pain, N/V X4 days. seen Sunday for same lg3 issue but symptoms worsening. Coronavirus screen: Client denies travel out of the [place] in the last 14 days. At this time, the client does not indicate any symptoms associated with coronavirus-19. Ebola Screen: No symptoms or risks identified at this time. Initial Sepsis Screen: Does the patient meet any 2 criteria? No. Patient's initial sepsis screen is negative. Does the patient have a suspected source of infection? No. Patient's initial sepsis screen is negative. Risk Assessment: Do you want to hurt yourself or someone else? Patient reports no desire to harm self or others. Onset of symptoms was December 23, 2024. 05:34 Method Of Arrival: Ambulatory lg3 05:34 Acuity: SARA 3 lg3 Triage Assessment: 05:36 General: Appears in no apparent distress. uncomfortable, Behavior is calm, cooperative. lg3 Pain: Complains of pain in right upper quadrant, right lower quadrant and left lower quadrant Also complains of nausea. EENT: No deficits noted. No signs and/or symptoms were reported regarding the EENT system. Neuro: No deficits noted. Bear Agitation-Sedation Scale (RASS): 0 - Alert and Calm Level of Consciousness is awake, alert, obeys commands, Oriented to person, place, time, situation. Cardiovascular: No deficits noted. Denies chest pain, shortness of breath, Capillary refill < 3 seconds Clubbing of nail beds is absent JVD is absent Patient's skin is warm and dry. Respiratory: No deficits noted. Airway is patent Respiratory effort is even, unlabored, Respiratory pattern is regular, symmetrical. GI: Abdomen is round non-distended, Reports lower abdominal pain, upper abdominal pain, nausea, vomiting. : No signs and/or symptoms were reported regarding the genitourinary system. Derm: No deficits noted. No signs and/or symptoms reported regarding the dermatologic system. Skin is intact, is healthy with good turgor, Skin is dry, Skin is normal, Skin temperature is warm. Musculoskeletal: No deficits noted. No signs and/or symptoms reported regarding the musculoskeletal system. Circulation, motion, and sensation intact. Range of motion: intact in all extremities. Historical: - Allergies: 05:36 No Known Allergies; lg3 - PMHx: 05:36 COPD; Diabetes - NIDDM; Diverticulitis; Hypertensive disorder; RA; lg3 - PSHx: 05:36 Cholecystectomy; lg3 - Immunization history:: Adult Immunizations up to date. - Infectious Disease History:: Denies. - Social history:: Smoking status: Patient reports the use of cigarette tobacco products, smokes one-half pack cigarettes per day, Patient/guardian denies using alcohol, street drugs. Screenin:42 [facility] ED Fall Risk Assessment (Adult) History of falling in the last 3 months, bm8 including since admission No falls in past 3 months (0 pts) Confusion or Disorientation No (0 pts) Intoxicated or Sedated No (0 pts) Impaired Gait No (0 pts) Mobility Assist Device Used No (0 pt) Altered Elimination No (0 pt) Score/Fall Risk Level 0 - 2 = Low Risk Oriented to surroundings, Maintained a safe environment, Educated pt \T\ family on fall prevention, incl call for assistance when getting out of bed, Provided non-skid footwear, Hourly rounding (assess needs \T\ fall precautionary measures) done, Used ambulatory aids as needed (educated on \T\ assisted with), Used gait belt as appropriate. Abuse screen: Denies threats or abuse. Nutritional screening: No deficits noted. Tuberculosis screening: No symptoms or risk factors identified. Assessment: 05:42 General: Appears in no apparent distress. uncomfortable, Behavior is calm, cooperative, bm8 appropriate for age. Pain: Complains of pain in right lower quadrant and left lower quadrant Pain currently is 10 out of 10 on a pain scale. Quality of pain is described as aching, crampy. Neuro: No deficits noted. Level of Consciousness is awake, alert, obeys commands, Oriented to person, place, time, situation, Appropriate for age. Cardiovascular: Denies chest pain, Capillary refill < 3 seconds in bilateral fingers. Respiratory: Airway is patent Respiratory effort is even, unlabored, Respiratory pattern is regular, symmetrical. GI: Abdomen is flat, non-distended, Last BM was December 25, 2024. Bowel sounds present X 4 quads. Abdomen is tender to palpation in suprapubic area, right lower quadrant and left lower quadrant Reports lower abdominal pain, nausea, Pain is 10 out of 10 on a pain scale. : No signs and/or symptoms were reported regarding the genitourinary system. EENT: No signs and/or symptoms were reported regarding the EENT system. Derm: No signs and/or symptoms reported regarding the dermatologic system. Musculoskeletal: No signs and/or symptoms reported regarding the musculoskeletal system. 06:32 Reassessment: Patient appears in no apparent distress at this time. Patient and/or bm8 family updated on plan of care and expected duration. Pain level reassessed. Patient is alert, oriented x 3, equal unlabored respirations, skin warm/dry/pink. Patient states feeling better. Patient states symptoms have improved. 07:00 Reassessment: Report received from mine shifter RN. ll1 07:40 General: Appears in no apparent distress. Behavior is calm, cooperative, appropriate ll1 for age. Pain: Complains of pain in abdomen. GI: Abdomen is flat, non-distended, Bowel sounds present X 4 quads. Abdomen is tender to palpation X 4 quads. Reports lower abdominal pain, upper abdominal pain, cramping, nausea. 08:25 Reassessment: no admission orders in [facility] yet. ll1 Vital Signs: 05:34 BP 139 / 89; Pulse 104; Resp 16 S; Temp 98.1(O); Pulse Ox 97% on R/A; Weight 86.18 kg lg3 (R); Height 5 ft. 8 in. (R); Pain 10/10; 06:32 BP 135 / 83; Pulse 101; Resp 18; Temp 98.1; Pulse Ox 100% ; Pain 6/10; bm8 07:40 BP 124 / 82; Pulse 94; Resp 17; Pulse Ox 98% ; ll1 09:01 BP 116 / 81; Pulse 99; Resp 18; Pulse Ox 95% on R/A; ld1 05:34 Body Mass Index 28.89 (86.18 kg, 172.72 cm) lg3 05:34 Pain Scale: Adult lg3 06:32 Pain Scale: Adult bm8 Alissa Coma Score: 05:42 Eye Response: spontaneous(4). Motor Response: obeys commands(6). Verbal Response: bm8 oriented(5). Total: 15. 06:32 Eye Response: spontaneous(4). Motor Response: obeys commands(6). Verbal Response: bm8 oriented(5). Total: 15. ED Course: 05:22 Patient arrived in ED. jj6 05:24 Artem Lemus MD is Attending Physician. saúl 05:36 Triage completed. lg3 05:36 Arm band placed on right wrist. lg3 05:42 Charlie Gray, RN is Primary Nurse. bm8 05:42 Patient has correct armband on for positive identification. Bed in low position. Call bm8 light in reach. Side rails up X 1. Client placed on continuous cardiac and pulse oximetry monitoring. NIBP monitoring applied. Pulse ox on. NIBP on. Door closed. Noise minimized. Warm blanket given. Pillow given. Verbal reassurance given. Head of bed elevated. 05:42 No provider procedures requiring assistance completed. Initial lab(s) drawn, by kishore oliveros sent to lab. Inserted saline lock: 18 gauge in right forearm, using aseptic technique. Blood collected. Flushed with 10 mL NS. Patient maintains SpO2 saturation greater than 95% on room air. 06:27 Chest Single View XRAY In Process Unspecified. EDMS 06:55 CT Abd/Pelvis - IV Contrast Only In Process Unspecified. EDMS 07:02 Report given to aNren RN. bm8 07:18 Primary Nurse role handed off by Charlie Gray, RN ll1 07:18 Ricardo Medellin, ESTIVEN is Primary Nurse. ll1 07:31 Lindsay Elizabeth is Hospitalizing Provider. saúl 07:40 Provided Education on: delay in room assignment . ll1 10:14 Patient admitted, IV remains in place. ll1 Administered Medications: 05:45 Drug: Ondansetron IVP 4 mg IVP once; over 2 minutes Route: IVP; Site: right forearm; bm8 06:33 Follow up: Response: No adverse reaction bm8 05:46 Drug: morphine IVP or IV 4 mg IVP once over 4 mins Route: IVP; Infused Over: 4 mins; bm8 Site: right forearm; 06:34 Follow up: Response: No adverse reaction bm8 05:46 Drug: NS 0.9% IV 1000 ml IV at 1 bolus Per protocol; to be given as a bolus over 60 bm8 minutes Route: IV; Rate: 1 bolus; Site: right forearm; 06:33 Follow up: Response: No adverse reaction; IV Status: Completed infusion; IV Intake: bm8 1000ml 06:02 Drug: Ondansetron IVP 4 mg IVP once; over 2 minutes Route: IVP; Site: right forearm; bm8 06:33 Follow up: Response: No adverse reaction bm8 06:02 Drug: Promethazine IVP 12.5 mg IVP once; to liter bolus Route: IVP; Site: right forearm;bm8 06:33 Follow up: Response: No adverse reaction bm8 06:03 Drug: Famotidine IVP 20 mg IVP once; dilute with 10 mL 0.9% NaCl; give over 2 minutes bm8 Route: IVP; Site: right forearm; 06:33 Follow up: Response: No adverse reaction bm8 06:32 Drug: NS 0.9% IV 1000 ml IV at 1 bolus Per protocol; to be given as a bolus over 60 bm8 minutes Route: IV; Rate: 1 bolus; Site: right forearm; 07:40 Follow up: Response: No adverse reaction; IV Status: Completed infusion; IV Intake: ll1 1000ml 06:33 Drug: Piperacillin-Tazobactam IVPB 3.375 grams IVPB once over 60 mins; (mix in NS 100 bm8 mL) Route: IVPB; Infused Over: 60 mins; Site: right forearm; 06:56 Follow up: Response: No adverse reaction; IV Status: Completed infusion; IV Intake: bm8 100ml 06:55 Drug: NS 0.9% with KCl IV 20 mEq/L 1000 ml IV at 125 ml/hr continuous Route: IV; Rate: bm8 125 ml/hr; Site: right forearm; 10:15 Follow up: Response: No adverse reaction; IV Status: Infusion continued upon admission; ll1 IV Intake: 200ml Medication: 05:42 VIS not applicable for this client. bm8 Intake: 06:33 IV: 1000ml; Total: 1000ml. bm8 06:56 IV: 100ml; Total: 1100ml. bm8 07:40 IV: 1000ml; Total: 2100ml. ll1 10:15 IV: 200ml; Total: 2300ml. ll1 Outcome: 07:32 Decision to Hospitalize by Provider. saúl 10:14 Admitted to ER Hold. Please see [facility] for further documentation. ll1 10:14 Condition: stable 10:14 Instructed on the need for admit, 15:39 Patient left the ED. ap3 Signatures: Dispatcher [employer] EDArtem Daniels MD MD cha Prokisch, Amanda, RN RN ap3 Daphnie Noland, RN RN lg3 Ricardo Medellin, RN RN ll1 Elena Shepard RN RN ld1 Sherrell Hogan Brad, RN RN bm8
[2024-12-26 08:16] LABS: Blood Morphology Comment NOT SEEN (NOT SEEN); Platelet Estimate DECR; Platelets, Giant FEW PRESENT; White Blood Cell Scan OK (OK)
--- NOTE | 2024-12-26 08:20 | P.HP ---
Certification for Inpatient Patient admitted to: Inpatient With expected LOS: >2 Midnights Patient will require the following post-hospital care: None Practitioner: I am a practitioner with admitting privileges, knowledge of patient current condition, hospital course, and medical plan of care. Services: Services provided to patient in accordance with Admission requirements found in Title 42 Section 412.3 of the Code of Federal Regulations Patient History Date of Service: 12/26/24 Reason for admission: gastroparesis, hypokalemia History of Present Illness: Mr. Giraldo is a 44-year-old gentleman with a past medical history of diabetes, COPD, and tobacco abuse. He is noncompliant with his medications. He presented to the emergency department for the second time this week with intractable nausea/vomiting/abdominal pain. On exam, he tells me he wants to get back on his regimen but has been very noncompliant. His blood sugars have been in the mid 200s to 300. On arrival today his potassium was down to 3.2 with a blood sugar of 257. We were asked to admit for enteritis. In the emergency department he received 1 L of normal saline and 1 L of normal saline with 20meq of KCl, morphine, Phenergan, Zofran, Pepcid, Zosyn, and Lovenox. Allergies No Known Drug Allergies Allergy (Unverified 02/24/15 12:06) Unknown NKDA Allergy (Uncoded 04/29/14 17:32) Unknown No Known Allergies Allergy (Uncoded 02/02/17 10:47) Unknown - Past Medical/Surgical History Diabetic: Yes -: Diabetes -: COPD -: Tobacco abuse -: Medication noncompliance -: Cholecystectomy Psychosocial/ Personal History: Significant for noncompliance. Lives at home. - Family History Father -: Heart disease, Hypertension, Lung disease, Diabetes - Social History Smoking Status: Current every day smoker Counseled patient to stop smoking for: less than 10 minutes Alcohol use: No CD- Drugs: No Caffeine use: Yes Place of Residence: Home Review of Systems 10-point ROS is otherwise unremarkable General: Malaise, As per HPI Eyes: Unremarkable ENT: Unremarkable Respiratory: Unremarkable Cardiovascular: Unremarkable Gastrointestinal: Nausea, Vomiting, Abdominal Pain, As per HPI Genitourinary: Unremarkable Musculoskeletal: Unremarkable Integumentary: Unremarkable Neurological: Unremarkable Lymphatics: Unremarkable Physical Examination - Physical Exam General: Alert, In no apparent distress, Oriented x3, Obese HEENT: Atraumatic, Normocephalic Neck: Supple, 2+ carotid pulse no bruit Respiratory: Clear to auscultation bilaterally, Normal air movement Cardiovascular: No edema, Normal pulses, Regular rate/rhythm Capillary refill: <2 Seconds Gastrointestinal: Tenderness (Mid lower abdomen at present) Musculoskeletal: No clubbing, No swelling Integumentary: No rashes, No breakdown Neurological: Normal gait, Normal speech, Normal tone, Normal affect Lymphatics: No axilla or inguinal lymphadenopathy External genitalia: Deferred Rectal: Deferred - Studies Laboratory Data (last 24 hrs) 12/26/24 12/26/24 05:46 05:46 WBC 7.80 Hgb 15.1 Hct 42.7 Plt Count 138 L Sodium 136 Potassium 3.2 L BUN 12 Creatinine 0.87 Glucose 267 H Total Bilirubin 0.5 AST 14 L ALT 38 Alkaline Phosphatase 137 H Lipase 57 Assessment and Plan - Plan Noncompliant diabetes with hyperglycemia/hypokalemia Gastroparesis Tobacco abuse Ambulate every 2h Clear liquids Monitor and trend/replete electrolytes Hemoglobin A1c Please reconcile home medications IVF Reglan Hold antibiotics COPD Neb treatments Patient states he takes a daily inhaler, please reconcile medications Tobacco abuse Nicotine patch Recommend cessation VTE/GI prophylaxis - Advance Directives Does patient have a Living Will: No Does patient have a Durable POA for Healthcare: No - Code Status/Comfort Care Code Status Assessed: Yes (Full)
[2024-12-26] MEDS: NA CHLORIDE 0.9% 1,000 ML IV SCH (09:00)
[2024-12-26] MEDS: ENOXAPARIN 40 MG/0.4 ML SQ SCH (09:00)
[2024-12-26] MEDS ORDERED: ENOXAPARIN 40 MG/0.4 ML SQ ONE (09:33)
[2024-12-26] MEDS: NICOTINE 7 MG/PAT TD SCH (11:00)
[2024-12-26] MEDS: INSULIN REGULAR (HUMAN) 100 UNIT/ML SQ SCH ×2 (11:30→21:06)
[2024-12-26] MEDS ORDERED: INSULIN REGULAR (HUMAN) 100 UNIT/ML ONE (11:46)
[2024-12-26] MEDS: INSULIN GLARGINE 100 UNIT/ML SQ SCH (12:00)
[2024-12-26] MEDS ORDERED: SIMETHICONE 80 MG CHEWABLE TAB ONE (12:25)
[2024-12-26] MEDS: SIMETHICONE 80 MG CHEWABLE TAB PO ONE (13:08)
[2024-12-26] MEDS ORDERED: INSULIN GLARGINE 100 UNIT/ML SQ ONE (13:30)
[2024-12-26] MEDS: POTASSIUM CL SA 10 MEQ TAB PO ONE (18:04)
[2024-12-26] MEDS: MORPHINE 4 MG/ML SYR IV PRN (18:04)
[2024-12-26] MEDS: METOCLOPRAMIDE 10 MG/2mL INJ IV PRN (18:13)
[2024-12-26 19:30] LABS: Specific Gravity > 1.030 (1.005-1.030); Urine Bilirubin NEGATIVE (Negative); Urine Blood Negative (Negative); Urine Clarity Clear (Clear); Urine Color Light-Yellow (Yellow); Urine Glucose 4+ (Over) (Negative); Urine Ketones NEGATIVE (Negative); Urine Microscopic Reflex YN NO UMIC; Urine Nitrite NEGATIVE (Negative); Urine Protein NEGATIVE (Negative); Urine Urobilinogen Normal (Normal)
[2024-12-26 19:36] LABS: Barbiturates NEGATIVE (NEGATIVE); Benzodiazepines NEGATIVE (NEGATIVE); Cocaine NEGATIVE (NEGATIVE); METHAMPHETAM NEGATIVE (NEGATIVE); Methadone NEGATIVE (NEGATIVE); Opiates NEGATIVE (NEGATIVE); Phencyclidine NEGATIVE (NEGATIVE); THC Cannibis NEGATIVE (NEGATIVE)
[2024-12-26] MEDS: INSULIN LISPRO 100 UNIT/1 ML SQ SCH (21:06)
[2024-12-27 07:09] LABS: Absolute Neutrophil 2.4 K/uL (1.8-8.0); Basophils % 0.4 % (0-1.3); Eosinophils % 2.2 % (0-4.4); Hematocrit 35.9 % (39.6-49.0); Hemoglobin 12.6 g/dL (13.6-17.9); Lymphocytes % 45.6 % (15.3-44.8); MCH 31.4 pg (27.0-35.0); MCV 89.9 fL (80-100); MPV 10.8 fL (7.6-11.3); Monocytes % 7.5 % (3.3-12.3); Neutrophils % 44.3 % (41.7-73.7); Nucleated Red Blood Cells % 0.1 % (0-0); Platelets 128 thou/uL (152-406)
[2024-12-27 07:10] LABS: Absolute Eosinophils 0.1 K/uL (0-0.5); Absolute Lymphocytes (CBC) 2.5 K/uL (0.7-4.9); Absolute Monocytes 0.4 K/uL (0.1-1.3)
[2024-12-27 07:27] LABS: Albumin 2.4 g/dL (3.4-5.0); Albumin/Globulin Ratio 0.8 (1.1-1.8); Anion Gap 10.4 mEq/L (5.0-15.0); Bilirubin Total 0.4 mg/dL (0.2-1.0); Globulin 2.9 g/dL (2.3-3.5); Magnesium 1.8 mg/dL (1.6-2.4); Potassium 3.4 mEq/L (3.5-5.1); Protein, Total 5.3 g/dL (6.4-8.2)
[2024-12-27] MEDS ORDERED: D10W 125 ML IV PRN (08:05)
[2024-12-27] MEDS ORDERED: GLUCAGON 1 MG/VIAL IM PRN (08:05)
[2024-12-27] MEDS: MAGNESIUM SULFATE 1 gm IVPB 1 GM/100 ML BAG IV ONE (08:40)
[2024-12-27] MEDS: POTASSIUM 25 MEQ EFFERV TAB PO ONE (08:41)
[2024-12-27] MEDS: INSULIN GLARGINE 100 UNIT/ML SQ SCH (08:42)
--- NOTE | 2024-12-27 13:00 | P.PN ---
Subjective Date of Service: 12/27/24 Chief Complaint: gastroparesis, hypokalemia This is a Tele-Medicine visit. Verbal consent was obtained prior to visit. He was seen on rounds today. He denies any new symptoms. He reports persistent abdominal pain, nausea, and vomiting. He denies any chest pain, palpitations, fevers, or chills. Review of Systems General: Unremarkable Respiratory: Unremarkable Cardiovascular: Unremarkable Gastrointestinal: Nausea, Vomiting, Abdominal Pain Physical Examination - Vital Signs Temperature: 97.9 F Blood Pressure: 119/66 Pulse: 80 Respirations: 16 Pulse Ox (%): 99 - Physical Exam General: Alert, In no apparent distress, Oriented x3 HEENT: Atraumatic Respiratory: Other (no respiratory distress) Neurological: Normal speech, Normal affect Other Physical/Emotional Findings: Exam limited as this is a Tele-Medicine visit Assessment And Plan - Plan # Diabetes Mellitus with suspected Diabetic Gastroparesis # Possible Gastroenteritis - Hgb A1c = 10.8 % - Clear liquid diet - advance as tolerated - Continue insulin regimen - As needed anti-emetics # Anemia - Hemoglobin dropped from 15.1 to 12.6 - No obvious evidence of bleeding - Serail H&H - transfuse for Hgb < 7.0 # Chronic Obstructive Pulmonary Disease # Tobacco Use Disorder - Continue home inhalers - Nicotine patch # Elevated LFTS with Hepatic Steatosis # 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 Continue anti-emetics and advance diet as tolerated. He will be re-assessed by onsite physician (Dr. Davis) tomorrow. Octavio Gonzalez M.D.
[2024-12-27 13:42] LABS: Hematocrit 35.2 % (39.6-49.0); Hemoglobin 12.3 g/dL (13.6-17.9)
[2024-12-27] MEDS: ALBUTEROL 2.5 MG/3 ML NEB SOL NEB ONE (13:45)
[2024-12-27] MEDS: IPRATROPIUM BROM 0.5MG/2.5ML IH ONE (13:45)
[2024-12-28 06:14] LABS: Absolute Eosinophils 0.1 K/uL (0-0.5); Absolute Lymphocytes (CBC) 2.8 K/uL (0.7-4.9); Absolute Monocytes 0.5 K/uL (0.1-1.3); Absolute Neutrophil 4.7 K/uL (1.8-8.0); Basophils % 0.5 % (0-1.3); Eosinophils % 1.4 % (0-4.4); Hematocrit 37.7 % (39.6-49.0); Hemoglobin 13.1 g/dL (13.6-17.9); Lymphocytes % 34.6 % (15.3-44.8); MCH 31.3 pg (27.0-35.0); MCHC 34.8 g/dL (32.0-36.0); MCV 89.9 fL (80-100); MPV 10.4 fL (7.6-11.3); Monocytes % 5.9 % (3.3-12.3); Neutrophils % 57.6 % (41.7-73.7); Nucleated Red Blood Cells % 0.1 % (0-0); Platelets 134 thou/uL (152-406)
[2024-12-28 06:33] LABS: Albumin 2.5 g/dL (3.4-5.0); Albumin/Globulin Ratio 0.8 (1.1-1.8); Anion Gap 6.4 mEq/L (5.0-15.0); Bilirubin Total 0.3 mg/dL (0.2-1.0); Potassium 3.4 mEq/L (3.5-5.1); Protein, Total 5.5 g/dL (6.4-8.2)
[2024-12-28] MEDS: POTASSIUM CL SA 10 MEQ TAB PO ONE (08:31)
[2024-12-28 09:45] VITALS: BMI 30.4
--- NOTE | 2024-12-28 11:44 | P.PN ---
Subjective Date of Service: 12/28/24 Chief Complaint: Abdominal pain Patient is 44 years of age noncompliant patient is a diabetic does not take any medication admitted with abdominal discomfort and having some discomfort since Sunday nausea vomiting slightly better Review of Systems General: Weakness Gastrointestinal: Nausea, Abdominal Pain Physical Examination - Vital Signs Temperature: 98.3 F Blood Pressure: 146/86 Pulse: 90 Respirations: 18 Pulse Ox (%): 96 - Physical Exam General: Alert, Oriented x3 Neck: Supple Respiratory: Clear to auscultation bilaterally Cardiovascular: No edema, Regular rate/rhythm Gastrointestinal: Tenderness (Mild tenderness more prominent in the abdomen below the navel no rebound, and is soft) Other Physical/Emotional Findings: Exam limited as this is a Tele-Medicine visit Assessment And Plan - Current Problems (Diagnosis) (1) Abdominal pain Current Visit: Yes Status: Acute Plan: Patient is 44 years of age poorly controlled diabetes presumed underlying fatty liver with nausea vomiting generalized abdominal discomfort postcholecystectomy continue to monitor advance diet check labs tomorrow morning add metformin has a history of COPD Qualifiers: Abdominal location: upper abdomen, unspecified Qualified Code(s): R10.10 - Upper abdominal pain, unspecified
[2024-12-28] MEDS: METFORMIN HCL 500 MG TAB PO SCH (17:21)
[2024-12-28] MEDS: CHLORASEPTIC LOZENGES PO PRN (20:14)
[2024-12-29 07:25] LABS: Absolute Eosinophils 0.1 K/uL (0-0.5); Absolute Lymphocytes (CBC) 2.4 K/uL (0.7-4.9); Absolute Monocytes 0.4 K/uL (0.1-1.3); Basophils % 0.6 % (0-1.3); Eosinophils % 1.3 % (0-4.4); Hematocrit 35.3 % (39.6-49.0); Hemoglobin 12.6 g/dL (13.6-17.9); Lymphocytes % 34.6 % (15.3-44.8); MCH 31.5 pg (27.0-35.0); MCHC 35.6 g/dL (32.0-36.0); MCV 88.6 fL (80-100); MPV 10.6 fL (7.6-11.3); Monocytes % 5.3 % (3.3-12.3); Neutrophils % 58.2 % (41.7-73.7); Platelets 120 thou/uL (152-406); RBC Red Blood Cell Count 3.99 M/uL (4.33-5.43); Red Cell Distribution Width 13.1 % (12.1-15.2)
[2024-12-29 07:51] LABS: Albumin 2.6 g/dL (3.4-5.0); Albumin/Globulin Ratio 0.9 (1.1-1.8); Anion Gap 8.5 mEq/L (5.0-15.0); Bilirubin Total 0.3 mg/dL (0.2-1.0); Globulin 2.8 g/dL (2.3-3.5); Potassium 3.5 mEq/L (3.5-5.1); Protein, Total 5.4 g/dL (6.4-8.2)
[2024-12-29] MEDS: POTASSIUM CL SA 10 MEQ TAB PO ONE (09:52)
[2024-12-29] MEDS: METOCLOPRAMIDE 5 MG TAB PO SCH (16:35)
[2024-12-29] MEDS: METOPROLOL TAR 25 MG TAB PO SCH (17:26)
[2024-12-29 22:00] VITALS: O2SAT 99
[2024-12-30 07:20] LABS: Anion Gap 5.7 mEq/L (5.0-15.0); Potassium 3.7 mEq/L (3.5-5.1)
--- NOTE | 2024-12-30 12:29 | EKG ---
Test Date: 2024-12-26 Test Time: 05:50:16 Deburrer: MM MEASUREMENT RESULTS: Intervals: Rate: 107 NC: 142 QRSD: 80 QT: 322 QTc: 429 Melvin: P: 49 NC: 142 QRS: 81 T: -9 INTERPRETIVE STATEMENTS: Sinus tachycardia Cannot rule out Inferior infarct, age undetermined Abnormal ECG Compared to ECG 12/15/2023 15:04:38 Myocardial infarct finding now present Sinus rhythm no longer present T-wave abnormality no longer present Electronically Signed On 12-30-24 12:20:56 APPLICATION TRAINER by Randall Merritt
[2024-12-30 12:34] VITALS: BP 116/74; TEMP 98.6
== END 2024-12-30 13:55 | disposition home or self-care (01) | DRG 74 ==
LOC: ER 05:21 → ERHOLD 08:37 → 4TH 15:41
PROVIDERS: ADMIT Internal Medicine; ATTEND Hospitalist
DX: E11.43 Type 2 diabetes mellitus with diabetic autonomic (poly)neuropathy (principal); A08.39 Other viral enteritis; E11.65 Type 2 diabetes mellitus with hyperglycemia; K31.84 Gastroparesis; E87.6 Hypokalemia; E86.0 Dehydration; D64.9 Anemia, unspecified; K76.0 Fatty (change of) liver, not elsewhere classified; I10 Essential (primary) hypertension; J44.9 Chronic obstructive pulmonary disease, unspecified; F17.200 Nicotine dependence, unspecified, uncomplicated; R79.89 Other specified abnormal findings of blood chemistry; Z90.49 Acquired absence of other specified parts of digestive tract; Z91.148 Patient's other noncompliance with medication regimen for other reason
CPT/HCPCS: 36415; 71045; 74177; 80048; 80053; 80061; 80307; 81003; 82947; 83036; 83690; 83735; 84100; 84132; 84443; 85014; 85018; 85025; 93005; 96361; 96365; 96375; 99285; J1650; J2405; J2543; J2550; J2765; J3475; J3480; J7030; J7613; J7644; Q9967

== ENCOUNTER 2025-02-18 13:07 | Emergency (ER) | payer OTHER ==
--- OUTSIDE RECORDS SUMMARY | 2025-02-18 13:13 | XMS REPORT | Continuity of Care Document ---
Author Name Unknown Address [address] [facility] [address] [place] [address] Organization [facility] [place] Address [address] [facility] [facility] [address] [place] [address] Care Team Providers Care Copier Operator Name Role Phone Anjana Blue Primary Care Physician [phone] Fellow, Pulmonary Attending Clinician Unavailsuraj hamilton Doctor Unassigned, [place] Attending Clinician U Magdaleno Garcia Attending Clinician Unavailable Kevin Munoz Attending Clinician [phone] Magdaleno Antony Attending Clinician [phone] HARINDER MUNOZ Attending Clinician Unavailable Harinder Munoz MD Attending Clinician [phone] Lupe Dejesus RN Attending Clinician UnavailALFREDO Beck Attending Clinician Unavailable Jacque Tang Attending Clinician [phone] Alfredo Navarro MD Attending Clinician [phone] Landy Jenkins DO Attending Clinician [phone] KEVIN THOMAS Admitting Clinician Unavailable ALFREDO NAVARRO Admitting Clinician Unavailable Alfredo Navarro MD Admitting Clinician [phone] Payers Payer Name Policy Type Policy Number Effective Date Expirati on Date Source Problems Condition Name Condition Details Condition Category Status Onset Date Resolution Date Last Treatment Date Treating Clinician Comments Source New onset type 2 diabetes mellitus New onset type 2 diabetes mellitus Disease Active 2021-11 00:00: 00 [facility] Obesity (BMI 30-39.9) Obesity (BMI 30-39.9) Disease Active 2021-11 00:00: 00 [facility] No known active problems No known active problems Disease [facility] Allergies, Adverse Reactions, Alerts Allergy Name Allergy Type Status Severity Reaction(s) Onset Date Inactive Date Treating Clinician Comments Source NO KNOWN ALLERGIE S Drug Class Active [facility] Social History Social Habit Start Date Stop Date Quantity Comments Source Gender identity [facility] Sexual orientation U [facility] History of tobacco use Passive smoker [facility] History of Social function 2024-01-14 00:00:00 2024-01-14 00:00:00 [facility] Alcohol intake 2024-01-14 00:00:00 2024-01-14 00:00:00 Current non-drinker of alcohol (finding) [facility] Exposure to SARS-CoV-2 (event) 2022-08-31 00:00:00 2022-09-10 13:58:00 Not sure [facility] Cigarettes smoked current (pack per day) - Reported 2022-09-10 00:00:00 2022-09-10 00:00:00 [facility] Cigarette pack-years 2022-09-10 00:00:00 2022-09-10 00:00:00 [facility] Tobacco use and exposure 2022-09-10 00:00:00 2022-09-10 00:00:00 Smokeless tobacco non-user [facility] Education - What is the highest level of school you have completed or the highest degree you have received? 2022-09-10 00:00:00 2022-09-10 00:00:00 Some college, no degree [facility] Sex Assigned At 1980 00:00:00 1980 00:00:00 [facility] Smoking Status Start Date Stop Date Source Ex-smoker 2022-09-10 00:00:00 2022-09-10 00:00:00 [facility] Current some day smoker 2021-03-05 00:00:00 [facility] Medications Ordered Medication Name Filled Medication Name Start Date Stop Date Current Medication? Ordering Clinician Indication Dosage Frequency Signature (SIG) Comments Components Source ipratropium -albuteroL (DUONEB) 0.5 mg-3 mg(2.5 mg base)/3 mL nebulizer solution 3 mL 01-14 04:00: 00 01-14 03:07 :00 No 3mL 3 mL, Inhalation , ONCE, 1 dose, On Sun01/13/24 at 2200, Routine [facility] NaCl 0.9% (NS) bolus infusion 1,000 mL 01-14 03:45: 00 01-14 03:43 :00 No 1000mL at 999 mL/hr, 1,000 mL, IV Infusion, ONCE, 1 dose, On Sun01/13/24 at 2145, STAT [facility] ketorolac (TORADOL) injection 15 mg 01-14 03:45: 00 01-14 02:42 :00 No 15mg 15 mg, Slow IV Push, ONCE, 1 dose, On Sun01/13/24 at 2145, JOSE [facility] NaCl 0.9% (NS) bolus infusion 1,000 mL 01-14 02:00: 00 01-14 01:55 :00 No 1000mL at 999 mL/hr, 1,000 mL, IV Infusion, ONCE, 1 dose, On Sun01/13/24 at 2000, JOSE [facility] acetaminoph en (TYLENOL) tablet 975 mg 01-14 01:15: 00 01-14 01:11 :00 No 975mg 975 mg, Oral, ONCE, 1 dose, On Sun01/13/24 at 1915, [facility] benzonatate 200 mg capsule 01-13 00:00: 00 Yes [id number] 200mg Take 1 capsule by mouth 3 (three) times daily as needed for Cough for up to 20 doses. [facility] ondansetron 4 mg disintegrat ing tablet 2024-0 2-18 00:00: 00 Yes [id number] 4mg Take 1 tablet by mouth every 8 (eight) hours as needed for Nausea and Vomiting (N/V). [facility] albuterol 90 mcg/actuati on inhaler 18 00:00: 00 Yes [id number] 2{puff} Inhale 2 Puffs every 4 (four) hours as needed for Wheezing or Shortness of Breath. [facility] 10 units 2 times daily 2021-11 00:00: 00 No SITagliptin (JANUVIA) tablet 100 mg 2021-11 14:00: 00 Yes 100mg 100 mg, Oral, DAILY, First dose on Sun09/11/22 at 0900, Until Discontinu ed, Routine [facility] enoxaparin (LOVENOX) injection 40 mg 2021-11 14:00: 00 Yes 40mg 40 mg, Subcutaneo us, DAILY, First dose on Sun09/11/22 at 0900, Until Discontinu ed, Routine [facility] omeprazole (PRILOSEC) capsule 40 mg 2021-11 14:00: 00 Yes 40mg 40 mg, Oral, DAILY, First dose on Sun09/11/22 at 0900, Until Discontinu ed [facility] metFORMIN (GLUCOPHAGE ) tablet 1,000 mg 2021-11 13:00: 00 Yes 1000mg 1,000 mg, Oral, BID MEALS, First dose (after last modificati on) on Sun09/11/22 at 0800, Until Discontinu ed, Routine [facility] simethicone (GAS RELIEF (SIMETHICON E)) chewable tablet 80 mg 2021-11 07:47: 21 Yes 80mg 80 mg, Oral, QIDPRN, Starting on Sun09/11/22 at 0247, Until Discontinu ed, Routine, Gas [facility] HYDROcodone -acetaminop hen (NORCO 5) 5-325 mg tablet 1 tablet 2021-11 07:35: 21 Yes 1{tbl} 1 tablet, Oral, Q6HPRN, Starting on Sun09/11/22 at 0235, Until Discontinu ed, Routine, Pain (scale 7-10) [facility] traMADoL (ULTRAM) tablet 50 mg 2021-11 07:35: 08 Yes 50mg 50 mg, Oral, Q6HPRN, Starting on Sun09/11/22 at 0235, Until Discontinu ed, Routine, Pain (scale 4-6) [facility]-Reg [facility] + Fsbg Testing 2021-11 07:15: 00 Yes Subcutaneo us, Q4H, First dose (after last modificati on) on Sun09/11/22 at 0215, Until Discontinu ed, Routine [facility] atorvastati n (LIPITOR) tablet 40 mg 2021-11 02:00: 00 Yes 40mg 40 mg, Oral, QHS, First dose on 09/10/22 at 2100, Until Discontinu ed, Routine [facility] Insulin-Reg ular + Fsbg Testing 2021-11 02:00: 00 09-11 07:10 :47 No Subcutaneo us, AC+HS, First dose on 09/10/22 at 2100, Until Discontinu ed, Routine Univers [facility] Lancing Device with Lancets (ACCU-CHEK SOFT DEV LANCETS) Kit 2021-11 00:00: 00 Yes [id number] Use as directed [facility] pen needle, diabetic 32 gauge x 1/5" Ndle 2021-11 00:00: 00 Yes [id number] Use as directed [facility] Lancing Device with Lancets (ACCU-CHEK SOFT DEV LANCETS) Kit 2021-11 00:00: 00 Yes [id number] Use as directed [facility] flash glucose scanning reader (FREESTYLE ROSA MARIA 2 READER) [facility] 2021-11 00:00: 00 Yes [id number] 2{appli cator} 2 Applicator s before meals. [facility] pen [facility], diabetic 32 gauge x 1/5" Ndle 2021-11 00:00: 00 Yes [id number] Use as directed [facility] metFORMIN 1,000 mg tablet 2021-11 00:00: 00 10-12 05:59 :00 No [id number] 1000mg Take 1 tablet by mouth in the morning and 1 tablet in the evening. Take with meals. Do all this for 30 days. [facility] atorvastati n 40 mg tablet 2021-11 00:00: 00 10-12 05:59 :00 No [id number] 40mg Take 1 tablet by mouth at bedtime for 30 days. [facility] insulin aspart protamine-i nsulin aspart (NOVOLOG MIX 70-30 U-100 INSULN) 100 unit/mL (70-30) injection 2021-11 00:00: 00 10-12 05:59 :00 No [id number] 10U inject 10 Units under the skin 2 (two) times daily before breakfast and dinner for 30 days. [facility] NaCl 0.9% (NS) IV infusion 1,000 mL 2021-11 22:45: 00 Yes 1000mL at 125 mL/hr, IV Infusion, CONTINUOUS , Starting on Sun09/10/22 at 1745, Until Discontinu ed, Routine [facility] insulin NPH and regular human 70-30 (70-30 U-100 INSULIN) 100 unit/mL (70-30) injection 10 Units 2021-11 22:45: 00 09-11 04:12 :06 No 10U 10 Units, Subcutaneo us, BIDAC, First dose on Sun09/10/22 at 1745, Until Discontinu ed, Routine [facility] glucagon (GLUCAGEN DIAGNOSTIC KIT) injection 1 mg 2021-11 22:36: 10 Yes 1mg 1 mg, Intramuscu lar, PRN, Starting on Sun09/10/22 at 1736, Until Discontinu ed, JOSE, Blood Glucose < or = 70 mg/dL and patient is unable to swallow or has mental changes. [facility] dextrose 50 % in water (D50W) injection 25 mL 2021-11 22:36: 10 Yes 25mL 25 mL, Slow IV Push, PRN, Starting on Sun09/10/22 at 1736, Until Discontinu ed, JOSE, Blood Glucose < or = 70 mg/dL and patient is unable to swallow or has mental status changes. [facility] ondansetron (ZOFRAN (PF)) injection 4 mg 2021-11 22:36: 02 Yes 4mg 4 mg, Slow IV Push, Q6HPRN, Starting on Sun09/10/22 at 1736, Until Discontinu ed, Routine, Nausea and Vomiting (N/V) [facility] acetaminoph en (TYLENOL) tablet 650 mg 2021-11 22:35: 56 Yes 650mg 650 mg, Oral, Q6HPRN, Starting on Sun09/10/22 at 1735, Until Discontinu ed, Routine, Pain (scale 1-3) [facility] NaCl 0.9% (NS) bolus infusion 1,000 mL 2021-11 20:45: 00 09-10 20:37 :00 No 1000mL at 999 mL/hr, 1,000 mL, IV Infusion, ONCE, 1 dose, On Sun09/10/22 at 1545, JOSE [facility] iopamidol (ISOVUE 370-500 mL) injection 75 mL 2021-11 19:15: 00 09-10 19:30 :00 No [id number] 75mL 75 mL, Intravenou s, ONCE, 1 dose, On Sun09/10/22 at 1430, Routine [facility] ondansetron (ZOFRAN (PF)) injection 4 mg 2021-11 19:15: 00 09-10 19:39 :00 No 4mg 4 mg, Slow IV Push, ONCE, 1 dose, On Sun09/10/22 at 1415, JOSE [facility] morpHINE (4 mg/mL) injection 4 mg 2021-11 19:15: 00 09-10 19:39 :00 No 4mg 4 mg, Slow IV Push, ONCE, 1 dose, On Sun09/10/22 at 1415, STAT [facility] iohexol (OMNIPAQUE 350 BULK-150 mL) injection 120 mL 03-05 19:30: 00 03-05 19:10 :00 No [id number] 120mL 120 mL, Intravenou s, ONCE, 1 dose, 03/05/21 at 1430, Routine [facility] famotidine (PEPCID (PF)) injection 20 mg 03-05 19:30: 00 03-05 18:37 :00 No 20mg 20 mg, Slow IV Push, ONCE, 1 dose, 03/05/21 at 1430, JOSE [facility] ondansetron (ZOFRAN (PF)) injection 4 mg 03-05 19:30: 00 03-05 18:37 :00 No 4mg 4 mg, Slow IV Push, ONCE, 1 dose, 03/05/21 at 1430, JOSE [facility] morpHINE injection 4 mg 03-05 19:30: 03-05 18:37 :00 No 4mg 4 mg, Slow IV Push, ONCE, 1 dose, 03/05/21 at 1430, STAT [facility] NaCl 0.9% (NS) bolus infusion 1,000 mL 03-05 18:30: 00 03-05 19:46 :00 No 1000mL at 999 mL/hr, 1,000 mL, IV Infusion, ONCE, 1 dose, 03/05/21 at 1330, JOSE [facility] omeprazole 40 mg capsule 03-05 00:00: 00 Yes [id number] 40mg Take 1 capsule by mouth daily. [facility] metFORMIN 500 mg tablet 03-05 00:00: 00 Yes [id number] 500mg Take 1 tablet by mouth 2 (two) times daily. [facility] prednisone 20 mg tablet 01-07 00:00: 00 No 1mg Dose Unknown 01-07 00:00: 00 No metformin 500 mg tablet -23 00:00: 00 No 1mg neomycin-po lymyxin-hyd rocortisone (CORTISPORI N OTIC SUSPENSION) 3.5-10,000- 1 mg/mL-unit/ mL-% otic susp 08-04 00:00: 00 03-05 00:00 :00 No 3[drp] Place 3 Drops in left ear 4 (four) times daily. [facility] acetaminoph en-codeine (TYLENOL-CO DEINE #3) 300-30 mg tablet 08-04 00:00: 00 03-05 00:00 :00 No 1{tbl} Take 1 tablet by mouth every 6 (six) hours as needed for Pain (scale 4-6) (for cough). [facility] metformin 1,000 mg tablet 06-15 00:00: 00 No 1mg pantoprazol e (PROTONIX) 40 mg EC tablet 05-26 00:00: 00 03-05 00:00 :00 No 40mg Take 1 tablet by mouth daily. [facility] metFORMIN (GLUCOPHAGE ) 500 mg tablet 05-26 00:00: 00 03-05 00:00 :00 No 500mg Take 1 tablet by mouth 2 (two) times daily with meals. [facility] amoxicillin 500 mg capsule 01-12 00:00: 00 No 1mg amoxicillin 250 mg capsule 01-12 00:00: 00 No 1mg Bromfed DM 2 mg-30 mg-10 mg/5 mL syrup 01-12 00:00: 00 No 10mg/5 mL Vital Signs Vital Name Observation Time Observation Value Comments S frank Systolic blood pressure 2024-01-14 03:38:00 114 mm[Hg] [facility] Diastolic blood pressure 2024-01-14 03:38:00 66 mm[Hg] [facility] Heart rate 2024-01-14 03:38:00 96 /min Fawade [facility] Body temperature 2024-01-14 03:38:00 37.5 Geovanna [facility] Respiratory rate 2024-01-14 03:38:00 16 /min [facility] Oxygen saturation in Arterial blood by Pulse oximetry 2024-01-14 03:38:00 96 /min [facility] Body height 2024-01-14 00:52:00 172.7 cm [facility] weight 2024-01-14 00:52:00 86.183 kg [facility] BMI 2024-01-14 00:52:00 28.89 kg/m2 Univ [facility] Systolic blood pressure 2024-01-07 13:52:00 136 mm[Hg] [facility] Diastolic blood pressure 2024-01-07 13:52:00 87 mm[Hg] [facility] Heart rate 2024-01-07 13:52:00 100 /min Unive [facility] Body temperature 2024-01-07 13:52:00 36.61 Geovanna [facility] Respiratory rate 2024-01-07 13:52:00 18 /min [facility] Body height 2024-01-07 13:52:00 172.7 cm [facility] weight 2024-01-07 13:52:00 87.998 kg [facility] BMI 2024-01-07 13:52:00 29.50 kg/m2 [facility] Oxygen saturation in Arterial blood by Pulse oximetry 2024-01-07 13:52:00 100 /min [facility] Systolic blood pressure 2022-09-11 16:34:00 131 mm[Hg] [facility] Diastolic blood pressure 2022-09-11 16:34:00 80 mm[Hg] [facility] Heart rate 2022-09-11 16:34:00 80 /min Unive [facility] Body temperature 2022-09-11 16:34:00 36.83 Geovanna [facility] Respiratory rate 2022-09-11 16:34:00 18 /min [facility] Oxygen saturation in Arterial blood by Pulse oximetry 2022-09-11 16:34:00 97 /min [facility] Body weight 2022-09-11 07:55:00 82.464 kg [facility] BMI 2022-09-11 07:55:00 27.64 kg/m2 [facility] Body height 2022-09-11 01:03:00 172.7 cm [facility] Systolic blood pressure 2021-03-05 20:00:00 119 mm[Hg] [facility] Diastolic blood pressure 2021-03-05 20:00:00 73 mm[Hg] [facility] Heart rate 2021-03-05 20:00:00 78 /min [facility] Respiratory rate 2021-03-05 20:00:00 17 /min [facility] Oxygen saturation in Arterial blood by Pulse oximetry 2021-03-05 20:00:00 99 /min [facility] Body temperature 2021-03-05 18:12:00 36.28 Geovanna [facility] Body height 2021-03-05 18:12:00 172.7 cm Grand [...] CHEST 1 VW 2024-01-14 01:38:50 Kevin Thomas [facility] POCT GLUCOSE (AUTOMATED) 2024-01-14 01:23:00 Kevin Thomas [facility] LIPASE 2024-01-14 01:17:00 Kevin Thomas [facility] TROPONIN I 2024-01-14 01:17:00 Kevin Thomas [facility] COMP. METABOLIC PANEL (90528) 2024-01-14 01:17:00 [facility] 2024-01-14 01:17:00 Kevin Thomas [facility] N-TERMINAL PRO-BNP 2024-01-14 01:17:00 Martha [facility] RAPID STREP SCREEN FOR GROUP A 2024-01-14 00:59:00 Martha [facility] RAPID INFLUENZA A/B 2024-01-14 00:59:00 Martha [facility] COVID-19 (ID NOW RAPID TESTING) 2024-01-14 00:59:00 Martha [facility] NOTICE OF PRIVACY PRACTICES 2024-01-14 00:49:07 Doctor Unassigned, [place] [facility] CONSENT/REFUSAL FOR DIAGNOSIS AND TREATMENT 2024-01-14 00:48:09 Doctor Unassigned, [place] [facility] ASSIGNMENT OF BENEFITS 2024-01-07 14:52:26 Docto r Unassigned, [place] [facility] CONSENT/REFUSAL FOR DIAGNOSIS AND TREATMENT 2024-01-07 13:41:19 Doctor Unassigned, [place] [facility] REFERRAL- REQUEST/RESPONSE 2023-06-06 05:01:00 Doctor Unassigned, [place] [facility] POCT GLUCOSE (AUTOMATED) 2022-09-11 16:34:00 Melanie [facility] POCT GLUCOSE (AUTOMATED) 2022-09-11 12:44:00 Melanie [facility] COMP. METABOLIC PANEL (53181) 2022-09-11 07:58:00 [facility] (80804)(TOTAL CHOLESTEROL, TRIGLYCERIDES, HDL) 2022-09-11 07:58:00 [facility] LOW-DENSITY LIPOPROTEIN, DIRECT 2022-09-11 07:58:00 Melanie [facility] POCT GLUCOSE (AUTOMATED) 2022-09-11 07:29:00 Melanie [facility] POCT GLUCOSE (AUTOMATED) 2022-09-11 01:22:00 Melanie [facility] POCT GLUCOSE (AUTOMATED) 2022-09-10 20:47[facility] 2022-09-10 19:16:33 Russell [facility] LIPASE 2022-09-10 18:43:00 [facility] COMP. METABOLIC PANEL (07869) 2022-09-10 18:43:[address] [facility] CBC WITH DIFF 2022-09-10 18:43:00 [place] [facility] GLYCOSYLATED HEMOGLOBIN (A1C) 2022-09-10 18:43:00 Russell [facility] URINALYSIS 2022-09-10 18:43:00 [facility] NOTICE OF PRIVACY PRACTICES 2022-09-10 18:35:36 Doctor Unassigned, [place] [facility] CONSENT/REFUSAL FOR DIAGNOSIS AND TREATMENT 2022-09-10 18:35:02 Doctor Unassigned, [place] [facility] CT ABDOMEN PELVIS W CONTRAST 2021-03-05 19:23:44 Landy Jenkins [facility] LIPASE 2021-03-05 18:30:00 Landy Jenkins Un [facility] TROPONIN I 2021-03-05 18:30:00 Landy Jenkins [facility] HEPATIC FUNCTION PANEL (06885) (ALB,T.PRO,BILI T,BU/BC,ALT,AST,ALK PHOS) 2021-03-05 18:30:00 Landy Jenkins [facility] BASIC METABOLIC PANEL (NA, K, CL, CO2, GLUCOSE, BUN, CREATININE, CA) 2021-03-05 18:30:00 Landy Jenkins [facility] CBC WITH DIFF 2021-03-05 18:30:00 [facility] 2021-03-05 18:30:00 [facility] NOTICE OF PRIVACY PRACTICES 2021-03-05 18:07:12 Doctor Unassigned, [place] [facility] CONSENT/REFUSAL FOR DIAGNOSIS AND TREATMENT 2021-03-05 18:07:01 Doctor Unassigned, [place] [facility] Plan of Care Planned Activity Planned Date Details Comments Source Goal Plan of Care Note [code = 96523-5] Goal Plan of Care Note [code = 92069-2] Goal Plan of Care Note [code = 44964-1] Goal Plan of Care Note [code = 38272-8] Goal Plan of Care Note [code = 21077-2] Goal Plan of Care Note [code = 11574-6] Goal Plan of Care Note [code = 73377-6] Goal Plan of Care Note [code = 49118-9] Goal Plan of Care Note [code = 08464-3] Goal Plan of Care Note [code = 17384-7] Goal Plan of Care Note [code = 45399-0] Goal Plan of Care Note [code = 82148-6] Goal Plan of Care Note [code = 40909-5] Encounters Start Date/Time End Date/Time Encounter Type Admission Type Attending Clinicians [facility] Care Department Encounter ID Source 2024-09-19 08:01:34 2024-09-19 08:01:34 Outpatient S[facility] [id number] [address] 2024-01-22 00:00:00 2024-01-22 00:00:00 Letter (Out) Fellow, Pulmonary [facility] ..114 350.1.13.10 4.2.7.2.686 [id number] [facility] 2024-01-21 00:00:00 2024-01-21 00:00:00 Patient Secure Msg Doctor Unassigned, [place] [facility] 1.840.114 350.1.13.10 4.2.7.2.686 [id number] [facility] 2024-01-13 18:56:00 2024-01-13 21:46:00 Emergency X Magdaleno SHAH [facility] ERT [id number] [facility] 2024-01-13 18:56:00 2024-01-13 21:46:00 Emergency Kevin Thomas K Darling [facility] 1.0.114 350.1.13.10 4.2.7.2.686 [id number] [facility] 2024-01-07 07:54:00 2024-01-07 08:48:00 Emergency Og MUNOZ HARINDER [facility] ERT [id number] [facility] 2024-01-07 07:54:00 2024-01-07 08:48:00 Emergency Eziogonzalo Gerson [facility] 1..114 350.1.13.10 4.2.7.2.686 [id number] [facility] 2023-06-28 10:37:44 2023-06-28 10:37:44 Outpatient SFA [facility] [id number] 2023-06-21 08:19:38 2023-06-21 08:19:38 Outpatient SFA [facility] [id number] [place] 2023-06-20 16:02:39 2023-06-20 16:02:39 Outpatient [facility] [id number] [place] 2023-06-09 00:00:00 2023-06-09 00:00:00 Lupe Morel [facility] 1.114 350.1.13.10 4.2.7.2.686 [id number] [facility] 2023-06-09 00:00:00 2023-06-09 00:00:00 Patient Secure Msg Doctor Unassigned, [place] [facility] 1..114 350.1.13.10 4.2.7.2.686 [id number] [facility] 2023-06-06 00:00:00 2023-06-06 00:00:00 Orders Only Doctor Unassigned, [place] [facility] 1.2.840.114 350.1.13.10 4.2.7.2.686 [id number] [facility] 2023-05-30 16:25:18 2023-05-30 16:25:18 Outpatient [facility] [id number] 2022-09-14 13:42:01 2022-09-14 13:42:01 Outpatient [facility] [id number] 2022-09-14 00:00:00 2022-09-14 00:00:00 Outpatient Visit [id number] 2022-09-10 13:44:00 2022-09-11 12:54:00 Outpatient X TIMJACQUES ALFREDO [facility] PHILLIP [id number] [facility] 2022-09-10 13:44:00 2022-09-11 12:54:00 Emergency Wells Jacque Timjacques Alfredo [facility] 1.2.840.114 350.1.13.10 4.2.7.2.686 [id number] [facility] 2021-03-05 13:11:00 2021-03-05 15:35:00 Emergency Landy Jenkins [facility] 1.2.840.114 350.1.13.10 4.2.7.2.686 [id number] [facility] 2021-03-05 13:06:00 2021-03-05 13:06:00 Emergency X [facility] ERT [id number] [facility] Results Test Description Test Time Test Comments Results Result Co mments Source [id number] 02:06:46* Test Item Value Reference Range Interpretation Comme nts NT-proBNP (test code = 75423-3) 22 pg/mL <=125 Lab Interpretation (test cod e = [id number]) Normal [facility] 1 [id number] 02:01:38CHEST X-RAY AP PORTABLE 01/13/2024 8:01 PM Ordering physician: KEVIN THOMAS CLINICAL INFORMATION: ?Chest pain and fever COMPARISON: None TECHNIQUE: ?single AP view of the chest was submitted. FINDINGS: ? The lung sahni are clear. ?No pleural effusions. ?No pneumothorax. ?Thecardiomediastinal silhouette is within normal limits. ?No acuteradiographic bony abnormalities.[facility] 01:57:27* Test Item Value Reference Range Interpretation Comme nts LIPASE (test code = 7591033193) 134 U/L 0-220 Lab Interpretation (test cod e = 58401-7) Normal [facility]COMP. METABOLIC PANEL (82448)2024-01-14 01:57:27* Test Item Value Reference Range Interpretation Comme nts NA (test code = 0864747858) 134 mmol/L 135-145 L K (test code = 8436958821) 4.0 mmol/L 3.5-5.0 CL (test code = 4780033937) 104 mmol/L 98-108 CO2 TOTAL (test code = 0489080255) 24 mmol/L 23-31 AGAP (test code = 9905889734) 6 2-16 BUN (test code = 8344741388) 15 mg/dL 7-23 GLUCOSE (test code = 2843009859) 301 mg/dL 70-110 H CREATININE (test code = 2160-0) 0.81 mg/dL 0.60-1.25 TOTAL BILI (test code = 8008772461) 0.5 mg/dL 0.1-1.1 CALCIUM (test code = 8212737878) 8.6 mg/dL 8.6-10.6 T PROTEIN (test code = 8862997247) 7.5 g/dL 6.3-8.2 ALBUMIN (test code = 0037003181) 4.1 g/dL 3.5-5.0 ALK PHOS (test code = 5325964022) 127 U/L 34-122 H ALTv (test code = 1742-6) 18 U/L 5-50 AST(SGOT) (test code = 3484258419) 20 U/L 13-40 eGFR (test code = 22702-4) 111.5 mL/min/1.73m2 CKD-EPI eGFR (2020). Assuming creatinine has been stable day-to-day for at least three months, the eGFR indicates Category G1 (>= 90 mL/min/1.73 m2) Lab Interpretation (test code = 21006-3) Abnormal [facility] WITH [id number] 01:51:26* Test Item Value Reference Range Interpretation [...] 34.2 g/dL 31.2-35.0 RDW-SD (test code = 25152-4) 38.2 fL 38.5-51.6 L RDW-CV (test code = 788-0) 12.1 % 12.1-15.4 PLT (test code = 777-3) 149 150-328 L MPV (test code = 77911-0) 12.0 fL 9.8-13.0 NRBC/100 WBC (test code = 6862939022) 0.0 0.0-10.0 NRBC x10^3 (test code = 4053494741) See_Comment [Automated messa ge] The system which generated this result transmitted reference range: 10*3/?L. The reference range was not used to interpret this result as normal/abnormal. GRAN MAT (NEUT) % (test code = 770-8) 52.7 % IMM GRAN % (test code = 4761442604) 0.50 % LYMPH % (test code = 736-9) 36.8 % MONO % (test code = 5905-5) 8.3 % EOS % (test code = 713-8) 1.2 % BASO % (test code = 706-2) 0.5 % GRAN MAT x10^3(ANC) (test code = 9057675615) 2.15 10*3/uL 1.99-6.95 IMM GRAN x10^3 (test code = 1929980339) 0.00-0.06 LYMPH x10^3 (test code = 731-0) 1.50 10*3/uL 1.09-3.23 MONO x10^3 (test code = 742-7) 0.34 10*3/uL 0.36-1.02 L EOS x10^3 (test code = 711-2) 0.05 10*3/uL 0.06-0.53 L BASO x10^3 (test code = 704-7) 0.01-0.09 Lab Interpretation (test code = 67355-0) Abnormal [facility]2024-01-14 01:24:45* Test Item Value Reference Range Interpretation Comme [facility] POCT GLU (test code = 8824323010) 279 mg/dL 70-110 H Lab Interpretation (test cod e = 38975-1) Abnormal [facility]CB W/AUTO DIFF WITH [id number] 14:31:15* Test Item Value Reference Range Interpretation Comme [facility] WBC (test code = 1001) TEST NOT [...] TEST NOT PERFORMED K/UL 0.00-0.20 TSH, THIRD [id number] 05:37:35* Test Item Value Reference Range Interpretation Comme [facility] TSH, THIRD GENERATION (test code = 2821) 2.130 UIU/ML 0.400-4.100 UNLESS OTHERWISE INDICATED, ALL TESTING PERFORMED AT [facility] [address] [place] [address] [employer] EDUCATION TEACHER: ANGELA DE ANDA M.D. CLIA NUMBER [id number] [facility] [place]. [id number] HEMOGLOBIN [id number] 04:21:46* Test Item Value Reference Range Interpretation Comme [facility] HEMOGLOBIN A1c (test code = 72451) 11.3 % 4.2-5.6 H [employer] GUIDELINES FOR HGB A1C: [...] ALTERNATE TESTING OR LABORATORY CONSULTATION. COMPREHENSIVE METABOLIC [id number] 02:47:37* Test Item Value Reference Range Interpretation Comme [facility] GLUCOSE (test code = 2216) 365 MG/DL [...] code = 2218) 41 U/L 5-50 LIPID [id number] 02:47:37* Test Item Value Reference Range Interpretation Comme nts CHOLESTEROL (test code = 2209) 225 MG/DL <200 H TRIGLYCERIDES (test code = 2) 465 MG/DL <150 H HDL CHOLESTEROL (test [...] SPECIMENS. FOR MOREINFORMATION, SEE CLIENT ANNOUNCEMENT AT [email or web address] CalcLDL-C RISK RATIO LDL/HDL (test code = 2238) (NOTE) RATIO <3.55 UNABLE TO VIRGIL CULATE POCT GLUCOSE (AUTOMATED)2022-09-11 16:54:15* Test Item Value Reference Range Interpretation Comme [facility] POCT GLU (test code = 5062918274) 234 mg/dL 70-110 H Lab Interpretation (test cod e = 49562-2) Abnormal [facility]roeLOW-DENSITY LIPOPROTEIN, [id number] 15:18:30* Test Item Value Reference Range Interpretation Comme [facility] dLDL Chol (test code = 23135-0) 71 mg/dL See_Comment [Automated [employer]] The system which generated this result transmitted reference range: <=130. The reference range was not used to interpret this result as normal/abnormal. Lab Interpretation (test code = 92472-6) Normal [facility]roeLIPID PANEL (23733)(TOTAL CHOLESTEROL, TRIGLYCERIDES, HDL)2022-09-11 13:58:08* Test Item Value Reference Range Interpretation Comme nts CHOL (test code = 8936654272) 227 mg/dL 120-200 H HDL (test code = 6153530149) 28 mg/dL See_Comment L [Automated messa ge] The system which generated this result transmitted reference range: >=40. The reference range was not used to interpret this result as normal/abnormal. HDLC RATIO (test code = 9335469808) See_Comment H [Automated messa ge] The system which generated this result transmitted reference range: <=5.0. The reference range was not used to interpret this result as normal/abnormal. TRIG (test code = 8377130599) 1291 mg/dL 30-170 H LDL CHOL (test code = 37485-6) Unable to calcul ate LDL due to elevated triglyceride level greater than 400 mg/dL. VLDL (test code = 4686175980) Unable to calcul ate VLDL due to elevated triglyceride level greater than 710 mg/dL. Lab Interpretation (test code = 64077-3) Abnormal [facility]2022-09-11 12:50:53* Test Item Value Reference Range Interpretation Comme [facility] POCT GLU (test code = 8201322467) 247 mg/dL 70-110 H Lab Interpretation (test cod e = 43029-6) Abnormal [facility]COMP. METABOLIC PANEL (20365)2022-09-11 09:41:07* Test Item Value Reference Range Interpretation Comme [facility] NA (test code = 9079532273) 135 mmol/L 135-145 K (test code = 1725215327) 3.5 mmol/L 3.5-5 CL (test code = 8785865594) 104 mmol/L 98-108 CO2 TOTAL (test code = 1995604192) 22 mmol/L 23-31 L AGAP (test code = 8754002912) 2-16 BUN (test code = 0775952432) 13 mg/dL 7-23 GLUCOSE (test code = 6130918812) 242 mg/dL 70-110 H CREATININE (test code = 4596713122) 0.64 mg/dL 0.6-1.25 TOTAL BILI (test code = 4480571849) 0.3 mg/dL 0.1-1.1 CALCIUM (test code = 9202915210) 8.0 mg/dL 8.6-10.6 L T PROTEIN (test code = 9594900469) 5.8 g/dL 6.3-8.2 L ALBUMIN (test code = 9361086980) 3.4 g/dL 3.5-5 L ALK PHOS (test code = 6743323017) 111 U/L 34-122 ALTv (test code = 1742-6) 23 U/L 5-50 AST(SGOT) (test code = 4953552189) 21 U/L 13-40 eGFR (test code = 4612025560) mL/min/1.73m2 NIKO (test code = NIKO) Association [...] imaging tests). Lab Interpretation (test code = 04142-1) Abnormal [facility] GLUCOSE (AUTOMATED)2022-09-11 07:33:20* Test Item Value Reference Range Interpretation Comme [facility] POCT GLU (test code = 9176398812) 204 mg/dL 70-110 H Lab Interpretation (test cod e = 23618-6) Abnormal [facility] GLUCOSE (AUTOMATED)2022-09-11 01:28:49* Test Item Value Reference Range Interpretation Comme [facility] POCT GLU (test code = 1671820356) 373 mg/dL 70-110 H Lab Interpretation (test cod e = 55521-0) Abnormal [facility] GLUCOSE (AUTOMATED)2022-09-10 20:50:37* Test Item Value Reference Range Interpretation Comme [facility] POCT GLU (test code = 0457186931) 272 mg/dL 70-110 H Lab Interpretation (test cod e = 60010-3) Abnormal [facility]roeGLYCOSYLATED HEMOGLOBIN (A1C)2022-09-10 20:06:25* Test Item Value Reference Range Interpretation Comme [facility] HGB A1C (test code = 4548-4) 12.3 % 4-5.7 H NIKO (test code = NIKO) Reference RangesNormal: <5.7%Prediabetes: 5.7 - 6.4%Diabetes: > 6.5% Lab Interpretation (test code = 87641-4) Abnormal [facility]roeComplete Metabolic [id number] 19:37:52* Test Item Value Reference Range Interpretation Comme nts NA (test code = 8784231124) 134 mmol/L 135-145 L K (test code = 4405532863) 4.1 mmol/L 3.5-5 CL (test code = 4222993793) 101 mmol/L 98-108 CO2 TOTAL (test code = 4910647689) 20 mmol/L 23-31 L AGAP (test code = 2230564323) 2-16 BUN (test code = 6662642774) 10 mg/dL 7-23 GLUCOSE (test code = 5442317764) 468 mg/dL 70-110 HH CREATININE (test code = 8189276435) 0.75 mg/dL 0.6-1.25 TOTAL BILI (test code = 3155683408) 0.6 mg/dL 0.1-1.1 CALCIUM (test code = 8631829892) 8.7 mg/dL 8.6-10.6 T PROTEIN (test code = 0677233992) 6.6 g/dL 6.3-8.2 ALBUMIN (test code = 8552517887) 4.2 g/dL 3.5-5 ALK PHOS (test code = 9613171372) 123 U/L 34-122 H ALTv (test code = 1742-6) 26 U/L 5-50 AST(SGOT) (test code = 3105942937) 22 U/L 13-40 eGFR (test code = 3380222042) mL/min/1.73m2 NIKO (test code = NIKO) Association [...] imaging tests). Lab Interpretation (test code = 68622-1) Abnormal [facility]roeLipase, [id number] 19:04:41* Test Item Value Reference Range Interpretation Comme nts LIPASE (test code = 5662263026) 111 U/L 0-220 Lab Interpretation (test cod e = 37740-6) Normal [facility]CB with [id number] 18:52:20* Test Item Value Reference Range Interpretation Comme nts WBC (test code = 6690-2) See_Comment [[email or web address]] The system which generated this result transmitted reference range: 4.20 - 10.70 10*3/?L. The reference range was not used to interpret this result as normal/abnormal. RBC (test code = 789-8) See_Comment [Automated [employer]] The system which generated this result transmitted [...] g/dL 31.2-35 H RDW-SD (test code = 12085-5) 37.7 fL 38.5-51.6 L RDW-CV (test code = 788-0) 11.9 % 12.1-15.4 L PLT (test code = 777-3) See_Comment [Automated [employer] ge] The system which generated this result transmitted reference range: 150 - 328 10*3/?L. The reference range was not used to interpret this result as normal/abnormal. MPV (test code = 03266-0) 11.9 fL 9.8-13 NRBC/100 WBC (test code = 7096208523) See_Comment [Automated [employer] ssage] The system which generated this result transmitted reference range: 0.0 - 10.0 /100 WBCs. The reference range was not used to interpret this result as normal/abnormal. NRBC x10^3 (test code = 5236640348) See_Comment [Automated [employer] ge] The system which generated this result transmitted reference range: 10*3/?L. The reference range was not used to interpret this result as normal/abnormal. GRAN MAT (NEUT) % (test code = 770-8) 56.2 % IMM GRAN % (test code = 2033389558) 0.40 % LYMPH % (test code = 736-9) 36.1 % MONO % (test code = 5905-5) 4.8 % EOS % (test code = 713-8) 1.7 % BASO % (test code = 706-2) 0.8 % GRAN MAT x10^3(ANC) (test code = 6759613868) 4.38 10*3/uL 1.99-6.95 IMM GRAN x10^3 (test code = 3476034508) 0.03 10*3/uL 0-0.06 LYMPH x10^3 (test code = 731-0) 2.81 10*3/uL 1.09-3.23 MONO x10^3 (test code = 742-7) 0.37 10*3/uL 0.36-1.02 EOS x10^3 (test code = 711-2) 0.13 10*3/uL 0.06-0.53 BASO x10^3 (test code = 704-7) 0.06 10*3/uL 0.01-0.09 Lab Interpretation (test code = 66261-3) Abnormal [facility]roeCT ABDOMEN PELVIS W [id number] 20:31:35Diverticulosis without diverticulitis. Hepatomegaly. Preliminary Report Dictated [...] reviewed this study and agree with the abovereport.[facility] Centerkayleen [id number] 19:10:36* Test Item Value Reference Range Interpretation Comme nts TROPONIN I (test code = 3788093086) 0.001 ng/mL See_Comment [Automated message] The system [...] biotin. ? Lab Interpretation (test code = 74441-4) Normal [facility] ConroeHepatic Function Panel (ALB, T.PRO, BILI T, BU/BC, ALT, AST, ALK PHOS)2021-03-05 18:59:14* Test Item Value Reference Range Interpretation Comme nts TOTAL BILI (test code = 7975866070) 0.4 mg/dL 0.1-1.1 BILI UNCON (test code = 3382289161) 0.3 mg/dL 0.1-1.1 BILI CONJ (test code = 3960491246) 0.0 mg/dL 0.0-0.3 T PROTEIN (test code = 4971847821) 6.6 g/dL 6.3-8.2 ALBUMIN (test code = 8708318269) 4.2 g/dL 3.5-5.0 ALK PHOS (test code = 3331942931) 97 U/L 34-122 ALTv (test code = 1742-6) 22 U/L 5-50 AST(SGOT) (test code = 8443409576) 23 U/L 13-40 Lab Interpretation (test cod e = 09532-8) Normal [facility]roeBasic Metabolic Panel (NA, K, CL, CO2, GLUCOSE, BUN, CREATININE, CA)2021-03-05 18:58:54* Test Item Value Reference Range Interpretation Comme nts NA (test code = 6915766995) 136 mmol/L 135-145 K (test code = 5453186147) 4.1 mmol/L 3.5-5.0 CL (test code = 4506027415) 104 mmol/L 98-108 CO2 TOTAL (test code = 7808467305) 24 mmol/L 23-31 AGAP (test code = 7389914933) 2-16 BUN (test code = 3673595039) 15 mg/dL 7-23 GLUCOSE (test code = 0735274215) 207 mg/dL 70-110 H CREATININE (test code = 4790489693) 0.74 mg/dL 0.60-1.25 CALCIUM (test code = 2322072381) 8.4 mg/dL 8.6-10.6 L eGFR (test code = 2514987115) mL/min/1.73m2 NIKO (test code = NIKO) Association [...] imaging tests). Lab Interpretation (test code = 56110-1) Abnormal [facility] ConroeLipase [id number] 18:58:54* Test Item Value Reference Range Interpretation Comme [facility] LIPASE (test code = 7307986495) 140 U/L 0-220 Lab Interpretation (test cod e = 26857-4) Normal [facility] ConroeUrinalysis2021-04-10 18:51:20* Test Item Value Reference Range Interpretation Comme nts APPEARANCE (test code = 6656057905) Clear Clear COLOR (test code = 2683043987) Yellow Yellow PH (test code = 4293409040) 4.8-8.0 SP GRAVITY (test code = 9127332269) 1.003-1.030 GLU U QUAL (test code = 9368421242) 50 mg/dL Normal A BLOOD (test code = 2693730129) Negative Negative KETONES (test code = 1475480569) Negative Negative PROTEIN (test code = 2887-8) Negative Negative UROBILIN (test code = 7720740053) Normal Normal BILIRUBIN (test code = 6210357374) Negative Negative NITRITE (test code = 4410552598) Negative Negative LEUK ZAY (test code = 8871779445) Negative Negative RBC/HPF (test code = 7041100748) See_Comment [Automated messa ge] The system which generated this result transmitted reference range: 0 - 3 HPF. The reference range was not used to interpret this result as normal/abnormal. WBC/HPF (test code = 1177591638) <1 See_Comment [Automated messa ge] The system which generated this result transmitted reference range: 0 - 5 HPF. The reference range was not used to interpret this result as normal/abnormal. BACTERIA (test code = 0010631029) Negative Negative MUCOUS (test code = 2881743701) Slight Negative LPF A SQ EPITH (test code = 0640125312) <1 HPF Lab Interpretation (test code = 66672-3) Abnormal [facility] with [id number] 18:46:34* Test Item Value Reference Range Interpretation [...] g/dL 31.2-35.0 H RDW-SD (test code = 30819-2) 39.9 fL 38.5-51.6 RDW-CV (test code = 788-0) 12.5 % 12.1-15.4 PLT (test code = 777-3) See_Comment [Automated [employer]] The system which generated this result transmitted reference range: 150 - 328 10*3/?L. The reference range was not used to interpret this result as normal/abnormal. MPV (test code = 82247-7) 11.9 fL 9.8-13.0 NRBC/100 WBC (test code = 9447298018) See_Comment [Automated [employer] ssage] The system which generated this result transmitted reference range: 0.0 - 10.0 /100 WBCs. The reference range was not used to interpret this result as normal/abnormal. NRBC x10^3 (test code = 2264296342) <0.01 See_Comment [Automated [employer]] The system which generated this result transmitted reference range: 10*3/?L. The reference range was not used to interpret this result as normal/abnormal. GRAN MAT (NEUT) % (test code = 770-8) 54.6 % IMM GRAN % (test code = 1855014328) 0.40 % LYMPH % (test code = 736-9) 36.8 % MONO % (test code = 5905-5) 5.3 % EOS % (test code = 713-8) 2.1 % BASO % (test code = 706-2) 0.8 % GRAN MAT x10^3(ANC) (test code = 1030160295) 3.92 10*3/uL 1.99-6.95 IMM GRAN x10^3 (test code = 7160170812) 0.03 10*3/uL 0.00-0.06 LYMPH x10^3 (test code = 731-0) 2.64 10*3/uL 1.09-3.23 MONO x10^3 (test code = 742-7) 0.38 10*3/uL 0.36-1.02 EOS x10^3 (test code = 711-2) 0.15 10*3/uL 0.06-0.53 BASO x10^3 (test code = 704-7) 0.06 10*3/uL 0.01-0.09 Lab Interpretation (test code = 14314-5) Abnormal [facility]roeLIPID [id number] 00:00:00* Test Item Value Reference Range Interpretation Comme nts CHOLESTEROL (test code = 2210) 185 MG/DL TRIGLYCERIDES (test code = 2232) 162 MG/DL HDL CHOLESTEROL (test code = 2220) 41 MG/DL CALC LDL CHOL (test code = 2237) 112 MG/DL RISK RATIO LDL/HDL (test cod e = 2238) 2.72 RATIO CBC W/AUTO [id number] 00:00:00* Test Item Value Reference Range Interpretation [...] code = 1015) 166 K/UL COMPREHENSIVE METABOLIC [id number] 00:00:00* Test Item Value Reference Range Interpretation Comme nts GLUCOSE (test code = 2217) 121 MG/DL BUN (test code = 2208) 12 MG/DL CREATININE (test code = 2214) 0.87 MG/DL eGFR AMER. (test cod e = 90327) 126 ML/MIN/1.73 eGFR NON- AMER. (test code = 78877) 109 ML/MIN/1.73 CALC BUN/CREAT (test code = [...] (test code = 2219) 26 U/L HEMOGLOBIN [id number] 00:00:00* Test Item Value Reference Range Interpretation Comme nts HEMOGLOBIN A1c (test code = 84930) 6.4 % CBC W/AUTO [id number] 00:00:00* Test Item Value Reference Range Interpretation [...] (test code = 1015) 193 K/UL HEMOGLOBIN [id number] 00:00:00* Test Item Value Reference Range Interpretation Comme nts HEMOGLOBIN A1c (test code = 64649) 7.8 % THYROID II PROFILE (T3U, T4, T7, TSH)2016-06-03 00:00:00* Test Item Value Reference Range Interpretation Comme nts T3 UPTAKE (test code = 2817) 26.4 % T4 (THYROXINE) (test code = 2819) 8.4 UG/DL CALCULATED T7 (FTI) (test co de = 2820) 2.22 TSH (test code = 2821) 2.2 UIU/ML COMPREHENSIVE METABOLIC [id number] 00:00:00* Test Item Value Reference Range Interpretation Comme nts GLUCOSE (test code = 2217) 98 MG/DL BUN (test code = 2208) 14 MG/DL CREATININE (test code = 2214) 0.82 MG/DL eGFR AMER. (test cod e = 81002) 132 ML/MIN/1.73 eGFR NON- AMER. (test code = 65198) 114 ML/MIN/1.73 CALC BUN/CREAT (test code = [...] (test code = 2219) 194 U/L LIPID [id number] 00:00:00* Test Item Value Reference Range Interpretation Comme nts CHOLESTEROL (test code = 2210) 207 MG/DL TRIGLYCERIDES (test code = 2232) 212 MG/DL HDL CHOLESTEROL (test code = 2220) 34 MG/DL CALC LDL CHOL (test code = 2237) 131 MG/DL RISK RATIO LDL/HDL (test cod e = 2238) 3.84 RATIO CBC W/AUTO [id number] 00:00:00* Test Item Value Reference Range Interpretation [...] 1016) (NOTE) Notes Date/Time Note Provider Source 2024-01-13 21:44:44 Pt given printed and verbal discharge instructions regarding viral URI with cough, chest pain, and fever Prescriptions provided: albuterol 90 mcg/actuation inhaler benzonatate 200 mg capsule ondansetron 4 mg disintegrating tablet Pt verbalized understanding of instructions, pt awake alert oriented, resp reg unlabored, skin w/d, color appropriate for race, moves all ext well,pt encouraged to follow up with pcp Advised to seek medical attention for new/prolonged/worsening of symptoms No adverse reaction to meds given in ER noted upon discharge PIV d'cd, dressing to site, catheter in tact. Awake, alert oriented, resp reg unlabored, skin w/d, pt leaving amb with steady gait, in no apparent distress STA Ortiz RN [facility] 2024-01-13 18:52:22 Patient states: "I'm having chest pain and it hurts to talk. My pain started 3 days ago" STA Gaona RN [facility] 2024-01-07 08:45:00 Written/verbal d/c instructions, out of er no distress STA Gupta RN [facility] 2024-01-07 07:50:22 Pt arrived via private car with c/o von foot pain and wounds between his toes. States that it started about 2 weeks ago. Pt states he is IDDM that he has not been taking as ordered. STA Womack RN [facility]
[2025-02-18 14:29] LABS: Specific Gravity > 1.030 (1.005-1.030); Urine Bilirubin NEGATIVE (Negative); Urine Blood Negative (Negative); Urine Clarity Clear (Clear); Urine Color Colorless (Yellow); Urine Glucose 4+ (Over) (Negative); Urine Ketones NEGATIVE (Negative); Urine Microscopic Reflex YN NO UMIC; Urine Nitrite NEGATIVE (Negative); Urine Protein NEGATIVE (Negative); Urine Urobilinogen Normal (Normal); Urine pH 5.5 (5.0-7.0)
[2025-02-18 14:31] LABS: Absolute Basophils 0.1 K/uL (0-0.5); Absolute Eosinophils 0.1 K/uL (0-0.5); Absolute Lymphocytes (CBC) 2.2 K/uL (0.7-4.9); Absolute Monocytes 0.6 K/uL (0.1-1.3); Absolute Neutrophil 6.8 K/uL (1.8-8.0); Basophils % 0.5 % (0-1.3); Eosinophils % 0.8 % (0-4.4); Hematocrit 43.8 % (39.6-49.0); Hemoglobin 15.4 g/dL (13.6-17.9); Lymphocytes % 22.1 % (15.3-44.8); MCH 31.4 pg (27.0-35.0); MCHC 35.2 g/dL (32.0-36.0); MCV 89.2 fL (80-100); MPV 10.1 fL (7.6-11.3); Monocytes % 6.5 % (3.3-12.3); Neutrophils % 70.1 % (41.7-73.7); Nucleated Red Blood Cells % 0.1 % (0-0); Platelets 189 thou/uL (152-406); RBC Red Blood Cell Count 4.91 M/uL (4.33-5.43); Red Cell Distribution Width 13.1 % (12.1-15.2)
[2025-02-18 14:58] LABS: Albumin 3.9 g/dL (3.4-5.0); Albumin/Globulin Ratio 1.1 (1.1-1.8); Anion Gap 13.1 mEq/L (5.0-15.0); Bilirubin Total 0.3 mg/dL (0.2-1.0); Globulin 3.6 g/dL (2.3-3.5); Potassium 4.1 mEq/L (3.5-5.1); Protein, Total 7.5 g/dL (6.4-8.2)
[2025-02-18] MEDS ORDERED: ONDANSETRON 4 MG/2 ML VIAL ONE (15:21)
[2025-02-18] MEDS ORDERED: MORPHINE 4 MG/ML SYR ONE (15:21)
[2025-02-18] MEDS ORDERED: INSULIN REGULAR (HUMAN) 100 UNIT/ML ONE (15:21)
[2025-02-18] MEDS ORDERED: FAMOTIDINE 20 MG/2 ML VIAL IV ONE (15:22)
[2025-02-18] MEDS ORDERED: NA CHLORIDE 0.9% 1,000 ML ONE (15:22)
--- NOTE | 2025-02-18 15:51 | RAD REPORT ---
EXAMINATION: CT ABDOMEN AND PELVIS WITHOUT CONTRAST CLINICAL INDICATION: Abdominal pain TECHNIQUE: CT abdomen and pelvis was performed, as per department protocol. IV contrast and oral was not administered.Axial, sagittal and coronal reconstructions were obtained. One or more of the following dose reduction techniques were used: Automated exposure control, adjustment of the mA and/o r kV according to the patient size, and/or iterative reconstruction. Unless otherwise specified, incidental findings do not require dedicated imaging follow-up. [id number]. COMPARISON: November 2024 FINDINGS: The lack of intravenous and oral contrast limits evaluation of solid organs, vessels and bowel. Mild fatty liver Cholecystectomy The spleen, pancreas, adrenals and kidneys appear grossly normal No evidence of diverticulitis. Normal appendix. Small to moderate right inguinal hernia contains fat IMPRESSION: No acute abnormality displayed
[2025-02-18] MEDS ORDERED: DICYCLOMINE HCL 10 MG CAP ONE (16:35)
[2025-02-18] MEDS ORDERED: KETOROLAC 30 MG/ML INJ ONE (16:35)
--- NOTE | 2025-02-18 16:46 | EDPHYS ---
Physician Documentation [facility] Name: Yehuda Giraldo Age: 44 yrs Sex: Male : 1980 Arrival Date: 02/18/2025 Time: 13:07 Bed 8 Private MD: ED Physician Nnamdi Steen HPI: 02/18 13:57 This 44 yrs old Male presents to ER via Ambulatory with complaints of kb Abdominal Pain. 13:57 Pt is a 44 year old male who presents for diffuse abd pain and nausea. states the pain kb has been ongoing since hospitalization in December, but it was tolerable until today. 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 Pt states he was diagnosed with gastroparesis during last hospital stay and was scheduled for EGD on Sunday, but had to cancel due to out of pocket cost. . Historical: - Allergies: 13:43 No Known Allergies; iw - PMHx: 13:43 COPD; Diabetes - NIDDM; Diverticulitis; Hypertensive disorder; RA; gastroparesis; iw - PSHx: 13:43 Cholecystectomy; iw - Immunization history:: Adult Immunizations unknown. - Infectious Disease History:: Denies. - Social history:: Smoking status: Patient reports the use of cigarette tobacco products. ROS: 13:57 Constitutional: As per HPI kb Exam: 13:57 Constitutional: This is a well developed, well nourished patient who is awake, alert, kb and in no acute distress. Head/Face: Normocephalic, atraumatic. ENT: Moist Mucous membranes Cardiovascular: Regular rate Respiratory: Respirations even and unlabored. No increased work of breathing. Talking in full sentences Skin: Warm, dry with normal turgor. Normal color. MS/ Extremity: Pulses equal, no cyanosis. Neurovascular intact. Full, normal range of motion. Neuro: Awake and alert, GCS 15, oriented to person, place, time, and situation. 13:57 Abdomen/GI: Inspection: abdomen appears normal, Bowel sounds: normal, Palpation: moderate abdominal tenderness, in all quadrants, Vital Signs: 13:43 BP 140 / 87; Pulse 118; Resp 18; Temp 98.8; Pulse Ox 95% on R/A; Weight 86.18 kg; iw Height 5 ft. 8 in. ; Pain 9/10; 16:56 BP 143 / 95; Pulse 88; Resp 18; Temp 97.8; Pulse Ox 98% on R/A; ph 13:43 Body Mass Index 28.89 (86.18 kg, 172.72 cm) iw 13:43 Pain Scale: Adult iw MDM: 13:12 Medical Screening Exam initiated kb 16:43 Data reviewed: vital signs, nurses notes. kb 16:43 Differential diagnosis: gastritis, non-specific abd pain, pancreatitis, Peptic Ulcer kb Disease. Historians other than the Patient: Daughter/Son: son. Counseling: I had a detailed discussion with the patient and/or guardian regarding the historical points, exam findings, and any diagnostic results supporting the discharge/admit diagnosis, lab results, radiology results, the need for outpatient follow up, a family practitioner, a electronic news gathering editor, to return to the emergency department if symptoms worsen or persist or if there are any questions or concerns that arise at home. ED course: Pt states he hasn't used his insulin in a couple of days and ate a alayna size snickers yesterday so that is probably why glucose is elevated today. Pt educated on diet control and using insulin as prescribed. Pt has follow up with PCP tomorrow at 9:45. . 02/18 13:30 Order name: CBC with Diff; Complete Time: 14:31 kb 02/18 13:30 Order name: CMP; Complete Time: 15:04 kb 02/18 13:30 Order name: Lipase; Complete Time: 15:04 kb 02/18 13:30 Order name: Urinalysis w/ reflexes; Complete Time: 14:31 kb 02/18 17:06 Order name: Glucose, Ancillary Testing; Complete Time: 17:10 EDMS 02/18 15:24 Order name: Abdomen ; Complete Time: 15:52 EDMS 02/18 13:30 Order name: IV Saline Lock; Complete Time: 14:25 kb 02/18 13:30 Order name: Labs collected and sent; Complete Time: 14:25 kb 02/18 16:25 Order name: Blood Glucose Level; Complete Time: 16:56 kb Administered Medications: 15:50 Drug: Famotidine IVP 20 mg IVP once; dilute with 10 mL 0.9% NaCl; give over 2 minutes ph Route: IVP; Site: left forearm; 16:59 Follow up: Response: No adverse reaction ph 15:50 Drug: Insulin Regular Human IVP 10 units IVP once {Co-Signature: carlos (Fariba Kennedy ph RN).} Route: IVP; Site: left forearm; 16:59 Follow up: Response: No adverse reaction; Blood sugar is lowered ph 15:51 Drug: Ondansetron IVP 4 mg IVP once; over 2 minutes Route: IVP; Site: left forearm; ph 16:59 Follow up: Response: No adverse reaction ph 15:51 Drug: morphine IVP or IV 4 mg IVP once over 4 mins Route: IVP; Infused Over: 4 mins; ph Site: left forearm; 16:59 Follow up: Response: No adverse reaction; Pain is decreased ph 15:51 Drug: NS 0.9% IV 1000 ml IV at 1 bolus Per protocol; to be given as a bolus over 60 ph minutes Route: IV; Rate: 1 bolus; Site: left forearm; 16:59 Follow up: Response: No adverse reaction; IV Status: Completed infusion; IV Intake: ph 1000ml 16:56 Drug: Ketorolac IVP 15 mg IVP once Route: IVP; Site: left forearm; ph 16:58 Follow up: Response: No adverse reaction ph 16:56 Drug: Dicyclomine PO 20 mg PO once Route: PO; ph 16:58 Follow up: Response: No adverse reaction ph Disposition Summary: 02/18/25 16:46 Discharge Ordered Notes: Location: Home kb Condition: Stable kb Diagnosis - Abdominal pain, Generalized kb Followup: kb - With: Emergency Department - When: As needed - Reason: Worsening of condition Followup: kb - With: Private Physician - When: 2 - 3 days - Reason: Recheck today's complaints, Continuance of care, Re-evaluation by your physician Discharge Instructions: - Discharge Summary Sheet kb - Abdominal Pain, Adult, [id number] kb Forms: - Medication Reconciliation Form kb - Antibiotic Education kb - Prescription Opioid Use kb - Patient Portal Instructions kb - Leadership Thank You Letter kb Prescriptions: - Protonix 40 mg Oral Tablet - take 1 tablet ORAL route once daily; 30 tablet; Refills: 0, Product Selection kb Permitted - dicyclomine 20 mg Oral tablet - take 1 tablet ORAL route 4 times per day As needed; 20 tablet; Refills: 0, kb Product Selection Permitted Signatures: Dispatcher [employer] Sherry Eisenberg FNP-C ANALY[employer]-CkMaryjane Quinones, RN RN iw Brandi Rodriguez RN RN Nnamdi Steen MD MD ec2 Fariba Kennedy RN db Corrections: (The following items were deleted from the chart) 13:44 13:43 Allergies: Aspirin; [facility] 15:24 13:30 Abdomen Pelvis W [id number] ordered. EDMS EDMS
--- NOTE | 2025-02-18 16:46 | ER ---
Nurse's Notes [facility] Name: Yehuda Giraldo Age: 44 yrs Sex: Male : 1980 Arrival Date: 02/18/2025 Time: 13:07 Bed 8 Private MD: Diagnosis: Abdominal pain, Generalized Presentation: 02/18 13:43 Chief complaint: Patient states: abd pain since last admission X 1 month ago. iw Coronavirus screen: At this time, the client does not indicate any symptoms associated with coronavirus-19. Ebola Screen: No symptoms or risks identified at this time. Initial Sepsis Screen: Does the patient meet any 2 criteria? HR > 90 bpm. Does the patient have a suspected source of infection? No. Patient's initial sepsis screen is negative. Risk Assessment: Do you want to hurt yourself or someone else? Patient reports no desire to harm self or others. Onset of symptoms was December 2024. 13:43 Method Of Arrival: Ambulatory iw 13:43 Acuity: SARA 3 iw Historical: - Allergies: 13:43 No Known Allergies; iw - PMHx: 13:43 COPD; Diabetes - NIDDM; Diverticulitis; Hypertensive disorder; RA; gastroparesis; iw - PSHx: 13:43 Cholecystectomy; iw - Immunization history:: Adult Immunizations unknown. - Infectious Disease History:: Denies. - Social history:: Smoking status: Patient reports the use of cigarette tobacco products. Screenin:57 [facility] ED Fall Risk Assessment (Adult) History of falling in the last 3 months, ph including since admission No falls in past 3 months (0 pts) Confusion or Disorientation No (0 pts) Intoxicated or Sedated No (0 pts) Impaired Gait No (0 pts) Mobility Assist Device Used No (0 pt) Altered Elimination No (0 pt) Score/Fall Risk Level 0 - 2 = Low Risk Oriented to surroundings, Maintained a safe environment, Hourly rounding (assess needs \T\ fall precautionary measures) done. Abuse screen: Denies threats or abuse. Denies injuries from another. Nutritional screening: No deficits noted. Tuberculosis screening: No symptoms or risk factors identified. Assessment: 15:55 General: Appears in no apparent distress. comfortable, Behavior is calm, cooperative, ph appropriate for age. Pain: Complains of pain in abdomen. Neuro: Level of Consciousness is awake, alert, obeys commands, Oriented to person, place, time, situation. Cardiovascular: Capillary refill < 3 seconds in bilateral fingers Patient's skin is warm and dry. Respiratory: Airway is patent Respiratory effort is even, unlabored, Respiratory pattern is regular, symmetrical. GI: Abdomen is round non-distended, Bowel sounds present X 4 quads. Abd is soft X 4 quads Reports lower abdominal pain, upper abdominal pain, nausea. Derm: Skin is pink, warm \T\ dry. Vital Signs: 13:43 BP 140 / 87; Pulse 118; Resp 18; Temp 98.8; Pulse Ox 95% on R/A; Weight 86.18 kg; iw Height 5 ft. 8 in. ; Pain 9/10; 16:56 BP 143 / 95; Pulse 88; Resp 18; Temp 97.8; Pulse Ox 98% on R/A; ph 13:43 Body Mass Index 28.89 (86.18 kg, 172.72 cm) iw 13:43 Pain Scale: Adult iw ED Course: 13:09 Patient arrived in ED. mr 13:12 Sherry Carter FNP-C is PHCP. kb 13:12 Nnamdi Steen MD is Attending Physician. kb 13:43 Triage completed. iw 13:44 Arm band placed on. iw 14:24 Initial lab(s) drawn, by ED staff, sent to lab. Urine collected: clean catch specimen, iw clear. Inserted saline lock: 20 gauge in left forearm, using aseptic technique. Blood collected. Flushed with 10 mL NS. 14:25 CBC with Diff Sent. iw 14:25 CMP Sent. iw 14:25 Lipase Sent. iw 14:25 Urinalysis w/ reflexes Sent. iw 15:04 Notified Nurse Practitioner and/or Physician Lath Hand of a critical lab result(s), ll1 glucose 561. 15:12 Brandi Rodriguez, RN is Primary Nurse. ph 15:29 Abdomen In Process Unspecified. EDMS 16:58 Patient has correct armband on for positive identification. Bed in low position. Call ph light in reach. Side rails up X 1. Pulse ox on. NIBP on. Door closed. Noise minimized. Warm blanket given. 16:59 No provider procedures requiring assistance completed. IV discontinued, intact, ph bleeding controlled, No redness/swelling at site. Pressure dressing applied. Administered Medications: 15:50 Drug: Famotidine IVP 20 mg IVP once; dilute with 10 mL 0.9% NaCl; give over 2 minutes ph Route: IVP; Site: left forearm; 16:59 Follow up: Response: No adverse reaction ph 15:50 Drug: Insulin Regular Human IVP 10 units IVP once {Co-Signature: db (Fariba Kennedy ph RN).} Route: IVP; Site: left forearm; 16:59 Follow up: Response: No adverse reaction; Blood sugar is lowered ph 15:51 Drug: Ondansetron IVP 4 mg IVP once; over 2 minutes Route: IVP; Site: left forearm; ph 16:59 Follow up: Response: No adverse reaction ph 15:51 Drug: morphine IVP or IV 4 mg IVP once over 4 mins Route: IVP; Infused Over: 4 mins; ph Site: left forearm; 16:59 Follow up: Response: No adverse reaction; Pain is decreased ph 15:51 Drug: NS 0.9% IV 1000 ml IV at 1 bolus Per protocol; to be given as a bolus over 60 ph minutes Route: IV; Rate: 1 bolus; Site: left forearm; 16:59 Follow up: Response: No adverse reaction; IV Status: Completed infusion; IV Intake: ph 1000ml 16:56 Drug: Ketorolac IVP 15 mg IVP once Route: IVP; Site: left forearm; ph 16:58 Follow up: Response: No adverse reaction ph 16:56 Drug: Dicyclomine PO 20 mg PO once Route: PO; ph 16:58 Follow up: Response: No adverse reaction ph Medication: 16:58 VIS not applicable for this client. ph Intake: 16:59 IV: 1000ml; Total: 1000ml. ph Outcome: 16:46 Discharge ordered by MD. husain 17:11 Discharged to home ambulatory, with significant other, ph 17:11 Condition: good 17:11 Discharge instructions given to patient, Instructed on discharge instructions, follow up and referral plans. medication usage, Demonstrated understanding of instructions, follow-up care, medications, Prescriptions given X 2, 17:11 Patient left the ED. ph Signatures: Dispatcher [employer] EDMT Sherry Carter, DAWOOD-C STRICKLER ATTENDANT-CkElvira Saini, Reg Patrick mr Maryjane Jenkins RN RN Brandi Rodriguez RN RN Ricardo Medellin RN RN ll1 Fariba Kennedy RN db Corrections: (The following items were deleted from the chart) 13:44 13:43 Allergies: Aspirin; iw iw
[2025-02-18 18:52] VITALS: BP 143/95; TEMP 97.8; O2SAT 98
== END 2025-02-18 17:11 | disposition home or self-care (01) ==
LOC: ER 13:07
DX: R10.84 Generalized abdominal pain (principal); R11.0 Nausea; Z72.0 Tobacco use
CPT/HCPCS: 85025; 36415; 82947; 81003; 83690; 80053; 74176; J2405; J1815; J7030